=== PATIENT | male | born 1965 | race African-American/Black ===

== ENCOUNTER 2020-10-01 11:00 | Outpatient (RCR) | payer MEDICAID, SELFPAY | END 2021-07-06 13:17 | disposition home or self-care (01) | LOC: HO.PT 11:00 | PROVIDERS: PCP Family Medicine; Visit Provider Family Medicine | DX: M54.9 Dorsalgia, unspecified (principal); M25.512 Pain in left shoulder; M54.2 Cervicalgia | CPT/HCPCS: 97110; 97140; 97161; 97530 ==

== ENCOUNTER → 2020-12-21 08:32 | Outpatient (BNVA) | payer MEDICAID, SELFPAY | PROVIDERS: PCP Family Medicine; Visit Provider Orthopaedic Surgery | DX: M67.912 Unspecified disorder of synovium and tendon, left shoulder (principal); M54.16 Radiculopathy, lumbar region | CPT/HCPCS: 20610; 99212; J1100 ==

== ENCOUNTER 2021-01-04 07:29 | Outpatient (REF) | payer MEDICAID, SELFPAY | END 2021-01-04 07:30 | disposition home or self-care (01) | LOC: HO.CT 07:29 | PROVIDERS: PCP Family Medicine; Visit Provider Orthopaedic Surgery | DX: Z13.89 Encounter for screening for other disorder (principal) ==

== ENCOUNTER 2021-01-11 13:01 | Outpatient (REF) | payer MEDICAID, SELFPAY ==
--- NOTE | ~2021-01-11 | XR_ITS ---
EXAMINATION: XR SHOULDER, LEFT CLINICAL INFORMATION: Left shoulder pain COMPARISON: None TECHNIQUE: After obtaining a single image on supine AP view and opening on fluoroscopy table patient's family had claustrophobia and refused imaging. Will reschedule fluoroscopy arthrogram following medications as per the patient. XR/XR shoulder LT 1V FINDINGS/IMPRESSION: Left shoulder arthrogram was canceled as patient had sudden claustrophobia.. Fluoroscopy 0.4 minutes. Dose area product: 1.849
== END 2021-01-11 13:02 | disposition home or self-care (01) ==
LOC: HO.XRAY 13:01
PROVIDERS: PCP Family Medicine; Visit Provider Orthopaedic Surgery
DX: M67.912 Unspecified disorder of synovium and tendon, left shoulder (principal)
CPT/HCPCS: 73020

== ENCOUNTER 2021-02-22 13:10 | Outpatient (REF) | payer MEDICAID, SELFPAY | END 2021-02-22 13:11 | disposition home or self-care (01) | LOC: HO.XRAY 13:10 | PROVIDERS: Visit Provider Orthopaedic Surgery | DX: Z13.89 Encounter for screening for other disorder (principal) ==

== ENCOUNTER → 2021-02-25 08:36 | Outpatient (BNVA) | payer MEDICAID, SELFPAY | PROVIDERS: PCP Family Medicine; Visit Provider Orthopaedic Surgery | DX: M67.912 Unspecified disorder of synovium and tendon, left shoulder (principal) | CPT/HCPCS: 99212 ==

== ENCOUNTER → 2021-03-05 13:34 | Outpatient (BNVA) | payer MEDICAID, SELFPAY | PROVIDERS: PCP Family Medicine; Visit Provider Nurse Practitioner Family | DX: M54.16 Radiculopathy, lumbar region (principal); M53.3 Sacrococcygeal disorders, not elsewhere classified | CPT/HCPCS: 99202 ==

== ENCOUNTER → 2021-04-06 14:21 | Outpatient (BNVA) | payer MEDICAID, SELFPAY | PROVIDERS: PCP Family Medicine; Visit Provider Nurse Practitioner Family | DX: M54.16 Radiculopathy, lumbar region (principal); M53.3 Sacrococcygeal disorders, not elsewhere classified | CPT/HCPCS: 99212 ==

== ENCOUNTER → 2021-06-09 10:46 | Outpatient (BNVA) | payer MEDICAID, SELFPAY | PROVIDERS: PCP Family Medicine; Visit Provider Urology | DX: N52.9 Male erectile dysfunction, unspecified (principal); N50.3 Cyst of epididymis | CPT/HCPCS: 99212 ==

== ENCOUNTER 2021-07-02 12:42 | Emergency (ER) | payer MEDICAID, SELFPAY ==
[2021-07-02 12:46] VITALS: BP 158/108; PULSE 64; RESP 16; TEMP 36.3; O2SAT 98; BMI 33.8
--- NOTE | 2021-07-02 13:08 | ED.BACK ---
HPI - Back Pain/Injury General Chief Complaint: Back Pain/Injury Stated Complaint: fall- back & hip pain Time Seen by Provider: 07/02/21 13:08 Source: patient Mode of arrival: ambulatory Limitations: no limitations History of Present Illness HPI Narrative: Patient is a 55-year-old male with a past medical history of HTN, ED, chronic back pain and lumbar radiculopathy complaining of low back pain after mechanical fall 3 days ago. Patient states he slipped while was fishing, he states he is having low back left hip and left groin pain which has gotten progressively worse since the incident. He denies any urinary or bowel incontinence. He states he did try to take some ibuprofen with no relief, last dose was yesterday. Related Data Home Medications Medication Instructions Recorded Confirmed atorvastatin 20 mg tablet 20 mg PO DAILY 12/21/20 06/09/21 hydrochlorothiazide 25 mg tablet 25 mg PO DAILY 12/21/20 06/09/21 carvedilol 6.25 mg tablet 6.25 mg PO BID 03/05/21 06/09/21 Previous Rx's Medication Instructions Recorded tizanidine 2 mg tablet 2 mg PO BEDTIME PRN #30 tab 04/06/21 sildenafil 100 mg tablet 100 mg PO DAILY PRN #30 tab 04/30/21 sildenafil 100 mg tablet 100 mg PO DAILY PRN 30 Days #30 tab 06/09/21 naproxen 500 mg tablet 500 mg PO BID PRN #20 tab 07/02/21 prednisone 50 mg tablet 50 mg PO DAILY #4 tab 07/02/21 Allergies Allergy/AdvReac Type Severity Reaction Status Date / Time No Known Allergies Allergy Verified 06/09/21 08:12 [No Known Allergies*] Review of Systems Review of Systems: Yes all other systems are reviewed and are negative [facility] Past Medical History Medical History Chronic back pain Dysfunction of left rotator cuff Erectile dysfunction Hypertension Lumbar radiculopathy Surgical History History of surgery Family History Family History Father No problems noted. Mother No problems noted. Social History Social History Alcohol intake: current Advance Directives: No Advance Directives Information Provided: No Current occupational status: unemployed Physical Exam Vital Signs: Vital Signs: Last Vital Signs Temp 98.0 F 07/02/21 14:28 Pulse 54 07/02/21 14:28 Resp 18 07/02/21 14:28 BP 149/99 H 07/02/21 14:28 Pulse Ox 97 07/02/21 14:28 Body Mass Index 33.8 Const: General: cooperative, healthy appearing, comfortable, no acute distress and well developed Orientation/consciousness: patient oriented x3 Limitations: no limitations HENMT: Head: Yes normal to inspection Eyes: General: appearance normal, both eyes and all related structures Neck: Neck: Yes normal visual inspection and Yes full ROM Resp: Effort & Inspection: normal respiratory effort and able to speak in complete sentences Back/Spine/Pelvis: Thoracic/Lumbar Spine: straight leg raise positive (left) Skin: General skin exam: no rashes or lesions noted Neuro: General: patient oriented x3 Extrem: General: Yes normal to inspection Course Course Course Narrative: Patient is a 55-year-old male with a past medical history of HTN, ED, chronic back pain and lumbar radiculopathy complaining of low back pain after mechanical fall 3 days ago. VSS. PE consistent with sciatica. Will give IM Toradol and prednisone p.o.and reassess. Discharge Plan Discharge Clinical Impression: Sciatica of left side Patient Disposition: Home, Self-Care Instructions: Sciatica (ED), Lower Back Exercises (ED) Additional Instructions: I am sending two prescriptions to her pharmacy, the 1st is prednisone, your going to take this once a day in the morning to help with inflammation, you going to take his medication for 4 days only. You could also take naproxen which is the other medication and sent into her pharmacy at every 12 hours and that is for inflammation and pain. Please follow-up with your primary care doctor is you may need physical therapy or further imaging. Prescriptions: New naproxen 500 mg tablet 500 mg PO BID PRN (Reason: pain) Qty: 20 RF: 0 prednisone 50 mg tablet 50 mg PO DAILY Qty: 4 RF: 0 No Action sildenafil 100 mg tablet 100 mg PO DAILY PRN (Reason: sexual activity) Qty: 30 RF: 1 hydrochlorothiazide 25 mg tablet 25 mg PO DAILY RF: 0 atorvastatin 20 mg tablet 20 mg PO DAILY RF: 0 carvedilol 6.25 mg tablet 6.25 mg PO BID RF: 0 sildenafil 100 mg tablet 100 mg PO DAILY PRN (Reason: sexual activity) 30 Days Qty: 30 RF: 1 tizanidine 2 mg tablet 2 mg PO BEDTIME PRN (Reason: muscle spasticity) Qty: 30 RF: 3 Referrals: Ethel Santana MD [Primary Care Provider] - 2 days (sciatica) Interventions: ED Discharge Assessment Last Done: 07/02/21 15:08 Discharge Date/Time: 07/02/21 15:05
[2021-07-02] MEDS: Ketorolac Tromethamine 60 MG/2 ML VIAL IM (13:40)
[2021-07-02] MEDS: predniSONE 10 MG TABLET 50 MG PO (13:41)
[2021-07-02 14:28] VITALS: BP 149/99; PULSE 54; RESP 18; TEMP 36.7; O2SAT 97
== END 2021-07-02 15:05 | disposition home or self-care (01) ==
PROVIDERS: Emergency Provider Emergency Medicine; PCP Family Medicine
DX: M54.42 Lumbago with sciatica, left side (principal); I10 Essential (primary) hypertension; Z79.899 Other long term (current) drug therapy
CPT/HCPCS: 96372; 99284; J1885

== ENCOUNTER → 2021-10-05 13:58 | Outpatient (BNVA) | payer MEDICAID, SELFPAY | PROVIDERS: PCP Family Medicine; Visit Provider Nurse Practitioner Family | DX: M54.16 Radiculopathy, lumbar region (principal); M79.18 Myalgia, other site; F40.240 Claustrophobia; Z87.39 Personal history of other diseases of the musculoskeletal system and connective tissue | CPT/HCPCS: 99212 ==

== ENCOUNTER → 2021-10-06 11:04 | Outpatient (BNVA) | payer MEDICAID, SELFPAY | PROVIDERS: PCP Family Medicine; Referring Provider Family Medicine; Visit Provider Surgery | DX: Z12.11 Encounter for screening for malignant neoplasm of colon (principal) | CPT/HCPCS: 99202 ==

== ENCOUNTER → 2021-12-10 10:42 | Outpatient (BNVA) | payer MEDICAID, SELFPAY | PROVIDERS: PCP Family Medicine; Visit Provider Urology ==

== ENCOUNTER 2022-01-05 12:38 | Outpatient (REF) | payer MEDICAID, SELFPAY ==
--- NOTE | ~2022-01-05 | XR_ITS ---
EXAMINATION: XR SHOULDER, LEFT CLINICAL INFORMATION: Shoulder pain COMPARISON: None TECHNIQUE: Four views of the left shoulder. XR/XR shoulder LT min 2V FINDINGS/IMPRESSION: No acute fracture or dislocation. Moderate degenerative changes of the acromioclavicular joint with loss of joint space. Glenohumeral joint space is maintained. Soft tissues are unremarkable.
== END 2022-01-05 12:39 | disposition home or self-care (01) ==
LOC: HO.XRAY 12:38
PROVIDERS: Absent Provider Family Medicine; PCP Family Medicine; Visit Provider Emergency Medicine
DX: M25.512 Pain in left shoulder (principal)
CPT/HCPCS: 73030

== ENCOUNTER → 2022-01-17 12:30 | Outpatient (BNVA) | payer MEDICAID, SELFPAY | PROVIDERS: PCP Family Medicine; Visit Provider Orthopaedic Surgery | DX: M25.512 Pain in left shoulder (principal); M67.912 Unspecified disorder of synovium and tendon, left shoulder; M19.012 Primary osteoarthritis, left shoulder; M54.16 Radiculopathy, lumbar region; I10 Essential (primary) hypertension; E78.00 Pure hypercholesterolemia, unspecified; F40.240 Claustrophobia; Z87.891 Personal history of nicotine dependence | CPT/HCPCS: 99212 ==

== ENCOUNTER 2022-02-15 | Outpatient (REF) | payer MEDICAID, SELFPAY ==
[2022-02-11 10:40] VITALS: BMI 34.7
--- NOTE | 2022-02-15 | ECG_ITS ---
Test Reason : PREOP Blood Pressure : / mmHG Vent. Rate : 054 BPM Atrial Rate : 054 BPM P-R Int : 238 ms QRS Dur : 092 ms QT Int : 414 ms P-R-T Axes : 010 043 044 degrees QTc Int : 392 ms Sinus bradycardia with 1st degree A-V block Nonspecific T wave abnormality Abnormal ECG When compared with ECG of 01-NOV-2013 07:31, No significant change was found Referred By: Isabell Ovalle Electronically Signed By:NERISSA DUMAS MD
[2022-02-15 12:10] VITALS: BP 132/74; PULSE 63; RESP 16; O2SAT 98; BMI 34.5
--- NOTE | 2022-02-15 12:35 | P.CONAN_ITS ---
HPI - Anesthesia Eval Consult details Narrative: 56yo M for Left Shoulder Repair Distal Excision Clavicle,poss rotator cuff repair, Labs, EKG, Medical Clearance pending (ECHO 2019) - Echo ordered but not booked as of 03/02/22 [facility] Active Problems Active Problems: All Active Problems (Updated 02/11/22 @ 11:00 by Silvana Dasilva RN) Sacroiliac joint pain (Acute) Epididymal cyst (Acute) History of degenerative disc disease (Acute) Myofascial pain (Acute) Claustrophobia (Acute) Acromioclavicular joint arthritis (Acute) Colon cancer screening (Acute) Erectile dysfunction (Acute) Lumbar radiculopathy (Acute) Dysfunction of left rotator cuff (Acute) Past Medical History Medical History (Updated 02/11/22 @ 11:00 by Silvana Dasilva RN) Anxiety Cardiomyopathy Chronic back pain Colon cancer screening COVID-19 vaccine series completed Depression Dysfunction of left rotator cuff Elevated cholesterol Erectile dysfunction GERD (gastroesophageal reflux disease) Hypertension Lumbar radiculopathy Sickle-cell trait Sleep apnea Weakness Family History Family History Father No problems noted. Mother No problems noted. Family history of problems with anesthesia: No Surgical History Surgical History (Updated 02/11/22 @ 10:33 by Silvana Dasilva RN) H/O colonoscopy Hx of appendectomy Hx of arthroscopic knee surgery History of Problems with Anesthesia: No Social History Social History (Updated 02/11/22 @ 10:44 by Silvana Dasilva RN) Household Members Other:: none Are you a primary healthcare administration internship to a significant other at home: No Do you presently have visiting nurse or other home services: No Alcohol intake: current Alcohol intake frequency: former alcohol drinker Patient Tobacco Use Status: Former Tobacco user Quit Date: 2008 Tobacco use type: Cigarette Use of substances other than those prescribed or required for medical reasons: Yes Substance Use Type: Marijuana Substance Use Frequency: Daily Advance Directives Date on File: 01/13/16 Current occupational status: unemployed Narrative Narrative: No recent illness No SOB/CP with activity within limits of pain Hx of Cardiomyopathy. No SOB, peripheral edema or orthopnea. Meds Allergies Allergy/AdvReac Type Severity Reaction Status Date / Time No Known Allergies Allergy Verified 02/11/22 10:36 [No Known Allergies*] Home Medications Medication Instructions Recorded Confirmed Last Taken Type atorvastatin 20 mg tablet 20 mg PO BEDTIME 12/21/20 02/11/22 Unknown History hydrochlorothiazide 25 mg tablet 25 mg PO DAILY 12/21/20 02/11/22 Unknown History carvedilol 6.25 mg tablet 6.25 mg PO BID 03/05/21 02/11/22 Unknown History folic acid 1 mg tablet 1 mg PO DAILY 10/06/21 02/11/22 Unknown History melatonin 3 mg capsule 3 mg PO BEDTIME PRN 10/06/21 02/11/22 Unknown History thiamine mononitrate (vit B1) 100 100 mg PO DAILY 10/06/21 02/11/22 Unknown History mg tablet (Vitamin B-1 (mononitrate)) omeprazole 20 mg capsule,delayed 1 cap PO DAILY PRN 02/11/22 02/11/22 Unknown History release Exam Exam Date and Time: February 15, 2022 1235 Height,Weight and Vital Signs: Height 5 ft 10 in Weight 109.2 kg Last Vital Signs Pulse 63 02/15/22 12:10 Resp 16 02/15/22 12:10 BP 132/74 02/15/22 12:10 Pulse Ox 98 02/15/22 12:10 Airway TM Dist: >3cm Neck ROM: Full Loose/Missing/Broken Teeth: Yes (#29 loose, #30 broken, #21 broken, mult molars pulled) Assessment and Plan Final Anesthetic Review Family History of Problems with Anesthesia: No History of Problems with Anesthesia: No
[2022-02-15 13:23] LABS: Hematocrit 42.3 % (42.0-52.0); Hemoglobin 14.3 g/dl (14.0-18.0); Mean Corpuscular HGB Conc 33.8 g/dl (31.0-36.0); Mean Corpuscular Volume 76.8 fL (80.0-98.0); Mean Platelet Volume 9.6 fL (9.4-12.4); Platelet Count 217 X10*3/uL (160-400); Red Blood Count 5.51 X10*6/uL (4.60-5.80); Red Cell Distribution Width 14.8 % (11.0-16.0); White Blood Count 6.2 X10*3/uL (4.8-10.8)
[2022-02-15 13:52] LABS: Anion Gap 12 (12-20); Blood Urea Nitrogen 16 mg/dL (9-16); Calcium 9.9 mg/dL (8.4-10.2); Carbon Dioxide 25 mmol/L (22-29); Chloride 105 mmol/L (96-108); Creatinine Clr Calc Pharmacy 104.1; Estimated Glomerular Filt Rate > 60; Glucose Random 92 mg/dL (60-115); Potassium 3.9 mmol/L (3.3-5.1); Sodium 138 mmol/L (135-145)
--- NOTE | 2022-03-08 08:21 | P.CONAN_ITS ---
HPI - Anesthesia Eval Consult details Narrative: Cx d/t cellulitis of foot with abx treatment 56yo M for Left Shoulder Repair Distal Excision Clavicle,poss rotator cuff repair, Medically optimized per PCP [facility] Active Problems Active Problems: All Active Problems (Updated 02/11/22 @ 11:00 by Silvana Dasilva RN) Sacroiliac joint pain (Acute) Epididymal cyst (Acute) History of degenerative disc disease (Acute) Myofascial pain (Acute) Claustrophobia (Acute) Acromioclavicular joint arthritis (Acute) Colon cancer screening (Acute) Erectile dysfunction (Acute) Lumbar radiculopathy (Acute) Dysfunction of left rotator cuff (Acute) Past Medical History Medical History (Updated 02/11/22 @ 11:00 by Silvana Dasilva RN) Anxiety Cardiomyopathy Chronic back pain Colon cancer screening COVID-19 vaccine series completed Depression Dysfunction of left rotator cuff Elevated cholesterol Erectile dysfunction GERD (gastroesophageal reflux disease) Hypertension Lumbar radiculopathy Sickle-cell trait Sleep apnea Weakness Family History Family History Father No problems noted. Mother No problems noted. Family history of problems with anesthesia: No Surgical History Surgical History (Updated 02/11/22 @ 10:33 by Silvana Dasilva RN) H/O colonoscopy Hx of appendectomy Hx of arthroscopic knee surgery History of Problems with Anesthesia: No Social History Social History (Updated 02/11/22 @ 10:44 by Silvana Dasilva RN) Household Members Other:: none Are you a primary critical care nurse specialist to a significant other at home: No Do you presently have visiting nurse or other home services: No Alcohol intake: current Alcohol intake frequency: former alcohol drinker Patient Tobacco Use Status: Former Tobacco user Quit Date: 2008 Tobacco use type: Cigarette Substance Use Type: Marijuana Advance Directives Date on File: 01/13/16 Current occupational status: unemployed Meds Allergies Allergy/AdvReac Type Severity Reaction Status Date / Time No Known Allergies Allergy Verified 03/07/22 12:41 [No Known Allergies*] Home Medications Medication Instructions Recorded Confirmed Last Taken Type atorvastatin 20 mg tablet 20 mg PO BEDTIME 12/21/20 03/07/22 Unknown History hydrochlorothiazide 25 mg tablet 25 mg PO DAILY 12/21/20 03/07/22 Unknown History carvedilol 6.25 mg tablet 6.25 mg PO BID 03/05/21 03/07/22 Unknown History folic acid 1 mg tablet 1 mg PO DAILY 10/06/21 03/07/22 Unknown History melatonin 3 mg capsule 3 mg PO BEDTIME PRN 10/06/21 03/07/22 Unknown History thiamine mononitrate (vit B1) 100 100 mg PO DAILY 10/06/21 03/07/22 Unknown History mg tablet (Vitamin B-1 (mononitrate)) omeprazole 20 mg capsule,delayed 1 cap PO DAILY PRN 02/11/22 03/07/22 Unknown History release Exam Exam Date and Time: March 08, 2022820 Height,Weight and Vital Signs: Height 5 ft 10 in Weight 109.2 kg Last Vital Signs Pulse 63 02/15/22 12:10 Resp 16 02/15/22 12:10 BP 132/74 02/15/22 12:10 Pulse Ox 98 02/15/22 12:10 Pertinent Lab Results Pertinent Lab Results: Laboratory Tests 02/15/22 02/15/22 13:08 13:08 WBC 6.2 RBC 5.51 Hgb 14.3 Hct 42.3 MCV 76.8 L MCH 26.0 L MCHC 33.8 RDW 14.8 Plt Count 217 MPV 9.6 Absolute Nucleated RBC 0.000 Nucleated RBC % (auto) 0.0 Sodium 138 Potassium 3.9 Chloride 105 Carbon Dioxide 25 Anion Gap 12 BUN 16 Creatinine 0.98 Estim Creat Clear Calc 104.1 Estimated GFR > 60 Random Glucose 92 Calcium 9.9 Narrative Narrative: EKG 01/2022 Vent. Rate : 054 BPM ? ? Atrial Rate : 054 BPM ?? P-R Int : 238 ms? QRS Dur : 092 ms ? ? QT Int : 414 ms ? ? ? P-R-T Axes : 010 043 044 degrees ?? QTc Int : 392 ms ? Sinus bradycardia with 1st degree A-V block Nonspecific T wave abnormality Abnormal ECG When compared with ECG of 01-NOV-2013 07:31, No significant change was found ECHO 02/2022 Conclusions: - 1.? Normal LV systolic function with mild LVH? 2.? Normal cardiac valvular Doppler? 3.? Normal RV systolic pressure? 4.? No pericardial effusion? ?? Assessment and Plan Assessment Anesthesia Assessment: Chart Reviewed Final Anesthetic Review Family History of Problems with Anesthesia: No History of Problems with Anesthesia: No
== END 2022-02-15 00:01 | disposition home or self-care (01) ==
LOC: HO.PAT
PROVIDERS: Nurse Practitioner; PCP Family Medicine; Visit Provider Orthopaedic Surgery
DX: Z53.09 Procedure and treatment not carried out because of other contraindication (principal); L03.114 Cellulitis of left upper limb; M67.912 Unspecified disorder of synovium and tendon, left shoulder; M19.012 Primary osteoarthritis, left shoulder
CPT/HCPCS: 36415; 80048; 85027; 93005

== ENCOUNTER → 2022-03-03 15:50 | Outpatient (REF) | payer MEDICAID, SELFPAY ==
--- NOTE | 2022-03-03 15:56 | CA_ITS ---
Transthoracic Echocardiogram Patient (Last, First, Middle): Ramsey Ayala L Gender: Male Date of : 1965 Age: 56 Procedure Date: 03/03/2022 Procedure Type: Transthoracic Echocardiogram Location: OP Height: 180.34 cm Weight: 107.05 kg BSA: 2.26 m2 Heart Rate: bpm BP: 127 / 77 mmHg Wet Sander: BERTO Referring MD: Diane Hernandez NP Computer Science Professor: Ochoa Marquez MD Symptoms: I42.2 OTHER HYPERTROPHIC CMP, Z01.810 CV PRE OP EXAM Study Quality: Good ECG Rhythm: Sinus Conclusions: - 1. Normal LV systolic function with mild LVH 2. Normal cardiac valvular Doppler 3. Normal RV systolic pressure 4. No pericardial effusion Findings Left Ventricle Normal left ventricular cavity size. There is mildly increased left ventricular wall thickness. The left ventricular systolic function is normal. The visually estimated ejection fraction is between 60-65%. Spectral Doppler is indicative of a normal filling pattern. Right Ventricle Normal right ventricular cavity size and systolic function. Atria The left atrium is normal in size. There is no evidence of interatrial shunt. The right atrium is normal in size. Aortic Valve Normal aortic valve structure and function. There is no aortic valve stenosis. There is no aortic valve regurgitation. Mitral Valve Normal mitral valve structure and function. There is trace mitral valve regurgitation. There is no mitral valve stenosis. Pulmonic Valve The pulmonic valve was not well visualized. Tricuspid Valve Likely normal tricuspid valve structure and function. There is trace tricuspid valve regurgitation. The right ventricular systolic pressure is normal. The right ventricular systolic pressure is 11 mmHg. Normal right atrial pressure. There is no evidence of pulmonary hypertension. Great Vessels All visible segments of the aorta are normal in size. The pulmonary artery was not well visualized. Venous The inferior vena cava is normal in size and collapses greater than 50% with inspiration. Pericardium/Pleural There is no evidence of pericardial effusion. Prior Study Comparison No prior study available for comparison. Measurements 2D Linear Measurements IVSd: 1.27 0.6-0.9/0.6-1.0 cm LVIDd: 4.47 3.9-5.3/4.2-5.9 cm LVIDd Index: 1.98 2.4-3.2/2.2-3.1 cm/m2 LVIDs: 3.02 2.0-3.6 cm LVPWd: 1.36 0.7-1.1 cm LA Diam: 4.20 2.7-3.8/3.0-4.0 cm LAIDs Index: 1.86 1.5-2.3 cm/m2 LV Mass: 321.75 67-162/88-224 g LV Mass Index: 142.37 43-95/49-115 g/m2 LVOT Diam: 2.20 3.0+(-)1.3 cm 2D Systolic Function EF 4C: 63.10 >55% EF 2C: 60.90 >55% EF BiP: 61.40 >55% Mitral Valve MV Pk E: 0.75 MV PK A: 0.61 MV Decel Time: 372.00 E/A: 1.20 E'Lateral: 8.38 E'Medial: 8.81 E/E' Med: 8.50 E/E' Lat: 9.00 PHT: 109.00 MVA PHT: 2.02 Decel [place]: 2.02 Aortic Valve AoV Pk Ritesh: 1.36 AoV Mn Ritesh: 0.95 AoV VTI: 0.28 AoV Pk Grad: 7.00 Aov Mn Grad: 4.00 SCOTT Cont.VTI: 3.51 LVOT LVOT Pk Ritesh: 1.15 LVOT Mn Ritesh: 0.85 LVOT VTI: 0.25 LVOT Pk Grad: 5.00 LVOT Mn Grad: 3.00 LVOT Diam: 2.20 LVOT Area: 3.80 Diastolic Function MV Pk E: 0.75 MV Pk A: 0.61 E/A: 1.20 E'Medial: 8.81 E/E' Med: 8.50 E' Laterial: 8.38 E/E' Lat: 9.00 Right Ventricle TAPSE (mm): 24.00 TVS' Ritesh: 15.40 Tricuspid Valve TR Pk Ritesh: 1.45 TR Pk Grad: 8.00 RA Press: 3.00 RVSP: 11.00 Great Vessels Aorta Sinus of Valsalva: 3.73 2.0-3.[address] [place]: 2.75 1.7-3.4 cm Ao Asc: 3.60 2.1-3.4 cm Ao Arch: 2.60 Updated in Other Vendor System with Status of Final Ochoa Marquez MD electronically signed on 03/04/2022 1:55:55 PM with status of Final
== END ==
LOC: HO.CARD 15:50
PROVIDERS: PCP Family Medicine; Visit Provider Nurse Practitioner Primary Care
DX: Z01.810 Encounter for preprocedural cardiovascular examination (principal); I42.2 Other hypertrophic cardiomyopathy
CPT/HCPCS: 93306

== ENCOUNTER → 2022-03-07 12:36 | Outpatient (BNVA) | payer MEDICAID, SELFPAY | PROVIDERS: PCP Family Medicine; Visit Provider Physician Assistant | DX: Z01.818 Encounter for other preprocedural examination (principal); M67.912 Unspecified disorder of synovium and tendon, left shoulder; M19.019 Primary osteoarthritis, unspecified shoulder | CPT/HCPCS: 99212 ==

== ENCOUNTER 2022-04-05 12:11 | Outpatient (REF) | payer MEDICAID, SELFPAY ==
--- NOTE | ~2022-04-05 | XR_ITS ---
EXAMINATION: XR FOOT, RIGHT CLINICAL INFORMATION: Cellulitis. Evaluate for osteomyelitis right fourth and fifth toes COMPARISON: None TECHNIQUE: AP, lateral, and oblique views of the right foot. FINDINGS: The bones and soft tissues are normal. No fracture. Alignment is anatomic. Joint spaces are maintained. XR/XR foot RT min 3V IMPRESSION: Normal right foot.
--- NOTE | ~2022-04-05 | XR_ITS ---
EXAMINATION: XR FEMUR, RIGHT CLINICAL INFORMATION: Cellulitis of the left limp. COMPARISON: None TECHNIQUE: AP and lateral views of the right femur were obtained. FINDINGS: No acute fracture or malalignment. No cortical disruption to suspect osteomyelitis. Nonspecific soft tissue swelling. Indeterminate subcutaneous soft tissue calcifications along the posterior surface of the knee. XR/XR femur RT 2V IMPRESSION: No discrete area of cortical disruption or erosions to suspect osteomyelitis by radiographic examination. Nonspecific diffuse soft tissue swelling. Indeterminate superficial calcifications in the posterior compartment of the knee.
== END 2022-04-05 12:12 | disposition home or self-care (01) ==
LOC: HO.XRAY 12:11
PROVIDERS: PCP Family Medicine; Visit Provider Family Medicine
DX: M79.671 Pain in right foot (principal); L03.115 Cellulitis of right lower limb
CPT/HCPCS: 73552; 73630

== ENCOUNTER 2022-05-04 07:35 | Day surgery (SDC) | payer MEDICAID, SELFPAY ==
[2022-05-04] VITALS (18 sets, daily range): BP systolic 130–171; BP diastolic 74–100; PULSE 51–84; RESP 16–22; TEMP 36.1–36.8; O2SAT 93–99; BMI 32.6
[2022-05-04] MEDS: Lactated Ringers 1,000 ML 100 ML IVCONT (08:46)
--- NOTE | 2022-05-04 12:52 | PM.OP ---
Brief Operative Note Date of Service: 05/04/22 Pre-op diagnosis: Left shoulder rtc tear Post-op diagnosis: other (tear supraspinatus infraspiantus and subscapularis; SLAP tear; ACJ OA; LUIS ENRIQUE) Procedure: RTC repair Subscapularis repair BIceps tenodesis SAD DCE Implants: Zen[employer] and [employer] helacoil x 6 Surgeon: Lawrence Javier MD Anesthesia: GETA and regional Was an Machinist Outside used for this Procedure?: Yes Machinist Outside: Kim Alejandre Estimated blood loss (mL): 10 IV fluids (mL): 1,200 Pathology: none sent Condition: stable Disposition: PACU
--- NOTE | 2022-05-04 15:21 | ECG_ITS ---
Test Reason : CHEST PAIN Blood Pressure : / mmHG Vent. Rate : 055 BPM Atrial Rate : 055 BPM P-R Int : 252 ms QRS Dur : 092 ms QT Int : 440 ms P-R-T Axes : 052 -17 055 degrees QTc Int : 420 ms Sinus bradycardia with 1st degree A-V block Otherwise normal ECG When compared with ECG of 15-FEB-2022 12:55, No significant change was found Referred By: Latanya Michael Electronically Signed By:Gil Mccall
[2022-05-04] MEDS: Nitroglycerin 0.4 MG TAB.SUBL SUBLINGUAL ×2 (15:49→15:59)
--- NOTE | 2022-05-04 16:06 | PC.NURSE ---
ADDENDUM: PATIENT HAD COME OVER TO THE DISCHARGE AREA AND ORIGINALLY COMPLAINED OF NAUSEA AFTER DRINKING HIS CRANBERRY JUICE FAIRLY FAST. NAUSEA WENT AWAY QUICKLY. PATIENT THEN STARTED TO COMPLAIN OF LEFT SIDED CHEST DISCOMFORT 7 TO 06/08. DR. ZULUAGA (ANESTHESIOLOGIST) CAME TO ASSESS PATIENT AND IT WAS DECIDED TO BRING PATIENT BACK TO THE PACU AREA FOR AN EKG.
--- NOTE | 2022-05-04 16:09 | PC.NURSE ---
VITAL SIGNS: 160/74, 98% RA, SB 59.
--- NOTE | 2022-05-04 16:21 | HO.POSTANES ---
Post Anesthesia Evaluation Post Anesthesia Evaluation Vital Signs: Vital Signs Temp Pulse Resp BP Pulse Ox O2 Del Method O2 Flow Rate 05/04/22 15:59 62 150/80 H 05/04/22 15:49 64 144/85 H 05/04/22 14:15 97.3 F 55 20 137/95 H 95 Room Air 05/04/22 13:55 57 20 134/84 93 Room Air 05/04/22 13:40 52 19 136/89 93 Room Air 05/04/22 13:25 51 19 145/86 H 97 Nasal Cannula with ETCO2 2 05/04/22 13:10 69 17 142/79 H 97 Nasal Cannula with ETCO2 2 05/04/22 12:55 69 22 H 154/97 H 96 Nasal Cannula with ETCO2 2 05/04/22 12:50 66 20 146/90 H 98 Nasal Cannula with ETCO2 3 05/04/22 12:45 64 20 140/81 H 98 Nasal Cannula with ETCO2 3 05/04/22 12:40 97.0 F 84 18 141/100 H 99 Simple Mask 8 05/04/22 08:43 98.2 F 55 18 144/77 H 96 Room Air Anesthesia: Nerve Block and General Endotracheal-GETA Mental Status: Awake Pain Control: Satisfactory Nausea/Vomiting: None Hydration: Adequate Comments: pt was c/o dull CP, left, 6/10 just before DC. All VSS were nl x BP160/90s, but he had higher BP preop too. No sweating, no SOB, did not feel sick. EKG 12 leads was nl, sl Ntg eliminated the squeezing pressure. He also has GERD, preop ECHO showed mild LVH. Troponin was drawn and nl. Most likely pt's symtoms had esophageal origin. Instructed to call amb. if CP re-developed, otherwise needs w/u through his PCP.
[2022-05-04 16:38] LABS: Troponin-I High Sensitivity < 3.5 ng/L (<3.5-35.0)
--- NOTE | 2022-05-04 16:47 | PC.NURSE ---
[id number] Dr. Michael at bedside reviewing Troponin negative. per anesthesia cleared to go home. Patient OOB to bathroom to voidx1. able to take a few steps to void. Patient reports pain more to left axilla versus chest pain.
--- NOTE | 2022-05-05 17:37 | W.PM.OPN ---
Operative Note Operative Note Date of Service: 05/05/22 Narrative: Date of Service: 05/04/22 Pre-op diagnosis: Left shoulder rtc tear Post-op diagnosis: other (tear supraspinatus infraspiantus and subscapularis; SLAP tear; ACJ OA; LUIS ENRIQUE) Procedure: ?RTC repair Subscapularis repair BIceps tenodesis SAD DCE Implants: Hernandez and Nephew helacoil x 6 Surgeon: Lawrence Javier MD Anesthesia: GETA and regional Was an Fashion Adviser used for this Procedure?: Yes Fashion Adviser: Kim Alejandre Estimated blood loss (mL): 10 IV fluids (mL): 1,200 Pathology: none sent Condition: stable Disposition: PACU Procedure in detail: Patient was brought to the operating room and placed the the beach chair position. All bony prominences were well padded and the limb was prepped and draped in standard sterile fashion. A time out was called to identify proper site, proper procedure and proper surgeon. IV antibiotics per weight were administered. I began by making a posterolateral stab incision with a 15 blade. A blunt trochar was placed into the glenohumeral joint and I insufflated the joint with saline and a 30 degree arthroscope was placed. I established an outside- in anterior portal just distal to the biceps tendon. I then began my inspection of the glenohumeral joint. The articular surfaces were normal. There was a SLAP tear with extension into the biceps distally and a high grade partial subscapularis tear as well as a full thickness rtc tear. I tagged and cut the biceps and debrided the superior labrum. I then release the subscapularis. It was mobile and so 2 looped sutures and one suture tape were used to repair it to its humeral insertion. A 5.0 helacoil ( Hernandez and NephProtalex) was used for the repair. The bed was debrided to bleeding bone befroe insertion. The biceps was then tenodesed in the bicipital groove lateral to the subscapularis. Once satisfied with the repair I then removed the trochar and entered the subacromial space. A direct lateral portal was then established and I performed a bursectomy. The cuff was then examined. There was a complete tear of the supraspinatus and the infraspinatus. I used two double loaded Helacoil anchors medially and brought the suture tape through the cuff and secured these to two lateral row anchors. An additional 2 looped sututre were used to optimize my repair. Again the bone bed was debrided down to bleeding bone. A 5 mm distal clavicle excision and a 5 mm subacromial decompression was performed in standard fashion. Once I was satisfied with the repair final images were captured and I removed all instrumentation. Portals were closed with nylon. Patient was placed in an abduction sling, extubated and brought to the recovery room in stable condition. There were no known complications.
== END 2022-05-04 16:55 | disposition home or self-care (01) ==
PROVIDERS: Anesthesiology; PCP Family Medicine; Visit Provider Orthopaedic Surgery
PROC: (CPT 29827; principal; 2022-05-04 09:40)
DX: M67.912 Unspecified disorder of synovium and tendon, left shoulder (principal); M19.012 Primary osteoarthritis, left shoulder; G89.29 Other chronic pain; M54.16 Radiculopathy, lumbar region; I10 Essential (primary) hypertension; E78.00 Pure hypercholesterolemia, unspecified; K21.9 Gastro-esophageal reflux disease without esophagitis; G47.33 Obstructive sleep apnea (adult) (pediatric); F40.240 Claustrophobia; Z87.891 Personal history of nicotine dependence; F12.90 Cannabis use, unspecified, uncomplicated
CPT/HCPCS: 29827; 29826; 29824; 36415; 84484; 93005; C1713; J0131; J0171; J0690; J1100; J1885; J2250; J2405; J2550; J2795; J3010

== ENCOUNTER → 2022-05-09 10:31 | Outpatient (BNVA) | payer MEDICAID, SELFPAY | PROVIDERS: PCP Family Medicine; Visit Provider Physician Assistant | DX: Z47.89 Encounter for other orthopedic aftercare (principal) | CPT/HCPCS: 99212 ==

== ENCOUNTER 2022-06-03 13:15 | Emergency (ER) | payer MEDICAID, SELFPAY ==
--- NOTE | ~2022-06-03 | XR_ITS ---
EXAMINATION: XR CHEST CLINICAL INFORMATION: Chest pain. COMPARISON: 10/31/2013 chest radiograph. TECHNIQUE: Frontal view of the chest was obtained. FINDINGS: The lungs are clear. The heart and mediastinal structures are unremarkable XR/XR chest 1V IMPRESSION: No acute cardiopulmonary process.
--- NOTE | ~2022-06-03 | NM_ITS ---
EXAMINATION: NM LUNG IMAGE PERFUSION CLINICAL INFORMATION: Elevated d-dimer. Dyspnea. COMPARISON: Chest x-ray 06/03/2022 TECHNIQUE: 3 mCi of technetium 99m MAA was injected. Multiple images obtained of lungs. FINDINGS: There is homogeneous perfusion of the right and left lung. No perfusion defect. Normal perfusion scan. No evidence of pulmonary medicine. NM/NM pul perfusion IMPRESSION: Normal perfusion scan. No evidence of pulmonary embolism.
--- NOTE | 2022-06-03 13:26 | ECG_ITS ---
Test Reason : sob Blood Pressure : / mmHG Vent. Rate : 079 BPM Atrial Rate : 079 BPM P-R Int : 202 ms QRS Dur : 084 ms QT Int : 378 ms P-R-T Axes : 073 022 071 degrees QTc Int : 433 ms Normal sinus rhythm Nonspecific ST and T wave abnormality Abnormal ECG When compared with ECG of 04-MAY-2022 15:28, CO interval has decreased Referred By: Generic ED Physician Electronically Signed By:NERISSA DUMAS MD
[2022-06-03 13:32] VITALS: BP 103/70; PULSE 84; RESP 18; TEMP 36.2; O2SAT 99; BMI 32.6
[2022-06-03 13:41] LABS: MANUAL DIFF FLAG NO
[2022-06-03 13:47] LABS: Basophils Percent Auto 0.3 % (0-2); Eosinophils Absolute Auto 0.1 X10*3/uL (0.0-0.4); Eosinophils Percent Auto 1.3 % (0-4); Hematocrit 41.2 % (42.0-52.0); Imm Gran Abs Auto 0.03 X10*3/uL (0.00-0.03); Imm Gran Pct Auto 0.4 % (0.0-0.4); Lymphocytes Percent Auto 28.9 % (20-40); Mean Corpuscular Hemoglobin 25.9 pg (27.0-33.0); Mean Corpuscular Volume 76.3 fL (80.0-98.0); Mean Platelet Volume 9.2 fL (9.4-12.4); Monocytes Absolute Auto 0.5 X10*3/uL (0.1-1.2); Monocytes Percent Auto 6.7 % (2-11); Neutrophils Absolute Auto 4.3 x10*3/uL (2.0-8.3); Neutrophils Percent Auto 62.4 % (45-73); Platelet Count 271 X10*3/uL (160-400); Red Cell Distribution Width 14.9 % (11.0-16.0); White Blood Count 6.9 X10*3/uL (4.8-10.8)
[2022-06-03 14:01] LABS: Anion Gap 15 (12-20); Blood Urea Nitrogen 17 mg/dL (9-16); Calcium 8.8 mg/dL (8.4-10.2); Carbon Dioxide 21 mmol/L (22-29); Chloride 106 mmol/L (96-108); Creatinine Clr Calc Pharmacy 99.2; Estimated Glomerular Filt Rate > 60; Glucose Random 157 mg/dL (60-115); Potassium 3.7 mmol/L (3.3-5.1); Sodium 138 mmol/L (135-145)
[2022-06-03 14:02] LABS: Troponin-I High Sensitivity < 3.5 ng/L (<3.5-35.0)
[2022-06-03 14:07] LABS: D Dimer High Sensitivity 294 NG/ML
[2022-06-03 14:12] LABS: COVID-19 Test Negative (Negative)
--- NOTE | 2022-06-03 14:18 | ECG_ITS ---
Test Reason : CHEST PAIN Blood Pressure : / mmHG Vent. Rate : 066 BPM Atrial Rate : 066 BPM P-R Int : 212 ms QRS Dur : 086 ms QT Int : 390 ms P-R-T Axes : 010 030 063 degrees QTc Int : 408 ms Sinus rhythm with 1st degree A-V block Septal infarct , age undetermined Abnormal ECG When compared with ECG of 03-JUN-2022 13:24, No significant change was found Referred By: Leta Viveros Electronically Signed By:NERISSA DUMAS MD
--- NOTE | 2022-06-03 14:25 | ED.CHESTPAIN ---
HPI - Chest Pain General Chief Complaint: Chest Pain Stated Complaint: High heart rate Time Seen by Provider: 06/03/22 13:33 Source: patient Mode of arrival: ambulatory Limitations: no limitations History of Present Illness HPI narrative: 56 yo male with hx of GERD, HTN, HLD, chronic back pain, s/p L rotator cuff surgery 4 weeks ago states he ate an ICEE then noted palpitations, felt winded and some chest discomfort. Pain is in substernal and left chest hurts to take deep breaths. He notes some cramping in R calf recently. He was walking his dog yesterday and noted increased LEVIN. He denies pain now but just notes something feels off. MD complaint: chest discomfort Onset (ago): day(s) (yesterday ) Timing of current episode: episodic Prior episodes: Yes Onset: during rest Pain location: substernal and left chest Pain radiation: none Severity: mild Quality: tightness Relieving factors: nothing Exacerbating factors: exertion Context: recent surgery Associated symptoms: dyspnea and palpitations Treatment prior to arrival: none Related Data Home Medications Medication Instructions Recorded Confirmed atorvastatin 20 mg tablet 20 mg PO BEDTIME 12/21/20 03/07/22 hydrochlorothiazide 25 mg tablet 25 mg PO DAILY 12/21/20 03/07/22 carvedilol 6.25 mg tablet 6.25 mg PO BID 03/05/21 03/07/22 folic acid 1 mg tablet 1 mg PO DAILY 10/06/21 03/07/22 melatonin 3 mg capsule 3 mg PO BEDTIME PRN Insomnia 10/06/21 03/07/22 thiamine mononitrate (vit B1) 100 100 mg PO DAILY 10/06/21 03/07/22 mg tablet (Vitamin B-1 (mononitrate)) omeprazole 20 mg capsule,delayed 1 cap PO DAILY PRN Gastric Reflux 02/11/22 03/07/22 release multivitamin 1 tab PO DAILY 04/25/22 Previous Rx's Medication Instructions Recorded sildenafil 100 mg tablet 100 mg PO DAILY PRN sexual 04/30/21 activity #30 tabs tizanidine 2 mg tablet 2 mg PO BEDTIME PRN muscle 10/05/21 spasticity #30 tabs morphine 15 mg tablet,extended 15 mg PO Q12H 3 days #6 tabs 05/04/22 release (MS Contin) oxycodone-acetaminophen 5 mg-325 1 tab PO Q8H PRN pain (scale score 07/29/22 mg tablet (Percocet) 4-6) 7 days #21 tabs Allergies Allergy/AdvReac Type Severity Reaction Status Date / Time No Known Allergies Allergy Verified 06/03/22 13:32 [No Known Allergies*] Review of Systems Review of Systems: Constitutional : No Weight loss, No Fever, No Chills ENT/Mouth : No sore throat, No Rhinorrhea Eyes: No Eye Pain, No Swelling Cardiovascular : pos Chest Pain, pos SOB, pos Dyspnea on Exertion, No Orthopnea, No Edema, pos Palpitations Respiratory : No Cough, No Sputum Gastrointestinal : pos Nausea, No Vomiting, No Diarrhea, No abdominal Pain, No Hematochezia, No Melena Genitourinary : No Dysuria, No Urinary Frequency Musculoskeletal : No joint pain, No Myalgias, No Joint Swelling, pos R leg cramp Skin : No Skin Lesions, No rash Neuro : No Weakness, No Numbness, No Dizziness, No Headache Psych : No Anxiety/Panic, No Depression Heme/Lymph: No Bruising, No Lymphadenopathy Endocrine : No Polyuria, No Polydipsia All other systems reviewed and are negative [facility] Past Medical History Attestation statement: The following information was validated with the patient. Medical History Anxiety Cardiomyopathy Chronic back pain Colon cancer screening COVID-19 vaccine series completed Depression Dysfunction of left rotator cuff Elevated cholesterol Erectile dysfunction GERD (gastroesophageal reflux disease) Hypertension Lumbar radiculopathy Sickle-cell trait Sleep apnea Weakness Surgical History H/O colonoscopy Hx of appendectomy Hx of arthroscopic knee surgery Family History Family History Father No problems noted. Mother No problems noted. Social History Social History Household Members Other:: none Are you a primary medicare sales representative to a significant other at home: No Do you presently have visiting nurse or other home services: No Alcohol intake: current Alcohol intake frequency: does not drink Patient Tobacco Use Status: Former Tobacco user Quit Date: 2008 Tobacco use type: Cigarette Use of substances other than those prescribed or required for medical reasons: Yes Substance Use Type: Marijuana Substance Use Frequency: Daily Advance Directives: Yes Advance Directives Information Provided: No Advance Directives on File: No Advance Directives Date on File: 01/13/16 Current occupational status: unemployed Physical Exam Vital Signs: Vital Signs: Last Vital Signs Temp 97.2 F 06/03/22 13:32 Pulse 64 06/03/22 15:41 Resp 18 06/03/22 15:41 BP 130/81 06/03/22 15:41 Pulse Ox 98 06/03/22 15:41 O2 Del Method 06/03/22 15:41 BMI result Body Mass Index 32.6 Appearance: Alert. Oriented X3. No acute distress. Eyes: Pupils equal, round and reactive to light. ENT: Pharynx normal. Neck: Normal inspection. Neck supple. CVS: Normal heart rate and rhythm. Pulses normal. Respiratory: No respiratory distress. Breath sounds normal. Abdomen: Soft and non-tender. Skin: Skin warm and dry. Normal skin color. Normal skin turgor. Extremities: No lower extremity edema. No calf ttp Neuro: Oriented X 3. No motor deficit. No sensory deficit. Course Course Course Narrative: refuses CT scan and then refuses anxiolytic for claustrophobia due to medications causing depression will try VQ scan signed out to Dr. Donnelly pending VQ scan repeat trop flat MDM - Chest Pain MDM Narrative Medical decision making narrative: 56 yo male with hx of GERD, HTN, HLD, chronic back pain, s/p L rotator cuff surgery 4 weeks here with chest pain, palpitations, LEVIN, R calf cramps - at this time ddimer from triage mildly elevated - will obtain repeat EKG he has some nonspecific changes, will also need CTA to r/o PE, delta trop ordered. He has no pain at rest. Oral aspirin ordered at this time pending further workup. Could be ACS vs PE given recent surgery. Lab Data Result diagrams: 06/03/22 13:35 06/03/22 13:35 Labs: Lab Results 06/03/22 06/03/22 06/03/22 Range/Units 13:35 13:35 13:35 WBC 6.9 (4.8-10.8) X10*3/uL RBC 5.40 (4.60-5.80) X10*6/uL Hgb 14.0 (14.0-18.0) g/dl Hct 41.2 L (42.0-52.0) % MCV 76.3 L (80.0-98.0) fL MCH 25.9 L (27.0-33.0) pg MCHC 34.0 (31.0-36.0) g/dl RDW 14.9 (11.0-16.0) % Plt Count 271 (160-400) X10*3/uL MPV 9.2 L (9.4-12.4) fL Immature Gran % (Auto) 0.4 (0.0-0.4) % Neut % (Auto) 62.4 (45-73) % Lymph % (Auto) 28.9 (20-40) % Placer % (Auto) 6.7 (2-11) % Eos % (Auto) 1.3 (0-4) % Baso % (Auto) 0.3 (0-2) % Lymph # (Auto) 2.0 (1.2-4.9) X10*3/uL Placer # (Auto) 0.5 (0.1-1.2) X10*3/uL Eos # (Auto) 0.1 (0.0-0.4) X10*3/uL Baso # (Auto) 0.0 (0.0-0.2) X10*3/uL Abs Immat Gran (auto) 0.03 (0.00-0.03) X10*3/uL Absolute Neuts (auto) 4.3 (2.0-8.3) x10*3/uL Absolute Nucleated RBC 0.000 (0.0-0.012) X10*3/uL Nucleated RBC % (auto) 0.0 (0.0-0.2) /100WBC D-Dimer High Sensitivty NG/ML Sodium 138 (135-145) mmol/L Potassium 3.7 (3.3-5.1) mmol/L Chloride 106 (96-108) mmol/L Carbon Dioxide 21 L (22-29) mmol/L Anion Gap 15 (12-20) BUN 17 H (9-16) mg/dL Creatinine 1.03 (0.5-1.4) mg/dL Estim Creat Clear Calc 99.2 Estimated GFR > 60 Random Glucose 157 H D (60-115) mg/dL Calcium 8.8 D (8.4-10.2) mg/dL Troponin I High Sens < 3.5 (<3.5-35.0) ng/L B-Natriuretic Peptide (<100) pg/mL COVID-19 ([facility]) (Negative) COVID-19 Clin Com 06/03/22 06/03/22 06/03/22 Range/Units 13:35 13:47 15:43 WBC (4.8-10.8) X10*3/uL RBC (4.60-5.80) X10*6/uL Hgb (14.0-18.0) g/dl Hct (42.0-52.0) % MCV (80.0-98.0) fL MCH (27.0-33.0) pg MCHC (31.0-36.0) g/dl RDW (11.0-16.0) % Plt Count (160-400) X10*3/uL MPV (9.4-12.4) fL Immature Gran % (Auto) (0.0-0.4) % Neut % (Auto) (45-73) % Lymph % (Auto) (20-40) % Placer % (Auto) (2-11) % Eos % (Auto) (0-4) % Baso % (Auto) (0-2) % Lymph # (Auto) (1.2-4.9) X10*3/uL Placer # (Auto) (0.1-1.2) X10*3/uL Eos # (Auto) (0.0-0.4) X10*3/uL Baso # (Auto) (0.0-0.2) X10*3/uL Abs Immat Gran (auto) (0.00-0.03) X10*3/uL Absolute Neuts (auto) (2.0-8.3) x10*3/uL Absolute Nucleated RBC (0.0-0.012) X10*3/uL Nucleated RBC % (auto) (0.0-0.2) /100WBC D-Dimer High Sensitivty 294 NG/ML Sodium (135-145) mmol/L Potassium (3.3-5.1) mmol/L Chloride (96-108) mmol/L Carbon Dioxide (22-29) mmol/L Anion Gap (12-20) BUN (9-16) mg/dL Creatinine (0.5-1.4) mg/dL Estim Creat Clear Calc Estimated GFR Random Glucose (60-115) mg/dL Calcium (8.4-10.2) mg/dL Troponin I High Sens < 3.5 (<3.5-35.0) ng/L B-Natriuretic Peptide (<100) pg/mL COVID-19 ([facility]WA) Negative (Negative) COVID-19 Clin Com See Note 06/03/22 Range/Units 15:43 WBC (4.8-10.8) X10*3/uL RBC (4.60-5.80) X10*6/uL Hgb (14.0-18.0) g/dl Hct (42.0-52.0) % MCV (80.0-98.0) fL MCH (27.0-33.0) pg MCHC (31.0-36.0) g/dl RDW (11.0-16.0) % Plt Count (160-400) X10*3/uL MPV (9.4-12.4) fL Immature Gran % (Auto) (0.0-0.4) % Neut % (Auto) (45-73) % Lymph % (Auto) (20-40) % Placer % (Auto) (2-11) % Eos % (Auto) (0-4) % Baso % (Auto) (0-2) % Lymph # (Auto) (1.2-4.9) X10*3/uL Placer # (Auto) (0.1-1.2) X10*3/uL Eos # (Auto) (0.0-0.4) X10*3/uL Baso # (Auto) (0.0-0.2) X10*3/uL Abs Immat Gran (auto) (0.00-0.03) X10*3/uL Absolute Neuts (auto) (2.0-8.3) x10*3/uL Absolute Nucleated RBC (0.0-0.012) X10*3/uL Nucleated RBC % (auto) (0.0-0.2) /100WBC D-Dimer High Sensitivty NG/ML Sodium (135-145) mmol/L Potassium (3.3-5.1) mmol/L Chloride (96-108) mmol/L Carbon Dioxide (22-29) mmol/L Anion Gap (12-20) BUN (9-16) mg/dL Creatinine (0.5-1.4) mg/dL Estim Creat Clear Calc Estimated GFR Random Glucose (60-115) mg/dL Calcium (8.4-10.2) mg/dL Troponin I High Sens (<3.5-35.0) ng/L B-Natriuretic Peptide 94 (<100) pg/mL COVID-19 ([facility]WA) (Negative) COVID-19 Clin Com ECG Data ECG #1: Attestation: I personally reviewed and interpreted this ECG as follows: ECG interpretation date: 06/03/22 ECG interpretation time: 13:24 Interpretation: Rate: 79 Rhythm: NSR Haskell: normal Normal P waves. Normal TORY. Normal QRS complex. Poor R wave progression ST T wave : inverted in aVL, no JUAN qTC: normal prior studies: new t wave in aVL The study has been interpreted contemporaneously by me. . ECG #2: Attestation: I personally reviewed and interpreted this ECG as follows: ECG interpretation date: 06/03/22 ECG interpretation time: 14:38 Interpretation: Rate: 66 Rhythm: NSR with 1st degree AVB Haskell: normal Normal P waves. 1st degree AVB Normal QRS complex. poor R wave progression ST T wave : inverted aVL, no JUAN, biphasic t wave V5 qTC: normal prior studies: changed t wave in V5 The study has been interpreted contemporaneously by me. . Discharge Plan Discharge Clinical Impression: Acute dyspnea Patient Disposition: Still a Patient Prescriptions: No Action sildenafil 100 mg tablet 100 mg PO DAILY PRN (Reason: sexual activity) Qty: 30 1RF Rx Instructions: administer 30 minutes to 4 hours before activity oxycodone-acetaminophen [Percocet] 5-325 mg tablet 1 tab PO Q8H PRN (Reason: pain (scale score 4-6)) 7 Days Qty: 21 0RF Rx Instructions: Partial Fill upon patient request. omeprazole 20 mg capsule,delayed release(DR/EC) 1 cap PO DAILY PRN (Reason: Gastric Reflux) morphine [MS Contin] 15 mg tablet extended release 15 mg PO Q12H 3 Days Qty: 6 0RF Rx Instructions: Partial Fill upon patient request. hydrochlorothiazide 25 mg tablet 25 mg PO DAILY atorvastatin 20 mg tablet 20 mg PO BEDTIME carvedilol 6.25 mg tablet 6.25 mg PO BID Rx Instructions: must administer with a meal/food tizanidine 2 mg tablet 2 mg PO BEDTIME PRN (Reason: muscle spasticity) Qty: 30 3RF multivitamin Tablet 1 tab PO DAILY folic acid 1 mg tablet 1 mg PO DAILY thiamine mononitrate (vit B1) [Vitamin B-1 (mononitrate)] 100 mg tablet 100 mg PO DAILY melatonin 3 mg capsule 3 mg PO BEDTIME PRN (Reason: Insomnia)
[2022-06-03 14:46] VITALS: BP 117/69; PULSE 65; RESP 16; O2SAT 98
[2022-06-03] MEDS: Aspirin 81 MG TAB.CHEW PO (15:39)
[2022-06-03 15:41] VITALS: BP 130/81; PULSE 64; RESP 18; O2SAT 98
[2022-06-03 16:11] LABS: B Type Natriuretic Peptide 94 pg/mL (<100); Troponin-I High Sensitivity < 3.5 ng/L (<3.5-35.0)
[2022-06-03 17:18] VITALS: BP 149/93; PULSE 60; RESP 18; O2SAT 97
--- NOTE | 2022-06-03 19:05 | PC.NURSE ---
Assumed care of this pt. at 1900 - report from Cristina Purcell RN
[2022-06-03 19:09] VITALS: BP 141/91; PULSE 69; RESP 16; O2SAT 98
--- NOTE | 2022-06-03 19:10 | PC.NURSE ---
pt denies any sob or chest pain at time of discharge. Reviewed discharge instructions with pt. Pt verbalized understanding.
== END 2022-06-03 19:13 | disposition home or self-care (01) ==
PROVIDERS: Emergency Medicine; Nurse Practitioner Family; Emergency Provider Student in an Organized Health Care Education/Training Program; PCP Family Medicine
DX: R07.89 Other chest pain (principal); R06.02 Shortness of breath; M54.50 Low back pain, unspecified; I10 Essential (primary) hypertension; R00.2 Palpitations; Z20.822 Contact with and (suspected) exposure to COVID-19; Z79.899 Other long term (current) drug therapy; Z87.891 Personal history of nicotine dependence
CPT/HCPCS: 36415; 71045; 78580; 80048; 83880; 84484; 85025; 85379; 87635; 93005; 99285; A9540

== ENCOUNTER → 2022-08-17 09:28 | Outpatient (BNVA) | payer MEDICAID, SELFPAY | PROVIDERS: PCP Family Medicine; Referring Provider Family Medicine; Visit Provider Internal Medicine | DX: R07.2 Precordial pain (principal) | CPT/HCPCS: 99202 ==

== ENCOUNTER → 2022-09-06 11:05 | Outpatient (REF) | payer MEDICAID, SELFPAY ==
--- NOTE | 2022-09-06 11:08 | CA_ITS ---
Acquisition Time: 2022-09-06 11:28:54 Total Exercise Time: 00:07:17 Test Indications: Dyspnea Medications: ATORVASTATIN CARVEDILOL HCTZ MELOXICAM OMEPRAZOLE SELDENAFIL TIZANIDINE Protocol: WILLIAMS Max HR: 157 BPM 96% of Pred: 163 BPM Max BP: 210/088 mmHG Max Work Load: 8.9 METS Exercise stress test with exercise 7 min 17 sec of Williams protocol, acheivng 96% MPHR, with mild to moderate sob, no chest discomfort, with isolated PAC and PVCs, with sinus arrythmia in recovery, with hypertensive response to exercise with max BP 210/88, without EKG changes meeting criteria for ischemia. Echo imagines obtained by tech at rest and immediately post peak exercise. Definity contrast used. BP in recovery returned to 146/88. Test reviewed with Dr Mccall. Referred By: Jonathan Philip Overread By: HARRY IVERSON
== END ==
LOC: HO.CARD 11:05
PROVIDERS: PCP Family Medicine; Visit Provider Internal Medicine
DX: R07.2 Precordial pain (principal)
CPT/HCPCS: 93350; Q9957

== ENCOUNTER 2022-09-08 10:00 | Outpatient (RCR) | payer MEDICAID, SELFPAY ==
--- NOTE | 2022-05-09 11:48 | MHC.PT.EP ---
[facility] [place] [facility] [place] Office [place] Office [address] Nina Boyce [address] [phone] F: [phone] F: [phone] F: [phone] F: [phone] Physical Therapy Plan of Care Date of Evaluation: Date of Surgery: 05/04/22 Diagnosis: LEFT RTC repair SUPRASPINATUS AND INFRASPINATUS, Subscapularis repair; BIceps tenodesis; SAD; DCE Assessment: 56 YO MALE REF TO PT S/P 05/04/22 LEFT RTC repair SUPRASPINATUS AND INFRASPINATUS, Subscapularis repair; BIceps tenodesis; SAD; DCE. 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 FUNCTIONAL LIMITATIONS INCLUDE PERF ADLs PREDOMINANTLY W RIGHT UE, Lt SH IMMOB, DIFFIC SLEEPING, AND UNABLE TO PERFORM WORK DUTIES. Pt IS A GOOD CANDIDATE FOR SKILLED PT TO GUIDE HIM ALONG HIS POST-OP COURSE, ADDRESS PAIN MGMT, AND PER PROTOCOL INCR ROM AND STRENGTH. Frequency and Duration: The patient will be seen 2 x WK x 10 WKS Short Term Goals: *Pt'S LEFT SH PAIN DECR TO 2-3/10 IN 2 WKS * Pt INDEP SELF CORRECT POSTURE, Pt INDEP W PRECAUTIONS/ RESTRICTIONS IN 1 WK * INITIATE HEP/ ROM PROGR PER PROTOCOL IN 1 WK Patient will report a 50% decrease in pain which will allow HIM to sleep throughout the night in 4 weeks. 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 Manual therapy to restore motion and function. Therapeutic exercise to improve strength and flexibility. Neuromuscular re-education for posture and balance. Therapeutic activities to return to functional activities of daily living. Electronically signed by: Rita Ochoa PT Please sign and return to therapist. Thank you for your referral.
--- NOTE | 2022-10-11 10:53 | MHC.PT.DC ---
[facility] [place] [facility] [place] [facility] [place] Office [address] Nina Boyce [address] [phone] F: [phone] F: [phone] F: [phone] F: [phone] Physical Therapy Discharge Report Diagnosis: LEFT RTC repair SUPRASPINATUS AND INFRASPINATUS, Subscapularis repair; BIceps tenodesis; SAD; DCE Date of Surgery: 05/04/22 Date of Evaluation: 07/15/22 Date of Discharge: 10/11/22 Treatments to Date: 20 Cancellations to Date: 1 No Shows to Date: Discharge Status: Achieved Goals Independent with HEP Discharge Summary: Patient last PT appointment was 09/08/22. He had a couple more sessions available before insurance authorization ran out but ceased attending after that visit. (The end date of his authorization was 09/22/22). This was the last assessment on : 09/08 pt is 18 weeks post op. 09/07 * Time was spent discussing phase in protocol and reviewed with patient about expected time for recovery (showing him that it extends 6-9 months that he can still expect to be building strength and endurance). I give him new handout with progressions for strengthening. He is educated to stretch first, he is going to order pulleys for home. He is discharged from PT at this time, has handout for progressions for his shoulder going forward in protocol. Electronically signed by: Ray Britt, PT, DPT Please sign and return to therapist. Thank you for your referral.
== END 2022-10-11 10:54 | disposition home or self-care (01) ==
LOC: HO.PT 10:00
PROVIDERS: PCP Family Medicine; Visit Provider Physician Assistant
DX: M67.912 Unspecified disorder of synovium and tendon, left shoulder (principal); Z98.890 Other specified postprocedural states
CPT/HCPCS: 97110; 97112; 97140; 97162; 97164; 97530

== ENCOUNTER 2023-01-06 07:19 | Outpatient (REF) | payer MEDICAID, SELFPAY ==
[2023-01-06 09:01] LABS: Prostate Specific Antigen 2.15 ng/mL (<0.05-4.0)
== END 2023-01-06 07:20 | disposition home or self-care (01) ==
LOC: HO.LAB 07:19
PROVIDERS: PCP Family Medicine; Visit Provider Urology
DX: N40.1 Benign prostatic hyperplasia with lower urinary tract symptoms (principal); N13.8 Other obstructive and reflux uropathy; N52.9 Male erectile dysfunction, unspecified; Z12.5 Encounter for screening for malignant neoplasm of prostate
CPT/HCPCS: 36415; 84153

== ENCOUNTER → 2023-01-13 14:54 | Outpatient (BNVA) | payer MEDICAID, SELFPAY | PROVIDERS: PCP Family Medicine; Visit Provider Urology ==

== ENCOUNTER → 2023-01-16 09:35 | Outpatient (BNVA) | payer MEDICAID, SELFPAY | PROVIDERS: PCP Family Medicine; Visit Provider Physician Assistant | DX: M67.912 Unspecified disorder of synovium and tendon, left shoulder (principal); M19.019 Primary osteoarthritis, unspecified shoulder | CPT/HCPCS: 99212 ==

== ENCOUNTER 2023-02-02 22:44 | Emergency (ER) | payer MEDICAID, SELFPAY ==
--- NOTE | ~2023-02-02 | XR_ITS ---
EXAMINATION: XR KNEE, RIGHT CLINICAL INFORMATION: Reason for Exam fall COMPARISON: None TECHNIQUE: 4 views of the knee FINDINGS: No acute fracture or dislocation. Well corticated punctate osseous fragment adjacent to the proximal fibula may reflect sequelae of remote avulsion injury. Mild degenerative changes of the knee with small patellofemoral compartment osteophytes.. No joint effusion. Soft tissues are unremarkable. XR/XR knee RT 3V IMPRESSION: * No acute osseous abnormality. Well corticated punctate osseous fragment adjacent to the proximal fibula may reflect sequelae of remote avulsion injury. * Mild degenerative changes of the knee.
[2023-02-02 23:01] VITALS: BP 125/77; PULSE 64; RESP 18; TEMP 36.6; O2SAT 97; BMI 34.4
--- NOTE | 2023-02-03 00:44 | ED.EXTPRO ---
HPI - Extremity Problem General Chief complaint: Back Pain/Injury Stated complaint: 4/5 fell down stairs right knee and back pain Time Seen by Provider: 02/03/23 00:38 Source: patient Mode of arrival: ambulatory Limitations: no limitations History of Present Illness HPI Narrative: Patient comes emergency room complaining of right-sided knee pain. Patient states that approximately 12 hours ago, patient slipped couple of steps down words while he was taking his dog out for a walk. Patient did not sustain any other injuries. Patient only complaining of right-sided knee pain. Patient denies hitting his head, no loss of consciousness, patient is not on blood thinners. Patient has been ambulatory but the patient states that the pain is gradually getting worse. Related Data Home Medications Medication Instructions Recorded Confirmed atorvastatin 20 mg tablet 20 mg PO BEDTIME 12/21/20 01/13/23 hydrochlorothiazide 25 mg tablet 25 mg PO DAILY 12/21/20 01/13/23 carvedilol 6.25 mg tablet 6.25 mg PO BID 03/05/21 01/13/23 folic acid 1 mg tablet 1 mg PO DAILY 10/06/21 01/13/23 melatonin 3 mg capsule 3 mg PO BEDTIME PRN Insomnia 10/06/21 01/13/23 thiamine mononitrate (vit B1) 100 100 mg PO DAILY 10/06/21 01/13/23 mg tablet (Vitamin B-1 (mononitrate)) omeprazole 20 mg capsule,delayed 1 cap PO DAILY PRN Gastric Reflux 02/11/22 01/13/23 release multivitamin 1 tab PO DAILY 04/25/22 01/13/23 ibuprofen 800 mg tablet 800 mg PO TID 08/29/22 01/13/23 Previous Rx's Medication Instructions Recorded tizanidine 2 mg tablet 2 mg PO BEDTIME PRN muscle 10/05/21 spasticity #30 tabs oxycodone-acetaminophen 5 mg-325 1 tab PO .QD PRN pain (scale score 06/27/22 mg tablet (Percocet) 4-6) 7 days #7 tabs meloxicam 15 mg tablet 15 mg PO DAILY 30 days #30 tabs 07/15/22 sildenafil 100 mg tablet 100 mg PO DAILY PRN sexual 01/13/23 activity #30 tabs acetaminophen 500 mg tablet 500 mg PO QID PRN pain #14 tabs 02/03/23 ibuprofen 600 mg tablet 600 mg PO TID PRN pain #14 tabs 02/03/23 Allergies Allergy/AdvReac Type Severity Reaction Status Date / Time No Known Allergies Allergy Verified 02/02/23 23:04 [No Known Allergies*] Review of Systems Review of Systems: Constitutional : No Weight loss, No Fever, No Chills, No Night Sweats, No Fatigue, No Malaise ENT/Mouth : No Hearing loss, No Ear Pain, No Nasal Congestion, No Sinus Pain, No Hoarseness, No sore throat, No Rhinorrhea, No Swallowing Difficulty Eyes: No Eye Pain, No Swelling, No Redness, No Foreign Body, No Discharge, No Vision Changes Cardiovascular : No Chest Pain, No SOB, No Dyspnea on Exertion, No Orthopnea, No Edema, No Palpitations Respiratory : No Cough, No Sputum, No Wheezing, No Smoke Exposure, No Dyspnea Gastrointestinal : No Nausea, No Vomiting, No Diarrhea, No Constipation, No abdominal Pain, No Hematochezia, No Melena Genitourinary : no irregular bleeding, No Dysuria, No Urinary Frequency, No Hematuria, No Urinary Incontinence, No Urgency, No Flank Pain, No Urinary Flow Changes, No Hesitancy Musculoskeletal : Complaining of right-sided knee pain, No Myalgias, No Joint Swelling Skin : No Skin Lesions, No rash Neuro : No Weakness, No Numbness, No Paresthesias, No Loss of Consciousness, No Dizziness, No Headache Psych : No Anxiety/Panic, No Depression, No SI/HI/AH/VH, No Social Issues, Heme/Lymph: No Bruising, No Bleeding,No Lymphadenopathy Endocrine : No Polyuria, No Polydipsia, No Temperature Intolerance PMFSH Past Medical History Medical History Anxiety Cardiomyopathy Chronic back pain Colon cancer screening COVID-19 vaccine series completed Depression Dysfunction of left rotator cuff Elevated cholesterol Erectile dysfunction GERD (gastroesophageal reflux disease) Hypertension Lumbar radiculopathy Sickle-cell trait Sleep apnea Weakness Surgical History H/O colonoscopy Hx of appendectomy Hx of arthroscopic knee surgery Hx of rotator cuff surgery Family History Family History Father No problems noted. Mother Cardiomyopathy Social History Social History (Updated 08/29/22 @ 09:02 by Robby Gomez [facility]) Household Members: None Household Members Other:: none Are you a primary care transition coordinator to a significant other at home: No Do you presently have visiting nurse or other home services: No Alcohol intake: current Alcohol intake frequency: holidays/special occasions only Patient Tobacco Use Status: Former Tobacco user Quit Date: 2008 Tobacco use type: Cigarette Substance Use Type: Marijuana Advance Directives: Yes Advance Directives on File: Yes Advance Directives Date on File: 01/13/16 Current occupational status: unemployed Physical Exam Vital Signs: Vital Signs: Last Vital Signs Temp 98 F 02/02/23 23:01 Pulse 64 02/02/23 23:01 Resp 18 02/02/23 23:01 BP 125/77 02/02/23 23:01 Pulse Ox 97 02/02/23 23:01 O2 Del Method Room Air 02/02/23 23:01 BMI result Body Mass Index 34.4 Const: Other: Appearance: Alert. Oriented X3. No acute distress. Eyes: Pupils equal, round and reactive to light. ENT: Pharynx normal. Neck: Normal inspection. Neck supple. No lymph nodes noted. No crepitus CVS: Normal heart rate and rhythm. Pulses normal. Normal S1 and S2 Respiratory: No respiratory distress. Breath sounds normal. No Wheezing. No rales Abdomen: Soft and nontender. No rigidity. No distention. Skin: Skin warm and dry. Normal skin color. Normal skin turgor. Extremities: No lower extremity edema. No Lacerations. No Rash, patient able to flex and extend the right knee. No effusion, no deformity Neuro: Oriented X 3. No motor deficit. No sensory deficit. Moving all extremities. No slurred speech. CN 2 through 12 grossly intact Psych: calm, cooperative, normal affect Medical Decision Making Medical Decision Making MDM Narrative: -I discussed the x-ray findings with the patient, no fracture. X-ray interpreted by me: No fracture -patient states that it is becoming more painful to ambulate. Patient requesting crutches. Differential Diagnosis Differential Diagnoses: The differential diagnosis associated with the presentation includes (Patellar fracture, dislocation, contusion) Radiology Impression Discussion of test interpretation with radiology: I have reviewed the radiologist's reading. Radiologist Impression: FINDINGS: No acute fracture or dislocation. Well corticated punctate osseous fragment adjacent to the proximal fibula may reflect sequelae of remote avulsion injury. Mild degenerative changes of the knee with small patellofemoral compartment osteophytes..? No joint effusion. Soft tissues are unremarkable. XR/XR knee RT 3V IMPRESSION: ? *? No acute osseous abnormality. Well corticated punctate osseous fragment adjacent to the proximal fibula may reflect sequelae of remote avulsion injury. ? *? Mild degenerative changes of the knee. Discharge Plan Discharge Clinical Impression: Contusion of knee Patient Disposition: Home, Self-Care Instructions: Knee Pain (ED) Additional Instructions: Please follow-up with your primary care physician tomorrow. If you have any worsening or new symptoms, please return to the emergency room or call 911 Prescriptions: New ibuprofen 600 mg tablet 600 mg PO TID PRN (Reason: pain) Qty: 14 0RF acetaminophen 500 mg tablet 500 mg PO QID PRN (Reason: pain) Qty: 14 0RF No Action oxycodone-acetaminophen [Percocet] 5-325 mg tablet 1 tab PO .QD PRN (Reason: pain (scale score 4-6)) 7 Days Qty: 7 0RF Rx Instructions: Partial Fill upon patient request. omeprazole 20 mg capsule,delayed release(DR/EC) 1 cap PO DAILY PRN (Reason: Gastric Reflux) hydrochlorothiazide 25 mg tablet 25 mg PO DAILY atorvastatin 20 mg tablet 20 mg PO BEDTIME carvedilol 6.25 mg tablet 6.25 mg PO BID Rx Instructions: must administer with a meal/food tizanidine 2 mg tablet 2 mg PO BEDTIME PRN (Reason: muscle spasticity) Qty: 30 3RF sildenafil 100 mg tablet 100 mg PO DAILY PRN (Reason: sexual activity) Qty: 30 1RF Rx Instructions: administer 30 minutes to 4 hours before activity multivitamin Tablet 1 tab PO DAILY ibuprofen 800 mg tablet 800 mg PO TID folic acid 1 mg tablet 1 mg PO DAILY thiamine mononitrate (vit B1) [Vitamin B-1 (mononitrate)] 100 mg tablet 100 mg PO DAILY melatonin 3 mg capsule 3 mg PO BEDTIME PRN (Reason: Insomnia) meloxicam 15 mg tablet 15 mg PO DAILY 30 Days Qty: 30 0RF
== END 2023-02-03 01:13 | disposition home or self-care (01) ==
PROVIDERS: Emergency Provider Emergency Medicine; PCP Family Medicine
DX: M25.561 Pain in right knee (principal); M54.50 Low back pain, unspecified; Z79.899 Other long term (current) drug therapy; Z87.891 Personal history of nicotine dependence
CPT/HCPCS: 73562; 99282; 99283

== ENCOUNTER → 2023-03-13 13:00 | Outpatient (BNVA) | payer MEDICAID, SELFPAY | PROVIDERS: PCP Family Medicine; Visit Provider Surgery | DX: Z12.11 Encounter for screening for malignant neoplasm of colon (principal) | CPT/HCPCS: 99212 ==

== ENCOUNTER 2023-04-03 13:24 | Outpatient (REF) | payer MEDICAID, SELFPAY ==
--- NOTE | ~2023-04-03 | XR_ITS ---
EXAMINATION: XR KNEE AP STANDING CLINICAL INFORMATION: Pain COMPARISON: Previous x-ray January 2023 TECHNIQUE: Standing AP view of both knees and sunrise view of the right knee FINDINGS: Right: Bone alignment is normal. No fracture or dislocation. Mild arthritis at the medial femoral tibial and patellofemoral joints. Standing AP view of the left knee demonstrates mild arthritis at the medial femoral tibial joint. XR/XR knee RT 1V IMPRESSION: Mild arthritis.
--- NOTE | ~2023-04-03 | XR_ITS ---
EXAMINATION: XR KNEE AP STANDING CLINICAL INFORMATION: Pain COMPARISON: Previous x-ray January 2023 TECHNIQUE: Standing AP view of both knees and sunrise view of the right knee FINDINGS: Right: Bone alignment is normal. No fracture or dislocation. Mild arthritis at the medial femoral tibial and patellofemoral joints. Standing AP view of the left knee demonstrates mild arthritis at the medial femoral tibial joint. XR/XR knee standing BI IMPRESSION: Mild arthritis.
== END 2023-04-03 13:25 | disposition home or self-care (01) ==
LOC: HO.HOSX 13:24
PROVIDERS: Visit Provider Physician Assistant
DX: M17.11 Unilateral primary osteoarthritis, right knee (principal)
CPT/HCPCS: 20610; 73560; 73565; 99212; J1040

== ENCOUNTER 2023-04-04 07:06 | Day surgery (SDC) | payer MEDICAID, SELFPAY ==
[2023-03-30 10:16] VITALS: BMI 34.0
--- NOTE | 2023-04-03 10:05 | P.CONAN_ITS ---
Documented by User: Isabell Ovalle NP 04/03/23 10:08 HPI - Anesthesia Eval Consult details Narrative: 57yo M for Colonoscopy,possible polypectomy PMFSH Active Problems Active Problems: All Active Problems (Updated 04/03/23 @ 08:51 by Maria Del Carmen Jara) Osteoarthritis of right patellofemoral joint (Acute) Sacroiliac joint pain (Acute) Epididymal cyst (Acute) History of degenerative disc disease (Acute) Myofascial pain (Acute) Claustrophobia (Acute) Acromioclavicular joint arthritis (Acute) Status post right rotator cuff repair (Acute) Precordial chest pain (Acute) Colon cancer screening (Acute) Erectile dysfunction (Acute) Lumbar radiculopathy (Acute) Dysfunction of left rotator cuff (Acute) Past Medical History Medical History Anxiety Cardiomyopathy Cellulitis Chronic back pain Colon cancer screening COVID-19 vaccine series completed Depression Dysfunction of left rotator cuff Elevated cholesterol Erectile dysfunction GERD (gastroesophageal reflux disease) Hypertension Lumbar radiculopathy Sickle-cell trait Sleep apnea Vomiting and diarrhea Weakness Family History Family History Father No problems noted. Mother Cardiomyopathy Family history of problems with anesthesia: No Surgical History Surgical History H/O colonoscopy Hx of appendectomy Hx of arthroscopic knee surgery Hx of rotator cuff surgery History of Problems with Anesthesia: No Social History Social History Household Members: None Household Members Other:: none Are you a primary career services director to a significant other at home: No Do you presently have visiting nurse or other home services: No Alcohol intake: current Alcohol intake frequency: holidays/special occasions only Patient Tobacco Use Status: Former Tobacco user Quit Date: 2008 Tobacco use type: Cigarette Use of substances other than those prescribed or required for medical reasons: Yes Substance Use Type: Marijuana Substance Use Frequency: Daily Have you been hit, kicked, punched, or otherwise hurt by someone within the past year? If so, by whom?: No Are you DNR?: No Advance Directives: Yes Advance Directives Information Provided: No Advance Directives on File: Yes Advance Directives Date on File: 01/13/16 Recently lost weight without trying: No Eating poorly because of decreased appetite: No Nutrition Risks: No Nutritional Risk Poor oral hygiene: Yes (lower loose teeth) Current occupational status: unemployed Past History Surgical History H/O colonoscopy Hx of appendectomy Hx of arthroscopic knee surgery Hx of rotator cuff surgery Meds Allergies Allergy/AdvReac Type Severity Reaction Status Date / Time No Known Allergies Allergy Verified 04/03/23 08:27 [No Known Allergies*] Home Medications Medication Instructions Recorded Confirmed Last Taken Type hydrochlorothiazide 25 mg tablet 25 mg PO DAILY 12/21/20 03/30/23 Unknown History carvedilol 6.25 mg tablet 6.25 mg PO BID 03/05/21 03/30/23 Unknown History folic acid 1 mg tablet 1 mg PO DAILY 10/06/21 03/30/23 Unknown History thiamine mononitrate (vit B1) 100 100 mg PO DAILY 10/06/21 03/30/23 Unknown History mg tablet (Vitamin B-1 (mononitrate)) omeprazole 20 mg capsule,delayed 1 cap PO DAILY PRN Gastric Reflux 02/11/22 03/30/23 Unknown History release multivitamin 1 tab PO DAILY 04/25/22 03/30/23 Unknown History atorvastatin 40 mg tablet 40 mg PO BEDTIME 03/13/23 03/30/23 Unknown History cyclobenzaprine 10 mg tablet 10 mg PO BEDTIME 03/13/23 03/30/23 Unknown History Exam Exam Date and Time: April 03, 2023 1005 Height,Weight and Vital Signs: Height 5 ft 10 in Weight 107.501 kg Narrative Narrative: EKG 05/2022 Vent. Rate : 066 BPM ? ? Atrial Rate : 066 BPM ?? P-R Int : 212 ms? QRS Dur : 086 ms ? ? QT Int : 390 ms ? ? ? P-R-T Axes : 010 030 063 degrees ?? QTc Int : 408 ms ? Sinus rhythm with 1st degree A-V block Septal infarct , age undetermined Abnormal ECG When compared with ECG of 03-JUN-2022 13:24, No significant change was found Stress ECHO 08/2022 Findings : ? At rest images were of adequate quality. There is normal LV systolic function with no regional wall motion abnormalities. Post exercise images were adequate in apical views with some off axis views with off axis parasternal views. There is good? augmentation of overall LV systolic function with no obvious regional wall motion abnormalities. ? Conclusion : ? Stress echo is negative for ischemia ECHO 02/2022 Conclusions: - 1.? Normal LV systolic function with mild LVH? 2.? Normal cardiac valvular Doppler? 3.? Normal RV systolic pressure? 4.? No pericardial effusion? ? Assessment and Plan Assessment Anesthesia Assessment: Chart Reviewed Final Anesthetic Review Family History of Problems with Anesthesia: No History of Problems with Anesthesia: No Documented by User: Kylah Estrada MD 04/04/23 08:42 [facility] Past Medical History Medical History Anxiety Cardiomyopathy Cellulitis Chronic back pain Colon cancer screening COVID-19 vaccine series completed Depression Dysfunction of left rotator cuff Elevated cholesterol Erectile dysfunction GERD (gastroesophageal reflux disease) Hypertension Lumbar radiculopathy Sickle-cell trait Sleep apnea Vomiting and diarrhea Weakness Family History Family History Father No problems noted. Mother Cardiomyopathy Surgical History Surgical History H/O colonoscopy Hx of appendectomy Hx of arthroscopic knee surgery Hx of rotator cuff surgery Social History Social History Household Members: None Household Members Other:: none Are you a primary career services director to a significant other at home: No Do you presently have visiting nurse or other home services: No Alcohol intake: current Alcohol intake frequency: holidays/special occasions only Patient Tobacco Use Status: Former Tobacco user Quit Date: 2008 Tobacco use type: Cigarette Use of substances other than those prescribed or required for medical reasons: Yes Substance Use Type: Marijuana Substance Use Frequency: Daily Have you been hit, kicked, punched, or otherwise hurt by someone within the past year? If so, by whom?: No Are you DNR?: No Advance Directives: Yes Advance Directives Information Provided: No Advance Directives on File: Yes Advance Directives Date on File: 01/13/16 Recently lost weight without trying: No Eating poorly because of decreased appetite: No Nutrition Risks: No Nutritional Risk Poor oral hygiene: Yes (lower loose teeth) Current occupational status: unemployed Past History Surgical History H/O colonoscopy Hx of appendectomy Hx of arthroscopic knee surgery Hx of rotator cuff surgery Meds Allergies Allergy/AdvReac Type Severity Reaction Status Date / Time No Known Allergies Allergy Verified 04/03/23 08:27 [No Known Allergies*] Home Medications Medication Instructions Recorded Confirmed Last Taken Type hydrochlorothiazide 25 mg tablet 25 mg PO DAILY 12/21/20 03/30/23 Unknown History carvedilol 6.25 mg tablet 6.25 mg PO BID 03/05/21 03/30/23 Unknown History folic acid 1 mg tablet 1 mg PO DAILY 10/06/21 03/30/23 Unknown History thiamine mononitrate (vit B1) 100 100 mg PO DAILY 10/06/21 03/30/23 Unknown History mg tablet (Vitamin B-1 (mononitrate)) omeprazole 20 mg capsule,delayed 1 cap PO DAILY PRN Gastric Reflux 02/11/22 03/30/23 Unknown History release multivitamin 1 tab PO DAILY 04/25/22 03/30/23 Unknown History atorvastatin 40 mg tablet 40 mg PO BEDTIME 03/13/23 03/30/23 Unknown History cyclobenzaprine 10 mg tablet 10 mg PO BEDTIME 03/13/23 03/30/23 Unknown History Exam Airway Mallampati Class: III TM Dist: >3cm Neck ROM: Full Loose/Missing/Broken Teeth: Yes (31) Heart: rr Lungs: cta Assessment and Plan Final Anesthetic Review ASA Class: III Final Preanesthetic Review: No Changes in Pt Med Stat, Meds/Allgs Chart Reviewed, Consent Obtained/Reviewed and Anes Risks/Benef Reviewed Patient Risk: Intermediate Procedure Risk: Low Anesthetic Plan Anesthetic Plan: MAC: and Agree w/ Assess. and Plan Disposition: Standard PACU
[2023-04-04 07:30] VITALS: BP 132/73; PULSE 58; RESP 16; TEMP 36.1; O2SAT 99
[2023-04-04] MEDS: Lactated Ringers 1,000 ML 100 ML IVCONT (07:31)
--- NOTE | 2023-04-04 08:08 | MHC.SHP ---
Pre-Procedural Eval Section A Date of Service: 04/04/23 The patient is an INPATIENT: No Changes since office visit: No Cold of Flu in the past 2 weeks, No New Medical Problems, No Changes in Medication and No Patient answered all questions The History & Physical has been completed within 30 days and I have reviewed it.: Yes Section B Chief Complaint: Screening Allergies: Allergies Allergy/AdvReac Type Severity Reaction Status Date / Time No Known Allergies Allergy Verified 04/03/23 08:27 [No Known Allergies*] Plan I have reviewed the history and physical and performed a pertinent physical examination on my patient. No changes have occurred unless specified. Time Spent With Patient Time: Total time managing care of this patient today ____ minutes.
--- NOTE | 2023-04-04 08:57 | W.PM.OPN ---
Operative Note Operative Note Date of Service: 04/04/23 Narrative: Preop diagnosis: Colon cancer screening Postop diagnosis: Small polyp 4 mm, level 55 cm, removed with cold forceps Procedure: Colonoscopy with polypectomy using cold forceps Surgeon: Sergio Avilez MD The patient is a 57-year-old male, here for screening colonoscopy. He did have a history of a polyp in the past. He understood the technique of anoscopy and was aware of the risks, benefits, and alternatives The patient was brought to the operating room and placed in left lateral decubitus position under monitored anesthesia care. A surgical time-out was done. A full digital rectal exam was done and this did not reveal any significant anal lesions. The tip of the Olympus colonoscope was gently introduced through the anal orifice advanced with insufflation all the way to the cecum. The cecum was intubated. The cecum was identified by visualization of the ileocecal valve as well as the appendiceal orifice. The cecal mucosa was unremarkable. The scope was gradually withdrawn with careful examination of the entire colonic mucosa being done with scope withdrawal. The patient had small thin flecks of stool as well of stools of water stools throughout the entire colon. We had to do a lot of irrigation to visualize the colonic mucosa well. It was however unlikely that any lesion may have been missed. Level 55 cm, there was note of a small polyp about 4 mm in size. This was removed using multiple bites of the cold forceps. The rectum was reached and there were no lesions seen. The anal canal was unremarkable. The scope was then withdrawn completely with desufflation The patient tolerated the procedure well. There were no immediate complications. In view of this suboptimal bowel prep, I would recommend another colonoscopy in 5 years depending on the path report for this that was removed.
[2023-04-04 09:07] VITALS: BP 129/78; PULSE 75; RESP 16; TEMP 36.3; O2SAT 98
[2023-04-04 09:22] VITALS: BP 140/78; PULSE 62; RESP 16; TEMP 36.6; O2SAT 99
== END 2023-04-04 09:49 | disposition home or self-care (01) ==
PROVIDERS: PCP Family Medicine; Visit Provider Surgery
PROC: 0DJD8ZZ Inspection of Lower Intestinal Tract, Via Natural or Artificial Opening Endoscopic (ICD-10-PCS; CPT 45378; principal; 2023-04-04 08:30)
DX: Z12.11 Encounter for screening for malignant neoplasm of colon (principal); Z86.010 Personal history of colon polyps; D12.4 Benign neoplasm of descending colon; I10 Essential (primary) hypertension; I42.9 Cardiomyopathy, unspecified; E78.00 Pure hypercholesterolemia, unspecified; D57.3 Sickle-cell trait; K21.9 Gastro-esophageal reflux disease without esophagitis; F41.1 Generalized anxiety disorder; G47.33 Obstructive sleep apnea (adult) (pediatric); Z99.89 Dependence on other enabling machines and devices; Z79.899 Other long term (current) drug therapy; F12.90 Cannabis use, unspecified, uncomplicated; Z87.891 Personal history of nicotine dependence
CPT/HCPCS: 45380; 88305

== ENCOUNTER → 2023-04-17 15:30 | Outpatient (BNVA) | payer MEDICAID, SELFPAY | PROVIDERS: Visit Provider Surgery | DX: D36.9 Benign neoplasm, unspecified site (principal) | CPT/HCPCS: 99212 ==

== ENCOUNTER 2023-08-15 08:39 | Outpatient (REF) | payer MEDICAID, SELFPAY ==
[2023-08-15 11:43] LABS: MANUAL DIFF FLAG NO
[2023-08-15 11:48] LABS: Basophils Percent Auto 0.2 % (0-2); Eosinophils Absolute Auto 0.1 X10*3/uL (0.0-0.4); Eosinophils Percent Auto 2.1 % (0-4); Hematocrit 43.3 % (42.0-52.0); Hemoglobin 14.6 g/dl (14.0-18.0); Imm Gran Abs Auto 0.02 X10*3/uL (0.00-0.03); Imm Gran Pct Auto 0.4 % (0.0-0.4); Lymphocytes Absolute Auto 1.4 X10*3/uL (1.2-4.9); Lymphocytes Percent Auto 25.5 % (20-40); Mean Corpuscular HGB Conc 33.7 g/dl (31.0-36.0); Mean Platelet Volume 10.2 fL (9.4-12.4); Monocytes Absolute Auto 0.5 X10*3/uL (0.1-1.2); Monocytes Percent Auto 9.6 % (2-11); Neutrophils Absolute Auto 3.5 x10*3/uL (2.0-8.3); Neutrophils Percent Auto 62.2 % (45-73); Platelet Count 217 X10*3/uL (160-400); Red Blood Count 5.41 X10*6/uL (4.60-5.80); Red Cell Distribution Width 14.3 % (11.0-16.0); White Blood Count 5.6 X10*3/uL (4.8-10.8)
[2023-08-15 11:55] LABS: Estimated Average Glucose 111 mg/dL; Hemoglobin A1c % 5.5 % (<6.0)
[2023-08-15 12:09] LABS: Alanine Aminotransferase 26 U/L (0-40); Albumin Level 4.1 g/dL (3.5-5.0); Alkaline Phosphatase 79 U/L (39-117); Aspartate Amino Transferase 23 U/L (5-37); Bilirubin Direct 0.2 mg/dL (0.0-0.5); Bilirubin Total 0.4 mg/dL (0.0-1.0); Cholesterol 109 mg/dL (<200); HDL Cholesterol 33 mg/dL (>40); LDL Cholesterol Calculated 60 mg/dL (<100); Total Protein 7.3 g/dL (6.5-8.0); Triglycerides 84 mg/dL (<150)
== END 2023-08-15 08:40 | disposition home or self-care (01) ==
LOC: HO.HHCL 08:39
PROVIDERS: Visit Provider Family Medicine
DX: R53.83 Other fatigue (principal); R73.03 Prediabetes; E78.5 Hyperlipidemia, unspecified
CPT/HCPCS: 36415; 80061; 80076; 83036; 85025

== ENCOUNTER 2023-10-04 12:09 | Outpatient (REF) | payer MEDICAID, SELFPAY ==
[2023-10-04 13:08] LABS: MANUAL DIFF FLAG NO
[2023-10-04 13:38] LABS: Basophils Percent Auto 0.3 % (0-2); Eosinophils Absolute Auto 0.1 X10*3/uL (0.0-0.4); Eosinophils Percent Auto 1.9 % (0-4); Hemoglobin 14.1 g/dl (14.0-18.0); Imm Gran Abs Auto 0.02 X10*3/uL (0.00-0.03); Imm Gran Pct Auto 0.3 % (0.0-0.4); Lymphocytes Absolute Auto 1.9 X10*3/uL (1.2-4.9); Lymphocytes Percent Auto 33.2 % (20-40); Mean Corpuscular HGB Conc 33.6 g/dl (31.0-36.0); Mean Corpuscular Hemoglobin 26.6 pg (27.0-33.0); Mean Corpuscular Volume 79.2 fL (80.0-98.0); Mean Platelet Volume 9.8 fL (9.4-12.4); Monocytes Absolute Auto 0.5 X10*3/uL (0.1-1.2); Neutrophils Absolute Auto 3.3 x10*3/uL (2.0-8.3); Neutrophils Percent Auto 56.3 % (45-73); Platelet Count 220 X10*3/uL (160-400); Red Cell Distribution Width 13.9 % (11.0-16.0); White Blood Count 5.8 X10*3/uL (4.8-10.8)
[2023-10-04 13:56] LABS: HIV AB/AG Nonreactive (Nonreactive); HIV Num 1 0.08 S/CO (0.00-0.99); ~Hepatitis C Antibody Nonreactive (Nonreactive)
[2023-10-04 14:10] LABS: Ferritin 297 ng/mL (20-250); TSH reflex Free T4 0.86 uIU/mL (0.32-4.0)
[2023-10-04 14:15] LABS: Vitamin B12 833 pg/mL (200-900)
[2023-10-05 05:49] LABS: CT PCR NOT DETECTED (Not Detect.); NG PCR NOT DETECTED (Not Detect.)
[2023-10-05 09:33] LABS: RPR Rapid Plasma Reagin NON-REACTIVE (NON-REACTIVE)
== END 2023-10-04 12:10 | disposition home or self-care (01) ==
LOC: HO.HHCL 12:09
PROVIDERS: Visit Provider Family Medicine
DX: R25.1 Tremor, unspecified (principal); R63.4 Abnormal weight loss; R53.83 Other fatigue; E55.9 Vitamin D deficiency, unspecified; Z11.3 Encounter for screening for infections with a predominantly sexual mode of transmission; Z86.2 Personal history of diseases of the blood and blood-forming organs and certain disorders involving the immune mechanism
CPT/HCPCS: 0353U; 36415; 82306; 82607; 82728; 84443; 85025; 86592; 86803; 87389

== ENCOUNTER 2024-01-31 15:18 | Outpatient (AMB) | payer MEDICAID, SELFPAY ==
--- NOTE | 2024-01-31 15:22 | A.OFFVIS_ITS ---
Intake Intake Visit Reasons: 1 yr follow up/ med review Intake Note: Patient presents today for a follow up on: Sildenafil med review Meds- Sildenafil Allergies to Antibiotic- No Known Allergies Blood Thinner- None Hammer Runner Required: No Accompanied by: Self / Same As Patient Allergies No Known Allergies [No Known Allergies*] Allergy (Verified 01/31/24 15:27) Medication List - Last Reconciled 01/31/24 by Bebo Aquino MD acetaminophen 500 mg PO QID PRN atorvastatin 40 mg PO BEDTIME carvedilol 6.25 mg PO BID cyclobenzaprine 10 mg PO BEDTIME folic acid 1 mg PO DAILY hydrochlorothiazide 25 mg PO DAILY ibuprofen 600 mg PO TID PRN multivitamin 1 tab PO DAILY omeprazole 1 cap PO DAILY PRN sildenafil 100 mg PO DAILY PRN sodium,potassium,mag sulfates 17.5-3.13-1.6 gram (Suprep Bowel Prep Kit) DILUTE; drink full amount early evening before AND next morning at least 2 hr before procedure; follow w 960 mL water PO tadalafil 5 mg PO DAILY 90 days thiamine mononitrate (vit B1) (Vitamin B-1 (mononitrate)) 100 mg PO DAILY HPI HPI Comments History of Present Illness Details Ramsey is a pleasant male. He is a patient of Dr. Santana. He is seen for the following urologic conditions. - erectile dysfunction - spermatocele Twelve month follow-up Prior response well to 200 mg sildenafil Does report gradual weakening of stream Nocturia x2 Progressive bladder outlet obstruction symptoms Suggest trial low-dose daily tadalafil which will be effective for both erections and bladder stability Erectile dysfunction Longstanding Good response to Viagra May increase dose to maximum 200 mg as needed Prior weight loss did increase testosterone PSA 01/19 2.2 Epididymal cyst Left scrotum Intermittent pain Discussed use of anti-inflammatories Offered resection [facility] Medical History Tubular adenoma Cellulitis Vomiting and diarrhea Depression Cardiomyopathy GERD (gastroesophageal reflux disease) Sickle-cell trait Weakness Anxiety Sleep apnea COVID-19 vaccine series completed Elevated cholesterol Colon cancer screening Erectile dysfunction Lumbar radiculopathy Dysfunction of left rotator cuff Hypertension Chronic back pain Surgical History History of colonoscopy (~04/04/23) Hx of rotator cuff surgery Hx of arthroscopic knee surgery Hx of appendectomy H/O colonoscopy Family History Father No problems noted. Mother Cardiomyopathy Social History Household Members: None Household Members Other:: none Are you a primary manager home healthcare to a significant other at home: No Do you presently have visiting nurse or other home services: No Alcohol intake: current Alcohol intake frequency: holidays/special occasions only Comment: aware of trip hazard Patient Tobacco Use Status: Former Tobacco user Quit Date: 2008 Tobacco use type: Cigarette Substance Use Type: Marijuana Advance Directives Date on File: 01/13/16 Current occupational status: unemployed Review of Systems Const Denies chills and Denies fever(s) Card Reports no additional complaints and Denies syncope Resp Denies cough GI Denies abdominal pain and Denies heartburn Reports as per HPI and Denies change in libido Neuro Denies syncope Psych Denies change in libido Endo Denies change in libido Physical Exam Const General: cooperative, healthy appearing, comfortable and no acute distress Orientation/consciousness: patient oriented x3 HEENT Face and sinus: Yes normal facial exam Mouth: moist mucous membranes Neck Neck: Yes normal visual inspection, Yes full ROM and Yes trachea midline Chest Chest palpation & inspection: normal inspection of the chest Resp Effort & Inspection: normal respiratory effort, able to speak in complete sentences and no respiratory distress GI Inspection: Yes normal to inspection Back/Spine/Pelvis Cervical Spine: normal cervical lordosis Thoracic/Lumbar Spine: thoracic and lumbar spine normal to inspection Skin General skin exam: no rashes or lesions noted Neuro General: patient oriented x3, gait normal, tone normal and moves all extremities Extrem General: Yes normal to inspection and Yes capillary refill normal Assessment & Plan Assessment & Plan (1) Nocturia associated with benign prostatic hyperplasia: Code(s): N40.1 - Benign prostatic hyperplasia with lower urinary tract symptoms; R35.1 - Nocturia (2) Weak urinary stream: Code(s): R39.12 - Poor urinary stream (3) Erectile dysfunction: Code(s): N52.9 - Male erectile dysfunction, unspecified Plan Three-month follow-up tele Medications: New tadalafil Take daily 5 mg PO DAILY 90 tabs 0RF bladder weakness 90 days N40.1 - Benign prostatic hyperplasia with lower urinary tract symptoms, R35.1 - Nocturia Patient Instructions: Imaging studies, laboratory and physical exam results were discussed and reviewed in detail. No major barriers to patient understanding were identified. An opportunity to ask questions regarding the treatment plan was provided. All questions were answered. The patient expressed understanding and agreement with the above treatment plan. The patient is aware they should contact our office by phone for worsening of their current condition or the appearance of new urologic symptoms. Compliance is encouraged with any medications and followup testing that is ordered. It is a privilege to participate in the urologic care of your patient. If you have any questions or concerns regarding treatment for the above conditions, or other urologic issues, please do not hesitate to contact me. The office telephone contact is [phone]. This note is constructed using voice recognition software. While every effort has been made to ensure accuracy inventory specialist errors may have been included. Yours sincerely, Dr Bebo Aquino MD, [facility] - Urology Providers of Expert, Compassionate Care for the Genitourinary System Coding Level of Care Code Est Pt Level 4 (39207) Diagnoses Nocturia associated with benign prostatic hyperplasia N40.1; R35.1 Weak urinary stream R39.12 Erectile dysfunction N52.9
== END 2024-01-31 15:36 | disposition home or self-care (01) ==
PROVIDERS: PCP Family Medicine; Referring Provider Family Medicine; Visit Provider Urology
DX: N40.1 Benign prostatic hyperplasia with lower urinary tract symptoms (principal); R35.1 Nocturia; R39.12 Poor urinary stream; N52.9 Male erectile dysfunction, unspecified
CPT/HCPCS: 99214

== ENCOUNTER → 2024-01-31 15:18 | Outpatient (BNVA) | payer MEDICAID, SELFPAY | PROVIDERS: PCP Family Medicine; Visit Provider Urology | DX: N40.1 Benign prostatic hyperplasia with lower urinary tract symptoms (principal); R35.1 Nocturia; R39.12 Poor urinary stream; N52.9 Male erectile dysfunction, unspecified | CPT/HCPCS: 99212 ==

== ENCOUNTER 2024-04-09 08:36 | Outpatient (AMB) | payer MEDICAID, SELFPAY ==
--- NOTE | 2024-04-09 08:41 | A.OFFVIS_ITS ---
Vital Signs 04/09/24 08:48 Height 5 ft 11 in Weight 236 lb BMI 32.9 Intake Visit Reasons: OV - Right knee pain, last inj 04/03/23 Intake Note: Ramsey is a 57 year old male who presents today for a repeat injection for his right knee, last injection 04/03/23. Patient reports his last injection gave him about a year of relief. He expresses that he is having a lot of pain in the medial aspect of the knee and he would like to talk with Kim about his pain before repeating. Allergies No Known Allergies [No Known Allergies*] Allergy (Verified 04/09/24 08:47) HPI HPI OV - Right knee pain, last inj 04/03/23: Details: 58-year-old male who presents in the office today for a follow-up of right knee patellofemoral joint osteoarthritis. I last saw the patient in the office on 04/03/2023 when he received a cortisone injection in the right knee. While in the office today the patient reports having ?a lot? of pain along the medial aspect of the right knee. He would like to further discuss this pain prior to repeating the cortisone injection. [facility] Medical History Tubular adenoma Cellulitis Vomiting and diarrhea Depression Cardiomyopathy GERD (gastroesophageal reflux disease) Sickle-cell trait Weakness Anxiety Sleep apnea COVID-19 vaccine series completed Elevated cholesterol Colon cancer screening Erectile dysfunction Lumbar radiculopathy Dysfunction of left rotator cuff Hypertension Chronic back pain Surgical History History of colonoscopy (~04/04/23) Hx of rotator cuff surgery Hx of arthroscopic knee surgery Hx of appendectomy H/O colonoscopy Family History Father No problems noted. Mother Cardiomyopathy Social History Household Members: None Household Members Other:: none Are you a primary career technical education instructor to a significant other at home: No Do you presently have visiting nurse or other home services: No Alcohol intake: current Alcohol intake frequency: holidays/special occasions only Comment: aware of trip hazard Patient Tobacco Use Status: Former Tobacco user Tobacco use type: Cigarette Substance Use Type: Marijuana Advance Directives Date on File: 01/13/16 Current occupational status: unemployed Review of Systems Const All systems reviewed & are unremarkable except as noted in HPI and below Physical Exam Vital Signs: BMI result Body Mass Index 32.9 Const General: cooperative, healthy appearing and no acute distress Resp Effort & Inspection: normal respiratory effort and able to speak in complete sentences Cardio Rate: regular rate Peripheral pulses: Peripheral pulses 2+ throughout GI Palpation (GI): Soft to palpation Skin Lesions: no lesions Rashes: no rashes Extrem Other: Right knee: Normal to inspection. No ecchymosis, erythema, or joint effusion. Slight tenderness to palpation to the medial or lateral joint lines. Full knee extension and flexion. No crepitus felt with ROM. NVI. Office Procedures Joint Injection/Drain Joint Injection/Drain Primary Site: right knee Prep: site was prepped using aseptic technique, ethochloride spray was applied and injection warnings given Injected: 80 mg of, DepoMedrol, with 8 mL of (2% plain lido ) and in the joint Approach Used: anterolateral Procedure: The patient tolerated the procedure well, but had some pain with the injection and there was some relief with the local anesthesia Coding 87674 - Large joint Procedure code (CPT) selection complete Assessment & Plan Assessment & Plan (1) Osteoarthritis of right patellofemoral joint: Code(s): M17.11 - Unilateral primary osteoarthritis, right knee Category: Medical Plan Mr. Ayala is a 58-year-old male who presents in the office today for a follow-up of right knee patellofemoral joint osteoarthritis. I last saw the patient in the office on 04/03/2023 when he received a cortisone injection in the right knee. While in the office today the patient reports having ?a lot? of pain along the medial aspect of the right knee. He would like to further discuss this pain prior to repeating the cortisone injection. The patient was offered a cortisone injection in the right knee with 80 mg of DepoMedrol. The patient was explained the risk, benefits, and alternatives to receiving this injection. After receiving consent for the injection, the patient had the procedure done while in the office today. The patient tolerated the procedure well with no complications. Follow-up will be PRN, or sooner if needed. Patient Instructions: Scribed by Maria Del Carmen Rodeen, director of medical education, for Kim Alejandre PA-C on 04/09/2024 at 8:52 am, EST. Coding Level of Care Code Est Pt Level 3 (52356) Diagnoses Osteoarthritis of right patellofemoral joint M17.11 CPT Codes Coding - 10844 Large joint: 56200 - Large joint ([id number])
[2024-04-09 08:48] VITALS: BMI 32.9
== END 2024-04-09 09:05 | disposition home or self-care (01) ==
PROVIDERS: PCP Family Medicine; Visit Provider Physician Assistant
DX: M17.11 Unilateral primary osteoarthritis, right knee (principal)
CPT/HCPCS: 20610; 99213

== ENCOUNTER → 2024-04-09 08:36 | Outpatient (BNVA) | payer MEDICAID, SELFPAY | PROVIDERS: PCP Family Medicine; Visit Provider Physician Assistant | DX: M17.11 Unilateral primary osteoarthritis, right knee (principal) | CPT/HCPCS: 20610; 99212; J1010 ==

== ENCOUNTER 2024-05-03 14:18 | Outpatient (AMB) | payer MEDICAID, SELFPAY ==
--- NOTE | 2024-05-03 14:14 | MHC.OFFVIS ---
Intake Visit Reasons: 3 month follow up Intake Note: Patient is present for 3m f/u Urology Medication:sildenafil,tadalafil Antibiotic Allergy:none Blood Thinner:none Allergies No Known Allergies [No Known Allergies*] Allergy (Verified 05/03/24 14:15) Medication List - Last Reconciled 05/03/24 by Bebo Aquino MD acetaminophen 500 mg PO QID PRN atorvastatin 40 mg PO BEDTIME carvedilol 6.25 mg PO BID cyclobenzaprine 10 mg PO BEDTIME diclofenac sodium 75 mg PO BID PRN 30 days folic acid 1 mg PO DAILY hydrochlorothiazide 25 mg PO DAILY ibuprofen 600 mg PO TID PRN multivitamin 1 tab PO DAILY omeprazole 1 cap PO DAILY PRN sildenafil 100 mg PO DAILY PRN sodium,potassium,mag sulfates 17.5-3.13-1.6 gram (Suprep Bowel Prep Kit) DILUTE; drink full amount early evening before AND next morning at least 2 hr before procedure; follow w 960 mL water PO tadalafil 5 mg PO DAILY 90 days thiamine mononitrate (vit B1) (Vitamin B-1 (mononitrate)) 100 mg PO DAILY HPI Comments Details: Ramsey is a pleasant male. He is a patient of Dr. Santana. He is seen for the following urologic conditions. - erectile dysfunction - spermatocele - lower urinary tract symptoms Telemedicine Evaluation 15 min Consultation [employer] Three-month follow-up from low-dose daily tadalafil trial Using low-dose daily tadalafil + on demand sildenafil Using any sildenafil 50 mg. Very happy with current response Erectile dysfunction Longstanding Good response to Viagra May increase dose to maximum 200 mg as needed Prior weight loss did increase testosterone PSA 01/19 2.2 Epididymal cyst Left scrotum Intermittent pain Discussed use of anti-inflammatories Offered resection Lower urinary tract symptoms Progressive bladder outlet obstruction Gradual weakening stream Nocturia x2 PFSH Medical History Tubular adenoma Cellulitis Vomiting and diarrhea Depression Cardiomyopathy GERD (gastroesophageal reflux disease) Sickle-cell trait Weakness Anxiety Sleep apnea COVID-19 vaccine series completed Elevated cholesterol Colon cancer screening Erectile dysfunction Lumbar radiculopathy Dysfunction of left rotator cuff Hypertension Chronic back pain Surgical History History of colonoscopy (~04/04/23) Hx of rotator cuff surgery Hx of arthroscopic knee surgery Hx of appendectomy H/O colonoscopy Family History Father No problems noted. Mother Cardiomyopathy Social History Household Members: None Household Members Other:: none Are you a primary health and social care teacher to a significant other at home: No Do you presently have visiting nurse or other home services: No Alcohol intake: current Alcohol intake frequency: holidays/special occasions only Comment: aware of trip hazard Patient Tobacco Use Status: Former Tobacco user Tobacco use type: Cigarette Substance Use Type: Marijuana Advance Directives Date on File: 01/13/16 Current occupational status: unemployed Review of Systems Const All systems reviewed & are unremarkable except as noted in HPI and below Reports no additional complaints Resp Reports no additional complaints GI Reports no additional complaints Reports as per HPI Musc Reports no additional complaints Physical Exam Telemedicine evaluation Appropriate responses Regular breathing rate and rhythm HEENT Head: Yes normal to inspection Ears: hearing grossly normal bilaterally Eyes General: appearance normal, both eyes and all related structures Neck Neck: Yes normal visual inspection Chest Chest palpation & inspection: normal inspection of the chest Resp Effort & Inspection: normal respiratory effort and able to speak in complete sentences Telehealth Telehealth Location of provider rendering services: practice address Location of patient: address on file Patient Identification confirmed using: Name, : Yes Telehealth method: voice only Patient verbally consented to treatment: Yes Patient verbally consented to billing insurance company: Yes Patient informed of any privacy concerns related to visit: Yes Assessment & Plan Assessment & Plan (1) Nocturia associated with benign prostatic hyperplasia: Code(s): N40.1 - Benign prostatic hyperplasia with lower urinary tract symptoms; R35.1 - Nocturia Category: Medical (2) Weak urinary stream: Code(s): R39.12 - Poor urinary stream Category: Medical Plan Six-month follow-up Medications: Refilled tadalafil Take daily 5 mg PO DAILY 90 days 90 tabs 1RF bladder weakness N40.1 - Benign prostatic hyperplasia with lower urinary tract symptoms, R35.1 - Nocturia Patient Instructions: Imaging studies, laboratory and physical exam results were discussed and reviewed in detail. No major barriers to patient understanding were identified. An opportunity to ask questions regarding the treatment plan was provided. All questions were answered. The patient expressed understanding and agreement with the above treatment plan. The patient is aware they should contact our office by phone for worsening of their current condition or the appearance of new urologic symptoms. Compliance is encouraged with any medications and followup testing that is ordered. It is a privilege to participate in the urologic care of your patient. If you have any questions or concerns regarding treatment for the above conditions, or other urologic issues, please do not hesitate to contact me. The office telephone contact is [phone]. This note is constructed using voice recognition software. While every effort has been made to ensure accuracy unionmelt operator errors may have been included. Yours sincerely, Dr Bebo Aquino MD, [facility] - Urology Providers of Expert, Compassionate Care for the Genitourinary System Coding Level of Care Code Tele Est Pt Level 3 (41627) Diagnoses Nocturia associated with benign prostatic hyperplasia N40.1; R35.1 Weak urinary stream R39.12
== END 2024-05-03 14:52 | disposition home or self-care (01) ==
LOC: HO.HUSH 14:18
PROVIDERS: PCP Family Medicine; Visit Provider Urology
DX: N40.1 Benign prostatic hyperplasia with lower urinary tract symptoms (principal); R35.1 Nocturia; R39.12 Poor urinary stream
CPT/HCPCS: 99213

== ENCOUNTER → 2024-05-03 14:18 | Outpatient (BNVA) | payer MEDICAID, SELFPAY | PROVIDERS: PCP Family Medicine; Visit Provider Urology ==

== ENCOUNTER 2024-07-25 08:57 | Outpatient (REF) | payer MEDICAID, SELFPAY ==
[2024-07-25 11:59] LABS: Basophils Percent Auto 0.5 % (0-2); Eosinophils Absolute Auto 0.1 X10*3/uL (0.0-0.4); Eosinophils Percent Auto 1.8 % (0-4); Hemoglobin 14.5 g/dl (14.0-18.0); Imm Gran Abs Auto 0.01 X10*3/uL (0.00-0.03); Imm Gran Pct Auto 0.2 % (0.0-0.4); Lymphocytes Absolute Auto 1.5 X10*3/uL (1.2-4.9); MANUAL DIFF FLAG NO; Mean Corpuscular HGB Conc 34.5 g/dl (31.0-36.0); Mean Corpuscular Hemoglobin 26.7 pg (27.0-33.0); Mean Corpuscular Volume 77.2 fL (80.0-98.0); Mean Platelet Volume 9.6 fL (9.4-12.4); Monocytes Absolute Auto 0.5 X10*3/uL (0.1-1.2); Monocytes Percent Auto 8.5 % (2-11); Neutrophils Absolute Auto 3.8 x10*3/uL (2.0-8.3); Platelet Count 243 X10*3/uL (160-400); Red Blood Count 5.44 X10*6/uL (4.60-5.80); Red Cell Distribution Width 14.3 % (11.0-16.0)
[2024-07-25 12:22] LABS: Alanine Aminotransferase 23 U/L (0-40); Alkaline Phosphatase 84 U/L (39-117); Anion Gap 11 (12-20); Aspartate Amino Transferase 21 U/L (5-37); Bilirubin Direct 0.1 mg/dL (0.0-0.5); Bilirubin Total 0.3 mg/dL (0.0-1.0); Blood Urea Nitrogen 18 mg/dL (9-16); Calcium 9.4 mg/dL (8.4-10.2); Carbon Dioxide 25 mmol/L (22-29); Chloride 107 mmol/L (96-108); Cholesterol 112 mg/dL (<200); Estimated Glomerular Filt Rate > 60; Glucose Random 101 mg/dL (60-115); HDL Cholesterol 32 mg/dL (>40); Iron 49 mcg/dL (45-160); LDL Cholesterol Calculated 49 mg/dL (<100); Percent Iron Saturation 22 % (15-50); Potassium 3.7 mmol/L (3.3-5.1); Sodium 139 mmol/L (135-145); Total Iron Binding Capacity 226 mcg/dL (228-428); Total Protein 7.2 g/dL (6.5-8.0); Triglycerides 159 mg/dL (<150); Unsaturated Iron Binding 177 ug/dL
[2024-07-25 12:39] LABS: Vitamin B12 678 pg/mL (200-900)
[2024-07-25 12:40] LABS: Creatinine Urine 95.75 mg/dL; Microalbumin Urine < 5.0 mg/L
[2024-07-25 12:41] LABS: Ferritin 297 ng/mL (20-250)
== END 2024-07-25 08:58 | disposition home or self-care (01) ==
LOC: HO.HHCL 08:57
PROVIDERS: Visit Provider Family Medicine
DX: I10 Essential (primary) hypertension (principal); D57.3 Sickle-cell trait; D64.9 Anemia, unspecified; I42.2 Other hypertrophic cardiomyopathy
CPT/HCPCS: 36415; 80048; 80061; 80076; 82043; 82570; 82607; 82728; 83540; 85025

== ENCOUNTER 2024-09-23 13:08 | Outpatient (REF) | payer MEDICAID, SELFPAY ==
--- NOTE | ~2024-09-23 | XR_ITS ---
EXAMINATION: XR KNEE, LEFT CLINICAL INFORMATION: M25.569 - Pain in unspecified knee COMPARISON: None available. X-rays of the knees March 2023 TECHNIQUE: Patella and lateral view of the left knee only FINDINGS: Patellofemoral compartment: Minimal marginal osteophytes unchanged without joint space narrowing indicative of minimal arthrosis. No additional abnormalities noted on the lateral view. XR/XR knee LT 2V IMPRESSION: Limited examination of the left knee. Mild arthrosis of the patellofemoral joint unchanged. Electronically signed by: August Hernández MD 09/28/2024 10:22 PM [facility]
== END 2024-09-23 13:09 | disposition home or self-care (01) ==
LOC: HO.HOSX 13:08
PROVIDERS: Visit Provider Physician Assistant
DX: M17.0 Bilateral primary osteoarthritis of knee (principal)
CPT/HCPCS: 20610; 73560; 99212; J1010; J2003

== ENCOUNTER 2024-09-23 13:30 | Outpatient (AMB) | payer MEDICAID, SELFPAY ==
--- NOTE | 2024-09-23 13:39 | A.OFFVIS_ITS ---
Intake Visit Reasons: New Prob - B/L Knee px, last inj rt knee 04/09/24 Intake Note: Ramsey is a 59 year old male who presents today for a evaluation of his bilateral knee pain, last injection was on the right knee on 04/09/24. Patient reports he is having more pain on the right knee than the left, however the left knee is getting close to being worse. He mentions that his last injections gave him about 1 - 2 months of relief and is wondering if there is anything else he can try to help with the pain. Allergies No Known Allergies [No Known Allergies*] Allergy (Verified 09/23/24 13:48) HPI HPI New Prob - B/L Knee px, last inj rt knee 04/09/24: Details: 59-year-old male who presents in the office today for an evaluation of bilateral knee pain. I last saw the patient in the office for right knee pain on 04/09/24 when he received a cortisone injection in the right knee. While in the office today, the patient reports bilateral knee pain, right knee worse than the left knee; however, his left knee pain is also worsening. He reports his last injection provided him about 1-2 relief. He wonders and would like to try other treatment options. [facility] Medical History Tubular adenoma Cellulitis Vomiting and diarrhea Depression Cardiomyopathy GERD (gastroesophageal reflux disease) Sickle-cell trait Weakness Anxiety Sleep apnea COVID-19 vaccine series completed Elevated cholesterol Colon cancer screening Erectile dysfunction Lumbar radiculopathy Dysfunction of left rotator cuff Hypertension Chronic back pain Surgical History History of colonoscopy (~04/04/23) Hx of rotator cuff surgery Hx of arthroscopic knee surgery Hx of appendectomy H/O colonoscopy Family History Father No problems noted. Mother Cardiomyopathy Social History Household Members: None Household Members Other:: none Are you a primary critical care specialist to a significant other at home: No Do you presently have visiting nurse or other home services: No Alcohol intake: current Alcohol intake frequency: holidays/special occasions only Comment: aware of trip hazard Patient Tobacco Use Status: Former Tobacco user Tobacco use type: Cigarette Substance Use Type: Marijuana Advance Directives Date on File: 01/13/16 Current occupational status: unemployed Review of Systems Const All systems reviewed & are unremarkable except as noted in HPI and below Physical Exam Const General: cooperative, healthy appearing and no acute distress Resp Effort & Inspection: normal respiratory effort and able to speak in complete sentences Cardio Rate: regular rate Peripheral pulses: Peripheral pulses 2+ throughout GI Palpation (GI): Soft to palpation Skin Lesions: no lesions Rashes: no rashes Extrem Other: Bilateral knees: Normal to inspection. No ecchymosis, erythema, or joint effusion. Tenderness to palpation in the medial joint lines. No tenderness to palpation in the lateral joint lines. Crepitus on the right knee with range of motion. Office Procedures AMB Joint Injection/Aspiration Joint Injection/Aspiration Primary Site: right knee Secondary Site: left knee Prep: site was prepped using aseptic technique, ethochloride spray was applied and injection warnings given Injected: 80 mg of, DepoMedrol, with 8 mL of (2% plain lido ) and in the joint Approach Used: anterolateral Procedure: The patient tolerated the procedure well, but had some pain with the injection and there was some relief with the local anesthesia Coding 17419 - Large joint Procedure code (CPT) selection complete Assessment & Plan Assessment & Plan (1) Osteoarthritis of right patellofemoral joint: Code(s): M17.11 - Unilateral primary osteoarthritis, right knee Category: Medical (2) Osteoarthritis of knees, bilateral: Code(s): M17.0 - Bilateral primary osteoarthritis of knee Category: Medical Plan Mr. Ayala is a 59-year-old male who presents in the office today for an evaluation of bilateral knee pain. I last saw the patient in the office for right knee pain on 04/09/24 when he received a cortisone injection in the right knee. While in the office today, the patient reports bilateral knee pain, right knee worse than the left knee; however, his left knee pain is also worsening. He reports his last injection provided him about 1-2 relief. He wonders and would like to try other treatment options. The patient was offered a cortisone injection in the bilateral knees with 80 mg of Depo-Medrol. The patient was explained the risks, benefits, and alternatives to receiving this injection. After receiving consent for the injection, the patient had the procedure done while in the office today. The patient tolerated the procedure well with no complications. We discussed the role of gel injection today and the patient is agreeable. The office will petition the insurance company for approval of gel injection. Follow-up will be pending insurance approval for gel injection, or sooner if needed. Follow-up will be PRN, or sooner if needed. X-rays of the left knee, which were obtained while in the office today and were reviewed by me, Kim Alejandre PA-C, revealed: Osteoarthritis. Orders: Orders XR knee LT 2V Today M25.569 - Pain in unspecified knee Patient Instructions: Scribed by Michelle Fierro, medical instrument cable fabricator, for Kim Alejandre PA-C on 09/23/24 at 2:05 pm EST. Coding Level of Care Code Est Pt Level 3 (62146) Diagnoses Osteoarthritis of right patellofemoral joint M17.11 Osteoarthritis of knees, bilateral M17.0 CPT Codes Coding - 59362 Large joint: 99667 - Large joint ([id number])
== END 2024-09-23 14:14 | disposition home or self-care (01) ==
PROVIDERS: PCP Family Medicine; Visit Provider Physician Assistant
DX: M17.11 Unilateral primary osteoarthritis, right knee (principal); M17.0 Bilateral primary osteoarthritis of knee
CPT/HCPCS: 20610; 99213

== ENCOUNTER 2024-10-11 10:45 | Outpatient (AMB) | payer MEDICAID, SELFPAY ==
--- NOTE | 2024-10-11 10:51 | A.OFFVIS_ITS ---
Intake Visit Reasons: B/L Euflexxa Gel Injections #1 Intake Note: Ramsey is a 59 year old male who presents today for his B/L Euflexxa Gel Injections #1. Allergies No Known Allergies [No Known Allergies*] Allergy (Verified 10/11/24 10:51) HPI HPI B/L Euflexxa Gel Injections #1: Details: 59-year-old male who presents in the office today for a follow-up of bilateral knee pain and to obtain his first Euflexxa injection in a series of 3. I last saw the patient in the office on 09/23/24 when the patient reported bilateral knee pain, right knee worse than the left knee. He was given a cortisone injection in the bilateral knees and discussed the role of gel injection. While in the office today, the patient is interested in receiving Euflexxa injection in the bilateral knees today. [facility] Medical History Tubular adenoma Cellulitis Vomiting and diarrhea Depression Cardiomyopathy GERD (gastroesophageal reflux disease) Sickle-cell trait Weakness Anxiety Sleep apnea COVID-19 vaccine series completed Elevated cholesterol Colon cancer screening Erectile dysfunction Lumbar radiculopathy Dysfunction of left rotator cuff Hypertension Chronic back pain Surgical History History of colonoscopy (~04/04/23) Hx of rotator cuff surgery Hx of arthroscopic knee surgery Hx of appendectomy H/O colonoscopy Family History Father No problems noted. Mother Cardiomyopathy Social History Household Members: None Household Members Other:: none Are you a primary care specialist to a significant other at home: No Do you presently have visiting nurse or other home services: No Alcohol intake: current Alcohol intake frequency: holidays/special occasions only Comment: aware of trip hazard Patient Tobacco Use Status: Former Tobacco user Tobacco use type: Cigarette Substance Use Type: Marijuana Advance Directives Date on File: 01/13/16 Current occupational status: unemployed Review of Systems Const All systems reviewed & are unremarkable except as noted in HPI and below Physical Exam Const General: cooperative, healthy appearing and no acute distress Resp Effort & Inspection: normal respiratory effort and able to speak in complete sentences Cardio Rate: regular rate Peripheral pulses: Peripheral pulses 2+ throughout GI Palpation (GI): Soft to palpation Skin Lesions: no lesions Rashes: no rashes Extrem Other: Bilateral knees: Normal to inspection. No ecchymosis, erythema, or joint effusion. Tenderness to palpation in the medial joint lines. No tenderness to palpation in the lateral joint lines. Crepitus on the right knee with range of motion. Office Procedures AMB Joint Injection/Aspiration Joint Injection/Aspiration Primary Site: right knee Secondary Site: left knee Prep: site was prepped using aseptic technique, ethochloride spray was applied and injection warnings given Injected: in the joint (Euflexxa #1) Approach Used: anterolateral Procedure: The patient tolerated the procedure well, but had some pain with the injection and there was some relief with the local anesthesia Coding 17635 - Large joint Procedure code (CPT) selection complete Assessment & Plan Assessment & Plan (1) Osteoarthritis of right patellofemoral joint: Code(s): M17.11 - Unilateral primary osteoarthritis, right knee Category: Medical (2) Osteoarthritis of knees, bilateral: Code(s): M17.0 - Bilateral primary osteoarthritis of knee Category: Medical Plan Mr. Ayala is a 59-year-old male who presents in the office today for a follow-up of bilateral knee pain and to obtain his first Euflexxa injection in a series of 3. I last saw the patient in the office on 09/23/24 when the patient reported bilateral knee pain, right knee worse than the left knee. He was given a cortisone injection in the bilateral knees and discussed the role of gel injection. While in the office today, the patient is interested in receiving Euflexxa injection in the bilateral knees today. The patient was injected with his first Euflexxa injection in the bilateral knees. The patient was explained the risks, benefits, and alternatives to receiving this injection. After receiving consent for the injection, the patient had the procedure done while in the office today. The patient tolerated the p rocedure well with no complications. Follow up will be in one week for a second Euflexxa injection, or sooner if needed. Patient Instructions: Scribed by Michelle Fierro medical assistant internal medicine, for Kim Alejandre PA-C on 10/11/24 at 11:12 am EST. Coding Level of Care Code Procedure Only Diagnoses Osteoarthritis of right patellofemoral joint M17.11 Osteoarthritis of knees, bilateral M17.0 CPT Codes Coding - 58145 Large joint: 79806 - Large joint ([id number])
== END 2024-10-11 11:09 | disposition home or self-care (01) ==
PROVIDERS: PCP Family Medicine; Visit Provider Physician Assistant
DX: M17.0 Bilateral primary osteoarthritis of knee (principal)
CPT/HCPCS: 20610

== ENCOUNTER → 2024-10-11 10:45 | Outpatient (BNVA) | payer MEDICAID, SELFPAY | PROVIDERS: PCP Family Medicine; Visit Provider Physician Assistant | DX: M17.0 Bilateral primary osteoarthritis of knee (principal) | CPT/HCPCS: 20610; J7323 ==

== ENCOUNTER 2024-10-18 10:57 | Outpatient (AMB) | payer MEDICAID, SELFPAY ==
--- NOTE | 2024-10-18 10:59 | MHC.OFFVIS ---
Intake Visit Reasons: B/L Euflexxa Gel Injections #2 Intake Note: Ramsey is a 59 year old male who presents today for his B/L Euflexxa Gel Injections #2. Patient reports he is feels improvements in his knees after his first shot. He mentions that he does had off and on pain. Allergies No Known Allergies [No Known Allergies*] Allergy (Verified 10/18/24 11:07) HPI HPI B/L Euflexxa Gel Injections #2: Details: 59-year-old male who presents in the office today for a follow-up of bilateral knee pain and to obtain his second Euflexxa injection in a series of 3. I last saw the patient in the office on 10/11/24, when he was given a cortisone injection in the bilateral knees. While in the office today, the patient reports improvement in his bilateral knee after receiving his first Euflexxa injection. He mentions experiencing intermittent pain in both knees. [facility] Medical History Tubular adenoma Cellulitis Vomiting and diarrhea Depression Cardiomyopathy GERD (gastroesophageal reflux disease) Sickle-cell trait Weakness Anxiety Sleep apnea COVID-19 vaccine series completed Elevated cholesterol Colon cancer screening Erectile dysfunction Lumbar radiculopathy Dysfunction of left rotator cuff Hypertension Chronic back pain Surgical History History of colonoscopy (~04/04/23) Hx of rotator cuff surgery Hx of arthroscopic knee surgery Hx of appendectomy H/O colonoscopy Family History Father No problems noted. Mother Cardiomyopathy Social History Household Members: None Household Members Other:: none Are you a primary medicare interviewer to a significant other at home: No Do you presently have visiting nurse or other home services: No Alcohol intake: current Alcohol intake frequency: holidays/special occasions only Comment: aware of trip hazard Patient Tobacco Use Status: Former Tobacco user Tobacco use type: Cigarette Substance Use Type: Marijuana Advance Directives Date on File: 01/13/16 Current occupational status: unemployed Review of Systems Const All systems reviewed & are unremarkable except as noted in HPI and below Physical Exam Const General: cooperative, healthy appearing and no acute distress Resp Effort & Inspection: normal respiratory effort and able to speak in complete sentences Cardio Rate: regular rate Peripheral pulses: Peripheral pulses 2+ throughout GI Palpation (GI): Soft to palpation Skin Lesions: no lesions Rashes: no rashes Extrem Other: Bilateral knees: Normal to inspection. No ecchymosis, erythema, or joint effusion. Tenderness to palpation in the medial joint lines. No tenderness to palpation in the lateral joint lines. Crepitus on the right knee with range of motion. Office Procedures AMB Joint Injection/Aspiration Joint Injection/Aspiration Primary Site: right knee Secondary Site: left knee Prep: site was prepped using aseptic technique, ethochloride spray was applied and injection warnings given Injected: in the joint (Euflexxa #2) Approach Used: anterolateral Procedure: The patient tolerated the procedure well, but had some pain with the injection and there was some relief with the local anesthesia Coding 58954 - Large joint Procedure code (CPT) selection complete Assessment & Plan Assessment & Plan (1) Osteoarthritis of right patellofemoral joint: Code(s): M17.11 - Unilateral primary osteoarthritis, right knee Category: Medical (2) Osteoarthritis of knees, bilateral: Code(s): M17.0 - Bilateral primary osteoarthritis of knee Category: Medical Plan Mr. Ayala is a 59-year-old male who presents in the office today for a follow-up of bilateral knee pain and to obtain his second Euflexxa injection in a series of 3. I last saw the patient in the office on 10/11/24, when he was given a cortisone injection in the bilateral knees. While in the office today, the patient reports improvement in his bilateral knee after receiving his first Euflexxa injection. He mentions experiencing intermittent pain in both knees. The patient was injected with his second Euflexxa injection in the bilateral knees. The patient was explained the risks, benefits, and alternatives to receiving this injection. After receiving consent for the injection, the patient had the procedure done while in the office today. The patient tolerated the procedure well with no complications. Follow up will be in one week for a third Euflexxa injection, or sooner if needed. Patient Instructions: Scribed by Michelle Fierro biomedical analytical scientist, lamar Alejandre PA-C on 10/18/24 at 11:20 am EST. Coding Level of Care Code Procedure Only Diagnoses Osteoarthritis of right patellofemoral joint M17.11 Osteoarthritis of knees, bilateral M17.0 CPT Codes Coding - 20957 Large joint: 12095 - Large joint ([id number])
== END 2024-10-18 11:24 | disposition home or self-care (01) ==
PROVIDERS: PCP Family Medicine; Visit Provider Physician Assistant
DX: M17.11 Unilateral primary osteoarthritis, right knee (principal); M17.0 Bilateral primary osteoarthritis of knee
CPT/HCPCS: 20610

== ENCOUNTER → 2024-10-18 10:57 | Outpatient (BNVA) | payer MEDICAID, SELFPAY | PROVIDERS: PCP Family Medicine; Visit Provider Physician Assistant | DX: M17.0 Bilateral primary osteoarthritis of knee (principal) | CPT/HCPCS: 20610; J7323 ==

== ENCOUNTER 2024-10-25 10:46 | Outpatient (AMB) | payer MEDICAID, SELFPAY ==
--- NOTE | 2024-10-25 10:50 | A.OFFVIS_ITS ---
Intake Visit Reasons: B/L Euflexxa Gel Injections #3 Intake Note: Ramsey is a 59 year old male who presents today for his B/L Euflexxa Gel Injections #3. Patient reports he is feeling relief with the last injection. Allergies No Known Allergies [No Known Allergies*] Allergy (Verified 10/18/24 11:07) HPI HPI B/L Euflexxa Gel Injections #3: Details: 59-year-old male who presents in the office today for a follow-up of bilateral knee pain and to obtain his second Euflexxa injection in a series of 3. I last saw the patient in the office on 10/18/24, when he was given his second Euflexxa injection in the bilateral knees. The patient reported improved pain in his bilateral knee after receiving his first Euflexxa injection. While in the office today, the patient reports that he has noticed pain relief with his last Euflexxa injection in the bilateral knees. [facility] Medical History Tubular adenoma Cellulitis Vomiting and diarrhea Depression Cardiomyopathy GERD (gastroesophageal reflux disease) Sickle-cell trait Weakness Anxiety Sleep apnea COVID-19 vaccine series completed Elevated cholesterol Colon cancer screening Erectile dysfunction Lumbar radiculopathy Dysfunction of left rotator cuff Hypertension Chronic back pain Surgical History History of colonoscopy (~04/04/23) Hx of rotator cuff surgery Hx of arthroscopic knee surgery Hx of appendectomy H/O colonoscopy Family History Father No problems noted. Mother Cardiomyopathy Social History Household Members: None Household Members Other:: none Are you a primary field care advocate to a significant other at home: No Do you presently have visiting nurse or other home services: No Alcohol intake: current Alcohol intake frequency: holidays/special occasions only Comment: aware of trip hazard Patient Tobacco Use Status: Former Tobacco user Tobacco use type: Cigarette Substance Use Type: Marijuana Advance Directives Date on File: 01/13/16 Current occupational status: unemployed Review of Systems Const All systems reviewed & are unremarkable except as noted in HPI and below Physical Exam Const General: cooperative, healthy appearing and no acute distress Resp Effort & Inspection: normal respiratory effort and able to speak in complete sentences Cardio Rate: regular rate Peripheral pulses: Peripheral pulses 2+ throughout GI Palpation (GI): Soft to palpation Skin Lesions: no lesions Rashes: no rashes Extrem Other: Bilateral knees: Normal to inspection. No ecchymosis, erythema, or joint effusion. Tenderness to palpation in the medial joint lines. No tenderness to palpation in the lateral joint lines. Crepitus on the right knee with range of motion. Office Procedures AMB Joint Injection/Aspiration Joint Injection/Aspiration Primary Site: right knee Secondary Site: left knee Prep: site was prepped using aseptic technique, ethochloride spray was applied and injection warnings given Injected: in the joint (Euflexxa #3) Approach Used: anterolateral Procedure: The patient tolerated the procedure well, but had some pain with the injection and there was some relief with the local anesthesia Coding 73248 - Large joint Procedure code (CPT) selection complete Assessment & Plan Assessment & Plan (1) Osteoarthritis of right patellofemoral joint: Code(s): M17.11 - Unilateral primary osteoarthritis, right knee Category: Medical (2) Osteoarthritis of knees, bilateral: Code(s): M17.0 - Bilateral primary osteoarthritis of knee Category: Medical Plan Mr. Ayaal is a 59-year-old male who presents in the office today for a follow-up of bilateral knee pain and to obtain his second Euflexxa injection in a series of 3. I last saw the patient in the office on 10/18/24, when he was given his second Euflexxa injection in the bilateral knees. The patient reported improved pain in his bilateral knee after receiving his first Euflexxa injection. While in the office today, the patient reports that he has noticed pain relief with his last Euflexxa injection in the bilateral knees. The patient was injected with his third Euflexxa injection in the bilateral knees. The patient was explained the risks, benefits, and alternatives to receiving this injection. After receiving consent for the injection, the patient had the procedure done while in the office today. The patient tolerated the procedure well with no complications. Follow-up will be PRN, or sooner if needed. Patient Instructions: Scribed by Michelle Fierro registered medical transcriptionist, for Kim Alejandre PA-C on 10/25/24 at 11:16 am EST. Coding Level of Care Code Procedure Only Diagnoses Osteoarthritis of right patellofemoral joint M17.11 Osteoarthritis of knees, bilateral M17.0 CPT Codes Coding - 34831 Large joint: 56149 - Large joint ([id number])
== END 2024-10-25 11:20 | disposition home or self-care (01) ==
PROVIDERS: PCP Family Medicine; Visit Provider Physician Assistant
DX: M17.0 Bilateral primary osteoarthritis of knee (principal)
CPT/HCPCS: 20610

== ENCOUNTER → 2024-10-25 10:46 | Outpatient (BNVA) | payer MEDICAID, SELFPAY | PROVIDERS: PCP Family Medicine; Visit Provider Physician Assistant | DX: M17.0 Bilateral primary osteoarthritis of knee (principal) | CPT/HCPCS: 20610; J7323 ==

== ENCOUNTER 2024-11-06 13:02 | Outpatient (AMB) | payer MEDICAID, SELFPAY ==
--- NOTE | 2024-11-06 13:07 | MHC.OFFVIS ---
Intake Visit Reasons: 6M Med Review/PVR Intake Note: Patient is present for 6m med review/PVR Urology Medication:SILDENAFIL,TADALAFIL Antibiotic Allergy:NONE Blood Thinner:NONE Todays PVR:0ML'S Traditional [employer] Herbalist Required: No Allergies No Known Allergies [No Known Allergies*] Allergy (Verified 11/06/24 13:10) Medication List - Last Reconciled 11/06/24 by Bebo Aquino MD acetaminophen 500 mg PO QID PRN atorvastatin 40 mg PO BEDTIME carvedilol 6.25 mg PO BID cyclobenzaprine 10 mg PO BEDTIME diclofenac sodium 75 mg PO BID PRN 30 days folic acid 1 mg PO DAILY hydrochlorothiazide 25 mg PO DAILY ibuprofen 600 mg PO TID PRN multivitamin 1 tab PO DAILY omeprazole 1 cap PO DAILY PRN sildenafil 100 mg PO DAILY PRN sodium,potassium,mag sulfates 17.5-3.13-1.6 gram (Suprep Bowel Prep Kit) DILUTE; drink full amount early evening before AND next morning at least 2 hr before procedure; follow w 960 mL water PO tadalafil 5 mg PO DAILY 90 days HPI Comments Details: Ramsey is a pleasant male. He is a patient of Dr. Santana. He is seen for the following urologic conditions. - erectile dysfunction - spermatocele - lower urinary tract symptoms Six-month follow-up Worried has had blurry vision on combination tadalafil and sildenafil No blue-green change Will retry tadalafil Otherwise will need separate medication for bladder He will call Using low-dose daily tadalafil + on demand sildenafil Using any sildenafil 50 mg. Very happy with current response Erectile dysfunction Longstanding Good response to Viagra May increase dose to maximum 200 mg as needed Prior weight loss did increase testosterone PSA 01/19 2.2 Epididymal cyst Left scrotum Intermittent pain Discussed use of anti-inflammatories Offered resection Lower urinary tract symptoms Progressive bladder outlet obstruction Gradual weakening stream Nocturia x2 PFSH Medical History Tubular adenoma Cellulitis Vomiting and diarrhea Depression Cardiomyopathy GERD (gastroesophageal reflux disease) Sickle-cell trait Weakness Anxiety Sleep apnea COVID-19 vaccine series completed Elevated cholesterol Colon cancer screening Erectile dysfunction Lumbar radiculopathy Dysfunction of left rotator cuff Hypertension Chronic back pain Surgical History History of colonoscopy (~04/04/23) Hx of rotator cuff surgery Hx of arthroscopic knee surgery Hx of appendectomy H/O colonoscopy Family History Father No problems noted. Mother Cardiomyopathy Social History Household Members: None Household Members Other:: none Are you a primary child care group leader to a significant other at home: No Do you presently have visiting nurse or other home services: No Alcohol intake: current Alcohol intake frequency: holidays/special occasions only Comment: aware of trip hazard Patient Tobacco Use Status: Former Tobacco user Tobacco use type: Cigarette Substance Use Type: Marijuana Advance Directives Date on File: 01/13/16 Current occupational status: unemployed Review of Systems Const Denies chills and Denies fever(s) Card Reports no additional complaints and Denies syncope Resp Denies cough GI Denies abdominal pain and Denies heartburn Reports as per HPI and Denies change in libido Neuro Denies syncope Psych Denies change in libido Endo Denies change in libido Physical Exam Const General: cooperative, healthy appearing, comfortable and no acute distress Orientation/consciousness: patient oriented x3 HEENT Face and sinus: Yes normal facial exam Mouth: moist mucous membranes Neck Neck: Yes normal visual inspection, Yes full ROM and Yes trachea midline Chest Chest palpation & inspection: normal inspection of the chest Resp Effort & Inspection: normal respiratory effort, able to speak in complete sentences and no respiratory distress GI Inspection: Yes normal to inspection Back/Spine/Pelvis Cervical Spine: normal cervical lordosis Thoracic/Lumbar Spine: thoracic and lumbar spine normal to inspection Skin General skin exam: no rashes or lesions noted Neuro General: patient oriented x3, gait normal, tone normal and moves all extremities Extrem General: Yes normal to inspection and Yes capillary refill normal Office Procedures Post Void Residual Post Residual Void Post Void Residual (PVR): 0 [id number] Void Residual by ultrasound Results AMB Urinalysis, Automated UA Leukoctes 0 Cameron/uL Last Edit by ANIKA Mckeon on 11/06/24 13:21 UA Nitrite Negative Last Edit by ANIKA Mckeon on 11/06/24 13:21 UA Urobilinogen 0.2 mg/dL Last Edit by ANIKA Mckeon on 11/06/24 13:21 UA Protein 0 mg/dL Last Edit by ANIKA Mckeon on 11/06/24 13:21 UA pH 6.0 Last Edit by ANIKA Mckeon on 11/06/24 13:21 UA Blood 25 Tae/uL Last Edit by ANIKA Mckeon on 11/06/24 13:21 UA Specific [place] 1.010 Last Edit by ANIKA Mckeon on 11/06/24 13:21 UA Ketone Negative Last Edit by ANIKA Mckeon on 11/06/24 13:21 UA Bilirubin 0 mg/dL Last Edit by ANIKA Mckeon on 11/06/24 13:21 UA Glucose 0 mg/dL Last Edit by ANIKA Mckeon on 11/06/24 13:21 Results Reviewed Results Reviewed: Laboratory Last Values Urine pH (Auto) 6.0 11/06/24 13:21 Specific [place] (Auto) 1.010 11/06/24 13:21 Urine Protein (Auto) 0 mg/dL 11/06/24 13:21 Glucose (UA)(Auto) 0 mg/dL 11/06/24 13:21 Urine Ketones (Auto) Negative 11/06/24 13:21 Urine Blood (Auto) 25 Tae/uL 11/06/24 13:21 Urine Nitrite (Auto) Negative 11/06/24 13:21 Urine Bilirubin (Auto) 0 mg/dL 11/06/24 13:21 Urine Urobilinogen (Auto) 0.2 mg/dL 11/06/24 13:21 Leukocyte Esterase (Auto) 0 Cameron/uL 11/06/24 13:21 Assessment & Plan Assessment & Plan (1) Erectile dysfunction: Code(s): N52.9 - Male erectile dysfunction, unspecified Category: Medical (2) Weak urinary stream: Code(s): R39.12 - Poor urinary stream Category: Medical (3) Nocturia associated with benign prostatic hyperplasia: Code(s): N40.1 - Benign prostatic hyperplasia with lower urinary tract symptoms; R35.1 - Nocturia Category: Medical Plan Six-month follow-up PSA office Orders: Orders AMB Urinalysis Automated Today Z13.9 - Encounter for screening, unspecified Prostate Specific Antigen 6 Months N40.1 - Benign prostatic hyperplasia with lower urinary tract symptoms, R35.1 - Nocturia Patient Instructions: Imaging studies, laboratory and physical exam results were discussed and reviewed in detail. No major barriers to patient understanding were identified. An opportunity to ask questions regarding the treatment plan was provided. All questions were answered. The patient expressed understanding and agreement with the above treatment plan. The patient is aware they should contact our office by phone for worsening of their current condition or the appearance of new urologic symptoms. Compliance is encouraged with any medications and followup testing that is ordered. It is a privilege to participate in the urologic care of your patient. If you have any questions or concerns regarding treatment for the above conditions, or other urologic issues, please do not hesitate to contact me. The office telephone contact is [phone]. This note is constructed using voice recognition software. While every effort has been made to ensure accuracy base loader errors may have been included. Yours sincerely, Dr Bebo Aquino MD, [facility] - Urology Providers of Expert, Compassionate Care for the Genitourinary System Coding Level of Care Code Est Pt Level 3 (04750) Diagnoses Erectile dysfunction N52.9 Weak urinary stream R39.12 Nocturia associated with benign prostatic hyperplasia N40.1; R35.1 CPT Codes Post Residual Void - PVR CPT Code: 81486-[id number] Void Residual by ultrasound ([id number])
== END 2024-11-06 13:43 | disposition home or self-care (01) ==
PROVIDERS: PCP Family Medicine; Visit Provider Urology
DX: N40.1 Benign prostatic hyperplasia with lower urinary tract symptoms (principal); N52.9 Male erectile dysfunction, unspecified; R39.12 Poor urinary stream; R35.1 Nocturia; Z13.9 Encounter for screening, unspecified
CPT/HCPCS: 99213

== ENCOUNTER → 2024-11-06 13:02 | Outpatient (BNVA) | payer MEDICAID, SELFPAY | PROVIDERS: PCP Family Medicine; Visit Provider Urology | DX: N52.9 Male erectile dysfunction, unspecified (principal); N40.1 Benign prostatic hyperplasia with lower urinary tract symptoms; R35.1 Nocturia; R39.12 Poor urinary stream | CPT/HCPCS: 51798; 81003; 99212 ==

== ENCOUNTER → 2024-11-26 08:50 | Outpatient (RCR) | payer MEDICAID, SELFPAY | END | disposition home or self-care (01) | LOC: HO.PT 08-30 10:03 | PROVIDERS: PCP Family Medicine; Visit Provider Family Medicine | DX: M54.2 Cervicalgia (principal); M54.9 Dorsalgia, unspecified | CPT/HCPCS: 97110; 97140; 97161 ==

== ENCOUNTER 2025-03-06 13:32 | Outpatient (AMB) | payer MEDICAID, SELFPAY ==
--- NOTE | 2025-03-06 13:45 | MHC.OFFVIS ---
Vital Signs 03/06/25 13:47 Height 5 ft 11 in Weight 236 lb BMI 32.9 Intake Visit Reasons: B/L knee Cortisone injections Intake Note: Ramsey is a 59 year old male who presents today for repeat cortisone injections, last euflexxa gel injections 10/25/24. Allergies No Known Allergies [No Known Allergies*] Allergy (Verified 03/06/25 13:46) HPI HPI B/L knee Cortisone injections: Details: Mr. Ayala is a 59-year-old male who presents to the office today for bilateral knee pain. His last Euflexxa injections were on 10/25/24. He is looking to repeat cortisone injections while in the office today. FORMERLY [facility], [facility] Medical History Tubular adenoma Cellulitis Vomiting and diarrhea Depression Cardiomyopathy GERD (gastroesophageal reflux disease) Sickle-cell trait Weakness Anxiety Sleep apnea COVID-19 vaccine series completed Elevated cholesterol Colon cancer screening Erectile dysfunction Lumbar radiculopathy Dysfunction of left rotator cuff Hypertension Chronic back pain Surgical History History of colonoscopy (~04/04/23) Hx of rotator cuff surgery Hx of arthroscopic knee surgery Hx of appendectomy H/O colonoscopy Family History Father No problems noted. Mother Cardiomyopathy Social History Household Members: None Household Members Other:: none Are you a primary hospice care sales consultant to a significant other at home: No Do you presently have visiting nurse or other home services: No Alcohol intake: current Alcohol intake frequency: holidays/special occasions only Comment: aware of trip hazard Patient Tobacco Use Status: Former Tobacco user Tobacco use type: Cigarette Substance Use Type: Marijuana Advance Directives Date on File: 01/13/16 Current occupational status: unemployed Review of Systems Const All systems reviewed & are unremarkable except as noted in HPI and below Physical Exam Vital Signs: BMI result Body Mass Index 32.9 Const General: cooperative, healthy appearing and no acute distress Resp Effort & Inspection: normal respiratory effort and able to speak in complete sentences Extrem Other: Bilateral knees: Normal to inspection. No ecchymosis, erythema, or joint effusion. Tenderness to palpation in the medial joint lines. No tenderness to palpation in the lateral joint lines. Crepitus on the right knee with range of motion. Office Procedures AMB Joint Injection/Aspiration Joint Injection/Aspiration Primary Site: right knee Secondary Site: left knee Prep: site was prepped using aseptic technique, ethochloride spray was applied and injection warnings given Injected: 80 mg of, DepoMedrol, with 8 mL of (2% plain lido) and in the joint Approach Used: anterolateral Procedure: The patient tolerated the procedure well, but had some pain with the injection and there was some relief with the local anesthesia Coding 47511 - Bilateral Large Joint Procedure code (CPT) selection complete Assessment & Plan Assessment & Plan (1) Osteoarthritis of knees, bilateral: Code(s): M17.0 - Bilateral primary osteoarthritis of knee Category: Medical Plan The patient was offered a cortisone injection in the bilateral knees with 80 mg of DepoMedrol. The patient was explained the risks, benefits, and alternatives to receiving this injection. After receiving consent for the injection, the patient had the procedure done while in the office today. The patient tolerated the procedure well with no complications. Patient will contact our office in March start the process for gel injection re approval. Follow-up will be p.r.n., or sooner if needed Coding Level of Care Code Procedure Only Diagnoses Osteoarthritis of knees, bilateral M17.0 CPT Codes Coding - 15423 - Bilateral Large Joint: 85071 - Bilateral Large Joint ([id number])
[2025-03-06 13:47] VITALS: BMI 32.9
--- OUTSIDE RECORDS SUMMARY | 2025-03-06 14:35 | XMS_ITS | Encounter Summary ---
Author Organization [employer] Address [address] [place] [address] 7 [place] [address] Care Team Providers Care Fish Grader Name Role Phone Ethel Santana MD Primary Care Provider + [phone] Gabrielle Peterson PharmD Unavailable Kim Alejandre Unavailable Bebo Aquino MD Unavailable [phone] Piyush Acosta MD Unavailable [phone] Encounter Details Date Type Department Care Team (Late st Contact Info) Description 11/15/2022 Orders Only [facility] MEDICINE [address] [place] [address] Lexi Wakefield LPN Social History Tobacco Use Types Packs/Day Years Used Date Smoking Tobacco: Never Assessed Sex and Gender Information Value Date Recorded Sex Assigned at Male 08/29/2022 10:14 AM EDT Legal Sex Male 10:14 AM EDT Gender Identity Male 08/29/2022 10:14 AM EDT Sexual Orientation Straight 08/29/2022 10 :14 AM EDT documented as of this encounter Plan of Treatment Upcoming Encounters Date Type Department Care Team (Late st Contact Info) Description 03/21/2025 10:30 AM EDT Office Visit [facility] OPTOMETRY [address] [place], [place] [id number] Daniel, Brielle, OD [address] [place] [address] documented as of this encounter Visit Diagnoses Not on filedocumented in this encounter Care Teams Fish Grader Relationship Specialty Start Date End Date Ethel Santana MD [address] [place] [address] PCP - General Family Medicine 10/30/18 Gabrielle Peterson, HaoD [address] [place] [address] Pharmacist Internal Medicine 02/16/23 Kim Alejandre [address] [place] [address] [address] [place] [address] Orthopaedic Surgery 09/23/24 Bebo Aquino MD [address] [place] [address] Drive [address] [place] [address] Urology 11/07/24 Piyush Acosta MD [address] [place] [address] Cardiology 12/31/24 documented as of this encounter
--- OUTSIDE RECORDS SUMMARY | 2025-03-06 14:35 | XMS_ITS | Clinical Summary ---
Author Organization [facility] Address [address] [place] [address] Care Team Providers Care In Store Marketer Name Role Phone Unavailable Primary Care Provider Unavailabl e Social History Tobacco Use Types Packs/Day Years Used Date Smoking Tobacco: Never Assessed Sex and Gender Information Value Date Recorded Sex Assigned at Not on file Legal Sex Male 2:07 PM PDT Gender Identity Not on file Sexual Orientation Not on file Plan of Treatment Health Maintenance Due Date Last Done Comments Dental Oral Exam 1965 Dental Prophylaxis 1965 Dental X-Ray: Bitewings 1965 Dental X-Ray: Full Mouth 08/15/2027 08/14/2024 Dental X-Ray: Panoramic 08/15/2027 08/14/2024 Meningococcal B Vaccine Aged Out No l onger eligible based on patient's age to complete this topic Procedures Procedure Name Priority Date/Time Associated Diagnosis Comments PANORAMIC RADIOGRAPHIC IMAGE Routine 08/14/2024 11:00 AM EDT from Last 3 Months or Most Recently Relevant to Health Maintenance
--- OUTSIDE RECORDS SUMMARY | 2025-03-06 14:35 | XMS_ITS | Encounter Summary ---
Author Organization [facility] Address [address] [place] [address] Care Team Providers Care Pianos And Organs Salesperson Name Role Phone Unavailable Primary Care Provider Unavailabl e Prior Encounters Date Type Department Care Team Description 08/14/2024 11:00 AM EDT Office Visit [address], [facility] [address] [place] [address] Guille Davison III, MELISSA Plan of Treatment Not on file Procedures Procedure Name Priority Date/Time Associated Diagnosis Comments PANORAMIC RADIOGRAPHIC IMAGE Routine 08/14/2024 11:00 AM EDT LIMITED ORAL EVALUATION - PROBLEM FOCUSED Routine 08/14/2024 11:00 AM EDT ADDITIONAL X-RAY Routine 08/14/2024 11:0 0 AM EDT BITEWING - SINGLE RADIOGRAPHIC IMAGE Routine 08/14/2024 11:00 AM EDT SINGLE X-RAY Routine 08/14/2024 11:00 AM EDT Visit Diagnoses Not on file
--- OUTSIDE RECORDS SUMMARY | 2025-03-06 14:35 | XMS_ITS | Encounter Summary ---
Author Organization [employer] Address [address] [place] [address] 7t [place] [address] Care Team Providers Care Fishing Boat Captain Name Role Phone Ethel Santana MD Primary Care Provider + [phone] Gabrielle Peterson PharmD Unavailable [phone] Kim Alejandre Unavailable Bebo Aquino MD Unavailable [phone] Piyush Acosta MD Unavailable [phone] Encounter Details Date Type Department Care Team (Late st Contact Info) Description 11/20/[address] [facility] MEDICINE [address] [place], [place] [phone] Ethel Santana MD [address] [place], [place] [phone] Social History Tobacco Use Types Packs/Day Years Used Date Smoking Tobacco: Former Cigarettes 0.3 0.5 Passive Smoke Exposure: Never Smokeless Tobacco: Former Alcohol Use Standard Drinks/Week Comments Defer 0 (1 standard drink = 0.6 oz pur e alcohol) occasionally Depression Answer Date Recorded Patient Health Questionnaire-9 Score 12 07/03/2024 Patient Health Questionnaire-9 Score 12 07/03/2024 Last PHQ-9: Questionnaire Data Not on file 0 07/03/2024 Housing Stability Answer Date Recorded What is your housing situation today? I have housing today, but I am worried about losing housing in the future 07/03/[address] you li ve. Do you have problems with any of the following? Pests such as bugs, ants, or mice;Inadequate heat 07/03/2024 Food Insecurity Answer Date Recorded Within the past 12 months, y ou worried that your food would run out before you got money to buy more: Often true 07/03/2024 Within the past 12 months,th e food you bought just didn't last and you didn't have enough money to get more: Often true 01/2024 Transportation Answer Date Recorded In the past 12 months, has l ack of transportation kept you from medical appts, meetings, work or from getting things needed for daily living? No 07/03/2024 Utilities Answer Date Recorded In the past 12 months, has t he electric, gas, oil or water company threatened to shut off services in your home? Yes 07/03/2024 Depression Answer Date Recorded Patient Health Questionnaire-2 Score 2 07/03/2024 Internet Access Answer Date Recorded Internet Access Q1 Yes 07/03/2024 Internet Access Q2 Not on file 07/03/2024 Sex and Gender Information Value Date Recorded Sex Assigned at Male 08/29/2022 10:14 AM EDT Legal Sex Male 10:14 AM EDT Gender Identity Male 08/29/2022 10:14 AM EDT Sexual Orientation Straight 08/29/2022 10 :14 AM EDT documented as of this encounter Plan of Treatment Upcoming Encounters Date Type Department Care Team (Late st Contact Info) Description 03/21/2025 10:30 AM EDT Office Visit [facility] OPTOMETRY [address] [place] [address] Daniel, Brielle, OD [address] [place] [address] documented as of this encounter Goals Goal Patient Goal Type Associated Problems Recent Progress Patient-Stated? Author Blood Pressure < 140/90 Blood Pressure 138/82( 025 2:04 PM EDT) No Gabrielle Sanz, PharmD documented as of this encounter Visit Diagnoses Not on filedocumented in this encounter Additional Health Concerns Assessment Noted Time PHQ-9 Depression Total Score: 12 024 11:36 AM EDT documented as of this encounter Care Teams Fishing Boat Captain Relationship Specialty Start Date End Date Ethel Santana MD [address] [place] [address] PCP - General Family Medicine 10/30/18 Gabrielle Peterson, HaoD [address] [place] [address] Pharmacist Internal Medicine 02/16/23 Kim Alejandre [address] [place] [address] [address] [place] [address] Orthopaedic Surgery 09/23/24 Bebo Aquino MD [address] [place] [address] Drive [address] [place] [address] Urology 11/07/24 Piyush Acosta MD [address] [place] [address] Cardiology 12/31/24 documented as of this encounter
--- OUTSIDE RECORDS SUMMARY | 2025-03-06 14:35 | XMS_ITS | Encounter Summary ---
Author Organization [employer] Address [address] [place] [address] 7t [place] [address] Care Team Providers Care National Expansion Recruiter Name Role Phone Ethel Santana MD Primary Care Provider + [phone] Gabrielle Peterson PharmD Unavailable [phone] Kim Alejandre Unavailable Bebo Aquino MD Unavailable [phone] Piyush Acosta MD Unavailable [phone] Encounter Details Date Type Department Care Team (Late st Contact Info) Description 11/07/2022 Orders Only [facility] [address] [place] [address] Irish Cannon LPN Social History Tobacco Use Types Packs/Day [...] Description 03/21/2025 10:30 AM EDT Office Visit [facility] OPTOMETRY [address] [place] [address] Daniel, Brielle, OD [address] [place] [address] documented as of this encounter Visit Diagnoses Not on filedocumented in this encounter Care Teams National Expansion Recruiter Relationship Specialty Start Date End Date Ethel Santana MD [address] [place] [address] PCP - General Family Medicine 10/30/18 Gabrielle Peterson, Geno [address] [place] [address] Pharmacist Internal Medicine 02/16/23 Kim Alejandre [address] [place] [address] [address] [place] [address] Orthopaedic Surgery 09/23/24 Bebo Aquino MD [address] [place] [address] Urology 11/07/24 Piyush Acosta MD [address] [place] [address] Cardiology 12/31/24 documented as of this encounter
--- OUTSIDE RECORDS SUMMARY | 2025-03-06 14:35 | XMS_ITS | Encounter Summary ---
Author Organization [employer] Address [address] [place] [address] [address] [place] [address] Care Team Providers Care Batch Still Operator Name Role Phone Ethel Santana MD Primary Care Provider + [phone] Gabrielle Peterson PharmD Unavailable [phone] Kim Alejandre Unavailable Bebo Aquino MD Unavailable [phone] Piyush Acosta MD Unavailable [phone] Encounter Details Date Type Department Care Team (Late st Contact Info) Description 07/22/2024 Telephone [facility] MEDICINE [address] [place], [place] [phone] Gabrielle Peterson, PharmD [address] [place], [place] [phone] Social History Tobacco Use Types Packs/Day Years [...] AM EDT documented as of this encounter Miscellaneous Notes * Telephone Encounter - Gabrielle Peterson PharmD - 07/22/2024 8:27 AM EDT Please consider providing a new CDTM referral for HTN which has been pended to this TC note. Thank you! documented in this encounter Plan of Treatment Upcoming Encounters Date Type Department Care Team (Late st Contact Info) Description 03/21/2025 10:30 AM EDT Office Visit [facility] OPTOMETRY [address] [place], [place] [phone] Brielle Sanchez, OD [address] [place] [address] documented as of this encounter Goals Goal [...] documented as of this encounter Care Teams Batch Still Operator Relationship Specialty Start Date End Date Ethel Santana MD [address] [place] [address] PCP - General Family Medicine 10/30/18 Gabrielle Peterson, PharmD [address] [place] [address] Pharmacist Internal Medicine 02/16/23 Kim Alejandre [address] [place] [address] [address] [place] [address] Orthopaedic Surgery 09/23/24 Bebo Aquino MD [address] [place] [address] Drive [address] [place] [address] Urology 11/07/24 Piyush Acosta MD [address] [place] [address] Cardiology 12/31/24 documented as of this encounter
--- OUTSIDE RECORDS SUMMARY | 2025-03-06 14:35 | XMS_ITS | Encounter Summary ---
Author Organization [employer] Address [address] [place] [address] [address] [place] [address] Care Team Providers Care Currency Counter Name Role Phone Ethel Santana MD Primary Care Provider + [phone] Gabrielle Peterson PharmD Unavailable [phone] Kim Alejandre Unavailable Bebo Aquino MD Unavailable [phone] Piyush Acosta MD Unavailable [phone] Reason for Visit * Reason Onset Date Comments Med Refill 01/20/2025 Medication Question 01/20/2025 Encounter Details Date Type Department Care Team (Late st Contact Info) Description 01/20/2025 Telephone [facility] MEDICINE [address] [place], [place] [phone] Ethel Santana MD [address] [place], [place] [phone] Med Refill; Medication Question Social History Tobacco Use Types Packs/Day Years Used Date Smoking Tobacco: Former Cigarettes 0.3 0.5 Passive Smoke Exposure: Never Smokeless Tobacco: Former Alcohol Use Standard Drinks/Week Comments Defer 0 (1 standard drink = 0.6 oz pur e alcohol) occasionally Depression Answer Date Recorded Patient Health Questionnaire-9 Score 0 01/08/2025 Patient Health Questionnaire-9 Score 0 01/08/2025 Last PHQ-9: Questionnaire Data Not on file 0 01/08/2025 Housing Stability Answer Date Recorded What is [...] Answer Date Recorded Patient Health Questionnaire-2 Score 0 01/08/2025 Internet Access Answer Date Recorded Internet Access [...] encounter Miscellaneous Notes * Telephone Encounter - Daniel Pereira - 01/20/2025 11:01 AM EDT Tc from pt requesting to get med ibuprofen 600 MG tablet. Pt states hasn't had that medication in awhile but would like it it due to the Back pain that he is in. Pt states that he al;ready spoke about it with PCP. Contact pt at [phone] documented in this encounter Plan of Treatment Upcoming Encounters Date Type Department Care Team (Late st Contact Info) Description 03/21/2025 10:30 AM EDT Office Visit [facility] OPTOMETRY [address] [place] [address] Brielle Sanchez, OD [address] [place] [address] documented as of this encounter Goals Goal Patient Goal Type Associated Problems Recent Progress Patient-Stated? Author Blood Pressure < 140/90 Blood Pressure 138/82( 025 2:04 PM EDT) No Gabrielle Sanz, PharmD documented as of this encounter Visit Diagnoses Not on filedocumented in this encounter Additional Health Concerns Assessment Noted Time PHQ-9 Depression Total Score: 0 01/09/20 25 2:24 PM EDT documented as of this encounter Care Teams Currency Counter Relationship Specialty Start Date End Date Ethel Santana MD [address] [place] [address] PCP - General Family Medicine 10/30/18 Gabrielle Peterson, PharmD [address] [place] [address] Pharmacist Internal Medicine 02/16/23 Kim Alejandre [address] [place] [address] [address] [place] [address] Orthopaedic Surgery 09/23/24 Bebo Aquino MD [address] [place] [address] Drive [address] [place] [address] Urology 11/07/24 Piyush Acosta MD [address] [place] [address] Cardiology 12/31/24 documented as of this encounter
--- OUTSIDE RECORDS SUMMARY | 2025-03-06 14:35 | XMS_ITS | Clinical Summary ---
Author Organization [employer] Address [address] [place] [address] [address] [place] [address] Care Team Providers Care Aluminum Pool Installer Name Role Phone Ethel Santana MD Primary Care Provider + [phone] Gabrielle Peterson PharmD Unavailable [phone] Kim Alejandre Unavailable Bebo Aquino MD Unavailable [phone] Piyush Acosta MD Unavailable [phone] Allergies No known active allergies Medications cyclobenzaprine (Flexeril) 10 MG tabletIndication s:Low back pain without sciatica, unspecified back pain laterality, unspecified chronicity One tab po at bedtime prn pain of muscles, do not drive with medicaion 30 tablet 02/28/20 23 Active hydroCHLOROthiaz luther (HYDRODiuril) 25 MG tabletIndication s:Primary hypertension TAKE 1 TABLET BY MOUTH DAILY FOR HIGH BLOOD PRESSURE 90 tablet 3 02/05/20 24 Active busPIRone (Buspar) 15 MG tabletIndication s:Depressive disorder Take 15 mg by mouth if needed in the morning, at noon, and at bedtime. 03/06/20 24 Active traZODone (Desyrel) 50 MG tabletIndication s:Depressive disorder TAKE 1 TABLET BY MOUTH EVERY NIGHT AT BEDTIME NEEDED TO HELP SLEEP BEFORE 9PM 03/06/20 24 Active Blood Glucose Monitoring Suppl (FreeStyle Norton Lite) w/Device kitIndications:P rediabetes Use to test blood sugar bid dx dm 1 kit 07/03/20 24 Active FreeStyle lancetsIndicatio ns:Prediabetes 1 each by Other route 2 times daily. Use bid, dx type 2 diabetes 60 each 11 07/03/20 24 Active glucose blood (FreeStyle Precision Alejandro Test) test stripIndications :Prediabetes Test blood sugar q 8 hours 100 each 12 07/03/20 24 Active glucose blood (FREESTYLE LITE) test stripIndications :Prediabetes 1 each by Other route 2 times daily. Use bid. Dx diabetes 60 each 11 07/19/20 24 Active amLODIPine (Norvasc) 5 MG tabletIndication s:Primary hypertension Take 1 tablet by mouth once daily 90 tablet 3 10/16/20 24 Active omeprazole (PriLOSEC) [address] capsuleIndicatio ns:Gastroesophag eal reflux disease, unspecified whether esophagitis present TAKE 1 CAPSULE BY MOUTH EVERY DAY 90 capsule 11/20/19 25 Active carvedilol (Coreg) 6.25 MG tabletIndication s:Primary hypertension TAKE 1 TABLET BY MOUTH TWICE DAILY IN THE MORNING AND IN THE EVENING 180 tablet 1 01/03/20 25 Active sildenafil (Viagra) 100 MG tabletIndication s:Erectile dysfunction, unspecified erectile dysfunction type Take 100 mg by mouth if needed each day for erectile dysfunction. Active tadalafil (Cialis) 5 MG tabletIndication s:Erectile dysfunction, unspecified erectile dysfunction type TAKE ONE TABLET BY MOUTH DAILY FOR BLADDER WEAKNESS , TAKE IT DAILY. 11/15/19 25 Active fluvoxaMINE (Luvox) 25 MG tabletIndication s:Depressive disorder Take 25 mg by mouth at bedtime. Active Magnesium 250 MG capsuleIndicatio ns:Leg cramps Take 250 mg by mouth if needed at bedtime (cramps). 30 capsule 3 01/09/20 25 Active ibuprofen 800 MG tabletIndication s:Acute midline low back pain without sciatica 1 tab every 8 hours as needed for pain, take with food 90 tablet 01/21/20 25 Active atorvastatin (Lipitor) 40 MG tabletIndication s:Dyslipidemia TAKE 1 TABLET BY MOUTH EVERY MORNING 90 tablet 1 02/12/20 25 Active atorvastatin (Lipitor) 40 MG tabletIndication s:Dyslipidemia TAKE 1 TABLET BY MOUTH EVERY DAY AT BEDTIME 90 tablet 3 12/28/19 24 04/15/2 025 Discontinued ibuprofen 600 MG tabletIndication s:Pain Take 1 tablet (600 mg) by mouth every 8 (eight) hours if needed for moderate pain or fever. 30 tablet 01/22/20 25 025 Active Problems Patient Care Coordination No te Formatting of this note migh t be different from the original. Enrolled in [facility] HTN clinic with Gabrielle Peterson PharmD Problem Noted Date Diagnosed Date Overweight 01/08/2025 Overview (01/08/2025): Discussed weight, diet, exercise with patient in relation to health conditions. Used motivational interviewing to illicit change talk and established initial goals with patient. Assessment & Plan (01/08/2025 2:47 PM EDT): Discussed weight, diet, exercise with patient in relation to health conditions. Used motivational interviewing to illicit change talk and established initial goals with patient. Dietary counseling 01/08/2025 Assessment & Plan (01/08/2025 2:37 PM EDT): Dietary Recommendations: Fruits, vegetables, whole grains, protein foods, and fat-free or low-fat dairy products are healthy choices. Eat different types of protein foods in your diet. This can include seafood, lean meats, poultry, beans, peas, lentils, nuts, seeds, soy products, and eggs. Limit foods and beverages higher in added sugars, saturated fat, and sodium. Exercise counseling 01/08/2025 Assessment & Plan (01/08/2025 2:37 PM EDT): Exercise Recommendations: At least 150 minutes of moderate-intensity physical activity per week, or an equivalent combination of moderate- and vigorous-intensity activity Erectile dysfunction 01/08/2025 Overview (01/08/2025): Follows with specialist. -refilled sildenafil (Viagra) 100 MG 01/08/25 -refilled tadalafil (Cialis) 5 MG 01/08/25 Assessment & Plan (01/08/2025 2:49 PM EDT): Follows with specialist. -refilled sildenafil (Viagra) 100 MG 01/08/25 -refilled tadalafil (Cialis) 5 MG 01/08/25 Tingling sensation in face 01/08/2025 Overview (01/08/2025): Likely due to strain in neck muscle. No neurological deficits, neurologically intact. -encouraged stretching to relax neck muscles. Assessment & Plan (01/08/2025 2:59 PM EDT): Likely due to strain in neck muscle. No neurological deficits, neurologically intact. -encouraged stretching to relax neck muscles. Leg cramps 01/08/2025 Overview (01/08/2025): Occasional leg cramps. Not affecting daily function. -prescribed Magnesium 250 MG 01/08/25 Assessment & Plan (01/08/2025 3:00 PM EDT): Occasional leg cramps. Not affecting daily function. -prescribed Magnesium 250 MG 01/08/25 Right shoulder pain 01/08/2025 Overview (01/08/2025): Reports right shoulder pain, unknown duration, per request referred to Physical Therapy 01/08/25 Assessment & Plan (01/08/2025 3:03 PM EDT): Reports right shoulder pain, unknown duration, per request referred to Physical Therapy 01/08/25 Cardiac risk counseling 09/19/2024 Overview (09/19/2024): Calculated 09/19/24 The ASCVD Risk score (Baldemar JOHNSON, et al., 2019) failed to calculate for the following reasons: The valid total cholesterol range is 130 to 320 mg/dL Lab Results Component Value Date LDLCHOLCAL 49 07/25/2024 LDLCHOLCAL 60 08/15/2023 -Atherosclerotic Cardiovascular Disease (ASCVD) Risk Calculator is intended for a person age 40-79 without ASCVD and with LDL-cholesterol < 190/mg/dl to assesses the chances of developing heart disease over the next 10 years. -Tobacco cessation: not applicable -Statin therapy:atorvastatin 40mg -Importance of moderate physical activity and nutrition interventions discussed. Prediabetes 07/03/2024 Overview (01/08/2025): Lab Results Component Value Date HGBA1C 5.9 07/03/2024 HGBA1C 5.5 08/15/2023 HGBA1C 5.7 (H) 03/02/2023 HGBA1C 5.7 (H) 03/01/2022 HGBA1C 5.8 (H) 09/03/2021 GLUCOSE 101 07/25/2024 -continue lifestyle modifications -given BGM to continue monitoring especially if he feels jittery again. Assessment & Plan (01/08/2025 3:04 PM EDT): Lab Results Component Value Date HGBA1C 5.9 07/03/2024 HGBA1C 5.5 08/15/2023 HGBA1C 5.7 (H) 03/02/2023 HGBA1C 5.7 (H) 03/01/2022 HGBA1C 5.8 (H) 09/03/2021 GLUCOSE 101 07/25/2024 -continue lifestyle modifications -given BGM to continue monitoring especially if he feels jittery again. Assessment & Plan (07/03/2024 11:57 AM EDT): Lab Results Component Value Date HGBA1C 5.9 07/03/2024 HGBA1C 5.5 08/15/2023 HGBA1C 5.7 (H) 03/02/2023 HGBA1C 5.7 (H) 03/01/2022 HGBA1C 5.8 (H) 09/03/2021 GLUCOSE 98 03/02/2023 -continue lifestyle modifications -given BGM to continue monitoring especially if he feels jittery again. Alcohol dependence in remission 07/03/2024 Overview (01/08/2025): -cutting down, reports only drinking occasionally not routinely anymore 01/08/25 Assessment & Plan (01/08/2025 2:57 PM EDT): -cutting down, reports only drinking occasionally not routinely anymore 01/08/25 Assessment & Plan (07/03/2024 11:53 AM EDT): -Denies alcohol use. Anemia 07/03/2024 Overview (01/08/2025): Lab Results Component Value Date FERRITIN 297 (H) 07/25/2024 FERRITIN 297 (H) 10/04/2023 FERRITIN 156 02/21/2023 HGB 14.5 07/25/2024 HGB 14.1 10/04/2023 HGB 14.0 02/21/2023 HGB 14.5 03/01/2022 HEMATOCRIT 41.1 02/21/2023 HEMATOCRIT 43.9 03/01/2022 IRONTOTAL 65 02/21/2023 Assessment & Plan (01/08/2025 2:47 PM EDT): Lab Results Component Value Date FERRITIN 297 (H) 07/25/2024 FERRITIN 297 (H) 10/04/2023 FERRITIN 156 02/21/2023 HGB 14.5 07/25/2024 HGB 14.1 10/04/2023 HGB 14.0 02/21/2023 HGB 14.5 03/01/2022 HEMATOCRIT 41.1 02/21/2023 HEMATOCRIT 43.9 03/01/2022 IRONTOTAL 65 02/21/2023 Assessment & Plan (07/03/2024 11:58 AM EDT): Ordered labs 07/03/24 Sickle cell trait 07/03/2024 Gastroesophageal reflux disease 07/03/2024 Generalized aggressive severe periodontitis 05/30 Localized gingival recession 06/13/2024 Chronic periodontitis 02/28/2024 Other specified health status 10/03/2023 Overview (01/08/2025): -next comprehensive annual evaluation due after 01/08/26 -referred to [facility] 01/08/25 -dental home is [facility] will make appt -Health care proxy 07/03/24 Assessment & Plan (01/08/2025 3:02 PM EDT): -next comprehensive annual evaluation due after 01/08/26 -referred to [facility] 01/08/25 -dental home is [facility] will make appt -Health care proxy 07/03/24 Assessment & Plan (07/03/2024 11:49 AM EDT): -next physical exam due after 10/04/2024 -eye care facilitated by [facility] -dental home is [facility] will make appt -Health care proxy 07/03/24 Assessment & Plan (10/04/2023 11:50 AM EST): -next physical exam due after 10/04/2024 -eye care facilitated by [facility] -dental home is [facility] will make appt Tooth fracture with loss of restorative material 07/24/2023 Periodontal disease 07/24/2023 Neck pain 07/17/2023 Overview (07/03/2024): Referral done to PT 07/17/2023. -Tylenol PRN. -prescribed Voltaren Assessment & Plan (07/03/2024 11:56 AM EDT): Referral done to PT 07/17/2023. -Tylenol PRN. -prescribed Voltaren Assessment & Plan (10/04/2023 11:16 AM EST): Referral done to PT 07/17/2023. -Tylenol PRN. Assessment & Plan (07/17/2023 11:50 AM EDT): Referral done to PT 07/17/2023. -Tylenol PRN. Upper back pain 07/17/2023 Overview (07/17/2023): Referral done to PT 07/17/2023. -Tylenol PRN. Assessment & Plan (10/04/2023 11:16 AM EST): Referral done to PT 07/17/2023. -Tylenol PRN. Assessment & Plan (07/17/2023 11:50 AM EDT): Referral done to PT 07/17/2023. -Tylenol PRN. Right knee pain 02/23/2023 Overview (10/31/2024): Referral to orthopedics done 02/23/2023. PT referral placed -steroid injection with [facility] done 04/12/24 -seen by Kim Alejandre PA-C 10/25/24 gel for second of three Euflexxa injection in the bilateral knees. Follow up will be in one week for a third Euflexxa injection, or sooner if needed. Assessment & Plan (10/02/2023 9:27 AM EST): Referral to orthopedics done 02/23/2023. Pt referral done. Assessment & Plan (02/23/2023 11:53 AM EDT): Referral to orthopedics done 02/23/2023. Pt referral done. Low back pain without sciatica 02/23/2023 Overview (01/08/2025): -Recommend ibuprofen and muscle relaxer prn. 10/02/23 -Physical therapy referral done. 10/02/23 -Lifting precaution sand stretching reviewed. 10/02/23 -recommended acupuncture therapy 01/08/25 Assessment & Plan (01/08/2025 3:01 PM EDT): -Recommend ibuprofen and muscle relaxer prn. 10/02/23 -Physical therapy referral done. 10/02/23 -Lifting precaution sand stretching reviewed. 10/02/23 -recommended acupuncture therapy 01/08/25 Assessment & Plan (10/02/2023 9:27 AM EST): -Recommend ibuprofen and muscle relaxer prn. -Physical therapy referral done. -Lifting precaution sand stretching reviewed. -ER precaution discussed. Assessment & Plan (07/17/2023 11:41 AM EDT): -Recommend ibuprofen and muscle relaxer prn. -Physical therapy referral done. -Lifting precaution sand stretching reviewed. -ER precaution discussed. Assessment & Plan (02/23/2023 11:54 AM EDT): -Recommend ibuprofen and muscle relaxer prn. -Physical therapy referral done. -Lifting precaution sand stretching reviewed. -ER precaution discussed. Foot pain 01/04/2023 Hypertrophic cardiomyopathy 01/04/2023 Overview (12/08/2023): Follows w/ Dr. Acosta regularly seen 12/08/2023 Last echo 2020 Update ordered today Cleared pending echo w/o significant abnormalities Assessment & Plan (01/08/2025 2:59 PM EDT): Follows w/ Dr. Acosta regularly seen 12/08/2023 Last echo 2020 Update ordered today Cleared pending echo w/o significant abnormalities Assessment & Plan (07/03/2024 11:51 AM EDT): Follows w/ Dr. Acosta regularly seen 12/08/2023 Last echo 2020 Update ordered today Cleared pending echo w/o significant abnormalities Assessment & Plan (10/02/2023 9:26 AM EST): Follows w/ Dr. Acosta regularly Last echo 2020 Update ordered today Cleared pending echo w/o significant abnormalities Onychomycosis 01/04/2023 Overview (10/02/2023): Referral to Podiatry 07/21/2022 Assessment & Plan (10/02/2023 9:26 AM EST): Referral to Podiatry 07/21/2022. Tubular adenoma 01/04/2023 Overview (10/05/2023): -Tubular adenoma 2016 -Repeat with Dr. Avilez was 04/04/2023, tubular adenoma Assessment & Plan (10/04/2023 11:53 AM EST): -Tubular adenoma 2016 -Repeat with Dr. Avilez was 04/04/2023, due to prep he recommends another colonoscopy in 5 years Assessment & Plan (02/23/2023 12:57 PM EDT): -Tubular adenoma 2016 -He was unable to go last year due to shoulder surgery, referral placed for Dr. Avilez 02/23/[address] air [address] pressure (CPAP) ventilation at home 04/26/2022 Dyslipidemia 02/27/2019 Overview (01/08/2025): Lab Results Component Value Date CHOL 112 07/25/2024 CHOL 109 08/15/2023 TRIG 159 (H) 07/25/2024 TRIG 84 08/15/2023 TRIG 204 (H) 03/02/2023 HDL 32 (L) 07/25/2024 HDL 33 (L) 08/15/2023 LDLCHOLCAL 49 07/25/2024 LDLCHOLCAL 60 08/15/2023 -continue lifestyle modification Assessment & Plan (01/08/2025 3:04 PM EDT): Lab Results Component Value Date CHOL 112 07/25/2024 CHOL 109 08/15/2023 TRIG 159 (H) 07/25/2024 TRIG 84 08/15/2023 TRIG 204 (H) 03/02/2023 HDL 32 (L) 07/25/2024 HDL 33 (L) 08/15/2023 LDLCHOLCAL 49 07/25/2024 LDLCHOLCAL 60 08/15/2023 -continue lifestyle modification Obstructive sleep apnea of adult 05/05/2017 Overview (01/08/2025): Tolerating CPAP well. Assessment & Plan (01/08/2025 2:45 PM EDT): Tolerating CPAP well. Assessment & Plan (10/02/2023 9:26 AM EST): Tolerating CPAP well. Depressive disorder 04/01/2013 Overview (01/05/2023): Per Marvin Waldrop NP note: Likely bipolar 2, with periods of depression, sadness, low energy; and other periods of excess energy, irritability, starting many projects. -Depakote 250 mg once daily started 05/16/2022. Assessment & Plan (01/08/2025 3:02 PM EDT): Per Marvin Waldrop NP note: Likely bipolar 2, with periods of depression, sadness, low energy; and other periods of excess energy, irritability, starting many projects. -Depakote 250 mg once daily started 05/16/2022. Assessment & Plan (07/03/2024 11:50 AM EDT): Per Marvin Waldrop NP note: Likely bipolar 2, with periods of depression, sadness, low energy; and other periods of excess energy, irritability, starting many projects. -Depakote 250 mg once daily started 05/16/2022. Assessment & Plan (10/02/2023 9:26 AM EST): Per Marvin Waldrop NP note: Likely bipolar 2, with periods of depression, sadness, low energy; and other periods of excess energy, irritability, starting many projects. -Depakote 250 mg once daily started 05/16/2022. Hypertension 04/01/2013 Overview (01/08/2025): -Blood pressure is at goal. -Continue lifestyle modifications -Continue current medications -f/u in 6 months Assessment & Plan (01/08/2025 2:45 PM EDT): -Blood pressure is at goal. -Continue lifestyle modifications -Continue current medications -f/u in 6 months Assessment & Plan (07/03/2024 11:51 AM EDT): -Blood pressure is not at goal. Pt reports not taking medications x2 days. 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 -Anticipatory guidance discussed. -Preventative care / harm reduction discussed. Assessment & Plan (10/04/2023 11:16 AM EST): -Normal growth and development. -Anticipatory guidance discussed. -Preventative care / harm reduction discussed. Other fatigue 07/17/2023 09/23/2024 Assessment & Plan (10/02/2023 9:27 AM EST): Check labs. Assessment & Plan (07/17/2023 11:51 AM EDT): Check labs. Shortness of breath 01/04/2023 01/01/20 Encounters Date Type Department Care Team Description 02/10/2025 Refill [facility] [address] [place] [address] [id number] Ethel Santana MD Dyslipidemia 01/21/2025 Orders Only [facility] [address] [place] [address] [id number] Ethel Santana MD Pain (Primary Dx) 01/20/2025 1:40 PM EDT Office Visit [facility] [address] [place] [address] [id number] Diane Hernandez ANP Acute midline low back pain without sciatica (Primary Dx); Primary hypertension 01/20/2025 Telephone [facility] [address] [place] [phone] Ethel Santana MD Med Refill; Medication Question 01/10/2025 Population Health Risk Score [facility] [address] [phone] Provider, Population Health Generic 01/08/2025 2:15 PM EDT Office Visit [facility] [address] [place] [address] [phone] Ethel Santana MD Tingling sensation in face (Primary Dx); Leg cramps; Low back pain without sciatica, unspecified back pain laterality, unspecified chronicity; Right shoulder pain, unspecified chronicity; Primary hypertension; Prediabetes; Dyslipidemia; Obstructive sleep apnea of adult; Anemia, unspecified type; Depressive disorder; Alcohol dependence in remission ([facility]); Erectile dysfunction, unspecified erectile dysfunction type; Overweight; Dietary counseling; Exercise counseling; Hypertrophic cardiomyopathy ([facility]); Encounter for immunization; Other specified health status 01/08/2025 Travel 01/07/2025 Telephone [facility] [address] [place] [phone] Ethel Santana MD chartprep 01/02/2025 Refill [facility] [address] [place] [address] [phone] Ethel Santana MD Primary hypertension 12/31/2024 Orders Only [facility] [address] [phone] Ethel Santana MD 12/27/2024 Patient Outreach [facility] [address] [place] [address] [phone] Ethel Santana MD Pre-visit Planning (Pre-visit planning - LVM ) from Last 3 Months Immunizations Name Administration Dates Next Due Hep A, Adult 06/24/2024,10/04/2023 Hep B, adult 08/24/2023,03/28/2023,02/23/2023 Influenza, IIV3, injectable 07/25/2013 Moderna Covid-19 Vaccine 12+ 03/24/2021,02/25/20 21 Moderna Covid-19 Vaccine 6+ Bivalent 02/23/2023 Pneumococcal Conjugate PCV 20 10/04/2023 Tdap 01/08/2025,11/13/2014 Zoster, Recombinant 12/13/2023,10/04/2023 Family History Medical History Relation Name Comments defibulator Mother heart problem Mother Cancer Neg Hx Diabetes Neg Hx Relation Name Status Comments Mother Social History Tobacco Use Types Packs/Day Years Used Date Smoking Tobacco: Former Cigarettes 0.3 0.5 Passive Smoke Exposure: Never Smokeless Tobacco: Former Tobacco Cessation:Counseling Given: Not Answered Alcohol Use Standard Drinks/Week Comments Defer 0 [...] Orientation Straight 08/29/2022 10 :14 AM EDT Last Filed Vital Signs Vital Sign Reading Time Taken Comments Blood Pressure 138/82 01/20/2025 2:04 PM EDT Pulse 62 01/20/2025 1:40 PM EDT Temperature 36.7 ??C (98.1 ??F) 01/20/2025 1:40 PM ED T Respiratory Rate 18 01/20/2025 1:40 PM EDT Oxygen Saturation 98% 01/20/2025 1:40 PM EDT Inhaled Oxygen Concentration - - Weight 109 kg (240 lb 9.6 oz) 01/20/2025 1:40 PM EDT Height 179.1 cm (5' 10.5 ) 01/08/2025 2:22 PM ED T Body Mass Index 34.03 01/08/2025 2:22 PM EDT Plan of Treatment Upcoming Encounters Date Type Department Care Team (Late st Contact Info) Description 03/21/2025 10:30 AM EDT Office Visit [facility] [address] [place] [address] Brielle Sanchez, OD [address] [place] [address] Health Maintenance Due Date Last Done Comments CT Colonography 1965 Dental Prophylaxis 1965 FIT DNA/Cologuard 1965 FIT 1965 FOBT 1965 Sigmoidoscopy 1965 Dental Oral Exam 12/15/2024 06/13/2024, 01/18/2022 Influenza Vaccine (#1) 2025 07/25/2013 Postp oned from 06/30/2024 (Patient Refused) Dental X-Ray: Bitewings 06/14/2025 06/13/20 24, 01/18/2022, 01/07/2022 SDOH Screening 07/03/2025 07/03/2024 Alcohol/Substance Use Screening 01/08/2026 01/08/2025 COVID-19 Vaccine ( season) 2026 02/23/2023, 03/24/2021, 02/24/2021 Postponed from 06/30/2024 (Patient Refused) Depression Screening 01/08/2026 01/08/2025, 01/09/20 25 Diabetes: Hemoglobin A1C 01/08/2026 025, 07/03/2024, 08/15/2023, Additional history exists Tobacco Screening 01/20/2026 01/20/2025 Dental X-Ray: Full Mouth 07/25/2026 07/24/2023, 12/29 Colonoscopy 04/04/2028 04/04/2023, 12/02/2015 Colorectal Cancer Screening 04/04/2028 Lipid Panel 07/25/2029 07/25/2024, 07/30, 03/02/2023, Additional history exists DTaP/Tdap/Td Vaccines (3 - Td or Tdap) 01/08/2035 01/08/2025, 11/13/2014 RSV Patients and Patients Aged 60 years or older (1 - 1-dose 75+ series) 2040 Hepatitis B Vaccines Completed 08/24/2023, 03/28/2023, 02/23/2023 HIV Screening Completed 10/04/2023, 01/2023, 03/01/2022, Additional history exists Hepatitis C Screening Completed 10/04/2023 , 03/02/2023, 03/01/2022, Additional history exists Pneumococcal Vaccine: 50+ Years Completed 10/04/2023 Zoster Vaccines Completed 12/13/2023, 10/04/2023 Hepatitis A Vaccines Completed 06/24/2024, 10/04/20 23 Anal Pap Discontinued HIB Vaccines Aged Out No longer eligi ble based on patient's age to complete this topic HPV Vaccines Aged Out No longer eligi ble based on patient's age to complete this topic IPV Vaccines Aged Out No longer eligi ble based on patient's age to complete this topic Meningococcal Vaccine Aged Out No omar john eligible based on patient's age to complete this topic RSV under 20 months Aged Out No longe r eligible based on patient's age to complete this topic Rotavirus Vaccines Aged Out No longer eligible based on patient's age to complete this topic Goals Goal Patient Goal Type Associated Problems Recent Progress Patient-Stated? Author Blood Pressure < 140/90 Blood Pressure 138/82( 025 2:04 PM EDT) No Gabrielle Sanz PharmD Procedures Procedure Name Priority Date/Time Associated Diagnosis Comments POCT GLYCOSYLATED HEMOGLOBIN (HGB A1C) Routine 01/08/2025 3:23 PM EDT Prediabetes POCT GLUCOSE Routine 01/08/2025 3:22 PM EDT Prediabetes LIPID PANEL, STANDARD Routine 07/25/2024 9:03 AM EDT Hypertrophic cardiomyopathy (CMS/HCC) BITEWINGS - 4 RADIOGRAPHIC IMAGES Routine 06/13/2024 11:00 AM EDT PERIODIC ORAL EVALUATION - ESTABLISHED PATIENT Routine 06/13/2024 11:00 AM EDT HEPATITIS C AB W/REFL TO HCV RNA, QN, PCR Routine 10/04/2023 12:12 PM EST Routine screening for STI (sexually transmitted infection) HIV 1/2 ANTIGEN/ANTIBODY, FOURTH GENERATION W/RFL Routine 10/04/2023 12:12 PM EST Routine screening for STI (sexually transmitted infection) PANORAMIC RADIOGRAPHIC IMAGE Routine 07/24/2023 11:30 AM EDT HM COLONOSCOPY Routine 04/04/2023 10:29 AM EDT from Last 3 Months or Most Recently Relevant to Health Maintenance Results * POCT glycosylated hemoglobin (Hgb A1c) (01/08/2025 3:23 PM EDT) Hemoglobin A1C 6.0 4.0 - 6.0 % QC Media Lot # [id number] Lot# Expiration Date [id number] Blood Capillary blood specimen / Unknown 01/08/2025 3:23 PM EDT Ethel Santana MD POINT OF CARE TEST ENTER/E DIT ORDERABLES Final Result * POCT glucose manually resulted (01/08/2025 3:22 PM EDT) Glucose Blood, POC 121 60 - 200 mg/dL QC Media Lot # [id number] Lot# Expiration Date [id number] Blood Capillary blood specimen / Unknown 01/08/2025 3:22 PM EDT Ethel Santana MD POINT OF CARE TEST ENTER/E DIT ORDERABLES Final Result * (ABNORMAL) Lipid Panel, Standard (07/25/2024 9:03 AM EDT) Triglycerides 159(H) <150 mg/dL [facility] Comment:Desirable Triglyceri de: less than 150 mg/dLBorderline High Triglyceride 150-199 mg/dLHigh Triglyceride: 200-499 mg/dLVery High Triglyceride: greater than or equal to 5OO mg/dL Cholesterol 112 <200 mg/dL [facility] Comment:Desirable Cholestero l: less than 200 mg/dLBorderline High Cholesterol: 200-239 mg/dLHigh Cholesterol: greater than 239 mg/dL LDL Cholesterol Calculated 49 <100 mg/dL [facility] Comment:Desirable LDL: less than 100 mg/dLNear Optimal/Above Optimal LDL: 110- 129 mg/dLBorderline High LDL: 130-159 mg/dLHigh LDL: 160-189 mg/dLVery High LDL: greater than or equal to 190 mg/dL HDL Cholesterol 32(L) >40 mg/dL [facility] Comment:Desirable HDL: great er than 40 mg/dL Note: This HDL assay may give artificially low results in patients with liver disease. Blood Venous blood specimen / Unknown 07/25/2024 9:03 AM EDT 07/25/2024 11:51 AM EDT Ethel Santana MD LAB BLOOD ORDERABLES Final Result Performing Organization Address City/[facility]/ZIP Co de Phone Number [facility] [address] [place] [phone] * Hepatitis C Antibody with Reflex to HCV, RNA, Quantitative, Real-Time PCR (10/04/2023 12:12 PM EST) Pathologist [facility] [place] Hepatitis C Antibody Nonreactive Nonreactive [facility] Comment:Antibodies to HCV no t detected; does not exclude early acuteHCV infection. Blood Venous blood specimen / Unknown 10/04/2023 12:12 PM EST 10/04/2023 1:02 PM EST Ethel Santana MD LAB BLOOD ORDERABLES Final Result Performing Organization Address [facility]/ZIP Co de Phone Number [facility] [address] [place] [phone] * HIV-1/2 Antigen and Antibodies, Fourth Generation, with Reflexes (10/04/2023 12:12 PM EST) Pathologist [facility] [place] HIV AB/AG Nonreactive Nonreactive [facility] Comment:HIV-1 p24 Ag and/or HIV-1/HIV-2 Ab not detected.A test result that is nonreactive does not exclude thepossibility of exposure to or infection with HIV-1 and/orHIV-2. Nonreactive results in this assay for individualswith prior exposure to HIV-1 and/or HIV-2 may be due toantigen and antibody levels that are below the limit ofdetection of this assay.The [employer] HIV Ag/Ab Combo assay result andsupplemental assay results should be interpreted inconjunction with the patient's clinical presentation,history and other laboratory results. If the results areinconsistent with clinical evidence, additional testing issuggested to confirm the result. Blood Venous blood specimen / Unknown 10/04/2023 12:12 PM EST 10/04/2023 1:02 PM EST Ethel Santana MD LAB BLOOD ORDERABLES Final Result [facility] [address] [place] [phone] [phone] * (ABNORMAL) Colonoscopy (04/04/2023 10:29 AM EDT) Colonoscopy Abnormal( A) Normal Comment:tubular adenoma, nex t due 5 years Sergio Avilez MD HEALTH MAINTENANCE Final Res ult from Last 3 Months or Most Recently Relevant to Health Maintenance Insurance [address] [place] [address] [facility] C[facility] ST[facility] ADULT 1 [place], [place] Advance Directives Documents on File Type Date Recorded Patient Spin Instructor Expl anation Advance Directives and Living Will 07/04/2024 1:03 PM Health Care Proxy Care Teams Aluminum Pool Installer Relationship Specialty Start Date End Date Bollinger, MD Ethel [address] [place] [phone] PCP - General Family Medicine 10/30/18 Gabrielle Peterson, HaoD [address] [place] [address] Pharmacist Internal Medicine 02/16/23 Kim Alejandre [address] [place] [address] Dr Jose J Fitzpatrick [place], [place] Orthopaedic Surgery 09/23/24 Bebo Aquino MD [address] [place] [address] Urology 11/07/24 Piyush Acosta MD [address] [place] [address] Cardiology 12/31/24
--- OUTSIDE RECORDS SUMMARY | 2025-03-06 14:35 | XMS_ITS | Encounter Summary ---
Author Organization [employer] Address [address] [place] [address] 7t [place] [address] Care Team Providers Care Web Design Intern Name Role Phone Ethel Santana MD Primary Care Provider + [phone] Gabrielle Peterson PharmD Unavailable Kim Alejandre Unavailable Bebo Aquino MD Unavailable [phone] Piyush Acosta MD Unavailable [phone] Encounter Details Date Type Department Care Team (Late st Contact Info) Description 02/21/2023 Orders Only [facility] MEDICINE [address] [place], [place] [phone] Ethel Santana MD [address] [place], [place] [phone] Low iron (Primary Dx) Social History Tobacco Use Types Packs/Day Years Used Date Smoking Tobacco: Never Assessed Depression Answer Date Recorded Patient Health Questionnaire-9 Score 0 02/23/2023 Depression Answer Date Recorded Patient Health Questionnaire-2 Score 0 02/23/2023 Sex and Gender Information Value Date Recorded Sex Assigned at Male 08/29/2022 10:14 AM EDT Legal Sex Male 10:14 AM EDT Gender Identity Male 08/29/2022 10:14 AM EDT Sexual Orientation Straight 08/29/2022 10 :14 AM EDT COVID-19 Exposure Response Date Recorded In the last 10 days, have yo u been in contact with someone who was confirmed or suspected to have Coronavirus/COVID-19? No / Unsure 02/23/2023 11:09 AM EDT documented as of this encounter Plan of Treatment Upcoming Encounters Date Type Department Care Team (Late st Contact Info) Description 03/21/2025 10:30 AM EDT Office Visit [facility] [address] [place] [address] Brielle Sanchez, OD [address] [place] [address] documented as of this encounter Goals Goal Patient Goal Type Associated Problems Recent Progress Patient-Stated? Author Blood Pressure < 140/90 Blood Pressure 138/82( 025 2:04 PM EDT) No Gabrielle Sanz, HaoD documented as of this encounter Procedures Procedure Name Priority Date/Time Associated Diagnosis Comments IRON, TIBC AND FERRITIN PANEL Routine 02/21/2023 2:34 PM EDT Low iron CBC WITH AUTO DIFFERENTIAL Routine 02/21/2023 2:34 PM EDT Low iron VITAMIN B12 Routine 02/21/2023 2:34 PM EDT Low iron documented in this encounter Results * Vitamin B12 (02/21/2023 2:34 PM EDT) Vitamin B12 517 200 - 1,100 pg/mL [facility] Blood Venous blood specimen / Unknown 02/21/2023 2:34 PM EDT 02/21/2023 2:35 PM EDT us Ethel Santana MD LAB BLOOD ORDERABLES Final Result [facility] [address], [place] [address] [facility] [address] [place] [address] * Iron, TIBC And Ferritin Panel (02/21/2023 2:34 PM EDT) Pathologist [facility] Iron, Total 65 50 - 180 mcg/dL [facility] Iron Binding Capacity 259 250 - 425 mcg/dL (calc) [facility] % Saturation 25 20 - 48 % (calc) [facility] Ferritin 156 38 - 380 ng/mL [facility] Blood 02/21/2023 2:34 PM EDT 02/21/2023 2:35 PM EDT Ethel Santana MD LAB BLOOD ORDERABLES Final Result [facility] [address], [place] [address] [facility] [employer] [address] [place] [address] * (ABNORMAL) CBC auto differential (02/21/2023 2:34 PM EDT) White Blood Cell Count 5.7 3.8 - 10.8 Thousand/ uL [facility] Red Blood Cell Count 5.31 4.20 - 5.80 Million/u L [facility] Hemoglobin 14.0 13.2 - 17.1 g/dL [facility] Hematocrit 41.1 38.5 - 50.0 % [facility] MCV 77.4(L) 80.0 - 100.0 fL [facility] MCH 26.4(L) 27.0 - 33.0 pg [facility] MCHC 34.1 32.0 - 36.0 g/dL [facility] RDW 15.1(H) 11.0 - 15.0 % [facility] Platelet Count 234 140 - 400 Thousand/ uL [facility] MPV 10.0 7.5 - 12.5 fL [facility] Absolute Neutrophils 2,987 1,500 - 7,800 cells/uL [facility] Absolute Lymphocytes 2,075 850 - 3,900 cells/uL [facility] Absolute Monocytes 496 200 - 950 cells/uL [facility] Absolute Eosinophils 120 15 - 500 cells/uL [facility] Absolute Basophils 23 0 - 200 cells/uL [facility] Neutrophils 52.4 % [facility] Lymphocytes 36.4 % [facility] Monocytes 8.7 % [facility] Eosinophils 2.1 % [facility] Basophils 0.4 % [facility] Blood Venous blood specimen / Unknown 02/21/2023 2:34 PM EDT 02/21/2023 2:35 PM EDT Ethel Santana MD LAB BLOOD ORDERABLES Final Result [facility] [address], [place] [address] [facility] [address] [place] [address] documented in this encounter Visit Diagnoses Diagnosis Low iron- Primary Unspecified iron deficiency anemia documented in this encounter Care Teams Web Design Intern Relationship Specialty Start Date End Date Ethel Santana MD [address] [place] [address] PCP - General Family Medicine 10/30/18 Gabrielle Peterson, HaoD [address] [place] [address] Pharmacist Internal Medicine 02/16/23 Kim Alejandre [address] [place] [address] Dr [facility] [address] [place] [address] Orthopaedic Surgery 09/23/24 Bebo Aquino MD [address] [place] [address] [address] [place] [address] Urology 11/07/24 Piyush Acosta MD [address] [place] [address] Cardiology 12/31/24 documented as of this encounter
--- OUTSIDE RECORDS SUMMARY | 2025-03-06 14:35 | XMS_ITS | Encounter Summary ---
Author Organization [employer] Address [address] [place] [address] 7 [place] [address] Care Team Providers Care Customer Resolution Specialist Name Role Phone Ethel Santana MD Primary Care Provider Gabrielle Peterson PharmD Unavailable Kim Alejandre Unavailable Bebo Aquino MD Unavailable Piyush Acosta MD Unavailable [phone] Encounter Details Date Type Department Care Team (Late st Contact Info) Description 11/15/2022 Abstract [facility] MEDICINE [address] [place] [address] Ethel Santana MD [address] [place] [address] Social History Tobacco Use Types Packs/Day Years [...] Description 03/21/2025 10:30 AM EDT Office Visit [facility] OPTOMETRY [address] [place], [place] [phone] Brielle Sanchez OD [address] [place] [address] documented as of this encounter Procedures Procedure Name Priority Date/Time Associated Diagnosis Comments COLONOSCOPY Routine 12/02/2015 documented in this encounter Results * Colonoscopy (12/02/2015) Colonoscopy Tubular Adenoma with Dr. Avilez us Historical Provider HEALTH MAINTENANCE Final Result documented in this encounter Visit Diagnoses Not on filedocumented in this encounter Care Teams Customer Resolution Specialist Relationship Specialty Start Date End Date Ethel Santana MD [address] [place] [address] PCP - General Family Medicine 10/30/18 Gabrielle Peterson, HaoD [address] [place] [address] Pharmacist Internal Medicine 02/16/23 Kim Alejandre [address] [place] [address] [address] [place] [address] Orthopaedic Surgery 09/23/24 Bebo Aquino MD [address] [place] [address] Drive [address] [place] [address] Urology 11/07/24 Piyush Acosta MD [address] [place] [address] Cardiology 12/31/24 documented as of this encounter
--- OUTSIDE RECORDS SUMMARY | 2025-03-06 14:35 | XMS_ITS | Encounter Summary ---
Author Organization [employer] Address [address] [place] [address] 7 [place] [address] Care Team Providers Care Straddle Bug Operator Name Role Phone Ethel Santana MD Primary Care Provider + [phone] Gabrielle Peterson PharmD Unavailable [phone] Kim Alejandre Unavailable Bebo Aquino MD Unavailable [phone] Piyush Acosta MD Unavailable [phone] Encounter Details Date Type Department Care Team (Latest Contact Info) Description 01/18/2022 Abstract [facility] CONVERSIONS Dental, Provider, DDS Social History Tobacco Use Types Packs/Day Years [...] 03/21/2025 10:30 AM EDT Office Visit [facility] OPTOMETRY [address] [place], [place] [phone] Brielle Sanchez, OD [address] [place], [place] [phone] documented as of this encounter Visit Diagnoses Not on filedocumented in this encounter Care Teams Straddle Bug Operator Relationship Specialty Start Date End Date Ethel Santana MD [address] [place] [address] PCP - General Family Medicine 10/30/18 Gabrielle Peterson, HaoD [address] [place] [address] Pharmacist Internal Medicine 02/16/23 Kim Alejandre [address] [place] [address] [address] [place] [address] Orthopaedic Surgery 09/23/24 Bebo Aquino MD [address] [place] [address] Drive [address] [place] [address] Urology 11/07/24 Piyush Acosta MD [address] [place] [address] Cardiology 12/31/24 documented as of this encounter
--- OUTSIDE RECORDS SUMMARY | 2025-03-06 14:35 | XMS_ITS | Encounter Summary ---
Author Organization [employer] Address [address] [place] [address] 7t [place] [address] Care Team Providers Care Soils Analyst Name Role Phone Ethel Santana MD Primary Care Provider + [phone] Gabrielle Peterson PharmD Unavailable [phone] Kim Alejandre Unavailable Bebo Aquino MD Unavailable [phone] Piyush Acosta MD Unavailable [phone] Encounter Details Date Type Department Care Team (Late st Contact Info) Description 02/20/2024 Telephone [facility] [address] [place], [place] [phone] Charles Read DDS [address] [place], [place] [phone] Social History Tobacco Use Types Packs/Day Years Used Date Smoking Tobacco: Former Cigarettes 0.3 0.5 Passive Smoke Exposure: Never Smokeless Tobacco: Former Alcohol Use Standard Drinks/Week Comments Defer 0 (1 standard drink = 0.6 oz pur e alcohol) occasionally Depression Answer Date Recorded Patient Health Questionnaire-9 Score 0 02/23/2023 Housing Stability Answer Date Recorded What is your housing situation today? I have jocelynn martinez 08/15/[address] you li ve. Do you have problems with any of the following? None of the above 08/15/2023 Food Insecurity Answer Date Recorded Within the past 12 months, y ou worried that your food would run out before you got money to buy more: Never True 08/15/2023 Within the past 12 months,th e food you bought just didn't last and you didn't have enough money to get more: Never True Transportation Answer Date Recorded In the past 12 months, has l ack of transportation kept you from medical appts, meetings, work or from getting things needed for daily living? No 08/15/2023 Utilities Answer Date Recorded In the past 12 months, has t he electric, gas, oil or water company threatened to shut off services in your home? No 08/15/2023 Depression Answer Date Recorded Patient Health Questionnaire-2 Score 0 02/23/2023 Sex and Gender Information Value Date Recorded Sex Assigned at Male 08/29/2022 10:14 AM EDT Legal Sex Male 10:14 AM EDT Gender Identity Male 08/29/2022 10:14 AM EDT Sexual Orientation Straight 08/29/2022 10 :14 AM EDT documented as of this encounter Miscellaneous Notes * Telephone Encounter - Paris Gomez - 02/20/2024 10:00 AM EDT Patient has an apt february [address]ado for extraction he ask if u can send him something for pain and infection documented in this encounter Plan of Treatment Upcoming Encounters Date Type Department Care Team (Late st Contact Info) Description 03/21/2025 10:30 AM EDT Office Visit [facility] [address] [place] [address] Daniel, Brielle, OD 230 [facility] [place] [address] documented as of this encounter Goals Goal Patient Goal Type Associated Problems Recent Progress Patient-Stated? Author Blood Pressure < 140/90 Blood Pressure 138/82( 025 2:04 PM EDT) No Gabrielle Sanz, PharmD documented as of this encounter Visit Diagnoses Not on filedocumented in this encounter Additional Health Concerns Assessment Noted Time PHQ-9 Depression Total Score: 0 02/24/20 23 11:33 AM EDT documented as of this encounter Care Teams Soils Analyst Relationship Specialty Start Date End Date Mercer, Ethel, MD [address] [place] [address] PCP - General Family Medicine 10/30/18 Gabrielle Peterson, HaoD [address] [place] [address] Pharmacist Internal Medicine 02/16/23 Kim Alejandre [address] [place] [address] [address] [place] [address] Orthopaedic Surgery 09/23/24 Bebo Aquino MD [address] [place] [address] [address] [place] [address] Urology 11/07/24 Piyush Acosta MD [address] [place] [address] Cardiology 12/31/24 documented as of this encounter
--- OUTSIDE RECORDS SUMMARY | 2025-03-06 14:35 | XMS_ITS | Encounter Summary ---
Author Organization [employer] Address [address] [place] [address] 7t [place] [address] Care Team Providers Care Environmental Health Nurse Name Role Phone Ethel Santana MD Primary Care Provider + [phone] Gabrielle Peterson PharmD Unavailable Kim Alejandre Unavailable Bebo Aquino MD Unavailable [phone] Piyush Acosta MD Unavailable [phone] Encounter Details Date Type Department Care Team (Late st Contact Info) Description 04/06/2023 Orders Only [facility] MEDICINE [address] [place], [place] [phone] Ethel Santana MD [address] [place], [place] [phone] Social History Tobacco Use Types Packs/Day Years [...] suspected to have Coronavirus/COVID-19? No / Unsure 03/28/2023 11:47 AM EDT documented as of this encounter Plan of Treatment Upcoming Encounters Date Type Department Care Team (Late st Contact Info) Description 03/21/2025 10:30 AM EDT Office Visit [facility] OPTOMETRY [address] [place] [address] Brielle Sanchez, OD [address] [place] [address] documented as of this encounter Goals Goal Patient Goal Type Associated Problems Recent Progress Patient-Stated? Author Blood Pressure < 140/90 Blood Pressure 138/82( 025 2:04 PM EDT) No Gabrielle Sanz PharmD documented as of this encounter Procedures Procedure Name Priority Date/Time Associated Diagnosis Comments COLONOSCOPY Routine 04/04/2023 10:29 AM EDT documented in this encounter Results * (ABNORMAL) Colonoscopy (04/04/2023 10:29 AM EDT) Colonoscopy Abnormal( A) Normal Comment:tubular adenoma, nex t due 5 years Sergio Avilez MD HEALTH MAINTENANCE Final Res ult documented in this encounter Visit Diagnoses Not on filedocumented in this encounter Additional Health Concerns Assessment Noted Time PHQ-9 Depression Total Score: 0 02/24/20 11:33 AM EDT documented as of this encounter Care Teams Environmental Health Nurse Relationship Specialty Start Date End Date Ethel Santana MD [address] [place] [address] PCP - General Family Medicine 10/30/18 Gabrielle Peterson, PharmD [address] [place] [address] Pharmacist Internal Medicine 02/16/23 Kim Alejandre [address] [place] [address] [address] [place] [address] Orthopaedic Surgery 09/23/24 Bebo Aquino MD [address] [place] [address] Drive [address] [place] [address] Urology 11/07/24 Piyush Acosta MD [address] [place] [address] Cardiology 12/31/24 documented as of this encounter
--- OUTSIDE RECORDS SUMMARY | 2025-03-06 14:35 | XMS_ITS | Encounter Summary ---
Author Organization [employer] Address [address] [place] [address] 7t [place] [address] Care Team Providers Care Data Mining Analyst Name Role Phone Ethel Santana MD Primary Care Provider + [phone] Gabrielle Peterson PharmD Unavailable [phone] Kim Alejandre Unavailable Bebo Aquino MD Unavailable [phone] Piyush Acosta MD Unavailable [phone] Reason for Visit * Reason Onset Date Comments xrays 07/15/2024 Encounter Details Date Type Department Care Team (Late st Contact Info) Description 07/15/2024 Telephone [facility] DENTAL [address] [place] [address] Charles Read DDS [address] [place], [place] [phone] xrays Social History Tobacco Use Types Packs/Day Years [...] encounter Miscellaneous Notes * Telephone Encounter - Samantha Myers - 07/15/2024 8:53 AM EDT Patient was referred to an office for periodontal care from [facility] and they need the patients xrays kandi sent to [email or web address]. documented in this encounter Plan of Treatment Upcoming Encounters Date Type Department Care Team (Late st Contact Info) Description 03/21/2025 10:30 AM EDT Office Visit [facility] OPTOMETRY [address] [place], [place] [phone] Brielle Sanchez, OD [address] [place] [address] documented as of this encounter Goals Goal [...] documented as of this encounter Care Teams Data Mining Analyst Relationship Specialty Start Date End Date Ethel Santana MD [address] [place] [address] PCP - General Family Medicine 10/30/18 Gabrielle Peterson, PharmD [address] [place] [address] Pharmacist Internal Medicine 02/16/23 Kim Alejandre [address] [place] [address] [address] [place] [address] Orthopaedic Surgery 09/23/24 Bebo Aquino MD [address] [place] [address] Drive [address] [place] [address] Urology 11/07/24 Piyush Acosta MD [address] [place] [address] Cardiology 12/31/24 documented as of this encounter
== END 2025-03-06 13:50 | disposition home or self-care (01) ==
LOC: HO.HOS 13:33
PROVIDERS: PCP Family Medicine; Visit Provider Physician Assistant
DX: M17.0 Bilateral primary osteoarthritis of knee (principal)
CPT/HCPCS: 20610

== ENCOUNTER → 2025-03-06 13:32 | Outpatient (BNVA) | payer MEDICAID, SELFPAY | PROVIDERS: PCP Family Medicine; Visit Provider Physician Assistant | DX: M17.0 Bilateral primary osteoarthritis of knee (principal) | CPT/HCPCS: 20610; J1010; J2003 ==

== ENCOUNTER 2025-04-07 13:11 | Outpatient (RCR) | payer MEDICAID, SELFPAY | END 2025-04-11 15:43 | disposition home or self-care (01) | LOC: HO.PT 13:11 | PROVIDERS: PCP Family Medicine; Visit Provider Family Medicine | DX: M25.511 Pain in right shoulder (principal) | CPT/HCPCS: 97110; 97161; 97530 ==

== ENCOUNTER 2025-05-01 14:04 | Outpatient (REF) | payer MEDICAID, SELFPAY ==
--- NOTE | ~2025-05-01 | XR_ITS ---
EXAMINATION: XR SHOULDER 2 OR MORE VIEWS LEFT HISTORY: M25.519 - Pain in unspecified shoulder COMPARISON: Comparison is made with the prior examination dated 01/05/2022. FINDINGS: Four views of the left shoulder are submitted. Osseous mineralization is normal. Post surgical changes are noted involving the AC joint. There are suture anchors in the humeral head. There is no fracture or dislocation. The glenohumeral joint is maintained. The soft tissues are unremarkable. XR/XR shoulder LT min 2V IMPRESSION: Postsurgical changes as described. No acute abnormality. Electronically signed by: Guille Frederick MD 05/01/2025 02:44 PM EDT
--- OUTSIDE RECORDS SUMMARY | 2025-05-01 14:09 | XMS_ITS | Clinical Summary ---
Author Organization [facility] Health Address [address] [place] [address] Care Team Providers Care Radial Arm Saw Operator Name Role Phone Unavailable Primary Care Provider [...] 08/15/2027 08/14/2024 Dental X-Ray: Panoramic 08/15/2027 08/14/2024 Procedures Procedure Name Priority Date/Time Associated Diagnosis Comments PANORAMIC RADIOGRAPHIC IMAGE Routine 08/14/2024 11:00 AM EDT from Last 3 Months or Most Recently Relevant to Health Maintenance
--- OUTSIDE RECORDS SUMMARY | 2025-05-01 14:09 | XMS_ITS | Encounter Summary ---
Author Organization [employer] Address [address] [facility] [address] [address] [place] [address] Care Team Providers Care Ward Service Supervisor Name Role Phone Ethel Santana MD Primary Care Provider [phone] Gabrielle Peterson PharmD Unavailable Kim Alejandre Unavailable Bebo Aquino MD Unavailable Piyush Acosta MD Unavailable [phone] Encounter Details Date Type Department Care Team (Late st Contact Info) Description 04/06/2023 Orders Only [facility] MEDICINE [address] [place], [place] [phone] Ethel Santana MD 230 [place], [place] [phone] Social History Tobacco Use Types Packs/Day Years [...] Care Team (Late st Contact Info) Description 07/21/2025 10:45 AM EDT Office Visit [facility] MED[facility]INE [address] [place] [address] Ethel Santana MD 230 [facility] [place], [place] [phone] documented as of this encounter Goals Goal [...] documented as of this encounter Care Teams Ward Service Supervisor Relationship Specialty Start Date End Date Ethel Santana MD Kristina [facility] [place], [place] [phone] PCP - General Family Medicine 10/30/18 Gabrielle Peterson, HaoD Kristina [place], [place] [phone] Pharmacist Internal Medicine 02/16/23 Kim Alejandre [address] [place] [address] [address] [place], [place] [phone] Orthopaedic Surgery 09/23/24 Bebo Aquino MD 10 [facility] [address] [place] [address] Urology 11/07/24 Piyush Acosta MD 5[address] [place] [address] Cardiology 12/31/24 documented as of this encounter
[2025-05-01 17:22] LABS: Prostate Specific Antigen 3.15 ng/mL (<0.05-4.0)
== END 2025-05-01 14:05 | disposition home or self-care (01) ==
LOC: HO.HHCX 14:04
PROVIDERS: PCP Family Medicine; Referring Provider Physician Assistant; Visit Provider Urology
DX: N40.1 Benign prostatic hyperplasia with lower urinary tract symptoms (principal); R35.1 Nocturia; M25.512 Pain in left shoulder
CPT/HCPCS: 36415; 73030; 84153

== ENCOUNTER → 2025-05-01 14:13 | Outpatient (BNV) | payer MEDICAID, SELFPAY | PROVIDERS: PCP Family Medicine; Referring Provider Physician Assistant; Visit Provider Radiology Diagnostic Radiology | DX: M25.519 Pain in unspecified shoulder (principal) | CPT/HCPCS: 73030 ==

== ENCOUNTER 2025-05-06 09:54 | Outpatient (REF) | payer MEDICAID, SELFPAY ==
--- OUTSIDE RECORDS SUMMARY | 2025-05-07 10:29 | XMS_ITS | Clinical Summary ---
Author Organization [facility] Health Address [address] [place] [address] Care Team Providers Care Production Utility Worker Name Role Phone Unavailable Primary Care Provider [...]
--- OUTSIDE RECORDS SUMMARY | 2025-05-07 10:29 | XMS_ITS | Encounter Summary ---
Author Organization [employer] Address [address] [facility] [address] [place] [address] Care Team Providers Care Supervisor Furnace Room Name Role Phone Ethel Santana MD Primary Care Provider [phone] Gabrielle Peterson PharmD Unavailable Kim Alejandre Unavailable Bebo Aquino MD Unavailable [phone] Piyush Acosta MD Unavailable [phone] Encounter Details Date Type Department Care Team (Late st Contact Info) Description 04/06/2023 Orders Only [facility] MEDICINE 230 [place], [place] [phone] Ethel Santana MD 230 [place], [place] [phone] Social History Tobacco Use Types Packs/Day Years [...] Description 07/21/2025 10:45 AM EDT Office Visit [facility] MEDICINE 230 [facility] [place] [address] Ethel Santana MD 230 [facility] [place], [place] [phone] documented as of this encounter Goals Goal [...] documented as of this encounter Care Teams Supervisor Furnace Room Relationship Specialty Start Date End Date Ethel Santana MD Kristina [facility] [place], [place] [phone] PCP - General Family Medicine 10/30/18 Gabrielle Peterson, HaoD Kristina [place], [place] [phone] Pharmacist Internal Medicine 02/16/23 Kim Alejandre [address] [place] [address] [address] [place], [place] [phone] Orthopaedic Surgery 09/23/24 Bebo Aquino MD 10 [facility] [address] [place] [address] Urology 11/07/24 Piyush Acosta MD [address] [place] [address] Cardiology 12/31/24 documented as of this encounter
== END 2025-05-06 09:55 | disposition home or self-care (01) ==
LOC: HO.HOSX 09:54
PROVIDERS: Visit Provider Physician Assistant
DX: Z13.89 Encounter for screening for other disorder (principal)

== ENCOUNTER 2025-05-06 12:36 | Outpatient (AMB) | payer MEDICAID, SELFPAY ==
--- NOTE | 2025-05-06 12:37 | A.OFFVIS_ITS ---
Intake Visit Reasons: 6m/PSA Intake Note: Patient is present for 6mO follow up for ED and retention Urology Medication:SILDENAFIL,TADALAFIL, tamsulosin Antibiotic Allergy:NONE Blood Thinner:NONE Stripper Cutter Machine Required: No Accompanied by: Self / Same As Patient Allergies No Known Allergies (No Known Allergies*) Allergy (Verified 05/06/25 12:38) HPI Comments Details: Ramsey is a pleasant male. He is a patient of Dr. Santana. He is seen for the following urologic conditions. - erectile dysfunction - spermatocele - lower urinary tract symptoms Telemedicine Evaluation 15 min Consultation [employer] Six-month follow-up Good response 100 mg sildenafil on demand Had noticed further weakness of stream on the daily tadalafil Will trial tamsulosin for the next 2 months Obtain bladder ultrasound May benefit from prostate procedure Erectile dysfunction Longstanding Good response to Viagra May increase dose to maximum 200 mg as needed Prior weight loss did increase testosterone PSA 01/19 2.2 Epididymal cyst Left scrotum Intermittent pain Discussed use of anti-inflammatories Offered resection Lower urinary tract symptoms Progressive bladder outlet obstruction Gradual weakening stream Nocturia x2 PFSH Medical History Tubular adenoma Cellulitis Vomiting and diarrhea Depression Cardiomyopathy GERD (gastroesophageal reflux disease) Sickle-cell trait Weakness Anxiety Sleep apnea COVID-19 vaccine series completed Elevated cholesterol Colon cancer screening Erectile dysfunction Lumbar radiculopathy Dysfunction of left rotator cuff Hypertension Chronic back pain Surgical History History of colonoscopy (~04/04/23) Hx of rotator cuff surgery Hx of arthroscopic knee surgery Hx of appendectomy H/O colonoscopy Family History Father No problems noted. Mother Cardiomyopathy Social History Household Members: None Household Members Other:: none Are you a primary account executive healthcare to a significant other at home: No Do you presently have visiting nurse or other home services: No Alcohol intake: current Alcohol intake frequency: holidays/special occasions only Comment: aware of trip hazard Patient Tobacco Use Status: Former Tobacco user Tobacco use type: Cigarette Substance Use Type: Marijuana Advance Directives Date on File: 01/13/16 Current occupational status: unemployed Review of Systems Const All systems reviewed & are unremarkable except as noted in HPI and below Reports no additional complaints Resp Reports no additional complaints GI Reports no additional complaints Reports as per HPI Musc Reports no additional complaints Physical Exam Telemedicine evaluation Appropriate responses Regular breathing rate and rhythm HEENT Head: Yes normal to inspection Ears: hearing grossly normal bilaterally Eyes General: appearance normal, both eyes and all related structures Neck Neck: Yes normal visual inspection Chest Chest palpation & inspection: normal inspection of the chest Resp Effort & Inspection: normal respiratory effort and able to speak in complete sentences Telehealth Telehealth Telehealth Platform: [employer] Location of provider rendering services: practice address Location of patient: address on file Patient Identification confirmed using: Name, : Yes Telehealth method: voice only Patient verbally consented to treatment: Yes Patient verbally consented to billing insurance company: Yes Patient informed of any privacy concerns related to visit: Yes Minutes spent on Phone/Video with Pt.: 15 Assessment & Plan Assessment & Plan (1) Erectile dysfunction: Code(s): N52.9 - Male erectile dysfunction, unspecified Category: Medical (2) Nocturia associated with benign prostatic hyperplasia: Code(s): N40.1 - Benign prostatic hyperplasia with lower urinary tract symptoms; R35.1 - Nocturia Category: Medical Plan Trial tamsulosin Obtain bladder US Orders: Orders US bladder Today R39.12 - Poor urinary stream Medications: New tamsulosin (Flomax) 0.4 mg PO BEDTIME 30 tabs 1RF 30 days R39.12 - Poor urinary stream Refilled sildenafil administer 30 minutes to 4 hours before activity 100 mg PO DAILY PRN 30 tabs 1RF sexual activity N40.1 - Benign prostatic hyperplasia with lower urinary tract symptoms, R35.1 - Nocturia Patient Instructions: This note is constructed using voice recognition software. While every effort has been made to ensure accuracy general office dispatcher errors may have been included. Imaging studies, laboratory and physical exam results were discussed and reviewed in detail. No major barriers to patient understanding were identified. An opportunity to ask questions regarding the treatment plan was provided. All questions were answered. The patient expressed understanding and agreement with the above treatment plan. The patient is aware they should contact our office by phone for worsening of their current condition or the appearance of new urologic symptoms. Compliance is encouraged with any medications and followup testing that is ordered. It is a privilege to participate in the urologic care of your patient. If you have any questions or concerns regarding treatment for the above conditions, or other urologic issues, please do not hesitate to contact me. The office telephone contact is [phone]. Sincerely, Dr Bebo Aquino MD, CHAO [facility] - Urology Compassionate Specialist Care for the Genitourinary System Coding Level of Care Code Tele Est Pt Level 4 (93977) Diagnoses Erectile dysfunction N52.9 Nocturia associated with benign prostatic hyperplasia N40.1; R35.1
--- OUTSIDE RECORDS SUMMARY | 2025-05-06 13:19 | XMS_ITS | Clinical Summary ---
Author Organization [facility] Address [address] [place] [address] Care Team Providers Care Consultant Education Name Role Phone Unavailable Primary Care Provider [...]
--- OUTSIDE RECORDS SUMMARY | 2025-05-06 13:19 | XMS_ITS | Encounter Summary ---
Author Organization [employer] Address [address] [facility] [address] [place] [address] Care Team Providers Care Residential Insurance Inspector Name Role Phone Ethel Santana MD Primary Care Provider [phone] Gabrielle Peterson PharmD Unavailable Kim Alejandre Unavailable Bebo Aquino MD Unavailable [phone] Piyush Acosta MD Unavailable [phone] Encounter Details Date Type Department Care Team (Late st Contact Info) Description 04/06/2023 Orders Only [facility] MEDICINE 230 [place], [place] [phone] Ethel Santana MD 230 [place], [place] [phone] Social History Tobacco Use Types Packs/Day Years [...] Description 07/21/2025 10:45 AM EDT Office Visit [facility] MEDICINE [address] [facility] [place] [address] Ethel Santana MD 230 [facility] [place], [place] [phone] documented as of this encounter Goals Goal [...] documented as of this encounter Care Teams Residential Insurance Inspector Relationship Specialty Start Date End Date Ethel Santana MD [facility] [place], [place] [phone] PCP - General Family Medicine 10/30/18 Gabrielle Peterson, HaoD Kristina [place], [place] [phone] Pharmacist Internal Medicine 02/16/23 Kim Alejandre [address] [place] [address] Dr [address] [place], [place] [phone] Orthopaedic Surgery 09/23/24 Bebo Aquino MD 10 [facility] [address] [place] [address] Urology 11/07/24 Piyush Acosta MD [address] [place] [address] Cardiology 12/31/24 documented as of this encounter
== END 2025-05-06 13:31 | disposition home or self-care (01) ==
LOC: HO.HUSH 12:36
PROVIDERS: PCP Family Medicine; Visit Provider Urology
DX: N52.9 Male erectile dysfunction, unspecified (principal); N40.1 Benign prostatic hyperplasia with lower urinary tract symptoms; R35.1 Nocturia
CPT/HCPCS: 99214

== ENCOUNTER 2025-05-22 10:14 | Outpatient (AMB) | payer MEDICAID, SELFPAY ==
--- NOTE | 2025-05-22 10:23 | MHC.OFFVIS ---
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 Patient was referred by and was seen by pain management. Dysfunction of left rotator cuff, 05/04/22 NE. Patient has a history of Neck and left shoulder pain, he has tried Physical therapy, injections and pain medications/NSAIDs. Patient had a x ray of the left shoulder on 05/01/[address]: Bebo Aquino MD. At today's visit the patient states that the pain is located in the left shoulder blade that radiates into the armpit, constant dullache. No numbness or tingling to report at this time. Allergies No Known Allergies (No Known Allergies*) Allergy (Verified 05/22/25 10:27) Medication List - Last Reconciled 05/22/25 by Gala Triplett MD acetaminophen 500 mg PO QID PRN atorvastatin 40 mg PO BEDTIME carvedilol 6.25 mg PO BID cyclobenzaprine 10 mg PO BEDTIME folic acid 1 mg PO DAILY hydrochlorothiazide 25 mg PO DAILY ibuprofen 600 mg PO TID PRN multivitamin 1 tab PO DAILY omeprazole 1 cap PO DAILY PRN sildenafil 100 mg PO DAILY PRN sodium,potassium,mag sulfates 17.5-3.13-1.6 gram (Suprep Bowel Prep Kit) DILUTE; drink full amount early evening before AND next morning at least 2 hr before procedure; follow w 960 mL water PO tadalafil 5 mg PO DAILY 90 days tamsulosin (Flomax) 0.4 mg PO BEDTIME 30 days trazodone 75 mg PO BEDTIME HPI Comments Details: S/P left shoulder DCE/RTC repair, 05/04/22, Dr. Javier. He says this probably was an overuse injury. Recovered well but continued with dull pain. Worse since 6 months ago. Still full ROM without pain. Though feels like popping with forward flexion. Denies numbness/tingling. Says dull pain is around the shoulder, armpit and deltoids. 01/06. Also follows ortho for knee euflexxa injections. No recent PT for shoulder. PT for lower back pain, referred by PCP. [facility] Medical History (Updated 05/22/25 @ 11:41 by Gala Triplett MD) Tubular adenoma Cellulitis Vomiting and diarrhea Depression Cardiomyopathy GERD (gastroesophageal reflux disease) Sickle-cell trait Weakness Anxiety Sleep apnea COVID-19 vaccine series completed Elevated cholesterol Colon cancer screening Erectile dysfunction Lumbar radiculopathy Dysfunction of left rotator cuff Hypertension Chronic back pain Surgical History (Updated 05/22/25 @ 11:41 by Gala Triplett MD) History of colonoscopy (~04/04/23) Hx of rotator cuff surgery Hx of arthroscopic knee surgery Hx of appendectomy H/O colonoscopy Family History Father No problems noted. 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 MSK: Inspection reveals appropriate head and neck positioning. No pain with palpation over the neck musculature. Cervical ROM was full. Spurling's sign negative. No scapular winging. Tender on left subacromial area. Point tenderness on area of left teres minor muscle. Nontender trapezius. Nontender rhomboids. Empty can test is negative. Drop arm test is negative. Speed's test is negative. Neer's test is negative. Hawkin's test is positive dull ache and crepitus left side. Strength is 5/5 in all muscle groups tested. No increased tone noted. Neurological: Neurologic examination of the upper and lower extremities was nonfocal with intact sensation, muscle stretch reflexes and without focal motor deficits . Doe?s negative bilaterally. Gait is non-antalgic without loss of balance. Vital Signs: BMI result Body Mass Index 31.7 Results Reviewed Results Reviewed: I independently reviewed the results of the following: Surgical clips on Humeral head seen, images reviewed with patient. Ordering Physician: Kim Alejandre PA-C Date of Service: 05/01/25 Procedure(s): XR shoulder LT min 2V Accession Number(s): [id number] cc: Ethel Santana MD; Kim Alejandre PA-C~ EXAMINATION: XR SHOULDER 2 OR MORE VIEWS LEFT HISTORY: M25.519 - Pain in unspecified shoulder COMPARISON: Comparison is made with the prior examination dated 01/05/2022. FINDINGS: Four views of the left shoulder are submitted. Osseous mineralization is normal. Post surgical changes are noted involving the AC joint. There are suture anchors in the humeral head. There is no fracture or dislocation. The glenohumeral joint is maintained. The soft tissues are unremarkable. XR/XR shoulder LT min 2V IMPRESSION: Postsurgical changes as described. No acute abnormality. Electronically signed by: Guille Frederick MD 05/01/2025 02:44 PM EDT RP I reviewed records from the following: Ortho PT for shoulders, 03/2025 Assessment & Plan Assessment & Plan (1) Left shoulder pain: Code(s): M25.512 - Pain in left shoulder Category: Medical Qualifiers: Chronicity: chronic Qualified Code(s): M25.512 - Pain in left shoulder; G89.29 - Other chronic pain (2) Myofascial pain: Code(s): M79.18 - Myalgia, other site Category: Medical Plan Dull chronic ache since surgery in 2021 for left rotator cuff. Crepitus and sensation of popping with abduction and internal rotation. Lower differential of myofascial pain particularly in teres minor. No signs of cervical radiculopathy or myelopathy. Would request Orthopedics to evaluate patient. If they clear the patient for any shoulder issue and safety for trigger point injections near the shoulder joint, then patient can see me again for such. Discussed with Kim GUY Assessment and plan discussed with patient, and patient was agreeable. All questions were answered thoroughly. Gala Triplett MD, CHAO Board Certified, [place] Board of Physical Medicine and Rehabilitation (ABPMR) Board Certified, [place] Board of Electrodiagnostic Medicine (ABEM) Coding Level of Care Code New Pt Level 3 (15641) Diagnoses Chronic left shoulder pain M25.512; G89.29 Chronicity: chronic Myofascial pain M79.18
[2025-05-22 10:28] VITALS: BMI 31.7
--- OUTSIDE RECORDS SUMMARY | 2025-05-22 11:00 | XMS_ITS | Clinical Summary ---
Author Organization [facility] Health Address [address] [place] [address] Care Team Providers Care Self Defense Instructor Name Role Phone Unavailable Primary Care Provider [...]
--- OUTSIDE RECORDS SUMMARY | 2025-05-22 11:00 | XMS_ITS | Encounter Summary ---
Author Organization [employer] Address [address] [facility] [address] [place] [address] Care Team Providers Care Community Worker Name Role Phone Ethel Santana MD Primary Care Provider [phone] Gabrielle Peterson PharmD Unavailable Kim Alejandre Unavailable Bebo Aquino MD Unavailable [phone] Piyush Acosta MD Unavailable [phone] Encounter Details Date Type Department Care Team (Late st Contact Info) Description 04/06/2023 Orders Only [facility] MEDICINE [address] [place], [place] [phone] Ethel Santana MD 230 [place], [place] [phone] Social History Tobacco Use Types Packs/Day Years [...] Description 07/21/2025 10:45 AM EDT Office Visit [facility] MED[facility]INE 230 [facility] [place] [address] Ethel Santana MD 230 [facility] [place], [place] [phone] documented as of this encounter Goals Goal [...] documented as of this encounter Care Teams Community Worker Relationship Specialty Start Date End Date Ethel Santana MD Kristina [facility] [place], [place] [phone] PCP - General Family Medicine 10/30/18 Gabrielle Peterson, HaoD Kristina [place], [place] [phone] Pharmacist Internal Medicine 02/16/23 Kim Alejandre [address] [place] [address] [address] [place], [place] [phone] Orthopaedic Surgery 09/23/24 Bebo Aquino MD 10 [facility] [address] [place] [address] Urology 11/07/24 Piyush Acosta MD [address] [place] [address] Cardiology 12/31/24 documented as of this encounter
== END 2025-05-22 11:44 | disposition home or self-care (01) ==
LOC: HO.HOS 10:15
PROVIDERS: PCP Family Medicine; Visit Provider Physical Medicine & Rehabilitation
DX: M25.512 Pain in left shoulder (principal); G89.29 Other chronic pain; M79.18 Myalgia, other site
CPT/HCPCS: 99203

== ENCOUNTER → 2025-05-22 10:14 | Outpatient (BNVA) | payer MEDICAID, SELFPAY | PROVIDERS: PCP Family Medicine; Visit Provider Physical Medicine & Rehabilitation | DX: M79.18 Myalgia, other site (principal); M25.512 Pain in left shoulder; G89.29 Other chronic pain | CPT/HCPCS: 99202 ==

== ENCOUNTER 2025-06-05 11:26 | Outpatient (AMB) | payer MEDICAID, SELFPAY ==
[2025-06-05 11:43] VITALS: BMI 31.7
--- NOTE | 2025-06-05 11:43 | MHC.OFFVIS ---
Vital Signs 06/05/25 11:43 Height 5 ft 11 in Weight 227 lb BMI 31.7 Intake Visit Reasons: B/L Euflexxa Gel Injections #1 Intake Note: Ramsey is a 59 year old male who presents today for his bilateral knee Euflexxa gel injections #1. Allergies No Known Allergies (No Known Allergies*) Allergy (Verified 06/05/25 11:43) HPI HPI B/L Euflexxa Gel Injections #1: Details: Mr. Jamie monteiro is a 59-year-old male who presents to the office today for bilateral knee Euflexxa # 1 injections. He reports that his right knee is slightly worse than his left. [facility] Medical History (Updated 05/22/25 @ 11:41 by Gala Triplett MD) Tubular adenoma Cellulitis Vomiting and diarrhea Depression Cardiomyopathy GERD (gastroesophageal reflux disease) Sickle-cell trait Weakness Anxiety Sleep apnea COVID-19 vaccine series completed Elevated cholesterol Colon cancer screening Erectile dysfunction Lumbar radiculopathy Dysfunction of left rotator cuff Hypertension Chronic back pain Surgical History (Updated 05/22/25 @ 11:41 by Gala Triplett MD) History of colonoscopy (~04/04/23) Hx of rotator cuff surgery Hx of arthroscopic knee surgery Hx of appendectomy H/O colonoscopy Family History Father No problems noted. 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 No ecchymosis, erythema, or joint effusion. Tenderness to palpation in the medial joint lines. No tenderness to palpation in the lateral joint lines. Crepitus on the right knee with range of motion. Office Procedures AMB Joint Injection/Aspiration Joint Injection/Aspiration Primary Site: right knee Secondary Site: left knee Prep: site was prepped using aseptic technique, ethochloride spray was applied and injection warnings given Injected: in the joint (Euflexxa #1) Approach Used: anterolateral Procedure: The patient tolerated the procedure well, but had some pain with the injection and there was some relief with the local anesthesia Coding - Bilateral Large Joint Procedure code (CPT) selection complete Assessment & Plan Assessment & Plan (1) Osteoarthritis of knees, bilateral: Code(s): M17.0 - Bilateral primary osteoarthritis of knee Category: Medical Plan The patient was offered a Euflexxa #1 injection in bilateral knees. The patient was explained the risks, benefits, and alternatives to receiving this injection. After receiving consent for the injection, the patient had the procedure done while in the office today. The patient tolerated the procedure well with no complications. Due to the patient?s history of diabetes, they were instructed to monitor their blood glucose level. The patient was informed that they could see a rise in their numbers and if the numbers became too high, they were instructed to call their PCP. The patient was also informed that they could have facial flushing as a side effect of the injection, but this will pass. Follow-up will be 1 week for Euflexxa #2, or sooner if needed Coding Level of Care Code Procedure Only Diagnoses Osteoarthritis of knees, bilateral M17.0 CPT Codes Coding - 04553 - Bilateral Large Joint: 79517 - Bilateral Large Joint ([id number])
--- OUTSIDE RECORDS SUMMARY | 2025-06-05 12:07 | XMS_ITS | Encounter Summary ---
Author Organization [employer] Address [address] [place] [address] Care Team Providers Care Contact And Service Clerks Supervisor Name Role Phone Ethel Santana MD Primary Care Provider [phone] Gabrielle Peterson PharmD Unavailable [phone] Kim Alejandre Unavailable Bebo Aquino MD Unavailable Piyush Acosta MD Unavailable [phone] Encounter Details Date Type Department Care Team (Late st Contact Info) Description 04/06/2023 Orders Only [facility] MEDICINE [address] [place], [place] [phone] Ethel Santana MD 230 [place], [place] [phone] Social History Tobacco Use Types Packs/Day Years [...] Description 07/21/2025 10:45 AM EDT Office Visit [facility] MEDICINE 230 [facility] [place] [address] Ethel Santana MD 230 [facility] [place], [place] [phone] documented as of this encounter Goals Goal [...] documented as of this encounter Care Teams Contact And Service Clerks Supervisor Relationship Specialty Start Date End Date Ethel Santana MD Kristina [facility] [place], [place] [phone] PCP - General Family Medicine 10/30/18 Gabrielle Peterson, HaoD Kristina [place], [place] [phone] Pharmacist Internal Medicine 02/16/23 Kim Alejandre [address] [place] [address] [address] [place], [place] [phone] Orthopaedic Surgery 09/23/24 Bebo Aquino MD 10 [facility] [address] [place] [address] Urology 11/07/24 Piyush Acosta MD [address] [place] [address] Cardiology 12/31/24 documented as of this encounter
== END 2025-06-05 11:44 | disposition home or self-care (01) ==
LOC: HO.HOS 11:27
PROVIDERS: PCP Family Medicine; Visit Provider Physician Assistant
DX: M17.0 Bilateral primary osteoarthritis of knee (principal)
CPT/HCPCS: 20610

== ENCOUNTER → 2025-06-05 11:26 | Outpatient (BNVA) | payer MEDICAID, SELFPAY | PROVIDERS: PCP Family Medicine; Visit Provider Physician Assistant | DX: M17.0 Bilateral primary osteoarthritis of knee (principal) | CPT/HCPCS: 20610; J7323 ==

== ENCOUNTER 2025-06-12 14:57 | Outpatient (AMB) | payer MEDICAID, SELFPAY ==
--- NOTE | 2025-06-12 14:58 | MHC.OFFVIS ---
Intake Visit Reasons: B/L Euflexxa gel injections #2 Intake Note: Ramsey is a 59 year old male who presents today for his bilateral knee Euflexxa gel injections #2. Patient reports some improvements in his pain. At first he noticed discomfort in his quad muscle and behind his knee. Allergies No Known Allergies (No Known Allergies*) Allergy (Verified 06/12/25 15:15) HPI HPI B/L Euflexxa gel injections #2: Details: Mr. Ayala is a 59-year-old male who presents to the office today for Euflexxa #2 injections for bilateral knees. [facility] Medical History (Updated 05/22/25 @ 11:41 by Gala Triplett MD) Tubular adenoma Cellulitis Vomiting and diarrhea Depression Cardiomyopathy GERD (gastroesophageal reflux disease) Sickle-cell trait Weakness Anxiety Sleep apnea COVID-19 vaccine series completed Elevated cholesterol Colon cancer screening Erectile dysfunction Lumbar radiculopathy Dysfunction of left rotator cuff Hypertension Chronic back pain Surgical History (Updated 05/22/25 @ 11:41 by aGla Triplett MD) History of colonoscopy (~04/04/23) Hx of rotator cuff surgery Hx of arthroscopic knee surgery Hx of appendectomy H/O colonoscopy Family History Father No problems noted. 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 No ecchymosis, erythema, or joint effusion. Tenderness to palpation in the medial joint lines. No tenderness to palpation in the lateral joint lines. Crepitus on the right knee with range of motion. Psych Appearance: grossly normal Mental Status: mental status grossly normal Attitude: cooperative Office Procedures AMB Joint Injection/Aspiration Joint Injection/Aspiration Primary Site: right knee Secondary Site: left knee Prep: site was prepped using aseptic technique, ethochloride spray was applied and injection warnings given Injected: in the joint (Euflexxa #2) Approach Used: anterolateral Procedure: The patient tolerated the procedure well, but had some pain with the injection and there was some relief with the local anesthesia Coding 59709 - Bilateral Large Joint Procedure code (CPT) selection complete Assessment & Plan Assessment & Plan (1) Osteoarthritis of knees, bilateral: Code(s): M17.0 - Bilateral primary osteoarthritis of knee Category: Medical Plan The patient was offered Euflexxa # 2 in bilateral knees. The patient was explained the risks, benefits, and alternatives to receiving this injection. After receiving consent for the injection, the patient had the procedure done while in the office today. The patient tolerated the procedure well with no complications. Follow-up will be in 1 week for Euflexxa #3, or sooner if needed Coding Level of Care Code Procedure Only Diagnoses Osteoarthritis of knees, bilateral M17.0 CPT Codes Coding - 06714 - Bilateral Large Joint: 89908 - Bilateral Large Joint ([id number])
--- OUTSIDE RECORDS SUMMARY | 2025-06-12 15:32 | XMS_ITS | Clinical Summary ---
Author Organization [facility] Address [address] [place] [address] Care Team Providers Care Manager Machine Name Role Phone Unavailable Primary Care Provider [...]
--- OUTSIDE RECORDS SUMMARY | 2025-06-12 15:32 | XMS_ITS | Encounter Summary ---
Author Organization [employer] Address [address] [place] [address] Care Team Providers Care Financial Solutions Advisor Name Role Phone Ethel Santana MD Primary Care Provider [phone] Gabrielle Peterson PharmD Unavailable Kim Alejandre Unavailable Bebo Aquino MD Unavailable [phone] Piyush Acosta MD Unavailable [phone] Encounter Details Date Type Department Care Team (Late st Contact Info) Description 04/06/2023 Orders Only [facility] MEDICINE 230 [place], [place] [phone] Ethel Santana MD 230 [place], [place] [phone] Social History Tobacco Use Types Packs/Day Years [...] Description 07/21/2025 10:45 AM EDT Office Visit [facility] MEDICINE 230 [facility] [place] [address] Ethel Santana MD 230 [facility] [place], [place] [phone] documented as of this encounter Goals Goal [...] documented as of this encounter Care Teams Financial Solutions Advisor Relationship Specialty Start Date End Date Ethel Santana MD Kristina [facility] [place], [place] [phone] PCP - General Family Medicine 10/30/18 Gabrielle Peterson, HaoD Kristina [place], [place] [phone] Pharmacist Internal Medicine 02/16/23 Kim Alejandre [address] [place] [address] [address] [place], [place] [phone] Orthopaedic Surgery 09/23/24 Bebo Aquino MD 10 [facility] [address] [place] [address] Urology 11/07/24 Piyush Acosta MD [address] [place] [address] Cardiology 12/31/24 documented as of this encounter
== END 2025-06-12 15:14 | disposition home or self-care (01) ==
LOC: HO.HOS 14:57
PROVIDERS: PCP Family Medicine; Visit Provider Physician Assistant
DX: M17.0 Bilateral primary osteoarthritis of knee (principal)
CPT/HCPCS: 20610

== ENCOUNTER → 2025-06-12 14:57 | Outpatient (BNVA) | payer MEDICAID, SELFPAY | PROVIDERS: PCP Family Medicine; Visit Provider Physician Assistant | DX: M17.0 Bilateral primary osteoarthritis of knee (principal) | CPT/HCPCS: 20610; J7323 ==

== ENCOUNTER 2025-06-19 11:28 | Outpatient (AMB) | payer MEDICAID, SELFPAY ==
--- NOTE | 2025-06-19 12:09 | MHC.OFFVIS ---
Intake Visit Reasons: B/L Euflexxa gel injections #3 Intake Note: Patient presents to the office. Today for Euflexxa #3 Allergies No Known Allergies (No Known Allergies*) Allergy (Verified 06/12/25 15:15) [facility] Medical History (Updated 05/22/25 @ 11:41 by Gala Triplett MD) Tubular adenoma Cellulitis Vomiting and diarrhea Depression Cardiomyopathy GERD (gastroesophageal reflux disease) Sickle-cell trait Weakness Anxiety Sleep apnea COVID-19 vaccine series completed Elevated cholesterol Colon cancer screening Erectile dysfunction Lumbar radiculopathy Dysfunction of left rotator cuff Hypertension Chronic back pain Surgical History (Updated 05/22/25 @ 11:41 by Gala Triplett MD) History of colonoscopy (~04/04/23) Hx of rotator cuff surgery Hx of arthroscopic knee surgery Hx of appendectomy H/O colonoscopy Family History Father No problems noted. 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 No ecchymosis, erythema, or joint effusion. Tenderness to palpation in the medial joint lines. No tenderness to palpation in the lateral joint lines. Crepitus on the right knee with range of motion. Psych Appearance: grossly normal Mental Status: mental status grossly normal Attitude: cooperative Office Procedures AMB Joint Injection/Aspiration Joint Injection/Aspiration Primary Site: right knee Secondary Site: left knee Prep: site was prepped using aseptic technique, ethochloride spray was applied and injection warnings given Injected: other (It is bilateral knees Euflexxa #3) Approach Used: anterolateral Procedure: The patient tolerated the procedure well, but had some pain with the injection and there was some relief with the local anesthesia Coding 29246 - Bilateral Large Joint Procedure code (CPT) selection complete Assessment & Plan Assessment & Plan (1) Osteoarthritis of knees, bilateral: Code(s): M17.0 - Bilateral primary osteoarthritis of knee Category: Medical Plan The patient was offered Euflexxa #3 injections in bilateral knees. The patient was explained the risks, benefits, and alternatives to receiving this injection. After receiving consent for the injection, the patient had the procedure done while in the office today. The patient tolerated the procedure well with no complications. Follow-up will be PRN, or sooner if needed Coding Level of Care Code Procedure Only Diagnoses Osteoarthritis of knees, bilateral M17.0 CPT Codes Coding - 09460 - Bilateral Large Joint: 70252 - Bilateral Large Joint ([id number])
== END 2025-06-19 12:10 | disposition home or self-care (01) ==
LOC: HO.HOS 11:29
PROVIDERS: PCP Family Medicine; Visit Provider Physician Assistant
DX: M17.0 Bilateral primary osteoarthritis of knee (principal)
CPT/HCPCS: 20610

== ENCOUNTER → 2025-06-19 11:28 | Outpatient (BNVA) | payer MEDICAID, SELFPAY | PROVIDERS: PCP Family Medicine; Visit Provider Physician Assistant | DX: M17.0 Bilateral primary osteoarthritis of knee (principal) | CPT/HCPCS: 20610; J7323 ==

== ENCOUNTER 2025-06-20 09:54 | Outpatient (AMB) | payer MEDICAID, SELFPAY ==
--- NOTE | 2025-06-20 09:55 | MHC.OFFVIS ---
Vital Signs 06/20/25 09:56 Height 5 ft 11 in Weight 227 lb BMI 31.7 Intake Visit Reasons: Tele - left shoulder pain Intake Note: Ramsey is a 59 year old - hand dominant male who presents today for a follow up on his left shoulder with complaints numbness. Patient is status post left shoulder DCE/RTC Repair, 05/04/[address] Javier. He was recently seen by Dr. Zepeda with complaints of dull chronic pain since surgery, he was referred back to see if it is okay to get his trigger point injections. Allergies No Known Allergies (No Known Allergies*) Allergy (Verified 06/20/25 09:56) HPI HPI Tele - left shoulder pain: Details: Mr. Ayala is a 59-year-old male who presents today telehealth appointment for follow up of left shoulder pain. Patient was last seen by Dr. Zepeda on 05/22/2025 in which she had recommended trigger point injections. She wanted the patient to be followed up with Orthopedics for clearance to move forward with trigger point injections as the patient has had a prior rotator cuff repair on 05/04/[address] Javier. [facility] Medical History (Updated 05/22/25 @ 11:41 by Gala Triplett MD) Tubular adenoma Cellulitis Vomiting and diarrhea Depression Cardiomyopathy GERD (gastroesophageal reflux disease) Sickle-cell trait Weakness Anxiety Sleep apnea COVID-19 vaccine series completed Elevated cholesterol Colon cancer screening Erectile dysfunction Lumbar radiculopathy Dysfunction of left rotator cuff Hypertension Chronic back pain Surgical History (Updated 05/22/25 @ 11:41 by Gala Triplett MD) History of colonoscopy (~04/04/23) Hx of rotator cuff surgery Hx of arthroscopic knee surgery Hx of appendectomy H/O colonoscopy Family History Father No problems noted. 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 Review of Systems Const All systems reviewed & are unremarkable except as noted in HPI and below Physical Exam Vital Signs: BMI result Body Mass Index 31.7 Telehealth Telehealth Telehealth Platform: [employer] Location of provider rendering services: practice address Location of patient: address on file Patient Identification confirmed using: Name, : Yes Telehealth method: video Patient verbally consented to treatment: Yes Patient verbally consented to billing insurance company: Yes Patient informed of any privacy concerns related to visit: Yes Minutes spent on Phone/Video with Pt.: 30 Assessment & Plan Assessment & Plan (1) Hx of rotator cuff surgery: Comment: left shoulder May 04, 2022 Code(s): Z98.890 - Other specified postprocedural states Category: Surgical Plan Mr. Ayala is a 59-year-old male who presents today telehealth appointment for follow up of left shoulder pain. Patient was last seen by Dr. Zepeda on 05/22/2025 in which she had recommended trigger point injections. She wanted the patient to be followed up with Orthopedics for clearance to move forward with trigger point injections as the patient has had a prior rotator cuff repair on 05/04/[address] Javier. During our telehealth appointment I have informed the patient that he may proceed with trigger point injections. There are no restrictions in regard to the patient's past surgical history. A workload message has been sent to the front office to contact the patient to make a followup appt with Dr. Zepeda to move forward with these injections as planned. Coding Level of Care Code Tele Est Pt Level 3 (79246) Diagnoses Hx of rotator cuff surgery Z98.890
[2025-06-20 09:56] VITALS: BMI 31.7
--- OUTSIDE RECORDS SUMMARY | 2025-06-20 09:57 | XMS_ITS | Encounter Summary ---
Author Organization [employer] Address [address] [place] [address] Care Team Providers Care Mechanism Assembler Name Role Phone Ethel Santana MD Primary Care Provider [phone] Gabrielle Peterson PharmD Unavailable Kim Alejandre Unavailable eBbo Aquino MD Unavailable Piyush Acosta MD Unavailable [phone] Encounter Details Date Type Department Care Team (Late st Contact Info) Description 04/06/2023 Orders Only [facility] MEDICINE 230 [place], [place] [phone] Ethel Santana MD 230 [place], [place] [phone] Social History Tobacco Use Types Packs/Day Years [...] Description 07/21/2025 10:45 AM EDT Office Visit [facility] MEDICINE [address] [place] [address] Ethel Santana MD 230 [facility] [place], [place] [phone] documented as of this encounter Goals Goal [...] documented as of this encounter Care Teams Mechanism Assembler Relationship Specialty Start Date End Date Ethel Santana MD Kristina [facility] [place], [place] [phone] PCP - General Family Medicine 10/30/18 Gabrielle Peterson, HaoD Kristina [facility] [place], [place] [phone] Pharmacist Internal Medicine 02/16/23 Kim Alejandre [address] [place] [address] [address] [place], [place] [phone] Orthopaedic Surgery 09/23/24 Bebo Aquino MD 10 [facility] [address] [place] [address] Urology 11/07/24 Piyush Acosta MD [address] [place] [address] Cardiology 12/31/24 documented as of this encounter
== END 2025-06-20 10:09 | disposition home or self-care (01) ==
LOC: HO.HOS 09:54
PROVIDERS: PCP Family Medicine; Visit Provider Physician Assistant
DX: Z47.89 Encounter for other orthopedic aftercare (principal); M25.512 Pain in left shoulder
CPT/HCPCS: 99213

== ENCOUNTER 2025-07-01 12:28 | Outpatient (REF) | payer MEDICAID, SELFPAY ==
--- NOTE | ~2025-07-01 | US_ITS ---
CLINICAL HISTORY: R39.12 - Poor urinary stream US Urinary Bladder Comparison: None Findings: Well-distended urinary bladder, no calculus, mass or wall thickening. Prevoid volume: 520 mL Postvoid volume: 51 mL Ureteral jets are visualized bilaterally. Prostate is partially seen, inferior portion is obscured by rectal gas shadowing, prostate measures 4.6 cm in transverse dimension, 4.4 cm in AP dimension, CC dimension can not be reliably measured. IMPRESSION: Prominent postvoid bladder residual volume 51 mL. This document has been electronically signed by: Nury Hollingsworth MD on 07/02/2025 09:48:59
--- OUTSIDE RECORDS SUMMARY | 2025-07-01 13:39 | XMS_ITS | Encounter Summary ---
Author Organization [employer] Address [address] [facility] 7t [place] [address] Care Team Providers Care Superior Court Judge Name Role Phone Ethel Santana MD Primary Care Provider + [phone] Gabrielle Peterson PharmD Unavailable Kim Alejandre Unavailable Bebo Aquino MD Unavailable [phone] Piyush Acosta MD Unavailable [phone] Encounter Details Date Type Department Care Team (Latest Contact Info) Description 01/18/2022 Abstract [facility] CONVERSIONS Dental, Provider, DDS Social History Tobacco [...] Description 07/21/2025 10:45 AM EDT Office Visit [facility] MEDICINE 230 [place], [place] [phone] Ethel Santana MD 230 [place], [place] [phone] documented as of this encounter Visit Diagnoses Not on filedocumented in this encounter Care Teams Superior Court Judge Relationship Specialty Start Date End Date Ethel Santana MD 230 [place] [address] PCP - General Family Medicine 10/30/18 Gabrielle Peterson, HaoD 230 [place] [address] Pharmacist Internal Medicine 02/16/23 Kim Alejandre [address] [place] [address] Dr [address] [place] [address] Orthopaedic Surgery 09/23/24 Bebo Aquino MD [address] [place] [address] Drive [address] [place] [address] Urology 11/07/24 Piyush Acosta MD [address] [place] [address] Cardiology 12/31/24 documented as of this encounter
--- OUTSIDE RECORDS SUMMARY | 2025-07-01 13:39 | XMS_ITS | Clinical Summary ---
Author Organization [facility] Address [address] [place] [address] Care Team Providers Care Commercial Floor Covering Installer Name Role Phone Unavailable Primary Care Provider [...]
--- OUTSIDE RECORDS SUMMARY | 2025-07-01 13:39 | XMS_ITS | Encounter Summary ---
Author Organization [employer] Address [address] [place] [address] Care Team Providers Care Manager Business Management Name Role Phone Ethel Santana MD Primary Care Provider + [phone] Gabrielle Peterson PharmD Unavailable Kim Alejandre Unavailable Bebo Aquino MD Unavailable [phone] Piyush Acosta MD Unavailable [phone] Encounter Details Date Type Department Care Team (Late st Contact Info) Description 02/20/2024 Telephone [facility] ADULT DENTAL [address] [place], [place] [phone] Charles Read DDS [address] [place], [place] [phone] Social History Tobacco Use Types Packs/Day Years [...] 10:00 AM EDT Patient has an apt may w dr coronado for extraction he ask if u can send him something for pain and infection documented in this encounter Plan of Treatment Upcoming Encounters Date Type Department Care Team (Late st Contact Info) Description 07/21/2025 10:45 AM EDT Office Visit [facility] MEDICINE [address] [place] [address] tEhel Santana MD 230 [place] [address] documented as of this encounter Goals Goal [...] documented as of this encounter Care Teams Manager Business Management Relationship Specialty Start Date End Date Ethel Santana MD 230 [place] [address] PCP - General Family Medicine 10/30/18 Gabrielle Peterson PharmD 230 [place] [address] Pharmacist Internal Medicine 02/16/23 Kim Alejandre [address] [place] [address] [address] [place] [address] Orthopaedic Surgery 09/23/24 Bebo Aquino MD [address] [place] [address] Drive [address] [place] [address] Urology 11/07/24 Piyush Acosta MD [address] [place] [address] Cardiology 12/31/24 documented as of this encounter
--- OUTSIDE RECORDS SUMMARY | 2025-07-01 13:39 | XMS_ITS | Encounter Summary ---
Author Organization [employer] Address 75 [facility] 7t [place] [address] Care Team Providers Care Programming Coordinator Name Role Phone Ethel Santana MD Primary Care Provider + [phone] Gabrielle Peterson PharmD Unavailable Kim Alejandre Unavailable Bebo Aquino MD Unavailable [phone] Piyush Acosta MD Unavailable [phone] Reason for Visit * Reason Onset Date Comments Med Refill 01/20/2025 Medication Question 01/20/2025 Encounter Details Date Type Department Care Team (Late st Contact Info) Description 01/20/2025 Telephone [facility] [address] [place] [address] Ethel Santana MD [address] [place], [place] [phone] Med Refill; Medication Question Social History Tobacco [...] about it with PCP. Contact pt at [phone] documented in this encounter Plan of Treatment Upcoming Encounters Date Type Department Care Team (Late st Contact Info) Description 07/21/2025 10:45 AM EDT Office Visit [facility] [address] [place] [address] Ethel Santana MD [address] [place] [address] documented as of this encounter Goals Goal [...] documented as of this encounter Care Teams Programming Coordinator Relationship Specialty Start Date End Date Ethel Santana MD [address] [place] [address] PCP - General Family Medicine 10/30/18 Gabrielle Peterson, PharmD [address] [place] [address] Pharmacist Internal Medicine 02/16/23 Kim Alejandre [address] [place] [address] [address] [place] [address] Orthopaedic Surgery 09/23/24 Bebo Aquino MD [address] [place] [address] Drive [address] [place] [address] Urology 11/07/24 Piyush Acosta MD [address] [place] [address] Cardiology 12/31/24 documented as of this encounter
--- OUTSIDE RECORDS SUMMARY | 2025-07-01 13:39 | XMS_ITS | Encounter Summary ---
Author Organization [facility] Health Address [address] [place] [address] Care Team Providers Care Turret Lathe Machinist Name Role Phone Unavailable Primary Care Provider Unavailabl e Prior Encounters Date Type Department Care Team Description 08/14/2024 11:00 AM EDT Office Visit [address], [facility] [address] [place] [address] Guille Davison III, MELISSA Plan of Treatment [...]
--- OUTSIDE RECORDS SUMMARY | 2025-07-01 13:39 | XMS_ITS | Encounter Summary ---
Author Organization [employer] Address [address] [facility] [address] 7t [place] [address] Care Team Providers Care Forklift Operator Name Role Phone Ethel Santana MD Primary Care Provider Gabrielle Peterson PharmD Unavailable [phone] Kim Alejandre Unavailable Bebo Aquino MD Unavailable [phone] Piyush Acosta MD Unavailable [phone] Encounter Details Date Type Department Care Team (Late st Contact Info) Description 11/20/2024 Orders Only [facility] [address] [place], [place] [phone] Ethel Santana MD 230 [place], [place] [phone] Social History Tobacco Use Types Packs/Day Years [...] Description 07/21/2025 10:45 AM EDT Office Visit [facility] [address] [place] [address] Ethel Santana MD [address] [place] [address] documented as of this encounter Goals Goal [...] documented as of this encounter Care Teams Forklift Operator Relationship Specialty Start Date End Date Hale, Ethel, MD [address] [place] [address] PCP - General Family Medicine 10/30/18 Gabrielle Peterson, PharmD [address] [place] [address] Pharmacist Internal Medicine 02/16/23 Kim Alejandre [address] [place] [address] Dr [address] [place] [address] Orthopaedic Surgery 09/23/24 Bebo Aquino MD [address] [place] [address] Drive [address] [place] [address] Urology 11/07/24 Piyush Acosta MD [address] [place] [address] Cardiology 12/31/24 documented as of this encounter
--- OUTSIDE RECORDS SUMMARY | 2025-07-01 13:39 | XMS_ITS | Encounter Summary ---
Author Organization [employer] Address [address] [facility] [address] 7t [place] [address] Care Team Providers Care Freight Breaker Name Role Phone Ethel Santana MD Primary Care Provider [phone] Gabrielle Peterson PharmD Unavailable Kim Alejandre Unavailable Bebo Aquino MD Unavailable [phone] Piyush Acosta MD Unavailable [phone] Encounter Details Date Type Department Care Team (Late st Contact Info) Description 07/22/[address] [facility] [address] [place], [place] [phone] Gabrielle Peterson, PharmD [address] [place], [place] [phone] Social History Tobacco Use Types Packs/Day Years [...] Description 07/21/2025 10:45 AM EDT Office [address] [facility] [address] [place] [address] Ethel Santana MD [address] [place], [place] [phone] documented as of this encounter Goals Goal [...] documented as of this encounter Care Teams Freight Breaker Relationship Specialty Start Date End Date Ethel Santana MD [address] [place] [address] PCP - General Family Medicine 10/30/18 Gabrielle Peterson, PharmD [address] [place] [address] Pharmacist Internal Medicine 02/16/23 Kim Alejandre [address] [place] [address] [address] [place] [address] Orthopaedic Surgery 09/23/24 Bebo Aquino MD [address] [place] [address] Drive [address] [place] [address] Urology 11/07/24 Piyush Acosta MD [address] [place] [address] Cardiology 12/31/24 documented as of this encounter
--- OUTSIDE RECORDS SUMMARY | 2025-07-01 13:39 | XMS_ITS | Encounter Summary ---
Author Organization [employer] Address 75 [facility] 7t [place] [address] Care Team Providers Care Toggle Press Folder And Feeder Name Role Phone Ethel Santana MD Primary Care Provider [phone] Gabrielle Peterson PharmD Unavailable Kim Alejandre Unavailable Bebo Aquino MD Unavailable [phone] Piyush Acosta MD Unavailable Encounter Details Date Type Department Care Team (Late st Contact Info) Description 11/15/2022 Abstract [facility] [address] [place] [address] Ethel Santana MD [address] [place] [address] [phone] Social History Tobacco Use Types Packs/Day Years [...] Description 07/21/2025 10:45 AM EDT Office Visit [facility] [address] [place] [address] [phone] Ethel Santana MD [address] [place] [address] documented as of this encounter Procedures Procedure Name Priority Date/Time Associated Diagnosis Comments COLONOSCOPY Routine 12/02/2015 documented in this encounter Results * Colonoscopy (12/02/2015) Colonoscopy Tubular Adenoma with Dr. Avilez us Historical Provider HEALTH MAINTENANCE Final Result documented in this encounter Visit Diagnoses Not on filedocumented in this encounter Care Teams Toggle Press Folder And Feeder Relationship Specialty Start Date End Date Ethel Santana MD [address] [place] [address] PCP - General Family Medicine 10/30/18 Gabrielle Peterson, HaoD [address] [place] [address] Pharmacist Internal Medicine 02/16/23 Kim Alejandre [address] [place] [address] [address] [place] [address] Orthopaedic Surgery 09/23/24 Bebo Aquino MD [address] [place] [address] Drive [address] [place] [address] Urology 11/07/24 Piyush Acosta MD [address] [place] [address] Cardiology 12/31/24 documented as of this encounter
--- OUTSIDE RECORDS SUMMARY | 2025-07-01 13:39 | XMS_ITS | Encounter Summary ---
Author Organization [employer] Address [address] [facility] [address] 7t [place] [address] Care Team Providers Care Android Ios Developer Name Role Phone Ethel Santana MD Primary Care Provider [phone] Gabrielle Peterson PharmD Unavailable Kim Alejandre Unavailable Bebo Aquino MD Unavailable [phone] Piyush Acosta MD Unavailable [phone] Encounter Details Date Type Department Care Team (Late st Contact Info) Description 04/06/2023 Orders Only [facility] [address] [place], [place] [phone] Ethel Santana MD 230 [place], [place] [phone] Social History Tobacco Use Types Packs/Day Years [...] Description 07/21/2025 10:45 AM EDT Office Visit [facility] 230 [facility] [place] [address] Ethel Santana MD 230 [facility] [place], [place] [phone] documented as of this encounter Goals Goal [...] documented as of this encounter Care Teams Android Ios Developer Relationship Specialty Start Date End Date Ethel Santana MD [facility] [place], [place] [phone] PCP - General Family Medicine 10/30/18 Gabrielle Peterson, HaoD [address] [place], [place] [phone] Pharmacist Internal Medicine 02/16/23 Kim Alejandre [address] [place] [address] [address] [place], [place] [phone] Orthopaedic Surgery 09/23/24 Bebo Aquino MD 10 [facility] [address] [place] [address] Urology 11/07/24 Piyush Acosta MD [address] [place] [address] Cardiology 12/31/24 documented as of this encounter
--- OUTSIDE RECORDS SUMMARY | 2025-07-01 13:39 | XMS_ITS | Encounter Summary ---
Author Organization [employer] Address 75 [facility] 7t [place] [address] Care Team Providers Care Cane Weigher Helper Name Role Phone Ethel Santana MD Primary Care Provider + [phone] Gabrielle Peterson PharmD Unavailable Kim Alejandre Unavailable Bebo Aquino MD Unavailable [phone] Piyush Acosta MD Unavailable [phone] Encounter Details Date Type Department Care Team (Late st Contact Info) Description 11/15/2022 Orders Only [facility] [address] [place] [phone] Lexi Wakefield LPN Social History Tobacco Use [...] Description 07/21/2025 10:45 AM EDT Office Visit [facility] [address] [place] [address] [phone] Ethel Santana MD 230 [place] [address] documented as of this encounter Visit Diagnoses Not on filedocumented in this encounter Care Teams Cane Weigher Helper Relationship Specialty Start Date End Date Ethel Santana MD 230 [place] [address] PCP - General Family Medicine 10/30/18 Gabrielle Peterson, HaoD [address] [place] [address] Pharmacist Internal Medicine 02/16/23 Kim Alejandre [address] [place] [address] [address] [place] [address] Orthopaedic Surgery 09/23/24 Bebo Aquino MD [address] [place] [address] [address] [place] [address] Urology 11/07/24 Piyush Acosta MD [address] [place] [address] Cardiology 12/31/24 documented as of this encounter
--- OUTSIDE RECORDS SUMMARY | 2025-07-01 13:39 | XMS_ITS | Encounter Summary ---
Author Organization [employer] Address [address] [facility] [address] 7t [place] [address] Care Team Providers Care Specimen Collector Name Role Phone Ethel Santana MD Primary Care Provider [phone] Gabrielle Peterson PharmD Unavailable Kim Alejandre Unavailable Bebo Aquino MD Unavailable [phone] Piyush Acosta MD Unavailable [phone] Reason for Visit * Reason Onset Date Comments xrays 07/15/2024 Encounter Details Date Type Department Care Team (Late st Contact Info) Description 07/15/2024 Telephone [facility] 230 [place], [place] [phone] Charles Read DDS [address] [place], [place] [phone] xrays Social History Tobacco Use Types Packs/Day [...] to an office for periodontal care from [facility] and they need the patients xrays kandi sent to . documented in this encounter Plan of Treatment Upcoming Encounters Date Type Department Care Team (Late st Contact Info) Description 07/21/2025 10:45 AM EDT Office Visit [facility] [address] [place] [address] Ethel Santana MD 230 [place] [address] documented as of this encounter Goals Goal [...] documented as of this encounter Care Teams Specimen Collector Relationship Specialty Start Date End Date Ethel Santana MD [address] [place] [address] PCP - General Family Medicine 10/30/18 Gabrielle Peterson, PharmD [address] [place] [address] Pharmacist Internal Medicine 02/16/23 Kim Alejandre [address] [place] [address] [address] [place] [address] Orthopaedic Surgery 09/23/24 Bebo Aquino MD [address] [place] [address] Drive [address] [place] [address] Urology 11/07/24 Piyush Acosta MD [address] [place] [address] Cardiology 12/31/24 documented as of this encounter
--- OUTSIDE RECORDS SUMMARY | 2025-07-01 13:39 | XMS_ITS | Clinical Summary ---
Author Organization [employer] Address [address] [facility] [address] [place] [address] Care Team Providers Care Blocker And Sewer Name Role Phone Ethel Santana MD Primary Care Provider + [phone] Gabrielle Peterson PharmD Unavailable Kim Alejandre Unavailable Bebo Aquino MD Unavailable [phone] Piyush Acosta MD Unavailable [phone] Allergies No known active allergies Medications cyclobenzaprine (Flexeril) 10 MG tabletIndications :Low back pain without sciatica, unspecified back pain laterality, unspecified chronicity One tab po at bedtime prn pain of muscles, do not drive with medicaion 30 tablet 3 Active busPIRone (Buspar) 15 MG tabletIndications :Depressive disorder Take 15 mg by mouth if needed in the morning, at noon, and at bedtime. 4 Active traZODone (Desyrel) 50 MG tabletIndications :Depressive disorder TAKE 1 TABLET BY MOUTH EVERY NIGHT AT BEDTIME NEEDED TO HELP SLEEP BEFORE 9PM 4 Active Blood Glucose Monitoring Suppl (FreeStyle [place] Lite) w/Device kitIndications:Pr ediabetes Use to test blood sugar bid dx dm 1 kit 4 Active FreeStyle lancetsIndication s:Prediabetes 1 each by Other route 2 times daily. Use bid, dx type 2 diabetes 60 each 11 4 Active glucose blood (FreeStyle Precision Alejandro Test) test stripIndications: Prediabetes Test blood sugar q 8 hours 100 each 4 Active glucose blood (FREESTYLE LITE) test stripIndications: Prediabetes 1 each by Other route 2 times daily. Use bid. Dx diabetes 60 each 4 Active amLODIPine (Norvasc) 5 MG tabletIndications :Primary hypertension Take 1 tablet by mouth once daily 90 tablet 3 4 Active carvedilol (Coreg) 6.25 MG tabletIndications :Primary hypertension TAKE 1 TABLET BY MOUTH TWICE DAILY IN THE MORNING AND IN THE EVENING 180 tablet 1 5 Active sildenafil (Viagra) 100 MG tabletIndications :Erectile dysfunction, unspecified erectile dysfunction type Take 100 mg by mouth if needed each day for erectile dysfunction. Active tadalafil (Cialis) 5 MG tabletIndications :Erectile dysfunction, unspecified erectile dysfunction type TAKE ONE TABLET BY MOUTH DAILY FOR BLADDER WEAKNESS , TAKE IT DAILY. 5 Active fluvoxaMINE (Luvox) 25 MG tabletIndications :Depressive disorder Take 25 mg by mouth at bedtime. Active ibuprofen 800 MG tabletIndications :Acute midline low back pain without sciatica 1 tab every 8 hours as needed for pain, take with food 90 tablet 5 Active atorvastatin (Lipitor) 40 MG tabletIndications :Dyslipidemia TAKE 1 TABLET BY MOUTH EVERY MORNING 90 tablet 1 5 Active hydroCHLOROthiazi de (HYDRODiuril) 25 MG tabletIndications :Primary hypertension Take 1 tablet (25 mg) by mouth Once per day. for high blood pressure 90 tablet 3 5 Active Magnesium 250 MG capsuleIndication s:Leg cramps Take 250 mg by mouth if needed at bedtime (cramps). 90 capsule 5 Active magnesium oxide 250 MG tablet TAKE 1 TABLET BY MOUTH EVERY DAY AT BEDTIME NEEDED FOR CRAMPS 5 Active omeprazole (PriLOSEC) [address] capsuleIndication s:Gastroesophagea l reflux disease, unspecified whether esophagitis present TAKE 1 CAPSULE BY MOUTH EVERY DAY 90 capsule 5 Active Active Problems Patient Care Coordination No te Formatting of this note migh t be different from the original. Enrolled in [facility] HTN clinic with Gabrielle Peterson PharmD Problem Noted Date Diagnosed Date Benign prostatic hyperplasia without lower urinary tract symptoms 05/07/2025 Overview (05/07/2025): -[facility], note form 05/06/25 reviewed, tamsulosin 0.4 started Chronic left shoulder pain 05/01/2025 Overview (05/24/2025): XR 05/01/25 FINDINGS: Four views of the left shoulder are submitted. Osseous mineralization is normal. Post surgical changes are noted involving the AC joint. There are suture anchors in the humeral head. There is no fracture or dislocation. The glenohumeral joint is maintained. The soft tissues are unremarkable. -seen by [facility] With dawn Zepeda 05/22/25, note reveiwed Overweight 01/08/2025 Overview (01/08/2025): Discussed weight, diet, exercise with patient in relation to health conditions. Used motivational interviewing to illicit change talk and established initial goals with patient. Assessment & Plan (01/08/2025 2:47 PM EDT): Discussed weight, diet, exercise with patient in relation to health conditions. Used motivational interviewing to illicit change talk and established initial goals with patient. Erectile dysfunction 01/08/2025 Overview (01/08/2025): Follows with [...] cell trait 07/03/2024 Gastroesophageal reflux disease 07/03/2024 Other specified health status 10/03/2023 Overview (01/08/2025): -next comprehensive annual evaluation due after 01/08/26 -referred to [facility] 01/08/25 -dental home is [facility] will make appt -Health care proxy 07/03/24 Assessment & Plan (01/08/2025 3:02 PM EDT): -next comprehensive annual evaluation due after 01/08/26 -referred to [facility] 01/08/25 -dental home is [facility] will make appt -Health care proxy 07/03/24 Assessment & Plan (07/03/2024 11:49 AM EDT): -next physical exam due after 10/04/2024 -eye care facilitated by [facility] -dental home is [facility] will make appt -Health care proxy 07/03/24 Assessment & Plan (10/04/2023 11:50 AM EST): -next physical exam due after 10/04/2024 -eye care facilitated by [facility] -dental home is [facility] will make appt Tooth fracture with loss [...] -Tylenol PRN. Right knee pain 02/23/2023 Overview (06/19/2025): Referral to orthopedics done 02/23/2023. PT referral placed -steroid injection with [facility] done 04/12/24 -seen by Kim Alejandre PA-C 10/25/24 gel for second of three Euflexxa injection in the bilateral knees. Follow up will be in one week for a third Euflexxa injection, or sooner if needed. -seen by Kim Brush PA-C 03/06/25 given cortisone injection -seen by Kim Brush PA-C 06/05/25 given bilateral knee Euflexxa gel injections #1 -seen by Kim Brush PA-C 06/19/25 given B/L Euflexxa gel injections #3 Assessment & Plan (10/02/2023 9:27 AM EST): [...] Plan (02/23/2023 12:57 PM EDT): -Tubular adenoma 2015 -He was unable to go last year [...] Problem Noted Date Diagnosed Date Resolved Date Dietary counseling 01/08/2025 Assessment & Plan (01/08/2025 [...] saturated fat, and sodium. Exercise counseling 01/08/2025 05/01/20 Assessment & Plan (01/08/2025 2:37 PM EDT): Exercise Recommendations: At least 150 minutes of moderate-intensity physical activity per week, or an equivalent combination of moderate- and vigorous-intensity activity Generalized aggressive severe periodontitis 06/13/2024 03/06/2025 Localized gingival recession 06/13/2024 03/06/2025 Chronic periodontitis 02/28/20242024 Physical exam 10/04/2023 09/23/2024 Overview (10/04/2023): -Normal [...] Encounters Date Type Department Care Team Description 05/12/2025 Outside Procedure [facility] [address] [place] [address] Brielle Sanchez, OD Presbyopia (Primary Dx) 05/07/2025 10:30 AM EDT Office Visit [facility] [address] [place] [address] Daniel, Brielle, OD Regular astigmatism of both eyes (Primary Dx) 05/01/2025 Orders Only [facility] External Provider, [facility] Chronic left shoulder pain (Primary Dx) 04/29/2025 Telephone [facility] [address] [place] [address] Ethel Santana MD june Recalls 04/29/2025 Travel 04/22/2025 Refill [facility] [address] [place] [address] Ethel Santana MD Gastroesophageal reflux disease, unspecified whether esophagitis present 04/01/2025 Refill [facility] [address] [place] [address] Ethel Santana MD Leg cramps from Last 3 Months Immunizations Immunization Administration Dates Next Due Hep A, Adult [...] 62 01/20/2025 1:40 PM EDT Temperature 36.7 C (98.1 F) 01/20/2025 1:40 PM EDT Respiratory Rate 18 01/20/2025 1:40 PM EDT [...] Description 07/21/2025 10:45 AM EDT Office Visit [facility] [address] [place] [address] Ethel Santana MD [address] [facility] [place] [address] Health Maintenance Due Date Last Done Comments CT Colonography 1965 Dental Prophylaxis 1965 FIT DNA/Cologuard 1965 FIT 1965 FOBT 1965 Sigmoidoscopy 1965 Disability Screening 1965 Dental Oral Exam 12/15/2024 06/13/2024, 01/18/2022 Dental X-Ray: Bitewings 06/14/2025 06/13/20 24, 01/18/2022, 01/07/2022 Influenza Vaccine (#1) 2025 07/25/2013 SDOH Screening 07/03/2025 07/03/2024 Alcohol/Substance Use Screening 01/08/2026 01/08/2025 COVID-19 Vaccine ( season) 2026 02/23/2023, 03/24/2021, 02/24/2021 Postponed from 06/30/2024 (Patient Refused) Depression Screening 01/08/2026 01/08/2025, 01/09/20 25 Diabetes: Hemoglobin A1C 01/08/2026 025, 07/03/2024, 08/15/2023, Additional history exists Tobacco Screening 04/04/2026 04/04/2025 Dental X-Ray: Full Mouth 07/25/2026 07/24/2023, 12/29 Colonoscopy 04/04/2028 04/04/2023, 12/02/2015 Colorectal Cancer Screening 04/04/2028 Lipid Panel 07/25/2029 07/25/2024, 07/30, 03/02/2023, Additional history exists DTaP/Tdap/Td Vaccines (3 - Td or Tdap) 01/08/2035 01/08/2025, 11/13/2014 RSV Patients and Patients Aged 60 years or older (1 - 1-dose 75+ series) 2040 Hepatitis B Vaccines Completed 08/24/2023, 03/28/2023, 02/23/2023 HIV Screening Completed 10/04/2023, 050 01/2023, 03/01/2022, Additional history exists Hepatitis C [...] patient's age to complete this topic Meningococcal B Vaccine Aged Out No l [...] Procedure Name Priority Date/Time Associated Diagnosis Comments PSA, TOTAL Routine 05/01/2025 2:02 PM EDT Chronic left shoulder pain XR SHOULDER 2+ VIEWS LEFT Routine 05/01/2025 1:33 PM EDT POCT GLYCOSYLATED HEMOGLOBIN (HGB A1C) Routine 01/08/2025 3:23 PM EDT Prediabetes LIPID PANEL, STANDARD Routine [...] Recently Relevant to Health Maintenance Results * PSA,Total (05/01/2025 2:02 PM EDT) Prostate Specific Antigen 3.15 <0.05 - 4.0 ng/mL [facility] Comment:PSA methodology: Quinton Puga i ChemiluminescentMicroparticle Immunoassay (CMIA) 05/01/2025 2:02 PM EDT 05/01/2025 4:15 PM EDT us Generic External Data Provider LAB BLOOD ORDERAB LES Final Result [facility] [address] [place] [phone] * XR Shoulder 2+ Views Left (05/01/2025 1:33 PM EDT) Anatomical Region Laterality Modality Upper Extremities, Shoulder Left Radi ographic Imaging 05/01/2025 1:33 PM EDT Narrative 05/01/2025 2:46 PM EDT [facility] [address] [place] [address] XRay Report Signed Patient: Ramsey Ayala MR#: [id number] : 1965 Acct:[id number] Age/Sex: 59 / M ADM Date: 05/01/25 Loc: HO.HHCX Attending Dr: Bebo Aquino MD Ordering Physician: Kim Alejandre PA-C Date of Service: 05/01/25 Procedure(s): XR shoulder LT min 2V Accession Number(s): [id number] cc: Ethel Santana MD; Kim Alejandre PA-C EXAMINATION: XR SHOULDER 2 OR MORE VIEWS LEFT HISTORY: M25.519 - Pain in unspecified shoulder COMPARISON: Comparison is made with the prior examination dated 01/05/2022. FINDINGS: Four views of the left shoulder are submitted. Osseous mineralization is normal. Post surgical changes are noted involving the AC joint. There are suture anchors in the humeral head. There is no fracture or dislocation. The glenohumeral joint is maintained. The soft tissues are unremarkable. XR/XR shoulder LT min 2V IMPRESSION: Postsurgical changes as described. No acute abnormality. Electronically signed by: Guille Frederick MD 05/01/2025 02:44 PM EDT Dictated By: Guille Frederick MD Signed By: <Electronically signed by Guille Frederick MD in OV> 05/01/25 1444 DD/ 1333 TD/TT: 05/01/25 1400 Clinical Business Analyst: Procedure Note Donotuseinterpreter, Image - 05/01/[address] [address] XRay Report Signed Patient: Ramsey Ayala LMR#: [id number] : 1965Acct:[id number] Age/Sex: 59 / MADM Date: 05/01/25 Loc: HO.HHCX Attending Dr: Bebo Aquino MD Ordering Physician: Kim Alejandre PA-C Date of Service: 05/01/25 Procedure(s): XR shoulder LT min 2V Accession Number(s): [id number] cc: Ethel Santana MD; Kim Alejandre PA-C EXAMINATION: XR SHOULDER 2 OR MORE VIEWS LEFT HISTORY: M25.519 - Pain in unspecified shoulder COMPARISON: Comparison is made with the prior examination dated 01/05/2022. FINDINGS: Four views of the left shoulder are submitted. Osseous mineralization is normal. Post surgical changes are noted involving the AC joint. There are suture anchors in the humeral head. There is no fracture or dislocation. The glenohumeral joint is maintained. The soft tissues are unremarkable. XR/XR shoulder LT min 2V IMPRESSION: Postsurgical changes as described. No acute abnormality. Electronically signed by: Guille Frederick MD 05/01/2025 02:44 PM EDT RP Dictated By: Guille Frederick MD Signed By: <Electronically signed by Guille Frederick MD in OV> 05/01/25 1444 DD/ 1333 TD/TT: 05/01/25 1400 Clinical Business Analyst: [facility] External Provider IMG XR PROCEDURES Edited Result - Final * POCT glycosylated hemoglobin (Hgb A1c) (01/08/2025 3:23 PM EDT) Hemoglobin A1C 6.0 4.0 - 6.0 % QC Media Lot # [id number] Lot# Expiration Date 6 Blood Capillary blood specimen / Unknown 01/08/2025 3:23 PM EDT Ethel Santana MD POINT OF CARE TEST ENTER/E DIT ORDERABLES Final Result * (ABNORMAL) Lipid Panel, Standard (07/25/2024 9:03 AM EDT) Triglycerides 159(H) <150 mg/dL [facility] Comment:Desirable Triglyceri de: less than 150 mg/dLBorderline High Triglyceride 150-199 mg/dLHigh Triglyceride: 200-499 mg/dLVery High Triglyceride: greater than or equal to 5OO mg/dL Cholesterol 112 <200 mg/dL [facility] Comment:Desirable Cholestero l: less than 200 mg/dLBorderline High Cholesterol: 200-239 mg/dLHigh Cholesterol: greater than 239 mg/dL LDL Cholesterol Calculated 49 <100 mg/dL [facility] Comment:Desirable LDL: less than 100 mg/dLNear Optimal/Above Optimal LDL: 110- 129 mg/dLBorderline High LDL: 130-159 mg/dLHigh LDL: 160-189 mg/dLVery High LDL: greater than or equal to 190 mg/dL HDL Cholesterol 32(L) >40 mg/dL [facility] Comment:Desirable HDL: great er than 40 mg/dL Note: This HDL assay may give artificially low results in patients with liver disease. Blood Venous blood specimen / Unknown 07/25/2024 9:03 AM EDT 07/25/2024 11:51 AM EDT Ethel Santana MD LAB BLOOD ORDERABLES Final Result Performing Organization Address [facility]/ZIP Co de Phone Number [facility] [address] [place] [phone] [phone] * Hepatitis C Antibody with Reflex to HCV, RNA, Quantitative, Real-Time PCR (10/04/2023 12:12 PM EST) Hepatitis C Antibody Nonreactive Nonreactive [facility] Comment:Antibodies to HCV no t detected; does not exclude early acuteHCV infection. Blood Venous blood specimen / Unknown 10/04/2023 12:12 PM EST 10/04/2023 1:02 PM EST Ethel Santana MD LAB BLOOD ORDERABLES Final Result Performing Organization Address [facility] Co de Phone Number [facility] [address] [place] [phone] * HIV-1/2 Antigen and Antibodies, Fourth Generation, with Reflexes (10/04/2023 12:12 PM EST) HIV AB/AG Nonreactive Nonreactive [facility] Comment:HIV-1 p24 Ag and/or HIV-1/HIV-2 Ab not detected.A test result that is nonreactive does not exclude thepossibility of exposure to or infection with HIV-1 and/orHIV-2. Nonreactive results in this assay for individualswith prior exposure to HIV-1 and/or HIV-2 may be due toantigen and antibody levels that are below the limit ofdetection of this assay.The CADsurf HIV Ag/Ab Combo assay result andsupplemental assay results should be interpreted inconjunction with the patient's clinical presentation,history and other laboratory results. If the results areinconsistent with clinical evidence, additional testing issuggested to confirm the result. 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 Advance Directives and Living Will 07/04/2024 1:03 PM Health Care Proxy Care Teams Blocker And Sewer Relationship Specialty Start Date End Date Cook, MD Ethel [address] [place] [address] PCP - General Family Medicine 10/30/18 Gabrielle Peterson PharmD [address] [place] [phone] Pharmacist Internal Medicine 02/16/23 Kim Alejandre [address] [place] [address] [address] [place] [address] Orthopaedic Surgery 09/23/24 Bebo Aquino MD [address] [place] [address] Drive [address] [place] [address] Urology 11/07/24 Piyush Acosta MD [address] [place] [address] Cardiology 12/31/24
--- OUTSIDE RECORDS SUMMARY | 2025-07-01 13:39 | XMS_ITS | Encounter Summary ---
Author Organization [employer] Address [address] [facility] [address]t [place] [address] Care Team Providers Care Police Superintendent Name Role Phone Ethel Santana MD Primary Care Provider [phone] Gabrielle Peterson PharmD Unavailable Kim Alejandre Unavailable Bebo Aquino MD Unavailable [phone] Piyush Acosta MD Unavailable [phone] Encounter Details Date Type Department Care Team (Late st Contact Info) Description 02/21/2023 Orders Only [facility] [address] [place], [place] [phone] Ethel Santana MD [address] [place], [place] [phone] Low iron (Primary Dx) Social History Tobacco [...] AM EDT documented as of this encounter Functional Status * Over the past 2 weeks, how often have you been bothered by any of the following problems? Question Answer Date of Assessment Author Patient Health Questionnaire-2 Score 0 01/29 11:33 AM Starr Felipe [place] * Over the past 2 weeks, how often have you been bothered by any of the following problems? Question Answer Date of Assessment Author Little interest or pleasure in doing things Not at all 02/23/2023 11:33 AM Starr Felipe M A Feeling down, depressed, or hopeless Not at all 02/23/2023 11:33 AM Starr Felipe M A Trouble falling or staying asleep, or sleeping too much Not at all 02/23/2023 11:33 AM Starr Felipe [place] Feeling tired or having fabio le energy Not at all 02/23/2023 11:33 AM Starr Felipe M A Poor appetite or overeating Not at all 02/23/2023 11 :33 AM Starr Felipe [place] Feeling bad about yourself - or that you are a failure or have let yourself or your family down Not at all 02/23/2023 11:33 AM Starr Blum [place] Trouble concentrating on thi ngs, such as reading the newspaper or watching television Not at all 02/23/2023 11:33 AM Starr Felipe M A Moving or speaking so slowly that other people could have noticed? Or the opposite - being so fidgety or restless that you have been moving around a lot more than usual. Not at all 02/23/2023 11:33 AM Starr Felipe M A Thoughts that you would be better off or hurting yourself in some way Not at all 02/23/2023 11:33 AM Starr Felipe MA Patient Health Questionnaire -9 Score 0 02/23/2023 11:33 AM Starr Felipe M A documented as of this encounter Plan of Treatment Upcoming Encounters Date Type Department Care Team (Late st Contact Info) Description 07/21/2025 10:45 AM EDT Office Visit [facility] [address] [place] [address] Ethel Santana MD [address] [place] [address] documented as of this encounter Goals Goal Patient Goal Type Associated Problems Recent Progress Patient-Stated? Author Blood Pressure < 140/90 Blood Pressure 138/82( 025 2:04 PM EDT) No Gabrielle Sanz, PharmD documented as of this encounter Procedures [...] Vitamin B12 517 200 - 1,100 pg/mL [facility] [employer] Blood Venous blood specimen / Unknown 02/21/2023 2:34 PM EDT 02/21/2023 2:35 PM EDT Ethel Santana MD LAB BLOOD ORDERABLES Final Result [facility] [address], [place] [address] [facility] [place] [employer]t [address] [place] [address] * Iron, TIBC And Ferritin Panel (02/21/2023 2:34 PM EDT) Pathologist [facility] Iron, Total 65 50 - 180 mcg/dL [facility] [place] [employer] Iron Binding Capacity 259 250 - 425 mcg/dL (calc) [facility] [place] [employer] % Saturation 25 20 - 48 % (calc) [facility] Ferritin 156 38 - 380 ng/mL [facility] Blood 02/21/2023 2:34 PM EDT 02/21/2023 2:35 PM EDT Ethel Santana MD LAB BLOOD ORDERABLES Final Result [facility] [address], [place] [address] [facility] [address] [place] [address] * (ABNORMAL) CBC auto differential (02/21/2023 2:34 PM EDT) White Blood Cell Count 5.7 3.8 - 10.8 Thousand/ uL [facility] Red Blood Cell Count 5.31 4.20 - 5.80 Million/u L [facility] Hemoglobin 14.0 13.2 - 17.1 g/dL [facility] Hematocrit 41.1 38.5 - 50.0 % [facility] MCV 77.4(L) 80.0 - 100.0 fL [facility] MCH 26.4(L) 27.0 - 33.0 pg [facility] MCHC 34.1 32.0 - 36.0 g/dL [facility] RDW 15.1(H) 11.0 - 15.0 % [facility] Platelet Count 234 140 - 400 Thousand/ uL [facility] MPV 10.0 7.5 - 12.5 fL [facility] Absolute Neutrophils 2,987 1,500 - 7,800 cells/uL [facility] Absolute Lymphocytes 2,075 850 - 3,900 cells/uL [facility] Absolute Monocytes 496 200 - 950 cells/uL [facility] Absolute Eosinophils 120 15 - 500 cells/uL [facility] Absolute Basophils 23 0 - 200 cells/uL [facility] Neutrophils 52.4 % [facility] [place] [facility] Lymphocytes 36.4 % [facility] Monocytes 8.7 % [facility] [place] [facility] Eosinophils 2.1 % [facility] Basophils 0.4 % [facility] Blood Venous blood specimen / Unknown 02/21/2023 2:34 PM EDT 02/21/2023 2:35 PM EDT us Ethel Santana MD LAB BLOOD ORDERABLES Final Result [facility] [address], [place] [address] [facility] [address] [place] [address] documented in this encounter Visit Diagnoses Diagnosis Low iron- Primary Unspecified iron deficiency anemia documented in this encounter Care Teams Police Superintendent Relationship Specialty Start Date End Date Ethel Santana MD [address] [place] [address] PCP - General Family Medicine 10/30/18 Gabrielle Peterson, HaoD [address] [place] [phone] Pharmacist Internal Medicine 02/16/23 Kim Alejandre [address] [place] [address] Dr [facility] [address] [place] [address] Orthopaedic Surgery 09/23/24 Bebo Aquino MD [address] [place] [address] [address] [place] [address] Urology 11/07/24 Piyush Acosta MD [address] [place] [address] Cardiology 12/31/24 documented as of this encounter
--- OUTSIDE RECORDS SUMMARY | 2025-07-01 13:39 | XMS_ITS | Encounter Summary ---
Author Organization [employer] Address [address] [facility] 7t [place] [address] Care Team Providers Care Core Drier Name Role Phone Ethel Santana MD Primary Care Provider + [phone] Gabrielle Peterson PharmD Unavailable Kim Alejandre Unavailable Bebo Aquino MD Unavailable Piyush Acosta MD Unavailable [phone] Encounter Details Date Type Department Care Team (Late st Contact Info) Description 11/07/2022 Orders Only [facility] CH[facility] MED & PEDS [address] [place], [place] [phone] Irish Cannon LPN Social History Tobacco Use [...] Description 07/21/2025 10:45 AM EDT Office Visit [facility] MEDICINE [address] [place], [place] [phone] Ethel Santana MD [address] [place], [place] [phone] documented as of this encounter Visit Diagnoses Not on filedocumented in this encounter Care Teams Core Drier Relationship Specialty Start Date End Date Ethel Santana MD [address] [place] [address] PCP - General Family Medicine 10/30/18 Gabrielle Peterson, PharmD [address] [place] [address] Pharmacist Internal Medicine 02/16/23 Kim Alejandre [address] [place] [address] Dr [address] [place] [address] Orthopaedic Surgery 09/23/24 Bebo Aquino MD [address] [place] [address] Drive [address] [place] [address] Urology 11/07/24 Piyush Acosta MD [address] [place] [address] Cardiology 12/31/24 documented as of this encounter
== END 2025-07-01 12:29 | disposition home or self-care (01) ==
LOC: HO.US 12:28
PROVIDERS: PCP Family Medicine; Visit Provider Urology
DX: R39.12 Poor urinary stream (principal)
CPT/HCPCS: 76857

== ENCOUNTER → 2025-07-01 12:31 | Outpatient (BNV) | payer MEDICAID, SELFPAY | PROVIDERS: PCP Family Medicine; Visit Provider Radiology Diagnostic Radiology | DX: R39.12 Poor urinary stream (principal) | CPT/HCPCS: 76857 ==

== ENCOUNTER 2025-07-09 11:12 | Outpatient (AMB) | payer MEDICAID, SELFPAY ==
--- NOTE | 2025-07-09 11:13 | MHC.OFFVIS ---
Intake Visit Reasons: 2m/US Intake Note: patient presents today for: telehealth 2mo/US urology medications: sildenafil, tadalafil, tamsulosin blood thinners: none US done: 07/01/25 Resource Management Specialist Required: No Accompanied by: Self / Same As Patient Allergies No Known Allergies (No Known Allergies*) Allergy (Verified 07/09/25 11:13) HPI Comments Details: Ramsey is a pleasant male. He is a patient of Dr. Santana. He is seen for the following urologic conditions. - erectile dysfunction - spermatocele - lower urinary tract symptoms Telemedicine Evaluation 15 min Consultation [employer] Video Six-month follow-up Good response 100 mg sildenafil on demand Prostate ultrasound 40 g - on daily tadalafil with Flomax Erectile dysfunction Longstanding Good response to Viagra May increase dose to maximum 200 mg as needed Prior weight loss did increase testosterone PSA 01/19 2.2 Epididymal cyst Left scrotum Intermittent pain Discussed use of anti-inflammatories Offered resection Lower urinary tract symptoms Progressive bladder outlet obstruction Gradual weakening stream Nocturia x2 PFSH Medical History (Updated 05/22/25 @ 11:41 by Gala Triplett MD) Tubular adenoma Cellulitis Vomiting and diarrhea Depression Cardiomyopathy GERD (gastroesophageal reflux disease) Sickle-cell trait Weakness Anxiety Sleep apnea COVID-19 vaccine series completed Elevated cholesterol Colon cancer screening Erectile dysfunction Lumbar radiculopathy Dysfunction of left rotator cuff Hypertension Chronic back pain Surgical History (Updated 05/22/25 @ 11:41 by Gala Triplett MD) History of colonoscopy (~04/04/23) Hx of rotator cuff surgery Hx of arthroscopic knee surgery Hx of appendectomy H/O colonoscopy Family History Father No problems noted. 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 Review of Systems Const All systems reviewed & are unremarkable except as noted in HPI and below Reports no additional complaints Resp Reports no additional complaints GI Reports no additional complaints Reports as per HPI Musc Reports no additional complaints Physical Exam Telemedicine evaluation Appropriate responses Regular breathing rate and rhythm HEENT Head: Yes normal to inspection Ears: hearing grossly normal bilaterally Eyes General: appearance normal, both eyes and all related structures Neck Neck: Yes normal visual inspection Chest Chest palpation & inspection: normal inspection of the chest Resp Effort & Inspection: normal respiratory effort and able to speak in complete sentences Telehealth Telehealth Telehealth Platform: [employer] Location of provider rendering services: practice address Location of patient: address on file Patient Identification confirmed using: Name, : Yes Telehealth method: video Patient verbally consented to treatment: Yes Patient verbally consented to billing insurance company: Yes Patient informed of any privacy concerns related to visit: Yes Assessment & Plan Assessment & Plan (1) Erectile dysfunction: Code(s): N52.9 - Male erectile dysfunction, unspecified Category: Medical (2) Nocturia associated with benign prostatic hyperplasia: Code(s): N40.1 - Benign prostatic hyperplasia with lower urinary tract symptoms; R35.1 - Nocturia Category: Medical Plan Continue current medications Medications: Changed From tamsulosin (Flomax) 0.4 mg PO BEDTIME 30 days 30 tabs 1RF R39.12 - Poor urinary stream To tamsulosin (Flomax) 0.4 mg PO BEDTIME 90 tabs 1RF 90 days R39.12 - Poor urinary stream Refilled sildenafil administer 30 minutes to 4 hours before activity 100 mg PO DAILY PRN 30 tabs 1RF sexual activity N40.1 - Benign prostatic hyperplasia with lower urinary tract symptoms, R35.1 - Nocturia Patient Instructions: This note is constructed using voice recognition software. While every effort has been made to ensure accuracy head boys golf coach errors may have been included. Imaging studies, laboratory and physical exam results were discussed and reviewed in detail. No major barriers to patient understanding were identified. An opportunity to ask questions regarding the treatment plan was provided. All questions were answered. The patient expressed understanding and agreement with the above treatment plan. The patient is aware they should contact our office by phone for worsening of their current condition or the appearance of new urologic symptoms. Compliance is encouraged with any medications and followup testing that is ordered. It is a privilege to participate in the urologic care of your patient. If you have any questions or concerns regarding treatment for the above conditions, or other urologic issues, please do not hesitate to contact me. The office telephone contact is [phone]. Sincerely, Dr Bebo Aquino MD, [facility] - Urology Compassionate Specialist Care for the Genitourinary System Coding Level of Care Code Tele Est Pt Level 3 (98515) Complex EM visit Add On G2211 Diagnoses Erectile dysfunction N52.9 Nocturia associated with benign prostatic hyperplasia N40.1; R35.1
--- OUTSIDE RECORDS SUMMARY | 2025-07-09 14:22 | XMS_ITS | Encounter Summary ---
Author Organization [employer] Address [address] [facility] 7t [place] [address] Care Team Providers Care Clinical Safety Specialist Name Role Phone Ethel Sanatna MD Primary Care Provider + [phone] Gabrielle Peterson PharmD Unavailable [phone] Kim Alejandre Unavailable Bebo Aquino MD Unavailable [phone] Piyush Acosta MD Unavailable [phone] Encounter Details Date Type Department Care Team (Latest Contact Info) Description 01/18/2022 Abstract [facility] CONVERSIONS Dental, Provider, DDS Social History Tobacco [...] Description 07/21/2025 10:45 AM EDT Office Visit [facility] MEDICINE [address] [place], [place] [phone] Ethel Santana MD [address] [place], [place] [phone] documented as of this encounter Visit Diagnoses Not on filedocumented in this encounter Care Teams Clinical Safety Specialist Relationship Specialty Start Date End Date Ethel Santana MD [address] [place] [address] PCP - General Family Medicine 10/30/18 Gabrielle Peterson, HaoD [address] [place] [address] Pharmacist Internal Medicine 02/16/23 Kim Alejandre [address] [place] [address] [address] [place] [address] Orthopaedic Surgery 09/23/24 Bebo Aquino MD [address] [place] [address] Drive [address] [place] [address] Urology 11/07/24 Piyush Acosta MD [address] [place] [address] Cardiology 12/31/24 documented as of this encounter
--- OUTSIDE RECORDS SUMMARY | 2025-07-09 14:22 | XMS_ITS | Encounter Summary ---
Author Organization [employer] Address [address] [facility] [address] 7t [place] [address] Care Team Providers Care Proof Machine Operator Name Role Phone Ethel Santana MD Primary Care Provider Gabrielle Peterson PharmD Unavailable Kim Alejandre Unavailable Bebo Aquino MD Unavailable [phone] Piyush Acosta MD Unavailable [phone] Encounter Details Date Type Department Care Team (Late st Contact Info) Description 11/20/2024 Orders Only [facility] MEDICINE [address] [place], [place] [phone] Ethel Santana MD [address] [place], [place] [phone] Social History Tobacco Use Types Packs/Day Years [...] Description 07/21/2025 10:45 AM EDT Office Visit [facility] MEDICINE [address] [place] [address] Ethel Santana MD [address] [place] [address] documented as of this encounter Goals Goal [...] documented as of this encounter Care Teams Proof Machine Operator Relationship Specialty Start Date End Date Hampshire, Ethel, MD [address] [place] [address] PCP - General Family Medicine 10/30/18 Gabrielle Peterson, PharmD [address] [place] [address] Pharmacist Internal Medicine 02/16/23 Kim Alejandre [address] [place] [address] Dr [address] [place] [address] Orthopaedic Surgery 09/23/24 Bebo Aquino MD [address] [place] [address] Drive [address] [place] [address] Urology 11/07/24 Piyush Acosta MD [address] [place] [address] Cardiology 12/31/24 documented as of this encounter
--- OUTSIDE RECORDS SUMMARY | 2025-07-09 14:22 | XMS_ITS | Encounter Summary ---
Author Organization [facility] Health Address [address] [place] [address] Care Team Providers Care Infectious Diseases Physician Name Role Phone Unavailable Primary Care Provider Unavailabl e Prior Encounters Date Type Department Care Team Description 08/14/2024 11:00 AM EDT Office Visit [address], [facility] [address] [place] [address] Guille Davison III, MELISSA Plan [...]
--- OUTSIDE RECORDS SUMMARY | 2025-07-09 14:22 | XMS_ITS | Encounter Summary ---
Author Organization [employer] Address [address] [facility] 7t [place] [address] Care Team Providers Care Field Kiln Burner Name Role Phone Ethel Santana MD Primary Care Provider [phone] Gabrielle Peterson PharmD Unavailable Kim Alejandre Unavailable Bebo Aquino MD Unavailable Piyush Acosta MD Unavailable [phone] Encounter Details Date Type Department Care Team (Late st Contact Info) Description 11/15/2022 Abstract [facility] MEDICINE [address] [place] [address] Ethel Santana MD [address] [place] [address] [phone] Social History Tobacco Use Types Packs/Day Years [...] 07/21/2025 10:45 AM EDT Office Visit [facility] MEDICINE [address] [place] [phone] Ethel Santana MD [address] [place] [address] documented as of this encounter Procedures Procedure Name Priority Date/Time Associated Diagnosis Comments COLONOSCOPY Routine 12/02/2015 documented in this encounter Results * Colonoscopy (12/02/2015) Colonoscopy Tubular Adenoma with Dr. Avilez us Historical Provider HEALTH MAINTENANCE Final Result documented in this encounter Visit Diagnoses Not on filedocumented in this encounter Care Teams Field Kiln Burner Relationship Specialty Start Date End Date Ethel Santana MD [address] [place] [address] PCP - General Family Medicine 10/30/18 Gabrielle Peterson, HaoD [address] [place] [address] Pharmacist Internal Medicine 02/16/23 Kim Alejandre [address] [place] [address] Dr [address] [place] [address] Orthopaedic Surgery 09/23/24 Bebo Aquino MD [address] [place] [address] Drive [address] [place] [address] Urology 11/07/24 Piyush Acosta MD [address] [place] [address] Cardiology 12/31/24 documented as of this encounter
--- OUTSIDE RECORDS SUMMARY | 2025-07-09 14:22 | XMS_ITS | Encounter Summary ---
Author Organization [employer] Address [address] [facility] 7t [place] [address] Care Team Providers Care Wafer Line Worker Name Role Phone Ethel Santana MD Primary Care Provider [phone] Gabrielle Peterson PharmD Unavailable Kim Alejandre Unavailable Bebo Aquino MD Unavailable Piyush Acosta MD Unavailable [phone] Encounter Details Date Type Department Care Team (Late st Contact Info) Description 02/21/2023 Orders Only [facility] MEDICINE 230 [place], [place] [phone] Ethel Santana MD [address] [place], [place] [phone] Low iron (Primary Dx) Social History Tobacco [...] Description 07/21/2025 10:45 AM EDT Office Visit [facility] MEDICINE [address] [place] [address] Ethel Santana MD [address] [place] [address] documented as of this encounter Goals Goal [...] Vitamin B12 517 200 - 1,100 pg/mL [facility] Blood Venous blood specimen / Unknown 02/21/2023 2:34 PM EDT 02/21/2023 2:35 PM EDT Ethel Santana MD LAB BLOOD ORDERABLES Final Result [facility] [address], [place] [address] [facility] [employer] [address] [place] [address] * Iron, TIBC And Ferritin Panel (02/21/2023 2:34 PM EDT) Pathologist [facility] Iron, Total 65 50 - 180 mcg/dL [facility] [employer] Iron Binding Capacity 259 250 - 425 mcg/dL (calc) [facility] [employer] % Saturation 25 20 - 48 % (calc) [facility] Ferritin 156 38 - 380 ng/mL [facility] Blood 02/21/2023 2:34 PM EDT 02/21/2023 2:35 PM EDT Ethel Santana MD LAB BLOOD ORDERABLES Final Result [facility] [address], [place] [address] [facility] [address] [place] [address] * (ABNORMAL) CBC auto differential (02/21/2023 2:34 PM EDT) White Blood Cell Count 5.7 3.8 - 10.8 Thousand/ uL [facility] Red Blood Cell Count 5.31 4.20 - 5.80 Million/u L [facility] Hemoglobin 14.0 13.2 - 17.1 g/dL [facility] Hematocrit 41.1 38.5 - 50.0 % [facility] MCV 77.4(L) 80.0 - 100.0 fL [facility] MCH 26.4(L) 27.0 - 33.0 pg [facility] MCHC 34.1 32.0 - 36.0 g/dL [facility] RDW 15.1(H) 11.0 - 15.0 % [facility] Platelet Count 234 140 - 400 Thousand/ uL [facility] MPV 10.0 7.5 - 12.5 fL [facility] Absolute Neutrophils 2,987 1,500 - 7,800 cells/uL [facility] Absolute Lymphocytes 2,075 850 - 3,900 cells/uL [facility] Absolute Monocytes 496 200 - 950 cells/uL [facility] Absolute Eosinophils 120 15 - 500 cells/uL [facility] Absolute Basophils 23 0 - 200 cells/uL [facility] Neutrophils 52.4 % [facility] [place] [facility] Lymphocytes 36.4 % [facility] Monocytes 8.7 % [facility] Eosinophils 2.1 % [facility] Basophils 0.4 % [facility] Blood Venous blood specimen / Unknown 02/21/2023 2:34 PM EDT 02/21/2023 2:35 PM EDT us Ethel Santana MD LAB BLOOD ORDERABLES Final Result [facility] [address], [place] [address] [facility] [address] [place] [address] documented in this encounter Visit Diagnoses Diagnosis Low iron- Primary Unspecified iron deficiency anemia documented in this encounter Care Teams Wafer Line Worker Relationship Specialty Start Date End Date Ethel Santana MD [address] [place] [address] PCP - General Family Medicine 10/30/18 Gabrielle Peterson, HaoD [address] [place] [address] Pharmacist Internal Medicine 02/16/23 Kim Alejandre [address] [place] [address] Dr [facility] [address] [place] [address] Orthopaedic Surgery 09/23/24 Bebo Aquino MD [address] [place] [address] 204 [place] [address] Urology 11/07/24 Piyush Acosta MD [address] [place] [address] Cardiology 12/31/24 documented as of this encounter
--- OUTSIDE RECORDS SUMMARY | 2025-07-09 14:22 | XMS_ITS | Encounter Summary ---
Author Organization [email or web address] Address [address] [facility] [address] 7t [place] [address] Care Team Providers Care Mobile Service Rv Technician Name Role Phone Ethel Santana MD Primary Care Provider [phone]- [phone] Gabrielle Peterson PharmD Unavailable [phone] Kim Alejandre Unavailable Bebo Aquino MD Unavailable Piyush Acosta MD Unavailable [phone] Encounter Details Date Type Department Care Team (Late st Contact Info) Description 04/06/2023 Orders Only [facility] MEDICINE 230 [place], [place] [phone] Ethel Santana MD 230 [place], [place] [phone] Social History Tobacco Use Types Packs/Day Years [...] Description 07/21/2025 10:45 AM EDT Office Visit [facility] MEDICINE [address] [facility] [place] [address] Ethel Santana MD 230 [facility] [place], [place] [phone] documented as of this encounter Goals Goal [...] documented as of this encounter Care Teams Mobile Service Rv Technician Relationship Specialty Start Date End Date Ethel Santana MD [facility] [place], [place] [phone] PCP - General Family Medicine 10/30/18 Gabrielle Peterson, HaoD [address] [place], [place] [phone] Pharmacist Internal Medicine 02/16/23 Kim Alejandre [address] [place] [address] [address] [place], [place] [phone] Orthopaedic Surgery 09/23/24 Bebo Aquino MD 10 [facility] [address] [place] [address] Urology 11/07/24 Piyush Acosta MD [address] [place] [address] Cardiology 12/31/24 documented as of this encounter
--- OUTSIDE RECORDS SUMMARY | 2025-07-09 14:22 | XMS_ITS | Encounter Summary ---
Author Organization [employer] Address [address] [facility] [address] [place] [address] Care Team Providers Care Distillation Operator Helper Name Role Phone Ethel Santana MD Primary Care Provider [phone] Gabrielle Peterson PharmD Unavailable Kim Alejandre Unavailable Bebo Aquino MD Unavailable Piyush Acosta MD Unavailable [phone] Encounter Details Date Type Department Care Team (Late st Contact Info) Description 07/22/2024 Telephone [facility] MEDICINE 230 [place], [place] [phone] Gabrielle Peterson, PharmD 230 [place], [place] [phone] Social History Tobacco Use Types Packs/Day Years [...] Description 07/21/2025 10:45 AM EDT Office Visit [facility] MEDICINE [address] [place] [address] Ethel Santana MD [address] [place], [place] [phone] documented as of this encounter Goals Goal [...] documented as of this encounter Care Teams Distillation Operator Helper Relationship Specialty Start Date End Date Ethel Santana MD [address] [place] [address] PCP - General Family Medicine 10/30/18 Gabrielle Peterson, PharmD [address] [place] [address] Pharmacist Internal Medicine 02/16/23 Kim Alejandre [address] [place] [address] [address] [place] [address] Orthopaedic Surgery 09/23/24 Bebo Aquino MD [address] [place] [address] [address] [place] [address] Urology 11/07/24 Piyush Acosta MD [address] [place] [address] Cardiology 12/31/24 documented as of this encounter
--- OUTSIDE RECORDS SUMMARY | 2025-07-09 14:22 | XMS_ITS | Clinical Summary ---
Author Organization [facility] Health Address [address] [place] [address] Care Team Providers Care Extrusion Bender Name Role Phone Unavailable Primary Care Provider [...]
--- OUTSIDE RECORDS SUMMARY | 2025-07-09 14:22 | XMS_ITS | Encounter Summary ---
Author Organization [employer] Address 75 [facility] 7t [place] [address] Care Team Providers Care Supervisor Sewer Maintenance Name Role Phone Ethel Santana MD Primary Care Provider + [phone] Gabrielle Peterson PharmD Unavailable Kim Alejandre Unavailable Bebo Aquino MD Unavailable Piyush Acosta MD Unavailable [phone] Encounter Details Date Type Department Care Team (Late st Contact Info) Description 11/07/2022 Orders Only [facility] CHC MED & PEDS [address] [place], [place] [phone] Irish Cannon LPN Social History Tobacco Use [...] Description 07/21/2025 10:45 AM EDT Office Visit [facility] MEDICINE 230 [place], [place] [phone] Ethel Santana MD 230 [place], [place] [phone] documented as of this encounter Visit Diagnoses Not on filedocumented in this encounter Care Teams Supervisor Sewer Maintenance Relationship Specialty Start Date End Date Ethel Santana MD 230 [place] [address] PCP - General Family Medicine 10/30/18 Gabrielle Peterson, PharmD 230 [place] [address] Pharmacist Internal Medicine 02/16/23 Kim Alejandre [address] [place] [address] [address] [place] [address] Orthopaedic Surgery 09/23/24 Bebo Aquino MD [address] [place] [address] Drive [address] [place] [address] Urology 11/07/24 Piyush Acosta MD [address] [place] [address] Cardiology 12/31/24 documented as of this encounter
--- OUTSIDE RECORDS SUMMARY | 2025-07-09 14:22 | XMS_ITS | Encounter Summary ---
Author Organization [employer] Address [address] [facility] 7t [place] [address] Care Team Providers Care Digital Content Specialist Name Role Phone Ethel Santana MD Primary Care Provider + [phone] Gabrielle Peterson PharmD Unavailable Kim Alejandre Unavailable Bebo Aquino MD Unavailable [phone] Piyush Acosta MD Unavailable [phone] Encounter Details Date Type Department Care Team (Late st Contact Info) Description 11/15/2022 Orders Only [facility] MED[facility]INE [address] [place] [address] [phone] Lexi Wakefield LPN Social History Tobacco Use [...] 10:45 AM EDT Office Visit [facility] [address] [place] [address] [phone] Ethel Santana MD [address] [place] [address] documented as of this encounter Visit Diagnoses Not on filedocumented in this encounter Care Teams Digital Content Specialist Relationship Specialty Start Date End Date Ethel Santana MD [address] [place] [address] PCP - General Family Medicine 10/30/18 Gabrielle Peterson, HaoD [address] [place] [address] Pharmacist Internal Medicine 02/16/23 Kim Alejandre [address] [place] [address] [address] [place] [address] Orthopaedic Surgery 09/23/24 Bebo Aquino MD [address] [place] [address] Drive [address] [place] [address] Urology 11/07/24 Piyush Acosta MD [address] [place] [address] Cardiology 12/31/24 documented as of this encounter
--- OUTSIDE RECORDS SUMMARY | 2025-07-09 14:22 | XMS_ITS | Encounter Summary ---
Author Organization [employer] Address [address] [facility] 7t [place] [address] Care Team Providers Care Senior Industrial Engineer Name Role Phone Ethel Santana MD Primary Care Provider + [phone] Gabrielle Peterson PharmD Unavailable [phone] Kim Alejandre Unavailable Bebo Aquino MD Unavailable [phone] Piyush Acosta MD Unavailable [phone] Reason for Visit * Reason Onset Date Comments Med Refill 01/20/2025 Medication Question 01/20/2025 Encounter Details Date Type Department Care Team (Late st Contact Info) Description 01/20/2025 Telephone [facility] MED[facility]INE [address] [place] [address] Ethel Santana MD [address] [place], [place] [phone] Med Refill; Medication Question Social History Tobacco [...] about it with PCP. Contact pt at [phone] documented in this encounter Plan of Treatment Upcoming Encounters Date Type Department Care Team (Late st Contact Info) Description 07/21/2025 10:45 AM EDT Office Visit [facility] MEDICINE [address] [place] [address] Ethel Santana MD [address] [place] [address] documented as of this encounter Goals Goal [...] documented as of this encounter Care Teams Senior Industrial Engineer Relationship Specialty Start Date End Date Ethel Santana MD [address] [place] [address] PCP - General Family Medicine 10/30/18 Gabrielle Peterson, PharmD [address] [place] [address] Pharmacist Internal Medicine 02/16/23 Kim Alejandre [address] [place] [address] Dr [address] [place] [address] Orthopaedic Surgery 09/23/24 Bebo Aquino MD [address] [place] [address] Drive [address] [place] [address] Urology 11/07/24 Piyush Acosta MD [address] [place] [address] Cardiology 12/31/24 documented as of this encounter
--- OUTSIDE RECORDS SUMMARY | 2025-07-09 14:23 | XMS_ITS | Encounter Summary ---
Author Organization [employer] Address [address] [facility] [address] 7t [place] [address] Care Team Providers Care Traffic Survey Technician Name Role Phone Ethel Santana MD Primary Care Provider + [phone] Gabrielle Peterson PharmD Unavailable Kim Alejandre Unavailable Bebo Aquino MD Unavailable [phone] Piyush Acosta MD Unavailable [phone] Encounter Details Date Type Department Care Team (Late st Contact Info) Description 02/20/2024 Telephone [facility] ADULT DENTAL [address] [place], [place] [phone] Charles Read DDS [address] [place], [place] [phone] Social History Tobacco Use Types Packs/Day Years [...] Description 07/21/2025 10:45 AM EDT Office Visit [facility] MEDICINE [address] [place] [address] Ethel Santana MD [address] [place] [address] documented as of this encounter Goals Goal [...] documented as of this encounter Care Teams Traffic Survey Technician Relationship Specialty Start Date End Date Ethel Santana MD [address] [place] [address] PCP - General Family Medicine 10/30/18 Gabrielle Peterson PharmD [address] [place] [address] Pharmacist Internal Medicine 02/16/23 Kim Alejandre [address] [place] [address] Dr [address] [place] [address] Orthopaedic Surgery 09/23/24 Bebo Aquino MD [address] [place] [address] Drive [address] [place] [address] Urology 11/07/24 Piyush Acosta MD [address] [place] [address] Cardiology 12/31/24 documented as of this encounter
--- OUTSIDE RECORDS SUMMARY | 2025-07-09 14:23 | XMS_ITS | Clinical Summary ---
Author Organization [employer] Address [address] [facility] 7t [place] [address] Care Team Providers Care Carroting Machine Offbearer Name Role Phone Ehtel Santana MD Primary Care Provider + [phone] Gabrielle Peterson PharmD Unavailable Kim Alejandre Unavailable Bebo Aquino MD Unavailable [phone] Piyush Acosta MD Unavailable [phone] Allergies No known active allergies Medications [...] 4 Active Blood Glucose Monitoring Suppl (FreeStyle [place] Lite) w/Device kitIndications:Pr ediabetes Use to test [...] be different from the original. Enrolled in [facility] HTN clinic with Gabrielle Peterson PharmD Problem Noted Date Diagnosed Date Benign prostatic hyperplasia without lower urinary tract symptoms 05/07/2025 Overview (07/02/2025): [facility] form 05/06/25 reviewed, tamsulosin 0.4 started -bladder US 07/02/25 Well-distended urinary bladder, no calculus, mass or wall thickening. Prevoid volume: 520 mL Postvoid volume: 51 mL Prostate is partially seen, inferior portion is obscured by rectal gas shadowing, prostate measures 4.6 cm in transverse dimension, 4.4 cm in AP dimension, CC dimension can not be reliably measured. IMPRESSION: Prominent postvoid bladder residual volume 51 mL. Chronic left shoulder pain 05/01/2025 Overview (05/24/2025): XR 05/01/25 FINDINGS: Four views of the left shoulder are submitted. Osseous mineralization is normal. Post surgical changes are noted involving the AC joint. There are suture anchors in the humeral head. There is no fracture or dislocation. The glenohumeral joint is maintained. The soft tissues are unremarkable. -seen by [facility] dawn Zepeda 05/22/25, note reveiwed [...] annual evaluation due after 01/08/26 -referred to [facility] 01/08/25 -dental home is [facility] will make appt -Health care proxy 07/03/24 Assessment & Plan (01/08/2025 3:02 PM EDT): -next comprehensive annual evaluation due after 01/08/26 -referred to [facility] 01/08/25 -dental home is [facility] will make appt -Health care proxy 07/03/24 Assessment & Plan (07/03/2024 11:49 AM EDT): -next physical exam due after 10/04/2024 -eye care facilitated by [facility] -dental home is [facility] will make appt -Health care proxy 07/03/24 Assessment & Plan (10/04/2023 11:50 AM EST): -next physical exam due after 10/04/2024 -eye care facilitated by [facility] -dental home is [facility] will make appt Tooth fracture with [...] 02/23/2023. PT referral placed -steroid injection with [facility] Orth[facility]ics done 04/12/24 -seen by Kim Alejandre [...] EDT): Check labs. Shortness of breath 01/04/2023 03/04/20 25 Encounters Date Type Department Care Team Description 07/01/2025 Orders Only [facility] External Provider, [facility] Benign prostatic hyperplasia without lower urinary tract symptoms (Primary Dx) 05/12/2025 Outside Procedure [facility] [address] [place] [address] Shan Sanchezn, OD Presbyopia (Primary Dx) 05/07/2025 10:30 AM EDT Office Visit [facility] OPTOM[facility] [address] [place] [address] Daniel Brielle, OD Regular astigmatism of both eyes (Primary Dx) 05/01/2025 Orders Only [facility] External Provider, [facility] Chronic left shoulder pain (Primary Dx) 04/29/2025 Telephone [facility] MEDICINE [address] [place], [place] [phone] Ethel Santana MD june Recalls 04/29/2025 Travel 04/22/2025 Refill [facility] MED[facility]INE [address] [place], [place] [phone] Ethel Santana MD Gastroesophageal reflux disease, unspecified whether esophagitis present from Last 3 Months Immunizations Immunization Administration [...] Description 07/21/2025 10:45 AM EDT Office Visit [facility] MEDICINE [address] [place] [address] Ethel Santana MD [address] [place], [place] [phone] Health Maintenance Due Date Last Done Comments CT Colonography 1965 Dental Prophylaxis 1965 FIT DNA/Cologuard 1965 FIT 1965 FOBT 1965 Sigmoidoscopy 1965 Disability Screening 1965 Dental Oral Exam 12/15/2024 06/13/2024, 01/18/2022 Dental X-Ray: Bitewings 06/14/2025 06/13/20 24, 01/18/2022, 01/07/2022 COVID-19 Vaccine ( season) 2025 02/23/2023, 03/24/2021, 02/24/2021 Influenza Vaccine (#1) 2025 07/25/2013 SDOH Screening 07/03/2025 07/03/2024 Alcohol/Substance Use Screening 01/08/2026 01/08/2025 Depression Screening 01/08/2026 01/08/2025, 01/09/20 25 Diabetes: [...] 10/04/2023 Hepatitis A Vaccines Completed 06/24/2024, 10/04/20 Anal Pap Discontinued HIB Vaccines Aged Out [...] Procedure Name Priority Date/Time Associated Diagnosis Comments US BLADDER Routine 07/02/2025 9:48 AM EDT PSA, TOTAL Routine 05/01/2025 2:02 PM EDT [...] Recently Relevant to Health Maintenance Results * US BLADDER (07/02/2025 9:48 AM EDT) Anatomical Region Laterality Modality Abdomen Ultrasound 07/02/2025 9:48 AM EDT Narrative 07/02/2025 9:50 AM EDT [place] [address] Ultrasound Report Signed Patient: Ramsey Ayala MR#: [id number] 233 : 1965 Acct:[id number] Age/Sex: 59 / M ADM Date: 07/01/25 Loc: HO.US Attending Dr: Bebo Aquino MD Ordering Physician: Bebo Aquino MD Date of Service: 07/01/25 Procedure(s): US bladder Accession Number(s): [id number] cc: Bebo Aquino MD; Ethel Santana MD Reason for Exam: R39.12 - Poor urinary stream CLINICAL HISTORY: R39.12 - Poor urinary stream US Urinary Bladder Comparison: None Findings: Well-distended urinary bladder, no calculus, mass or wall thickening. Prevoid volume: 520 mL Postvoid volume: 51 mL Ureteral jets are visualized bilaterally. Prostate is partially seen, inferior portion is obscured by rectal gas shadowing, prostate measures 4.6 cm in transverse dimension, 4.4 cm in AP dimension, CC dimension can not be reliably measured. IMPRESSION: Prominent postvoid bladder residual volume 51 mL. This document has been electronically signed by: Nury Hollingsworth MD on 07/02/2025 09:48:59 Dictated By: Nury Hollingsworth MD Signed By: <Electronically signed by Nury Hollingsworth MD in OV> 07/02/25948 DD/ 7 TD/TT: 07/02/25947 Engineering Administrator: Procedure Note Donotuseinterpreter, Image - 07/02/2025 [place] [address] Ultrasound Report Signed Patient: Ramsey Ayala LMR#: [id number] 233 : 1965Acct:[id number] Age/Sex: 59 / MADM Date: 07/01/25 Loc: .US Attending Dr: Bebo Aquino MD Ordering Physician: Bebo Aquino MD Date of Service: 07/01/25 Procedure(s): US bladder Accession Number(s): [id number] cc: Bebo Aquino MD; Ethel Santana MD Reason for Exam: R39.12 - Poor urinary stream CLINICAL HISTORY: R39.12 - Poor urinary stream US Urinary Bladder Comparison: None Findings: Well-distended urinary bladder, no calculus, mass or wall thickening. Prevoid volume: 520 mL Postvoid volume: 51 mL Ureteral jets are visualized bilaterally. Prostate is partially seen, inferior portion is obscured by rectal gas shadowing, prostate measures 4.6 cm in transverse dimension, 4.4 cm in AP dimension, CC dimension can not be reliably measured. IMPRESSION: Prominent postvoid bladder residual volume 51 mL. This document has been electronically signed by: Nury Hollingsworth MD on 07/02/2025 09:48:59 Dictated By: Nury Hollingsworth MD Signed By: <Electronically signed by Nury Hollingsworth MD in OV> 07/02/25948 DD/ 7 TD/TT: 07/02/25947 Engineering Administrator: [facility] External Provider IMG US PROCEDURES Final Result * PSA,Total (05/01/2025 2:02 PM EDT) Prostate Specific Antigen 3.15 <0.05 - 4.0 ng/mL [facility] Comment:PSA methodology: Quinton Puga i ChemiluminescentMicroparticle Immunoassay (CMIA) 05/01/2025 2:0 2 PM EDT 05/01/2025 4:15 PM EDT Generic External Data Provider LAB BLOOD ORDERAB LES Final Result Performing Organization Address City/State/[facility] Co de Phone Number [facility] [address] [place] [phone] * XR Shoulder 2+ Views Left (05/01/2025 1:33 PM EDT) Anatomical Region Laterality Modality Upper Extremities, Shoulder Left Radi ographic Imaging 05/01/2025 1:33 PM EDT Narrative 05/01/2025 2:46 PM EDT [address] [address] XRay Report Signed Patient: Ramsey Ayala MR#: [id number] 233 : 1965 Acct:[id number] Age/Sex: 59 / M ADM Date: 05/01/25 Loc: HO.HHCX Attending Dr: Bebo Aquino MD Ordering Physician: Kim Alejandre PA-C Date of Service: 05/01/25 Procedure(s): XR shoulder LT min 2V Accession Number(s): [id number] cc: Ethel Santana MD; Kim Alejandre PA-C [...] 05/01/25 1444 DD/ 1333 TD/TT: 05/01/25 1400 Engineering Administrator: Procedure Note Donotuseinterpreter, Image - 05/01/[address] [address] XRay Report Signed Patient: Ramsey Ayala LMR#: [id number] 233 : 1965Acct:[id number] Age/Sex: 59 / MADM Date: 05/01/25 Loc: .HHCX Attending Dr: Bebo Aquino MD Ordering Physician: Kim Alejandre PA-C Date of Service: 05/01/25 Procedure(s): XR shoulder LT min 2V Accession Number(s): [id number] cc: Ethel Santana MD; Kim Alejandre PA-C [...] 05/01/25 1444 DD/ 1333 TD/TT: 05/01/25 1400 Engineering Administrator: [facility] External Provider IMG XR PROCEDURES Edited Result - Final * POCT glycosylated hemoglobin (Hgb A1c) (01/08/2025 3:23 PM EDT) Hemoglobin A1C 6.0 4.0 - 6.0 % QC Media Lot # [id number] Lot# Expiration Date Blood Capillary blood specimen / Unknown 01/08/2025 3:23 PM EDT Ethel Santana MD POINT OF CARE TEST ENTER/E DIT ORDERABLES Final Result * (ABNORMAL) Lipid Panel, Standard (07/25/2024 9:03 AM EDT) Triglycerides 159(H) <150 mg/dL [facility] Comment:Desirable Triglyceri de: less than 150 mg/dLBorderline High Triglyceride 150-199 mg/dLHigh Triglyceride: 200-499 mg/dLVery High Triglyceride: greater than or equal to 5OO mg/dL Cholesterol 112 <200 mg/dL [facility] Comment:Desirable Cholestero l: less than 200 mg/dLBorderline High Cholesterol: 200-239 mg/dLHigh Cholesterol: greater than 239 mg/dL LDL Cholesterol Calculated 49 <100 mg/dL [facility] Comment:Desirable LDL: less than 100 mg/dLNear Optimal/Above Optimal LDL: 110- 129 mg/dLBorderline High LDL: 130-159 mg/dLHigh LDL: 160-189 mg/dLVery High LDL: greater than or equal to 190 mg/dL HDL Cholesterol 32(L) >40 mg/dL [facility] Comment:Desirable HDL: great er than 40 mg/dL Note: This HDL assay may give artificially low results in patients with liver disease. Blood Venous blood specimen / Unknown 07/25/2024 9:03 AM EDT 07/25/2024 11:51 AM EDT Ethel Santana MD LAB BLOOD ORDERABLES Final Result Performing Organization Address [facility] Co de Phone Number [facility] [address] [place] [phone] * Hepatitis C Antibody with Reflex to HCV, RNA, Quantitative, Real-Time PCR (10/04/2023 12:12 PM EST) Hepatitis C Antibody Nonreactive Nonreactive [facility] Comment:Antibodies to HCV no t detected; does not exclude early acuteHCV infection. Blood Venous blood specimen / Unknown 10/04/2023 12:12 PM EST 10/04/2023 1:02 PM EST Ethel Santana MD LAB BLOOD ORDERABLES Final Result Performing Organization Address [facility] de Phone Number [facility] [address] [place] [phone] * HIV-1/2 Antigen and Antibodies, Fourth [...] below the limit ofdetection of this assay.The KanganiQuincus HIV Ag/Ab Combo assay result andsupplemental assay results should be interpreted inconjunction with the patient's clinical presentation,history and other laboratory results. If the results areinconsistent with clinical evidence, additional testing issuggested to confirm the result. Blood Venous blood specimen / Unknown 10/04/2023 12:12 PM EST 10/04/2023 1:02 PM EST Ethel Santana MD LAB BLOOD ORDERABLES Final Result Performing Organization Address [facility] de Phone Number [facility] [address] [place], [place] [phone] * (ABNORMAL) Colonoscopy (04/04/2023 10:29 AM EDT) Colonoscopy Abnormal( A) Normal Comment:tubular adenoma, nex t due 5 years Sergio Avilez MD HEALTH MAINTENANCE Final Res ult from Last 3 Months or Most Recently Relevant to Health Maintenance [facility] STAND ADULT Advance Directives Documents on File Type Date Recorded Patient Electrical Continuity Tester Expl anation Advance Directives and Living Will 07/04/2024 1:03 PM Health Care Proxy Care Teams Carroting Machine Offbearer Relationship Specialty Start Date End Date [place], MD Ethel [address] [place] [address] PCP - General Family Medicine 10/30/18 Gabrielle Peterson, HaoD [address] [place] [address] Pharmacist Internal Medicine 02/16/23 Kim Alejandre [address] [place] [address] Dr [address] [place] [address] Orthopaedic Surgery 09/23/24 Bebo Aquino MD [address] [place] [address] Drive [address] [place] [address] Urology 11/07/24 Piyush Acosta MD [address] [place] [address] Cardiology 12/31/24
--- OUTSIDE RECORDS SUMMARY | 2025-07-09 14:23 | XMS_ITS | Encounter Summary ---
Author Organization [employer] Address [address] [facility] [address] 7[address] [place] [address] Care Team Providers Care Cook Chili Name Role Phone Ethel Santana MD Primary Care Provider [phone] Gabrielle Peterson PharmD Unavailable Kim Alejandre Unavailable Bebo Aquino MD Unavailable [phone] Piyush Acosta MD Unavailable +[phone] Reason for Visit * Reason Onset Date Comments xrays 07/15/2024 Encounter Details Date Type Department Care Team (Late st Contact Info) Description 07/15/2024 Telephone [facility] ADULT DENTAL [address] [place], [place] [phone] Charles Read DDS [address] [place], [place] [phone] xrays Social History Tobacco Use Types Packs/Day [...] to an office for periodontal care from [facility] and they need the patients xrays kandi sent to . documented in this encounter Plan of Treatment Upcoming Encounters Date Type Department Care Team (Late st Contact Info) Description 07/21/2025 10:45 AM EDT Office Visit [facility] MEDICINE [address] [place] [address] Ethel Santana MD [address] [place] [address] documented as of this encounter [...] documented as of this encounter Care Teams Cook Chili Relationship Specialty Start Date End Date Ethel Santana MD [address] [place] [address] PCP - General Family Medicine 10/30/18 Gabrielle Peterson, PharmD [address] [place] [address] Pharmacist Internal Medicine 02/16/23 Kim Alejandre [address] [place] [address] [address] [place] [address] Orthopaedic Surgery 09/23/24 Bebo Aquino MD [address] [place] [address] Drive [address] [place] [address] Urology 11/07/24 Piyush Acosta MD [address] [place] [address] Cardiology 12/31/24 documented as of this encounter
== END 2025-07-09 12:34 | disposition home or self-care (01) ==
LOC: HO.HUSH 11:12
PROVIDERS: PCP Family Medicine; Visit Provider Urology
DX: N52.9 Male erectile dysfunction, unspecified (principal); N40.1 Benign prostatic hyperplasia with lower urinary tract symptoms; R35.1 Nocturia
CPT/HCPCS: 99213

== ENCOUNTER 2025-07-24 08:00 | Outpatient (RCR) | payer MEDICAID, SELFPAY | END 2025-09-19 08:52 | disposition home or self-care (01) | LOC: HO.PT 08:00 | PROVIDERS: PCP Family Medicine; Visit Provider Nurse Practitioner Primary Care | DX: M54.50 Low back pain, unspecified (principal) | CPT/HCPCS: 97110; 97140; 97162 ==

== ENCOUNTER 2025-08-01 08:34 | Outpatient (AMB) | payer MEDICAID, SELFPAY ==
--- NOTE | 2025-08-01 08:39 | MHC.OFFVIS ---
Intake Visit Reasons: INJ- Trigger point injection Intake Note: Ramsey is a 60 year old male who presents today for a Trigger point injection in his left shoulder. At last visit on 05/22/25 we discussed with and he was cleared to get the injection. At today's visit he states that the pain is manageable. Allergies No Known Allergies (No Known Allergies*) Allergy (Verified 08/01/25 08:42) [facility] Medical History (Updated 05/22/25 @ 11:41 by Gala Triplett MD) Tubular adenoma Cellulitis Vomiting and diarrhea Depression Cardiomyopathy GERD (gastroesophageal reflux disease) Sickle-cell trait Weakness Anxiety Sleep apnea COVID-19 vaccine series completed Elevated cholesterol Colon cancer screening Erectile dysfunction Lumbar radiculopathy Dysfunction of left rotator cuff Hypertension Chronic back pain Surgical History (Updated 05/22/25 @ 11:41 by Gala Triplett MD) History of colonoscopy (~04/04/23) Hx of rotator cuff surgery Hx of arthroscopic knee surgery Hx of appendectomy H/O colonoscopy Family History Father No problems noted. 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 Consent obtained. Three trigger points palpated on left upper trapezius, 1 on infraspinatus, 1 on latissimus dorsi. Area cleansed with Betadine. Needling performed with gauge 27 needle, subsequently injecting 1 ml of 2% Lidocaine on each site, total of 5 mL. Patient tolerated procedure well. Post-injection instructions given. [id number]-[id number] Point Injection 3 or more All charges added?: Procedure code (CPT) selection complete Assessment & Plan Assessment & Plan (1) Myofascial pain: Code(s): M79.18 - Myalgia, other site Category: Medical Plan Tolerated procedure well. We will re-evaluate in a month or so to see if it helped. Assessment and plan discussed with patient, and patient was agreeable. All questions were answered thoroughly. Gala Triplett MD, CHAO Board Certified, [place] Board of Physical Medicine and Rehabilitation (ABPMR) Board Certified, [place] Board of Electrodiagnostic Medicine (ABEM) Orders: Orders AMB Trigger Point Injection Today M79.18 - Myalgia, other site Coding Level of Care Code Procedure Only Diagnoses Myofascial pain M79.18 CPT Codes Therapeutic Injection - Ther Injection 2: 11485-[id number] Point Injection 3 or more ([id number])
--- OUTSIDE RECORDS SUMMARY | 2025-08-01 08:55 | XMS_ITS | Clinical Summary ---
Author Organization [facility] Health Address [address] [place] [address] Care Team Providers Care Marketing Project Specialist Name Role Phone Unavailable Primary Care Provider [...]
--- OUTSIDE RECORDS SUMMARY | 2025-08-01 08:55 | XMS_ITS | Encounter Summary ---
Author Organization [facility] Health Address [address] [place] [address] Care Team Providers Care Tourist Information Assistant Name Role Phone Unavailable Primary Care Provider Unavailabl e Prior Encounters Date Type Department Care Team Description 08/14/2024 11:00 AM EDT Office Visit [address], [facility] [address] [place] [address] Guille Davison III, MELISSA Plan [...]
--- OUTSIDE RECORDS SUMMARY | 2025-08-01 08:55 | XMS_ITS | Clinical Summary ---
Author Organization 175 [facility] Address 175 [place] [address] Phone Care Team Providers Care Scuba Diver Name Role Phone Ethel Santana MD Primary Care Provider [phone] Allergies No known active allergies Medications amLODIPine (NORVASC) 5 mg tablet Take 1 tablet (5 mg total) by mouth 1 (one) time each day. 3 Active acetaminophen (TYLENOL) 500 mg tablet Take 1 tablet (500 mg total) by mouth 4 (four) times a day if needed. 3 Active cyanocobalamin (VITAMIN B-12) 1,000 mcg tablet Take 1 tablet (1,000 mcg total) by mouth 1 (one) time each day in the morning. 3 Active cyclobenzaprine (FLEXERIL) 10 mg tablet 3 Active folic acid (FOLVITE) 1 mg tablet 3 Active ibuprofen (ADVIL,MOTRIN) 600 mg tablet Take 1 tablet (600 mg total) by mouth 3 (three) times a day if needed. 3 Active multivitamin (MULTIPLE VITAMINS ORAL) Take 1 tablet by mouth 1 (one) time each day in the morning. 3 Active magnesium oxide (MAG-OX) 400 mg magnesium tablet Take 1 tablet (400 mg total) by mouth 1 (one) time each day. 3 Active hydroCHLOROthia zide (HYDRODIURIL) 25 mg tablet Take 1 tablet (25 mg total) by mouth. Active omeprazole (PriLOSEC) [address] capsule 3 Active melatonin 3 mg tablet Take 1 tablet (3 mg total) by mouth. 1 Active tiZANidine (ZANAFLEX) 2 mg tablet TAKE 1 TABLET BY MOUTH AT BEDTIME NEEDED FOR MUSCLE SPASTICITY 1 Active atorvastatin (LIPITOR) 40 mg tablet Take 1 tablet (40 mg total) by mouth. 0 Active carvediloL (COREG) 6.25 mg tablet Take 1 tablet (6.25 mg total) by mouth 2 (two) times a day. 0 Active sildenafiL (VIAGRA) 100 mg tablet TAKE 1 TABLET 1 HOUR BEFORE SEXUAL RELATIONS ONCE DAILY NEEDED. 0 Active Active Problems Problem Noted Date Diagnosed Date Chronic lower back pain 11/10/2020 Overview (12/29/2023): Since 2005 Obese 04/29/2019 Mixed sleep apnea 01/08/2018 Overview (12/29/2023): [facility] [place] study. Date 01/06/2018 . SE 66 % SM 67 %; spent 20 % of the study in REM. At the optimal pressure of CPAP @ 11; RDI 0.6 (AHI 0.6), Central apneas 1; Obstructive apneas 0; Mixed apneas 0; hypopneas 0; RERAs 0; and, average oxygen saturation was 96%. For the entire study, PLMs ~9. [facility] Polysomnogram: Date 08/06/2017; Wt 248 #; BMI 34.6 ; SE 63%; SM 63%; REM 15%; RDI 57 (AHI 50), REM (RDI 54 - AHI 59), Central apneas 28 ; Obstructive apneas1 ; Mixed apneas 83; hypopneas 76; RERAs 29; average oxygen saturation 96% (lowest 83% - without saturations <88% for 5% or more of study); PLMs 53. - Obstructive Sleep Apnea - severe overall and severe in REM; mostly mixed apnea and hypoapneas; without sleep related hypoventilation by 2017 polysomnogram. Chest pain, unspecified 11/01/2012 Overview (12/29/2023): 10/09 stress test was negative for ischemia 10/09 echo revealed mild LVH, normal LVSF with EF 60-65%, diastolic dysfunction Esophageal reflux 11/01/2012 Essential hypertension, benign 11/01/2012 Medical History Medical History Date Comments Essential hypertension, benign 11/01/2012 D X:Essential hypertension, benign Esophageal reflux 11/01/2012 DX:Esophageal reflux Chest pain, unspecified 11/01/2012 DX:Chest pain, unspecified Mixed sleep apnea 01/08/2018 DX:Mixed sleep apnea; COMMENT: [facility] [place]ysomnogram treatment study. Date 01/06/2018 . SE 66 % SM 67 %; spent 20 % of the study in REM. At the optimal pressure of CPAP @ 11; RDI 0.6 (AHI 0.6), Central apneas 1; Obstructive apneas 0; Mixed apneas 0; hypopneas 0; RERAs 0; and, average oxygen saturation was 96%. For the entire study, PLMs -9. Chronic lower back pain 11/10/2020 DX:Chron ic lower back pain Social History Tobacco Use Types Packs/Day Years Used Date Smoking Tobacco: Former Cigarettes Q uit: 10/30/2007 Smokeless Tobacco: Never Alcohol Use Standard Drinks/Week Comments Yes 0 (1 standard drink = 0.6 oz pur e alcohol) Sex and Gender Information Value Date Recorded Sex Assigned at Not on file Legal Sex Male 7:23 PM EST Gender Identity Not on file Sexual Orientation Not on file Obstetrics History Last Filed Vital Signs Vital Sign Reading Time Taken Comments Blood Pressure 110/70 12/11/2023 9:42 AM EST Pulse 64 12/11/2023 9:42 AM EST Temperature - - Respiratory Rate - - Oxygen Saturation - - Inhaled Oxygen Concentration - - Weight 103 kg (226 lb 6.4 oz) 12/11/2023 9:42 AM EST Height 179.1 cm (5' 10.5 ) 12/11/2023 9:42 AM ES T Body Mass Index 32.03 12/11/2023 9:42 AM EST Plan of Treatment Upcoming Encounters Date Type Department Care Team (Late st Contact Info) Description 08/28/2025 10:00 AM EDT Consult Orthopedic Surgery - [place] [address] [place] [address] [place] [phone] Roldan Bowles, DPRomero 175 [facility] [address] [place] [address] Health Maintenance Due Date Last Done Comments Colorectal Cancer Screening: Colonoscopy 1965 DTaP,Tdap,and Td Vaccines (1 - Tdap) 1984 Pneumococcal Vaccine: 50+ Ye ars (1 of 1 - PCV) 2015 Zoster Vaccines (1 of 2) 2015 Cholesterol Screening (Lipid Panel) 10/01/2022 HIV Screening 10/01/2022 Hepatitis C Screening 10/01/2022 Social Influencers of Health Screening 10/01/2022 Hypertension/CHF/CAD Annual BMP Blood Test 10/15/2022 Depression Screening 10/30/2024 COVID-19 Vaccine (1 - 2023-2 5 season) 2025 Influenza Vaccine (#1) 2025 RSV Immunization Adult Patie nts (1 - 1-dose 75+ series) 2040 HIB Vaccines Aged Out No longer eligi ble based on patient's age to complete this topic HPV Vaccines Aged Out No longer eligi ble based on patient's age to complete this topic Hepatitis A Vaccines Aged Out No long er eligible based on patient's age to complete this topic Hepatitis B Vaccines Aged Out No long er eligible based on patient's age to complete this topic IPV Vaccines Aged Out No longer eligi ble based on patient's age to complete this topic MMR Vaccines Aged Out No longer eligi ble based on patient's age to complete this topic Meningococcal ACWY Vaccine Aged Out N o longer eligible based on patient's age to complete this topic Meningococcal B Vaccine Aged Out No l onger eligible based on patient's age to complete this topic RSV Immunization Patients Un amanda 20 months Aged Out No longer eligible b ased on patient's age to complete this topic Varicella Vaccines Aged Out No longer eligible based on patient's age to complete this topic Insurance [address] Y[place]OTT [id number] MEDICAID - [place] Care Teams Scuba Diver Relationship Specialty Start Date End Date MaxEthel MD [address] [place] [id number] PCP - General Internal Medicine 09/09/11
== END 2025-08-01 09:22 | disposition home or self-care (01) ==
LOC: HO.HOS 08:34
PROVIDERS: PCP Family Medicine; Visit Provider Physical Medicine & Rehabilitation
DX: M79.18 Myalgia, other site (principal)
CPT/HCPCS: 20553

== ENCOUNTER → 2025-08-01 08:34 | Outpatient (BNVA) | payer MEDICAID, SELFPAY | PROVIDERS: PCP Family Medicine; Visit Provider Physical Medicine & Rehabilitation | DX: M79.18 Myalgia, other site (principal) | CPT/HCPCS: 20553; J2003 ==

== ENCOUNTER 2025-08-15 08:49 | Outpatient (AMB) | payer MEDICAID, SELFPAY ==
--- NOTE | 2025-08-15 08:52 | A.OFFVIS_ITS ---
Intake Visit Reasons: OV-Follow up from Trigger point injection Intake Note: Ramsey is a 60 year old male who presents today as a follow up from his trigger point injection. Patient states that the pain is more manageable after the injection and that he feels that he has been sleeping more. Allergies No Known Allergies (No Known Allergies*) Allergy (Verified 08/15/25 08:56) Medication List - Last Reconciled 08/15/25 by Gala Triplett MD acetaminophen 500 mg PO QID PRN atorvastatin 40 mg PO BEDTIME carvedilol 6.25 mg PO BID cyclobenzaprine 10 mg PO BEDTIME folic acid 1 mg PO DAILY hydrochlorothiazide 25 mg PO DAILY ibuprofen 600 mg PO TID PRN multivitamin 1 tab PO DAILY omeprazole 1 cap PO DAILY PRN sildenafil 100 mg PO DAILY PRN sodium,potassium,mag sulfates 17.5-3.13-1.6 gram (Suprep Bowel Prep Kit) DILUTE; drink full amount early evening before AND next morning at least 2 hr before procedure; follow w 960 mL water PO tadalafil 5 mg PO DAILY 90 days tamsulosin (Flomax) 0.4 mg PO BEDTIME 90 days trazodone 75 mg PO BEDTIME HPI Comments Details: S/P left shoulder DCE/RTC repair, 05/04/22, Dr. Javier. He says this probably was an overuse injury. Recovered well but continued with dull pain. Worse since 6 months ago. Still full ROM without pain. Though feels like popping with forward flexion. Denies numbness/tingling. Says dull pain is around the shoulder, armpit and deltoids. 01/06. Also follows ortho for knee euflexxa injections. After clearance from ortho, with tried trigger point injections on left upper trapezius, infraspinatus and latissimus dorsi muscles (1 time). Patient feels 70% better. He is able to sleep better. He is able to lay down on his left side. Denies anymore stiffness. Does have some dullness in the shoulder itself but not painful. [facility] Medical History (Updated 05/22/25 @ 11:41 by Gala Triplett MD) Tubular adenoma Cellulitis Vomiting and diarrhea Depression Cardiomyopathy GERD (gastroesophageal reflux disease) Sickle-cell trait Weakness Anxiety Sleep apnea COVID-19 vaccine series completed Elevated cholesterol Colon cancer screening Erectile dysfunction Lumbar radiculopathy Dysfunction of left rotator cuff Hypertension Chronic back pain Surgical History (Updated 05/22/25 @ 11:41 by Gala Triplett MD) History of colonoscopy (~04/04/23) Hx of rotator cuff surgery Hx of arthroscopic knee surgery Hx of appendectomy H/O colonoscopy Family History Father No problems noted. 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 MSK: Inspection reveals appropriate head and neck positioning. No pain with palpation over the neck musculature. Cervical ROM was full. Spurling's sign negative. No scapular winging. Only mild tenderness on latissimus dorsi muscles. Nontender trapezius. Nontender rhomboids. Empty can test is negative. Drop arm test is negative. Speed's test is negative. Neer's test is negative. Hawkin's test is positive dull ache and crepitus left side. Strength is 5/5 in all muscle groups tested. No increased tone noted. Neurological: Neurologic examination of the upper and lower extremities was nonfocal with intact sensation, muscle stretch reflexes and without focal motor deficits . Doe?s negative bilaterally. Gait is non-antalgic without loss of balance. Results Reviewed Results Reviewed: I independently reviewed the results of the following: Surgical clips on Humeral head seen, images reviewed with patient. Ordering Physician: Kim Alejandre PA-C Date of Service: 05/01/25 Procedure(s): XR shoulder LT min 2V Accession Number(s): [id number] cc: Ethel Santana MD; Kim Alejandre PA-C~ EXAMINATION: XR SHOULDER 2 OR MORE VIEWS LEFT HISTORY: M25.519 - Pain in unspecified shoulder COMPARISON: Comparison is made with the prior examination dated 01/05/2022. FINDINGS: Four views of the left shoulder are submitted. Osseous mineralization is normal. Post surgical changes are noted involving the AC joint. There are suture anchors in the humeral head. There is no fracture or dislocation. The glenohumeral joint is maintained. The soft tissues are unremarkable. XR/XR shoulder LT min 2V IMPRESSION: Postsurgical changes as described. No acute abnormality. Electronically signed by: Guille Frederick MD 05/01/2025 02:44 PM EDT RP I reviewed records from the following: Ortho PT for shoulders, 03/2025 Assessment & Plan Assessment & Plan (1) Left shoulder pain: Code(s): M25.512 - Pain in left shoulder Category: Medical Qualifiers: Chronicity: chronic Qualified Code(s): M25.512 - Pain in left shoulder; G89.29 - Other chronic pain (2) Myofascial pain: Code(s): M79.18 - Myalgia, other site Category: Medical Plan Dull chronic ache since surgery in 2021 for left rotator cuff. But pain and limitation on muscles around the shoulder is much improved after trigger point injection. Patient sleeping better and is satisfied. To see how long this injection with last 4. Assessment and plan discussed with patient, and patient was agreeable. All questions were answered thoroughly. Follow up 3 months. Gala Triplett MD, CHAO Board Certified, [place] Board of Physical Medicine and Rehabilitation (ABPMR) Board Certified, [place] Board of Electrodiagnostic Medicine (ABEM) Coding Level of Care Code Est Pt Level 3 (30374) Diagnoses Chronic left shoulder pain M25.512; G89.29 Chronicity: chronic Myofascial pain M79.18
--- OUTSIDE RECORDS SUMMARY | 2025-08-15 09:19 | XMS_ITS | Encounter Summary ---
Author Organization [employer] Address [address] [place] [address] Care Team Providers Care Street Sweeper Name Role Phone Ethel Santana MD Primary Care Provider + [phone] Gabrielle Peterson PharmD Unavailable Kim Alejandre Unavailable Bebo Aquino MD Unavailable Piyush Acosta MD Unavailable [phone] Gala Triplett Unavailable [phone] Encounter Details Date Type Department Care Team (Late st Contact Info) Description 11/15/2022 Orders Only [facility] [address] [place] [address] Lexi Wakefield LPN Social History Tobacco Use Types Packs/Day Years Used Date Smoking Tobacco: Never Assessed Sex and Gender Information Value Date Recorded Sex Assigned at Male 08/29/2022 10:14 AM EDT Legal Sex Male 10:14 AM EDT Gender Identity Male 08/29/2022 10:14 AM EDT Sexual Orientation Straight 08/29/2022 10 :14 AM EDT documented as of this encounter Plan of Treatment Not on file documented as of this encounter Visit Diagnoses Not on filedocumented in this encounter Care Teams Street Sweeper Relationship Specialty Start Date End Date Ethel Santana MD [address] [place] [address] PCP - General Family Medicine 10/30/18 Gabrielle Peterson, Geno [address] [place] [address] Pharmacist Internal Medicine 02/16/23 Kim Alejandre [address] [place] [address] [address] [place] [address] Orthopaedic Surgery 09/23/24 Bebo Aquino MD [address] [place] [address] Drive [address] [place] [address] Urology 11/07/24 Piyush Acosta MD [address] [place] [address] Cardiology 12/31/24 Gala Triplett [address] [place] [address] Dr [address] [place] [address] Orthopaedic Surgery 08/06/25 documented as of this encounter
--- OUTSIDE RECORDS SUMMARY | 2025-08-15 09:19 | XMS_ITS | Clinical Summary ---
Author Organization 175 [facility] Address 175 [place] [address] Phone Care Team Providers Care Credit Union Examiner Name Role Phone Ethel Santana MD Primary Care Provider [phone]- [phone] Allergies No known active allergies Medications amLODIPine [...] 04/29/2019 Mixed sleep apnea 01/08/2018 Overview (12/29/2023): [facility] [place] Polysomnogram treatment study. Date 01/06/2018 . SE 66 % SM 67 %; spent 20 % of the study in REM. At the optimal pressure of CPAP @ 11; RDI 0.6 (AHI 0.6), Central apneas 1; Obstructive apneas 0; Mixed apneas 0; hypopneas 0; RERAs 0; and, average oxygen saturation was 96%. For the entire study, PLMs ~9. [facility] Polysomnogram: Date 08/06/2017; Wt [...] sleep apnea 01/08/2018 DX:Mixed sleep apnea; COMMENT: [facility] Polysomnogram treatment study. Date 01/06/2018 . SE [...] 10:00 AM EDT Consult Orthopedic Surgery - [place] [address] [place] [address] [place] [phone] Roldan Bowles, DPRomero 175 [facility] [address] [place] [address] Health Maintenance Due Date Last Done Comments [...] topic Insurance [address] [place] [id number] MEDICAID - [place] Care Teams Credit Union Examiner Relationship Specialty Start Date End Date [place] May PointEthel MD [address] [place] [address] PCP - General Internal Medicine 09/09/11
--- OUTSIDE RECORDS SUMMARY | 2025-08-15 09:19 | XMS_ITS | Encounter Summary ---
Author Organization [employer] Address [address] [facility] [address] [place] [address] Care Team Providers Care Assembler Wire Group Name Role Phone CamdenEthel cooley MD Primary Care Provider [phone]- [phone] Gabrielle Peterson PharmD Unavailable Kim Alejandre Unavailable Bebo Aquino MD Unavailable [phone] Piyush Acosta MD Unavailable [phone] Gala Triplett Unavailable [phone] Encounter Details Date Type Department Care Team (Late st Contact Info) Description 02/20/2024 Telephone [facility] DENTAL [address] [place], [place] [phone] Charles Read DDS [address] [place], [place] [phone] Social History Tobacco Use Types Packs/Day Years [...] documented in this encounter Plan of Treatment Not on file documented as of this encounter Goals Goal Patient Goal Type Associated Problems Recent Progress Patient-Stated? Author Blood Pressure < 140/90 Blood Pressure 144/82( 025 11:38 AM EDT) No Piers-Gambl e, Gabrielle, PharmD documented as of this encounter Visit Diagnoses Not on filedocumented in this encounter Additional Health Concerns Assessment Noted Time PHQ-9 Depression Total Score: 0 02/24/20 23 11:33 AM EDT documented as of this encounter Care Teams Assembler Wire Group Relationship Specialty Start Date End Date Ethel Santana MD [address] [place] [address] PCP - General Family Medicine 10/30/18 Gabrielle Peterson PharmD [address] [place] [address] Pharmacist Internal Medicine 02/16/23 Kim Alejandre [address] [place] [address] [address] [place] [phone] Orthopaedic Surgery 09/23/24 Bebo Aquino MD [address] [place] [address] Drive [address] [place] [address] Urology 11/07/24 Piyush Acosta MD [address] [place] [address] Cardiology 12/31/24 Gala Triplett [address] [place] [address] [address] [place] [address] Orthopaedic Surgery 08/06/25 documented as of this encounter
--- OUTSIDE RECORDS SUMMARY | 2025-08-15 09:19 | XMS_ITS | Encounter Summary ---
Author Organization [employer] Address [address] [place] [address] Care Team Providers Care Doll Wig Maker Rooted Hair Name Role Phone Ethel Santana MD Primary Care Provider [phone] Gabrielle Peterson PharmD Unavailable Kim Alejandre Unavailable Bebo Aquino MD Unavailable [phone] Piyush Acosta MD Unavailable Gala Triplett Unavailable Encounter Details Date Type Department Care Team (Late st Contact Info) Description 02/21/2023 Orders Only [facility] [address] [place], [place] [phone] Ethel Santana MD [address] [place], [place] [phone] Low iron (Primary Dx) Social History Tobacco [...] Questionnaire -9 Score 0 02/23/2023 11:33 AM EDT Starr Sr M A documented as of this encounter Plan of Treatment Not on file documented as of this encounter Goals Goal Patient Goal Type Associated Problems Recent Progress Patient-Stated? Author Blood Pressure < 140/90 Blood Pressure 144/82( 025 11:38 AM EDT) No Gabrielle Sanz PharmD documented as [...] Vitamin B12 517 200 - 1,100 pg/mL [facility] Blood Venous blood specimen / Unknown 02/21/2023 2:34 PM EDT 02/21/2023 2:35 PM EDT Ethel Santana MD LAB BLOOD ORDERABLES Final Result [address], [place] [address] [facility] [address] [place] [address] * Iron, TIBC And Ferritin Panel (02/21/2023 2:34 PM EDT) Iron, Total 65 50 - 180 mcg/dL [facility] Iron Binding Capacity 259 250 - 425 mcg/dL (calc) [facility] % Saturation 25 20 - 48 % (calc) [facility] Ferritin 156 38 - 380 ng/mL [facility] Blood 02/21/2023 2:34 PM EDT 02/21/2023 2:35 PM EDT Ethel Santana MD LAB BLOOD ORDERABLES Final Result [facility] [address], [place] [address] [facility] [address] [place] [address] * (ABNORMAL) CBC auto differential (02/21/2023 2:34 PM EDT) White Blood Cell Count 5.7 3.8 - 10.8 Thousand/ uL [facility] Red Blood Cell Count 5.31 4.20 - 5.80 Million/u L [facility] Hemoglobin 14.0 13.2 - 17.1 g/dL [facility] Hematocrit 41.1 38.5 - 50.0 % [facility] MCV 77.4(L) 80.0 - 100.0 fL [facility] MCH 26.4(L) 27.0 - 33.0 pg [facility] MCHC 34.1 32.0 - 36.0 g/dL [facility] RDW 15.1(H) 11.0 - 15.0 % [facility] Platelet Count 234 140 - 400 Thousand/ uL [facility] MPV 10.0 7.5 - 12.5 fL [facility] Absolute Neutrophils 2,987 1,500 - 7,800 cells/uL [facility] Absolute Lymphocytes 2,075 850 - 3,900 cells/uL [facility] Absolute Monocytes 496 200 - 950 cells/uL [facility] Absolute Eosinophils 120 15 - 500 cells/uL [facility] Absolute Basophils 23 0 - 200 cells/uL [facility] Neutrophils 52.4 % [facility] Lymphocytes 36.4 % [facility] Monocytes 8.7 % [facility] Eosinophils 2.1 % [facility] Basophils 0.4 % [facility] Blood Venous blood specimen / Unknown 02/21/2023 2:34 PM EDT 02/21/2023 2:35 PM EDT Ethel Santana MD LAB BLOOD ORDERABLES Final Result [facility] [address], [place] [address] [facility] [address] [place] [address] documented in this encounter Visit Diagnoses Diagnosis Low iron- Primary Unspecified iron deficiency anemia documented in this encounter Care Teams Doll Wig Maker Rooted Hair Relationship Specialty Start Date End Date Ethel Santana MD [address] [place] [address] PCP - General Family Medicine 10/30/18 Gabrielle Peterson, PharmD [address] [place] [address] Pharmacist Internal Medicine 02/16/23 Kim Alejandre [address] [place] [address] Orthopaedic Surgery 09/23/24 Bebo Aquino MD [address] [place] [address] [address] [place] [address] Urology 11/07/24 Piyush Acosta MD [address] [place] [address] Cardiology 12/31/24 Gala Triplett [address] [place] [address] Orthopaedic Surgery 08/06/25 documented as of this encounter
--- OUTSIDE RECORDS SUMMARY | 2025-08-15 09:19 | XMS_ITS | Encounter Summary ---
Author Organization [employer] Address [address] [place] [address] Care Team Providers Care Data Integration Developer Name Role Phone LaneEthel MD Primary Care Provider Gabrielle Peterson PharmD Unavailable Kim Alejandre Unavailable Bbeo Aquino MD Unavailable Piyush Acosta MD Unavailable [phone] Gala Triplett Unavailable [phone] Encounter Details Date Type Department Care Team (Latest Contact Info) Description 01/18/[address] [facility] CONVERSIONS Dental, Provider, DDS Social History [...] on filedocumented in this encounter Care Teams Data Integration Developer Relationship Specialty Start Date End Date LaneEthel cooley MD [address] [place] [address] [phone] PCP - General Family Medicine 10/30/18 Gabrielle Peterson, Geno [address] [place] [phone] Pharmacist Internal Medicine 02/16/23 Kim Alejandre [address] [place] [address] Dr [address] [place] [address] Orthopaedic Surgery 09/23/24 Bebo Aquino MD [address] [place] [address] Drive [address] [place] [address] Urology 11/07/24 Piyush Acosta MD [address] [place] [address] Cardiology 12/31/24 Gala Triplett [address] [place] [address] Dr [address] [place] [address] Orthopaedic Surgery 08/06/25 documented as of this encounter
--- OUTSIDE RECORDS SUMMARY | 2025-08-15 09:19 | XMS_ITS | Encounter Summary ---
Author Organization [employer] Address [address] [facility] 7t [place] [address] Care Team Providers Care Upholsterer Limousine And Hearse Name Role Phone Ethel Santana MD Primary Care Provider [phone] Gabrielle Peterson PharmD Unavailable Kim Alejandre Unavailable Bebo Aquino MD Unavailable Piyush Acosta MD Unavailable Gala Triplett Unavailable Encounter Details Date Type Department Care Team (Late st Contact Info) Description 11/15/2022 Abstract [facility] MEDICINE [address] [place], [place] [phone] Ethel Santana MD [address] [place], [place] [phone] Social History Tobacco Use Types Packs/Day Years [...] on file documented as of this encounter Procedures Procedure Name Priority Date/Time Associated Diagnosis Comments HM COLONOSCOPY Routine 12/02/2015 documented in this encounter Results * Colonoscopy (12/02/2015) Colonoscopy Tubular Adenoma with Dr. Avilez us Historical Provider HEALTH MAINTENANCE Final Result documented in this encounter Visit Diagnoses Not on filedocumented in this encounter Care Teams Upholsterer [employer]ousine [employer] Hearse Relationship Specialty Start Date End Date Ethel Santana MD [address] [place] [address] PCP - General Family Medicine 10/30/18 Gabrielle Peterson, HaoD [address] [place] [address] Pharmacist Internal Medicine 02/16/23 Kim Alejandre [address] [place] [address] [address] [place] [address] Orthopaedic Surgery 09/23/24 Bebo Aquino MD [address] [place] [address] [address] [place] [address] Urology 11/07/24 Piyush Acosta MD [address] [place] [address] Cardiology 12/31/24 Gala Triplett [address] [place] [address] Dr [address] [place] [address] Orthopaedic Surgery 08/06/25 documented as of this encounter
--- OUTSIDE RECORDS SUMMARY | 2025-08-15 09:19 | XMS_ITS | Encounter Summary ---
Author Organization [employer] Address [address] [facility] [address] [place] [address] Care Team Providers Care Gasoline Catalyst Operator Name Role Phone Ethel Santana MD Primary Care Provider [phone] Gabrielle Peterson PharmD Unavailable Kim Alejandre Unavailable Bebo Aquino MD Unavailable [phone] Piyush Acosta MD Unavailable [phone] Gala Triplett Unavailable [phone] Encounter Details Date Type Department Care Team (Late st Contact Info) Description 11/07/2022 Orders Only [facility]S [address] [place], [place] [phone] Irish Cannon LPN Social History Tobacco Use [...] on filedocumented in this encounter Care Teams Gasoline Catalyst Operator Relationship Specialty Start Date End Date Ethel Santana MD [address] [place] [address] PCP - General Family Medicine 10/30/18 Gabrielle Peterson, Geno [address] [place] [address] Pharmacist Internal Medicine 02/16/23 Kim Alejandre [address] [place] [address] [address] [place] [address] Orthopaedic Surgery 09/23/24 Bebo Aquino MD [address] [place] [address] Drive [address] [place] [address] Urology 11/07/24 Piyush Acosta MD [address] [place] [address] Cardiology 12/31/24 Gala Triplett [address] [place] [address] Dr [address] [place] [address] Orthopaedic Surgery 08/06/25 documented as of this encounter
--- OUTSIDE RECORDS SUMMARY | 2025-08-15 09:19 | XMS_ITS | Encounter Summary ---
Author Organization [employer] Address [address] [facility] [address] 7[address] [place] [address] Care Team Providers Care Human Resources Benefits Specialist Name Role Phone Ethel Santana MD Primary Care Provider + [phone] Gabrielle Peterson PharmD Unavailable Kim Alejandre Unavailable Bebo Aquino MD Unavailable [phone] Piyush Acosta MD Unavailable [phone] Gala Triplett Unavailable [phone] Encounter Details Date Type Department Care Team (Late st Contact Info) Description 07/22/2024 Telephone [facility] MEDICINE [address] [place], [place] [phone] Gabrielle Peterson, PharmD [address] [place] [address] Social History Tobacco Use Types Packs/Day Years [...] Sanz PharmD documented as of this encounter Visit Diagnoses Not on filedocumented in this encounter Additional Health Concerns Assessment Noted Time PHQ-9 Depression Total Score: 12 024 11:36 AM EDT documented as of this encounter Care Teams Human Resources Benefits Specialist Relationship Specialty Start Date End Date Ethel Santana MD [address] [place] [address] PCP - General Family Medicine 10/30/18 Gabrielle Peterson, HaoD [address] [place] [address] Pharmacist Internal Medicine 02/16/23 Kim Alejandre [address] [place] [address] [address] [place] [address] Orthopaedic Surgery 09/23/24 Bebo Aquino MD [address] [place] [address] Drive [address] [place] [address] Urology 11/07/24 Piyush Acosta MD [address] [place] [address] Cardiology 12/31/24 Gala Triplett [address] [place] [address] Orthopaedic Surgery 08/06/25 documented as of this encounter
--- OUTSIDE RECORDS SUMMARY | 2025-08-15 09:19 | XMS_ITS | Encounter Summary ---
Author Organization [employer] Address [address] [facility] [address] [place] [address] Care Team Providers Care Whizzer Hand Name Role Phone Ethel Santana MD Primary Care Provider [phone] Gabrielle Peterson PharmD Unavailable Kim Alejandre Unavailable Bebo Aquino MD Unavailable Piyush Acosta MD Unavailable Gala Triplett Unavailable [phone] Encounter Details Date Type Department Care Team (Late st Contact Info) Description 04/06/2023 Orders Only [facility] MEDICINE [address] [place], [place] [phone] Ethel Santana MD [address] [place], [place] [phone] Social History Tobacco Use Types Packs/Day Years [...] documented as of this encounter Care Teams Whizzer Hand Relationship Specialty Start Date End Date Ethel Santana MD [address] [place] [address] PCP - General Family Medicine 10/30/18 Gabrielle Peterson, PharmD [address] [place] [address] Pharmacist Internal Medicine 02/16/23 Kim Alejandre [address] [place] [address] Dr [address] [place] [address] Orthopaedic Surgery 09/23/24 Bebo Aquino MD [address] [place] [address] Drive [address] [place] [address] Urology 11/07/24 Piyush Acosta MD [address] [place] [address] Cardiology 12/31/24 Gala Triplett [address] [place] [address] Orthopaedic Surgery 08/06/25 documented as of this encounter
--- OUTSIDE RECORDS SUMMARY | 2025-08-15 09:19 | XMS_ITS | Clinical Summary ---
Author Organization [employer] Address [address] [place] [address] Care Team Providers Care Test Department Helper Name Role Phone Ethel Santana MD Primary Care Provider [phone] Gabrielle Peterson PharmD Unavailable Kim Alejandre Unavailable Bebo Aquino MD Unavailable [phone] Piyush Acosta MD Unavailable [phone] Gala Triplett Unavailable [phone] Allergies No known active allergies Medications cyclobenzaprine (Flexeril) 10 MG tabletIndication s:Low back pain without sciatica, unspecified back pain laterality, unspecified chronicity One tab po at bedtime prn pain of muscles, do not drive with medicaion 30 tablet 02/28/20 23 Active busPIRone (Buspar) 15 MG tabletIndication s:Depressive disorder Take 15 mg by mouth if needed in the morning, at noon, and at bedtime. 03/06/20 24 Active traZODone (Desyrel) 50 MG tabletIndication s:Depressive disorder TAKE 1 TABLET BY MOUTH EVERY NIGHT AT BEDTIME NEEDED TO HELP SLEEP BEFORE 9PM 03/06/20 24 Active Blood Glucose Monitoring Suppl (SafeNet [place] Lite) w/Device kitIndications:P rediabetes Use to test blood sugar bid dx dm 1 kit 07/03/20 24 Active glucose blood (FreeStyle Precision Alejandro Test) test stripIndications :Prediabetes Test blood sugar q 8 hours 100 each 12 07/03/20 24 Active amLODIPine (Norvasc) 5 MG tabletIndication s:Primary hypertension Take 1 tablet by mouth once daily 90 tablet 3 10/16/20 24 Active sildenafil (Viagra) 100 MG tabletIndication s:Erectile [...] mouth at bedtime. Active ibuprofen 800 MG tabletIndication s:Acute midline low back pain without sciatica 1 tab every 8 hours as needed for pain, take with food 90 tablet 01/21/20 25 Active hydroCHLOROthiaz luther (HYDRODiuril) 25 MG tabletIndication s:Primary hypertension Take 1 tablet (25 mg) by mouth Once per day. for high blood pressure 90 tablet 3 03/18/20 25 Active magnesium oxide 250 MG tablet TAKE 1 TABLET BY MOUTH EVERY DAY AT BEDTIME NEEDED FOR CRAMPS 01/09/20 25 Active carvedilol (Coreg) 6.25 MG tabletIndication s:Primary hypertension TAKE 1 TABLET BY MOUTH TWICE DAILY IN THE MORNING AND IN THE EVENING 180 tablet 3 07/16/20 25 Active magnesium oxide 250 MG tabletIndication s:Leg cramps TAKE 1 TABLET BY MOUTH AT BEDTIME NEEDED FOR CRAMPS 90 tablet 3 07/17/20 25 Active omeprazole (PriLOSEC) [address] capsuleIndicatio ns:Gastroesophag eal reflux disease, unspecified whether esophagitis present TAKE 1 CAPSULE BY MOUTH EVERY DAY 90 capsule 3 07/17/20 25 Active atorvastatin (Lipitor) 40 MG tabletIndication s:Dyslipidemia TAKE 1 TABLET BY MOUTH EVERY MORNING 90 tablet 3 07/17/20 25 Active TRUEplus Lancets 33G miscIndications: Prediabetes TEST BLOOD SUGAR TWICE DAILY 100 each 11 07/17/20 25 Active nystatin (Mycostatin) 668486 UNIT/ML suspensionIndica tions:Tinea pedis of both feet Take 1 mL (100,000 Units) by mouth 4 times daily. 60 mL 3 07/21/20 25 025 Active fluconazole (Diflucan) 150 MG tabletIndication s:Tinea pedis of both feet Take 1 tab po once, repeat in 72 hours. 2 tablet 07/21/20 25 Active sertraline (Zoloft) 25 MG tabletIndication s:Depression, unspecified depression type Take 25 mg by mouth in the morning. 05/23/20 25 Active tamsulosin (Flomax) 0.4 MG 24 hr capsuleIndicatio ns:Benign prostatic hyperplasia without lower urinary tract symptoms Take 0.4 mg by mouth at bedtime. 05/06/20 25 Active FREESTYLE LITE test stripIndications :Prediabetes USE TO TEST BLOOD SUGAR TWICE DAILY 50 strip 08/13/20 25 Active FreeStyle lancetsIndicatio ns:Prediabetes 1 each by Other route 2 times daily. Use bid, dx type 2 diabetes 60 each 11 07/03/20 24 025 Discontinued glucose blood (FREESTYLE LITE) test stripIndications :Prediabetes 1 each by Other route 2 times daily. Use bid. Dx diabetes 60 each 07/19/20 24 025 Discontinued atorvastatin (Lipitor) 40 MG tabletIndication s:Dyslipidemia TAKE 1 TABLET BY MOUTH EVERY MORNING 90 tablet 1 02/12/20 25 025 Discontinued Magnesium 250 MG capsuleIndicatio ns:Leg cramps Take 250 mg by mouth if needed at bedtime (cramps). 90 capsule 04/01/20 25 025 Discontinued omeprazole (PriLOSEC) [address] capsuleIndicatio ns:Gastroesophag eal reflux disease, unspecified whether esophagitis present TAKE 1 CAPSULE BY MOUTH EVERY DAY 90 capsule 04/23/20 25 025 Discontinued Active Problems Patient Care Coordination No te Formatting of this note migh t be different from the original. Enrolled in [facility] HTN clinic with Gabrielle Peterson PharmD Problem Noted Date Diagnosed Date Benign prostatic hyperplasia without lower urinary tract symptoms 05/07/2025 Overview (07/02/2025): -followed by [facility], note form 05/06/25 reviewed, tamsulosin 0.4 started [...] Prominent postvoid bladder residual volume 51 mL. Assessment & Plan (07/21/2025 11:54 AM EDT): -followed by [facility], note form 05/06/25 reviewed, tamsulosin 0.4 started [...] mL. Chronic left shoulder pain 05/01/2025 Overview (08/06/2025): XR 05/01/25 FINDINGS: Four views of the left shoulder are submitted. Osseous mineralization is normal. Post surgical changes are noted involving the AC joint. There are suture anchors in the humeral head. There is no fracture or dislocation. The glenohumeral joint is maintained. The soft tissues are unremarkable. -seen by [facility] With Gala Triplett 08/03/25, note reviewed, s/p trigger point injection Overweight 01/08/2025 Overview (01/08/2025): Discussed weight, diet, exercise with patient in relation to health conditions. Used motivational interviewing to illicit change talk and established initial goals with patient. Assessment & Plan (07/21/2025 11:54 AM EDT): Discussed weight, diet, exercise with patient [...] and nutrition interventions discussed. Prediabetes 07/03/2024 Overview (07/21/2025): Lab Results Component Value Date HGBA1C 6.0 01/08/2025 HGBA1C 5.9 07/03/2024 HGBA1C 5.5 08/15/2023 HGBA1C 5.7 (H) 03/02/2023 GLUCOSE 101 07/25/2024 -continue lifestyle modifications -given BGM to continue monitoring especially if he feels jittery again. Assessment & Plan (07/21/2025 11:54 AM EDT): Lab Results Component Value Date HGBA1C 6.0 01/08/2025 HGBA1C 5.9 07/03/2024 HGBA1C 5.5 08/15/2023 HGBA1C 5.7 (H) 03/02/2023 GLUCOSE 101 07/25/2024 -continue lifestyle modifications -given BGM to continue monitoring especially if he feels jittery again. Orders: POCT glucose manually resulted POCT glycosylated hemoglobin (Hgb A1c) Assessment & Plan (01/08/2025 3:04 PM EDT): [...] feels jittery again. Alcohol dependence in remission (CMS/HCC) 2023 Overview (01/08/2025): -cutting down, reports only drinking occasionally not routinely anymore 01/08/25 Assessment & Plan (01/08/2025 2:57 PM EDT): -cutting down, reports only drinking occasionally not routinely anymore 01/08/25 Assessment & Plan (07/03/2024 11:53 AM EDT): -Denies alcohol use. Anemia 07/03/2024 Overview (07/21/2025): Lab Results Component Value Date FERRITIN 297 (H) 07/25/2024 FERRITIN 297 (H) 10/04/2023 FERRITIN 156 02/21/2023 HGB 14.5 07/25/2024 HGB 14.1 10/04/2023 HGB 14.0 02/21/2023 HGB 14.5 03/01/2022 HEMATOCRIT 41.1 02/21/2023 HEMATOCRIT 43.9 03/01/2022 IRONTOTAL 65 02/21/2023 -will recheck at annual exam 12/2025. Assessment & Plan (07/21/2025 11:54 AM EDT): Lab Results Component Value Date FERRITIN 297 (H) 07/25/2024 FERRITIN 297 (H) 10/04/2023 FERRITIN 156 02/21/2023 HGB 14.5 07/25/2024 HGB 14.1 10/04/2023 HGB 14.0 02/21/2023 HGB 14.5 03/01/2022 HEMATOCRIT 41.1 02/21/2023 HEMATOCRIT 43.9 03/01/2022 IRONTOTAL 65 02/21/2023 -will recheck at annual exam 12/2025. Assessment & Plan (01/08/2025 2:47 PM EDT): [...] annual evaluation due after 01/08/26 -referred to [facility] 01/08/25 -dental home is [facility] will make appt -Health care proxy 07/03/24 Assessment & Plan (01/08/2025 3:02 PM EDT): -next comprehensive annual evaluation due after 01/08/26 -referred to [facility] 01/08/25 -dental home is [facility] will make appt -Health care proxy 07/03/24 Assessment & Plan (07/03/2024 11:49 AM EDT): -next physical exam due after 10/04/2024 -eye care facilitated by [facility] -dental home is [facility] will make appt -Health care proxy 07/03/24 Assessment & Plan (10/04/2023 11:50 AM EST): -next physical exam due after 10/04/2024 -eye care facilitated by [facility] -dental home is [facility] will make appt Tooth fracture with [...] 02/23/2023. PT referral placed -steroid injection with [facility] done 04/12/24 -seen by Kim Alejandre [...] Euflexxa gel injections #3 Assessment & Plan (07/21/2025 11:54 AM EDT): Referral to orthopedics done 02/23/2023. PT referral placed -steroid injection with [facility] done 04/12/24 -seen by Kim Alejandre [...] precaution discussed. Foot pain 01/04/2023 Hypertrophic cardiomyopathy (CMS/HCC) 01/04/2023 Overview (12/08/2023): Follows w/ Dr. Acosta [...] Follows w/ Dr. Acosta regularly Last echo 2019 Update ordered today Cleared pending echo w/o significant abnormalities Onychomycosis 01/04/2023 Overview (10/02/2023): Referral to Podiatry 07/21/2022 Assessment & Plan (07/21/2025 11:54 AM EDT): History of onychomycosis, recurrent episode of tinea pedis. See image in chart. Lats treated with OTC, now request stronger prescription. -prescribed nystatin and fluconazole 07/21/25 -referred to podiatry 07/21/25 Orders: Referral to Podiatry; Future Assessment & Plan (10/02/2023 9:26 AM EST): [...] ventilation at home 04/26/2022 Dyslipidemia 02/27/2019 Overview (07/21/2025): Lab Results Component Value Date CHOL 112 07/25/2024 CHOL 109 08/15/2023 TRIG 159 (H) 07/25/2024 TRIG 84 08/15/2023 TRIG 204 (H) 03/02/2023 HDL 32 (L) 07/25/2024 HDL 33 (L) 08/15/2023 LDLCHOLCAL 49 07/25/2024 LDLCHOLCAL 60 08/15/2023 -continue lifestyle modification Assessment & Plan (07/21/2025 11:54 AM EDT): Lab Results Component Value Date CHOL [...] (01/08/2025): Tolerating CPAP well. Assessment & Plan (07/21/2025 11:54 AM EDT): Tolerating CPAP well. Assessment & Plan (01/08/2025 [...] once daily started 05/16/2022. Hypertension 04/01/2013 Overview (07/21/2025): -Blood pressure is at goal 07/21/25 -Continue lifestyle modifications -Continue current medications -f/u in 6 months Assessment & Plan (07/21/2025 11:54 AM EDT): -Blood pressure is at goal 07/21/25 -Continue lifestyle modifications -Continue current medications -f/u [...] Encounters Date Type Department Care Team Description 08/13/2025 Refill [facility] [address] [place] [id number] Ethel Santana MD Prediabetes 07/21/2025 10:45 AM EDT Office Visit [facility] [address] [place] [address] Ethel Santana MD Tinea pedis of both feet (Primary Dx); Onychomycosis; Maceration of skin; Hypertension, unspecified type; Dyslipidemia; Obstructive sleep apnea of adult; Prediabetes; Anemia, unspecified type; Benign prostatic hyperplasia without lower urinary tract symptoms; Right knee pain, unspecified chronicity; Overweight; Dietary counseling; Exercise counseling; Depression, unspecified depression type; Encounter for immunization 07/21/2025 Travel 07/18/2025 Telephone [facility] [address] [place] [address] Mouna Vasquez [place] 07/16/2025 Refill [facility] [address] [place] [address] Ethel Santana MD Leg cramps; Gastroesophageal reflux disease, unspecified whether esophagitis present; Dyslipidemia; Prediabetes 2025 Refill [facility] [address] [place] [address] Ethel Santana MD Primary hypertension 07/01/2025 Orders Only [facility] External Provider, [facility] Benign prostatic hyperplasia without lower urinary tract symptoms (Primary Dx) from Last 3 Months Immunizations Immunization Administration Dates Next Due Hep A, Adult 06/24/2024,10/04/2023 Hep B, adult 08/24/2023,03/28/2023,02/23/2023 Influenza, IIV3, injectable 07/25/2013 Influenza, seasonal, injecta ble, preservative free 07/21/2025 Moderna Covid-19 Vaccine 12+ 03/24/2021,02/25/20 21 Moderna [...] housing situation today? I have jocelynn martinez 07/21/[address] you li ve. Do you have problems with any of the following? None of the above 07/21/2025 Food Insecurity Answer Date Recorded Within the past 12 months, y ou worried that your food would run out before you got money to buy more: Never True 07/21/2025 Within the past 12 months,th e food you bought just didn't last and you didn't have enough money to get more: Never True Transportation Answer Date Recorded In the past 12 months, has l ack of transportation kept you from medical appts, meetings, work or from getting things needed for daily living? No 07/21/2025 Utilities Answer Date Recorded In the past 12 months, has t he electric, gas, oil or water company threatened to shut off services in your home? No 07/21/2025 Depression Answer Date Recorded Patient Health Questionnaire-2 Score 0 01/08/2025 Internet Access Answer Date Recorded Internet Access Q1 No 07/21/2025 Internet Access Q2 I do not want or need it 07/01 Sex and Gender Information Value Date Recorded Sex Assigned at Male 08/29/2022 10:14 AM EDT Legal Sex Male 10:14 AM EDT Gender Identity Male 08/29/2022 10:14 AM EDT Sexual Orientation Straight 08/29/2022 10 :14 AM EDT Last Filed Vital Signs Vital Sign Reading Time Taken Comments Blood Pressure 144/82 07/21/2025 11:38 AM EDT Pulse 67 07/21/2025 11:38 AM EDT Temperature 37.2 C (98.9 F) 07/21/2025 11:38 AM EDT Respiratory Rate 20 07/21/2025 11:38 AM EDT Oxygen Saturation 98% 07/21/2025 11:38 AM EDT Inhaled Oxygen Concentration - - Weight 105 kg (232 lb 3.2 oz) 07/21/2025 11:38 A M EDT Height 179.1 cm (5' 10.5 ) 01/08/2025 2:22 PM ED T Body Mass Index 32.85 01/08/2025 2:22 PM EDT Plan of Treatment Health Maintenance Due Date Last Done Comments CT Colonography 1965 Dental Prophylaxis 1965 FIT DNA/Cologuard 1965 FIT 1965 FOBT 1965 Sigmoidoscopy 1965 Dental Oral Exam 12/15/2024 06/13/2024, 01/18/2022 Dental X-Ray: Bitewings 06/14/2025 06/13/20 24, 01/18/2022, 01/07/2022 COVID-19 Vaccine ( season) 2025 02/23/2023, 03/24/2021, 02/24/2021 Alcohol/Substance Use Screening 01/08/2026 01/08/2025 Depression Screening 01/08/2026 01/08/2025, 01/09/20 25 Diabetes: Hemoglobin A1C 07/21/2026 025, 01/08/2025, 07/03/2024, Additional history exists Disability Screening 07/21/2026 07/21/2025 SDOH Screening 07/21/2026 07/21/2025 Tobacco Screening 07/21/2026 07/21/2025 Dental X-Ray: Full Mouth 07/25/2026 07/24/2023, 12/29 [...] Hepatitis A Vaccines Completed 06/24/2024, 10/04/20 23 Influenza Vaccine Completed 07/21/2025, 07/25/2013 Anal Pap Discontinued HIB Vaccines Aged Out [...] 11:38 AM EDT) No Gabrielle Sanz PharmD Procedures Procedure Name Priority Date/Time Associated Diagnosis Comments POCT GLUCOSE Routine 07/21/2025 11:26 AM EDT Prediabetes POCT GLYCOSYLATED HEMOGLOBIN (HGB A1C) Routine 07/21/2025 11:25 AM EDT Prediabetes US BLADDER Routine 07/02/2025 9:48 AM EDT LIPID PANEL, STANDARD Routine 07/25/2024 9:03 AM [...] Relevant to Health Maintenance Results * POCT glucose manually resulted (07/21/2025 11:26 AM EDT) Glucose Blood, POC 117 60 - 200 mg/dL QC Media Lot # [id number] Lot# Expiration Date [id number] Blood Capillary blood specimen / Unknown 07/21/2025 11:26 AM EDT Ethel Santana MD POINT OF CARE TEST ENTER/E DIT ORDERABLES Final Result * (ABNORMAL) POCT glycosylated hemoglobin (Hgb A1c) (07/21/2025 11:25 AM EDT) Hemoglobin A1C 5.8(A) 4.0 - 5.7 % QC Media Lot # [id number] Lot# Expiration Date ,[id number] Blood Capillary blood specimen / Unknown 07/21/2025 11:25 AM EDT Ethel Santana MD POINT OF CARE TEST ENTER/E DIT ORDERABLES Final Result * US BLADDER (07/02/2025 9:48 AM EDT) Anatomical Region Laterality Modality Abdomen Ultrasound 07/02/2025 9:48 AM EDT Narrative 07/02/2025 9:50 AM EDT [address] [address] Ultrasound Report Signed Patient: Ramsey Ayala MR#: [id number] : 1965 Acct:[id number] Age/Sex: 59 / M ADM Date: 07/01/25 Loc: HO.US Attending Dr: Bebo Aquino MD Ordering Physician: Bebo Aquino MD Date of Service: 07/01/25 Procedure(s): US bladder Accession Number(s): [id number] cc: Bebo Aquino MD; Ethel Santana MD [...] in OV> 07/02/25948 DD/ 7 TD/TT: 07/02/25947 Administrative Job Titles: Procedure Note Donotuseinterpreter, Image - 07/02/[address] [address] Ultrasound Report Signed Patient: Ramsey Ayala LMR#: [id number] : 1965Acct:[id number] Age/Sex: 59 / MADM Date: 07/01/25 Loc: .US Attending Dr: Bebo Aquino MD Ordering Physician: Bebo Aquino MD Date of Service: 07/01/25 Procedure(s): US bladder Accession Number(s): [id number] cc: Bebo Aquino MD; Ethel Santana MD [...] in OV> 07/02/25948 DD/ 7 TD/TT: 07/02/25947 Administrative Job Titles: us [facility] External Provider IMG US PROCEDURES Final Result * (ABNORMAL) Lipid Panel, Standard (07/25/2024 9:03 AM EDT) Triglycerides 159(H) <150 mg/dL [facility] Comment:Desirable Triglyceri de: less than 150 mg/dLBorderline High Triglyceride 150-199 mg/dLHigh Triglyceride: 200-499 mg/dLVery High Triglyceride: greater than or equal to 5OO mg/dL Cholesterol 112 <200 mg/dL [facility] Comment:Desirable Cholestero l: less than 200 mg/dLBorderline High Cholesterol: 200-239 mg/dLHigh Cholesterol: greater than 239 mg/dL LDL Cholesterol Calculated 49 <100 mg/dL [facility] Comment:Desirable LDL: less than 100 mg/dLNear Optimal/Above Optimal LDL: 110- 129 mg/dLBorderline High LDL: 130-159 mg/dLHigh LDL: 160-189 mg/dLVery High LDL: greater than or equal to 190 mg/dL HDL Cholesterol 32(L) >40 mg/dL [facility] Comment:Desirable HDL: great er than 40 mg/dL Note: This HDL assay may give artificially low results in patients with liver disease. Blood Venous blood specimen / Unknown 07/25/2024 9:03 AM EDT 07/25/2024 11:51 AM EDT Ethel Santana MD LAB BLOOD ORDERABLES Final Result Performing Organization Address [facility]/ZIP Co de Phone Number [facility] [address] [place] [phone] * Hepatitis C Antibody with Reflex to HCV, RNA, Quantitative, Real-Time PCR (10/04/2023 12:12 PM EST) Hepatitis C Antibody Nonreactive Nonreactive [facility] Comment:Antibodies to HCV no t detected; does not exclude early acuteHCV infection. Blood Venous blood specimen / Unknown 10/04/2023 12:12 PM EST 10/04/2023 1:02 PM EST Ethel Santana MD LAB BLOOD ORDERABLES Final Result Performing Organization Address [facility] de Phone Number [facility] [address] [place] [phone] * HIV-1/2 Antigen and Antibodies, Fourth Generation, with Reflexes (10/04/2023 12:12 PM EST) HIV AB/AG Nonreactive Nonreactive [facility] Comment:HIV-1 p24 Ag and/or HIV-1/HIV-2 Ab not detected.A test result that is nonreactive does not exclude thepossibility of exposure to or infection with HIV-1 and/orHIV-2. Nonreactive results in this assay for individualswith prior exposure to HIV-1 and/or HIV-2 may be due toantigen and antibody levels that are below the limit ofdetection of this assay.The AncestryniScribeStorm HIV Ag/Ab Combo assay result andsupplemental assay results should be interpreted inconjunction with the patient's clinical presentation,history and other laboratory results. If the results areinconsistent with clinical evidence, additional testing issuggested to confirm the result. Blood Venous blood specimen / Unknown 10/04/2023 12:12 PM EST 10/04/2023 1:02 PM EST Ethel Santana MD LAB BLOOD ORDERABLES Final Result [facility] [address] [place] [address] [phone] * (ABNORMAL) Colonoscopy (04/04/2023 10:29 AM EDT) Colonoscopy Abnormal( A) Normal Comment:tubular adenoma, nex t due 5 years Sergio Avilez MD HEALTH MAINTENANCE Final Res ult from Last 3 Months or Most Recently Relevant to Health Maintenance Insurance [facility] C3 DENTAL-[facility] MEDICAID STAND ADULT [address] [facility] [address] YEFRI Serrano Advance Directives Documents on File Type Date Recorded 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 Advance Directives and Living Will 07/04/2024 1:03 PM Health Care Proxy Care Teams Test Department Helper Relationship Specialty Start Date End Date Max, MD Ethel [address] [place] [address] PCP - General Family Medicine 10/30/18 Gabrielle Peterson, HaoD [address] [place] [phone] Pharmacist Internal Medicine 02/16/23 Kim Alejandre [address] [place] [address] [address] [place] [phone] Orthopaedic Surgery 09/23/24 Bebo Aquino MD [address] [place] [address] Drive [address] [place] [address] Urology 11/07/24 Piyush Acosta MD [address] [place] [address] Cardiology 12/31/24 Gala Triplett [address] [place] [address] Dr [address] [place] [address] Orthopaedic Surgery 08/06/25
--- OUTSIDE RECORDS SUMMARY | 2025-08-15 09:19 | XMS_ITS | Encounter Summary ---
Author Organization [employer] Address [address] [facility] [address] [place] [address] Care Team Providers Care Sales Service Assistant Name Role Phone Ethel Santana MD Primary Care Provider Gabrielle Peterson PharmD Unavailable [phone] Kim Alejandre Unavailable Bebo Aquino MD Unavailable [phone] Piyush Acosta MD Unavailable [phone] Gala Triplett Unavailable [phone] Encounter Details Date Type Department Care Team (Late st Contact Info) Description 11/20/2024 Orders Only [facility] [address] [place], [place] [phone] Ethel Santana MD [address] [place], [place] [phone] Social History Tobacco Use Types Packs/Day Years [...] documented as of this encounter Care Teams Sales Service Assistant Relationship Specialty Start Date End Date Ethel Santana MD [address] [place] [phone] PCP - General Family Medicine 1/1/19 Gabrielle Peterson, Geno [address] [place] [address] Pharmacist Internal Medicine 02/16/23 Kim Alejandre [address] [place] [address] [address] [place] [phone] Orthopaedic Surgery 09/23/24 Bebo Aquino MD [address] [place] [address] Drive [address] [place] [address] Urology 11/07/24 Piyush Acosta MD [address] [place] [address] Cardiology 12/31/24 Gala Triplett [address] [place] [address] Dr [address] [place] [address] Orthopaedic Surgery 08/06/25 documented as of this encounter
--- OUTSIDE RECORDS SUMMARY | 2025-08-15 09:19 | XMS_ITS | Encounter Summary ---
Author Organization [email or web address] Address [address] [facility] [address] [place] [address] Care Team Providers Care Weaver Needle Loom Name Role Phone Ethel Santana MD Primary Care Provider + [phone] Gabrielle Peterson PharmD Unavailable Kim Alejandre Unavailable Bebo Aquino MD Unavailable Piyush Acosta MD Unavailable [phone] Gala Triplett Unavailable [phone] Reason for Visit * Reason Comments Med Refill Encounter Details Date Type Department Care Team (Late st Contact Info) Description 08/13/2025 Refill [facility] MEDICINE [address] [place], [place] [phone] Ethel Santana MD 230 [place], [place] [phone] Prediabetes Social History Tobacco Use Types Packs/Day Years [...] Pressure 144/82( 025 11:38 AM EDT) No DayronsGabrielle Lyles, PharmD documented as of this encounter Visit Diagnoses Diagnosis Prediabetes Other abnormal glucose documented in this encounter Additional Health Concerns Assessment Noted Time PHQ-9 Depression Total Score: 0 01/09/20 25 2:24 PM EDT documented as of this encounter Care Teams Weaver Needle Loom Relationship Specialty Start Date End Date Ethel Santana MD [address] [place] [address] PCP - General Family Medicine 10/30/18 Gabrielle Peterson, Geno [address] [place] [address] Pharmacist Internal Medicine 02/16/23 Kim Alejandre [address] [place] [address] [address] Orthopaedic Surgery 09/23/24 Bebo Aquino MD [address] [place] [address] Drive [address] [place] [address] Urology 11/07/24 Piyush Acosta MD [address] [place] [address] Cardiology 12/31/24 Gala Triplett [address] [place] [address] Dr [address] [place] [address] Orthopaedic Surgery 08/06/25 documented as of this encounter
--- OUTSIDE RECORDS SUMMARY | 2025-08-15 09:19 | XMS_ITS | Encounter Summary ---
Author Organization [employer] Address [address] [facility] [address] [place] [address] Care Team Providers Care Guard Chief Name Role Phone Ethel Santana MD Primary Care Provider + [phone] Gabrielle Peterson PharmD Unavailable Kim Alejandre Unavailable Bebo Aquino MD Unavailable Piyush Acosta MD Unavailable Gala Triplett Unavailable Reason for Visit * Reason Onset Date Comments Med Refill 01/20/2025 Medication Question 01/20/2025 Encounter Details Date Type Department Care Team (Late st Contact Info) Description 01/20/2025 Telephone [facility] MEDICINE 230 [place], [place] [phone] Ethel Santana MD [address] [place], [place] [phone] Med Refill; Medication Question Social History Tobacco [...] about it with PCP. Contact pt at [phone] documented in this encounter Plan of Treatment Not on file documented as of this encounter Goals Goal Patient Goal Type Associated Problems Recent Progress Patient-Stated? Author Blood Pressure < 140/90 Blood Pressure 144/82( 025 11:38 AM EDT) No Gabrielle Sanz, PharmD documented as of this encounter Visit Diagnoses Not on filedocumented in this encounter Additional Health Concerns Assessment Noted Time PHQ-9 Depression Total Score: 0 01/09/20 25 2:24 PM EDT documented as of this encounter Care Teams Guard Chief Relationship Specialty Start Date End Date Ethel Santana MD [address] [place] [address] PCP - General Family Medicine 10/30/18 Gabrielle Peterson, PharmD [address] [place] [address] Pharmacist Internal Medicine 02/16/23 Kim Alejandre [address] [place] [address] Dr [address] [place] [address] Orthopaedic Surgery 09/23/24 Bebo Aquino MD [address] [place] [address] Drive [address] [place] [address] Urology 11/07/24 Piyush Acosta MD [address] [place] [address] Cardiology 12/31/24 Gala Triplett [address] [place] [address] Dr [address] [place] [address] Orthopaedic Surgery 08/06/25 documented as of this encounter
--- OUTSIDE RECORDS SUMMARY | 2025-08-15 09:19 | XMS_ITS | Encounter Summary ---
Author Organization [employer] Address [address] [facility] [address] 7[address] [place] [address] Care Team Providers Care Ict Sales Assistant Name Role Phone [place]thel cooley MD Primary Care Provider [phone] Gabrielle Peterson PharmD Unavailable [phone] Kim Alejandre Unavailable Bebo Aquino MD Unavailable [phone] Piyush Acosta MD Unavailable Gala Triplett Unavailable Reason for Visit * Reason Onset Date Comments xrays 07/15/2024 Encounter Details Date Type Department Care Team (Late st Contact Info) Description 07/15/2024 Telephone [facility] ADULT DENTAL 230 [place], [place] [phone] Charles Read DDS 230 [place], [place] [phone] xrays Social History Tobacco Use Types Packs/Day [...] to an office for periodontal care from [facility] and they need the patients xrays kandi sent to [email or web address] documented in this encounter Plan of Treatment [...] documented as of this encounter Care Teams Ict Sales Assistant Relationship Specialty Start Date End Date Ethel Santana MD 230 [place] [address] PCP - General Family Medicine 10/30/18 Gabrielle Peterson, PharmD 230 [place] [address] Pharmacist Internal Medicine 02/16/23 Kim Alejandre [address] [place] [address] Dr [address] [place] [address] Orthopaedic Surgery 09/23/24 Bebo Aquino MD [address] [place] [address] Drive [address] [place] [address] Urology 11/07/24 Piyush Acosta MD [address] [place] [address] Cardiology 12/31/24 Gala Triplett [address] [place] [address] Dr [address] [place] [address] Orthopaedic Surgery 08/06/25 documented as of this encounter
== END 2025-08-15 09:08 | disposition home or self-care (01) ==
LOC: HO.HOS 08:49
PROVIDERS: PCP Family Medicine; Visit Provider Physical Medicine & Rehabilitation
DX: M25.512 Pain in left shoulder (principal); G89.29 Other chronic pain; M79.18 Myalgia, other site
CPT/HCPCS: 99213

== ENCOUNTER → 2025-08-15 08:49 | Outpatient (BNVA) | payer MEDICAID, SELFPAY | PROVIDERS: PCP Family Medicine; Visit Provider Physical Medicine & Rehabilitation | DX: M25.512 Pain in left shoulder (principal); G89.29 Other chronic pain; M79.18 Myalgia, other site | CPT/HCPCS: 99212 ==

== ENCOUNTER 2025-10-01 12:57 | Emergency (ER) | payer MEDICAID, SELFPAY ==
--- NOTE | ~2025-10-01 | US_ITS ---
EXAMINATION: US TRIPLEX LOWER EXTREMITY, RIGHT CLINICAL INFORMATION: Right lower extremity edema COMPARISON: None available. TECHNIQUE: Color-flow triplex imaging with spectral analysis and compression Doppler were performed on the right lower extremity. FINDINGS: Respiratory variation, normal compression and augmented flow are noted throughout the right lower extremity. The visualized common femoral vein, superficial femoral vein, profunda femoral vein, popliteal vein and midcalf peroneal and posterior tibial venous segments show no evidence of deep venous thrombosis. US/US venous duplex LE RT IMPRESSION: No evidence of deep venous thrombosis involving the right lower extremity. Electronically signed by: Aldair Briceño MD 10/01/2025 02:07 PM [facility]
--- NOTE | ~2025-10-01 | XR_ITS ---
EXAMINATION: XR CHEST CLINICAL INFORMATION: chest pain COMPARISON: June 03, 2022 TECHNIQUE: 2 views of the chest were obtained. FINDINGS: No significant abnormality is noted involving the heart, lungs, mediastinum, bony thorax or soft tissues. XR/XR chest 2V IMPRESSION: No acute disease Electronically signed by: Aldair Briceño MD 10/01/2025 01:44 PM [facility]
--- NOTE | 2025-10-01 12:58 | ECG_ITS ---
Test Reason : chest pain Blood Pressure : */* mmHG Vent. Rate : 56 BPM Atrial Rate : 56 BPM P-R Int : 248 ms QRS Dur : 96 ms QT Int : 410 ms P-R-T Axes : 72 2 59 degrees QTcB Int : 395 ms Sinus bradycardia with sinus arrhythmia with 1st degree A-V block Otherwise normal ECG When compared with ECG of 03-Jun-2022 14:17, Nonspecific T wave abnormality, improved in Lateral leads Referred By: Farooq Goodwin Electronically Signed By: RAH HOYOS
[2025-10-01 13:08] VITALS: BP 182/97; PULSE 63; RESP 20; TEMP 35.8; O2SAT 98; BMI 34.1
--- NOTE | 2025-10-01 13:12 | ED_ITS ---
HPI - Chest Pain General Chief Complaint: Chest Pain Stated Complaint: chest pain Time Seen by Provider: 10/01/25 19:57 Source: patient, RN notes reviewed and old records reviewed Mode of arrival: ambulatory Limitations: no limitations History of Present Illness ED Provider: Elyssa HPI narrative: 60-year-old male past medical history significant for arthritis, chronic back pain, hypertension, hyperlipidemia presents for evaluation of right-sided chest pain. His pain started about 3 weeks ago. He reports the pain started when he began slipping on the floor as he felt that that may help his back pain He reports that in his back pain has resolved pain The patient denies associated symptoms including shortness of breath, cough pain Though he does report right-sided leg pain and swelling. He feels as though his socks leave indent in the right leg only pain He has noticed increased varicose veins in the right upper leg He has no history of DVT or PE Denies any fevers or chills The patient reports that his pain has improved with ibuprofen Related Data Home Medications ?Medication ?Instructions ?Recorded ?Confirmed hydrochlorothiazide 25 mg tablet 25 mg PO DAILY 08/15/25 carvedilol 6.25 mg tablet 6.25 mg PO BID 03/05/2107/30 folic acid 1 mg tablet 1 mg PO DAILY 10/06/2108/15 omeprazole 20 mg capsule,delayed 1 cap PO DAILY PRN Ga stric Reflux 02/11/22 08/15/25 release multivitamin 1 tab PO DAILY 04/25/2207/30 atorvastatin 40 mg tablet 40 mg PO BEDTIME 03/13/23 cyclobenzaprine 10 mg tablet 10 mg PO BEDTIME 03/13/23 08/15/25 trazodone 50 mg tablet 75 mg PO BEDTIME 05/22/25 Previous Rx's ?Medication ?Instructions ?Recorded acetaminophen 500 mg tablet 500 mg PO QID PRN pain #14 tabs 02/03/23 ibuprofen 600 mg tablet 600 mg PO TID PRN pain #14 t abs 02/03/23 sodium,potassium,mag sulfates 17.5 See Rx Instructions PO .COMPLEX 03/13/23 gram-3.13 gram-1.6 gram oral soln #354 mL (Suprep Bowel Prep Kit) tadalafil 5 mg tablet 5 mg PO DAILY bladder weakne ss 90 05/03/24 days #90 tabs sildenafil 100 mg tablet 100 mg PO DAILY PRN sexual 0 07/09/25 activity #30 tabs tamsulosin 0.4 mg capsule (Flomax) 0.4 mg PO BEDTIME 9 0 days #90 tabs 07/09/25 Allergies Allergy/AdvReac Type Severity Reaction Status Date / Time No Known Allergies (No Known Allergy Verified 10/01/25 13:11 Allergies*) Review of Systems 2 Constitutional: Constitutional: Denies body ache(s), Denies chills, Denies fever(s) and Denies headache(s) Eyes: Eyes: Denies blurry vision ENT: Denies dizziness and Denies headache(s) Cardiovascular: Cardiovascular: Reports chest pain, Reports chest pain at rest, Denies Epigastric Pain, Reports leg edema and Denies dyspnea on exertion Respiratory: Respiratory: Denies chest congestion, Denies cough and Denies dyspnea on exertion Gastrointestinal: Gastrointestinal: Denies abdominal pain, Denies constipation, Denies nausea and Denies vomiting Neurologic: Denies dizziness and Denies headache(s) [facility] Past Medical History Medical History (Updated 10/02/25 @ 00:00 by Hernando Ramos) Tubular adenoma Cellulitis Vomiting and diarrhea Depression Cardiomyopathy GERD (gastroesophageal reflux disease) Sickle-cell trait Weakness Anxiety Sleep apnea COVID-19 vaccine series completed Elevated cholesterol Colon cancer screening Erectile dysfunction Lumbar radiculopathy Dysfunction of left rotator cuff Hypertension Chronic back pain Surgical History (Updated 05/22/25 @ 11:41 by Gala Triplett MD) History of colonoscopy (~04/04/23) Hx of rotator cuff surgery Hx of arthroscopic knee surgery Hx of appendectomy H/O colonoscopy Family History Family History Father No problems noted. Mother Cardiomyopathy Social History Social History Household Members: None Household Members Other:: none Are you a primary child care counselor to a significant other at home: No Do you presently have visiting nurse or other home services: No Alcohol intake: current Alcohol intake frequency: holidays/special occasions only Comment: aware of trip hazard Patient Tobacco Use Status: Former Tobacco user Tobacco use type: Cigarette Smoked in Last 30 Days: No Use of substances other than those prescribed or required for medical reasons: Yes Substance Use Type: Marijuana Advance Directives: Yes Advance Directives on File: Yes Advance Directives Date on File: 01/13/16 Do you have a plan to hurt others: No Plan Current occupational status: employed 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 Physical Exam 2 Vital Signs: Vital Signs: Last Vital Signs Temp 98.4 F 10/01/25 20:31 Pulse 59 10/01/25 20:31 Resp 12 10/01/25 20:31 BP 164/92 H 10/01/25 20:31 Pulse Ox 100 10/01/25 20:31 O2 Del Method Room Air 10/01/25 20:31 BMI result Body Mass Index 34.1 Const: General: healthy appearing, comfortable, no acute distress, alert and awake Nutritional Appearance: well nourished Orientation/consciousness: p atient oriented x3 HEENT: Head: Yes normocephalic and Yes atraumatic Eyes: Eyelids: Yes eyelids normal Conjunctivae: conjunctivae normal S clerae: sclerae normal Corneas: corneas normal Pupils: Equal, round and reactive pupils present EOM: EOMs intact bilaterally Neck: Neck: Yes full ROM Chest: Other: There was a firm, mobile, 1 cm mass in his soft tissues to the right chest wall in the midclavicular line at approximate level of the 8th rib. No surrounding skin changes, erythema, wounds. No fluctuance or induration. Chest palpation & inspection: normal inspection of the chest and abnormal palpation of chest wall Resp: Effort & Inspection: normal respiratory effort, able to speak in complete sentences, no audible wheezes and not labored Auscultation: clear to auscultation bilaterally Cardio: Rate: regular rate Rhythm: regular rhythm GI: Inspection: No distended Palpation (GI): Soft to palpation, not firm, nontender, no guarding and not rigid Skin: General skin exam: elasticity normal Neuro: General: patient oriented x3 Cranial nerves: Yes Equal, round and reactive pupils present and Yes Bilaterally intact EOM present Cognition (Neuro): normal cognition Course Course Course Narrative: RME; 60-year-old male sent from primary care for right-sided chest pain and right leg swelling. Patient denies any nausea or vomiting. Labs EKG x-ray ultrasound ordered Medical Decision Making Medical Decision Making MDM Narrative: [age] old male presents for evaluation of chest pain. His chest pain has been present for about 3 weeks, he is in the right side. He reports he has had similar pain in the past and was told it was ?costochondritis. ? He reports his pain has improved with ibuprofen. He reports that the pain initially started when he was sleeping on the floor and propping himself up to be able to watch TV. His EKG shows sinus bradycardia, no ischemic changes. Infectious EKG has not changed significantly since his last EKG 3 years ago. His right leg did not appear swelling and during my evaluation. He reports it improves with elevation. This may be due to peripheral vascular disease. Ultrasound was negative for DVT. There was no evidence of infectious process. The patient rules out for ACS with a negative troponin despite 3 weeks of chest pain. He has had a negative EKG. Chest x-ray does not show any pleural effusions, pulmonary and edema or infiltrates. The patient's pain is reproducible on exam, he has no abdominal pain or tenderness on exam. No nausea vomiting, I do not see any indication to order a CT scan of the abdomen pelvis at this time. The patient does have a soft tissue mass which may be a a lipoma or fibroma. Does not appear to be an abscess, it is mobile. The patient reports he has a good PCP with close follow up and he may have an outpatient ultrasound to better evaluate this Differential Diagnosis Differential Diagnoses: The differential diagnosis associated with the presentation includes Atypical chest pain ACS Costochondritis Bronchitis Pneumonia ACS less likely Lipoma Four low Constipation Admission/Observation Consideration of admission/observation: Escalation of care including admission/observation considered Lab Data [facility] Lab Attestation statement: I reviewed the patient's lab results. No leukocytosis. The patient has a very mild, microcytic anemia of unclear etiology. No evidence of active bleeding. Platelet count within normal limits. There was no left shift. The patient has no significant electrolyte abnormalities warranting dimension. Troponin is within normal limits. BNP within normal limits 10/01/25 15:15 10/01/25 15:15 Labs: Lab Results 10/01/25 Range/Units 15:15 WBC 5.8 (4.8-10.8) X10*3/uL RBC 5.37 (4.60-5.80) X10*6/uL Hgb 13.8 L (14.0-18.0) g/dl Hct 40.0 L (42.0-52.0) % MCV 74.5 L (80.0-98.0) fL MCH 25.7 L (27.0-33.0) pg MCHC 34.5 (31.0-36.0) g/dl RDW 14.6 (11.0-16.0) % Plt Count 221 (160-400) X10*3/uL MPV 8.9 L (9.4-12.4) fL Immature Gran % (Auto) 0.3 (0.0-0.4) % Neut % (Auto) 54.3 (45-73) % Lymph % (Auto) 33.8 (20-40) % Gentry % (Auto) 8.5 (2-11) % Eos % (Auto) 2.8 (0-4) % Baso % (Auto) 0.3 (0-2) % Lymph # (Auto) 2.0 (1.2-4.9) X10*3/uL Gentry # (Auto) 0.5 (0.1-1.2) X10*3/uL Eos # (Auto) 0.2 (0.0-0.4) X10*3/uL Baso # (Auto) 0.0 (0.0-0.2) X10*3/uL Abs Immat Gran (auto) 0.02 (0.00-0.03) X10*3/uL Absolute Neuts (auto) 3.1 (2.0-8.3) x10*3/uL Absolute Nucleated RBC 0.000 (0.0-0.012) X10*3/uL Nucleated RBC % (auto) 0.0 (0.0-0.2) /100WBC PT 12.8 (11.2-13.5) SEC INR 1.0 (0.9-1.1) APTT 32.0 (26.7-34.1) SEC Sodium 141 (135-145) mmol/L Potassium 3.7 (3.3-5.1) mmol/L Chloride 111 H (96-108) mmol/L Carbon Dioxide 24 (22-29) mmol/L Anion Gap 10 L (12-20) BUN 20 H (9-16) mg/dL Creatinine 0.99 (0.5-1.4) mg/dL Estim Creat Clear Calc 97.5 Estimated GFR > 60 Random Glucose 92 (60-115) mg/dL Calcium 9.3 (8.4-10.2) mg/dL Total Bilirubin 0.3 (0.0-1.0) mg/dL AST 30 (5-37) U/L ALT 33 (0-40) U/L Alkaline Phosphatase 71 (39-117) U/L Troponin I High Sens 3.4 (<3.5-35.0) ng/L NT-Pro-B Natriuret Pep 99.7 (<300) pg/mL Total Protein 7.0 (6.5-8.0) g/dL Albumin 4.2 (3.5-5.0) g/dL Lipase 45 (8-78) U/L Independent Interpretation I performed an independent interpretation of an: EKG Radiology Impression Discussion of test interpretation with radiology: I have reviewed the radiologist's reading. Radiologist Impression: FINDINGS: No significant abnormality is noted involving the heart, lungs, mediastinum, bony thorax or soft tissues. XR/XR chest 2V IMPRESSION: No acute disease Electronically signed by: Aldair Briceño MD 10/01/2025 01:44 PM Envia Lá RP FINDINGS: Respiratory variation, normal compression and augmented flow are noted throughout the right lower extremity. The visualized common femoral vein, superficial femoral vein, profunda femoral vein, popliteal vein and midcalf peroneal and posterior tibial venous segments show no evidence of deep venous thrombosis. US/US venous duplex LE RT IMPRESSION: No evidence of deep venous thrombosis involving the right lower extremity. Electronically signed by: Aldair Briceño MD 10/01/2025 02:07 PM EST RP Discharge Plan Discharge Clinical Impression: Atypical chest pain Patient Disposition: Home, Self-Care Instructions: Chest Wall Pain (ED) Additional Instructions: Your workup in the ER today was reassuring pain You may continue using ibuprofen as needed for pain. Follow up with your primary doctor, return for new or worsening symptoms pain You may benefit from an ultrasound of the right chest wall/upper abdominal soft tissue mass Prescriptions: No Action omeprazole 20 mg capsule,delayed release(DR/EC) 1 cap PO DAILY PRN (Reason: Gastric Reflux) ibuprofen 600 mg tablet 600 mg PO TID PRN (Reason: pain) Qty: 14 0RF acetaminophen 500 mg tablet 500 mg PO QID PRN (Reason: pain) Qty: 14 0RF hydrochlorothiazide 25 mg tablet 25 mg PO DAILY carvedilol 6.25 mg tablet 6.25 mg PO BID Rx Instructions: must administer with a meal/food multivitamin Tablet 1 tab PO DAILY folic acid 1 mg tablet 1 mg PO DAILY trazodone 50 mg tablet 75 mg PO BEDTIME atorvastatin 40 mg tablet 40 mg PO BEDTIME cyclobenzaprine 10 mg tablet 10 mg PO BEDTIME sodium,potassium,mag sulfates [Suprep Bowel Prep Kit] 17.5-3.13-1.6 gram recon soln See Rx Instructions PO .COMPLEX Qty: 354 0RF Rx Instructions: DILUTE; drink full amount early evening before AND next morning at least 2 hr before procedure; follow w 960 mL water PO tadalafil 5 mg tablet 5 mg PO DAILY 90 Days Qty: 90 1RF Rx Instructions: Take daily tamsulosin [Flomax] 0.4 mg capsule 0.4 mg PO BEDTIME 90 Days Qty: 90 1RF sildenafil 100 mg tablet 100 mg PO DAILY PRN (Reason: sexual activity) Qty: 30 1RF Rx Instructions: administer 30 minutes to 4 hours before activity Interventions: ED Discharge Assessment Last Done: 10/01/25 20:31 Discharge Date/Time: 10/01/25 20:36 Print Language: Honduran
[2025-10-01 15:20] LABS: MANUAL DIFF FLAG NO
[2025-10-01 15:23] LABS: Hematocrit 40.0 % (42.0-52.0); Hemoglobin 13.8 g/dl (14.0-18.0); Imm Gran Abs Auto 0.02 X10*3/uL (0.00-0.03); Imm Gran Pct Auto 0.3 % (0.0-0.4); Lymphocytes Absolute Auto 2.0 X10*3/uL (1.2-4.9); Mean Corpuscular HGB Conc 34.5 g/dl (31.0-36.0); Mean Corpuscular Hemoglobin 25.7 pg (27.0-33.0); Mean Corpuscular Volume 74.5 fL (80.0-98.0); NRBC Abs Auto 0.000 X10*3/uL (0.0-0.012); NRBC Pct Auto 0.0 /100WBC (0.0-0.2); Platelet Count 221 X10*3/uL (160-400); Red Blood Count 5.37 X10*6/uL (4.60-5.80); White Blood Count 5.8 X10*3/uL (4.8-10.8)
[2025-10-01 15:32] LABS: INTERNATIONAL NORM RATIO 1.0 (0.9-1.1); Prothrombin Time 12.8 SEC (11.2-13.5)
[2025-10-01 15:35] LABS: Partial Thromboplastin Time 32.0 SEC (26.7-34.1)
[2025-10-01 15:36] LABS: Alanine Aminotransferase 33 U/L (0-40); Albumin Level 4.2 g/dL (3.5-5.0); Alkaline Phosphatase 71 U/L (39-117); Anion Gap 10 (12-20); Aspartate Amino Transferase 30 U/L (5-37); Blood Urea Nitrogen 20 mg/dL (9-16); Calcium 9.3 mg/dL (8.4-10.2); Carbon Dioxide 24 mmol/L (22-29); Chloride 111 mmol/L (96-108); Creatinine Clr Calc Pharmacy 97.5; Estimated Glomerular Filt Rate > 60; Lipase 45 U/L (8-78); Potassium 3.7 mmol/L (3.3-5.1); Sodium 141 mmol/L (135-145); Total Protein 7.0 g/dL (6.5-8.0)
[2025-10-01 15:47] LABS: Troponin-I High Sensitivity 3.4 ng/L (<3.5-35.0)
[2025-10-01 17:00] LABS: NT Pro B Type Natriuretic Pept 99.7 pg/mL (<300)
--- OUTSIDE RECORDS SUMMARY | 2025-10-01 18:57 | XMS_ITS | Encounter Summary ---
Author Organization [facility] Address [address] [place] [address] Care Team Providers Care Garment Worker Name Role Phone Ethel Santana MD Primary Care Provider [phone] Encounter Details Date Type Department Care Team (Late Contact Info) Description 09/26/2025 Telephone Orthopedic Surgery [facility] [address] [phone] Roldan Bowles DPM [address] [phone] Social History Tobacco Use Types Packs/Day Years Used Date Smoking Tobacco: Former Cigarettes 0 Q uit: 10/30/2007 Smokeless Tobacco: Never Alcohol Use Standard Drinks/Week Comments Yes 0 (1 standard drink = 0.6 oz pur e alcohol) Sex and Gender Information Value Date Recorded Sex Assigned at Not on file Legal Sex Male 7:23 PM EST Gender Identity Not on file Sexual Orientation Not on file documented as of this encounter Progress Notes * Danica Reynoso - 09/26/2025 3:27 PM EST Terbinafine is not working Please call to discuss pt is not sure if he should be seeing results by now documented in this encounter Plan of Treatment Upcoming Encounters Date Type Department Care Team (Late Contact Info) Description 11/27/2025 10:00 AM EST Office Visit Orthopedic Surgery [facility] [address] [phone] Roldan Bowles DPM 175 [facility] [address] [place] [address] documented as of this encounter Visit Diagnoses Not on filedocumented in this encounter Care Teams Garment Worker Relationship Specialty Start Date End Date Max, MD Ethel [address] [facility] [address] [place] [phone] PCP - General Internal Medicine 09/09/11 documented as of this encounter
--- OUTSIDE RECORDS SUMMARY | 2025-10-01 18:57 | XMS_ITS | Clinical Summary ---
Author Organization 175 [facility] Address [address] [place] [address] Phone Care Team Providers Care Security Operations Center Operator Name Role Phone Ethel Santana MD Primary Care Provider [phone] Allergies No known active allergies Medications amLODIPine [...] SEXUAL RELATIONS ONCE DAILY NEEDED. 0 Active terbinafine (LamISIL) 250 mg tablet Take 1 tablet (250 mg total) by mouth 1 (one) time each day. 30 tablet 2 5 11/26/19 26 Active Active Problems Problem Noted Date Diagnosed Date Chronic lower back pain 11/10/2020 Overview (12/29/2023): Since 2005 Obese 04/29/2019 Mixed sleep apnea 01/08/2018 Overview (12/29/2023): [facility] Polysomnogram treatment study. Date 01/06/2018 . SE 66 % SM 67 %; spent 20 % of the study in REM. At the optimal pressure of CPAP @ 11; RDI 0.6 (AHI 0.6), Central apneas 1; Obstructive apneas 0; Mixed apneas 0; hypopneas 0; RERAs 0; and, average oxygen saturation was 96%. For the entire study, PLMs ~9. [facility] Polysomnogram: Date 08/06/2017; Wt 248 [...] Esophageal reflux 11/01/2012 Essential hypertension, benign 11/01/2012 Encounters Date Type Department Care Team Description 09/26/2025 Telephone Orthopedic Surgery - [place] [address] [place] [phone] Roldan Bowles DPM 08/28/2025 10:45 AM EDT Lab Draw Station - [address] [facility] [address] [place] [phone] Tinea unguium 08/28/2025 10:00 AM EDT Consult Orthopedic Surgery - [place] [address] [place] [phone] Roldan Bowles DPM Pain in toes of both feet (Primary Dx); Tinea unguium; Dermatophytosis, nail; Midfoot skin ulcer, right, limited to breakdown of skin ([facility] V24, [facility] V28) from Last 3 Months Medical History Medical History Date Comments Essential hypertension, benign 11/01/2012 D X:Essential hypertension, benign Esophageal reflux 11/01/2012 DX:Esophageal reflux Chest pain, unspecified 11/01/2012 DX:Chest pain, unspecified Mixed sleep apnea 01/08/2018 DX:Mixed sleep apnea; COMMENT: [facility] Polysomnogram treatment study. Date 01/06/2018 . SE [...] Care Team (Late st Contact Info) Description 11/27/2025 10:00 AM EST Office Visit Orthopedic Surgery - [place] [id number] [phone] Roldan Bowles, DPM [address] [address] Health Maintenance Due Date Last Done Comments Colorectal Cancer Screening: Colonoscopy 1965 RSV Immunization Adult Patients (1 - Risk 50-74 years 1-dose series) 2015 Social Influencers of Health Screening 10/01/2022 Depression Screening 10/30/2024 COVID-19 Vaccine (4 - 2024-2 6 season) 2025 02/23/2023, 03/24/2021, 02/24/2021 Hypertension/CHF/CAD Annual BMP Blood Test 08/28/2026 08/28/2025 Cholesterol Screening (Lipid Panel) 07/25/2029 07/25/2024 DTaP,Tdap,and Td Vaccines (3 - Td or Tdap) 01/08/2035 01/08/2025, 11/13/2014 Hepatitis B Vaccines Completed 08/24/2023, 03/28/2023, 02/23/2023 HIV Screening Completed 10/04/2023 Hepatitis C Screening Completed 10/04/2023 Pneumococcal Vaccine: 50+ Years Completed 10/04/2023 Zoster Vaccines Completed 12/13/2023, 10/04/2023 Hepatitis A Vaccines Completed 06/24/2024, 10/04/2023 Influenza Vaccine Completed 07/21/2025, 07/25/2013 HIB Vaccines Aged Out No longer eligi [...] to complete this topic RSV Immunization Patients Under 20 months Aged Out No longer eligible b ased on patient's age to complete this topic Varicella Vaccines Aged Out No longer eligible based on patient's age to complete this topic Procedures Procedure Name Priority Date/Time Associated Diagnosis Comments COMPREHENSIVE METABOLIC PANEL Routine 08/28/2025 10:44 AM EDT Tinea unguium from Last 3 Months Results * Comprehensive metabolic panel (08/28/2025 10:44 AM EDT) Sodium 139 133 - 145 mmol/L LAB CHEMISTRY METHOD 08/28/2025 4:02 PM [facility] Potassium 3.7 3.5 - 5.5 mmol/L LAB CHEMISTRY METHOD 08/28/2025 4:02 PM [facility] Chloride 105 96 - 110 mmol/L LAB CHEMISTRY METHOD 08/28/2025 4:02 PM [facility] CO2 28 21 - 32 mmol/L LAB CHEMISTRY METHOD 08/28/2025 4:02 PM [facility] Anion Gap 6 3 - 11 LAB CHEMISTRY METHOD 08/28/2025 4:02 PM [facility] Glucose 100 70 - 100 mg/dL LAB CHEMISTRY METHOD 08/28/2025 4:02 PM [facility] BUN 18 5 - 25 mg/dL LAB CHEMISTRY METHOD 08/28/2025 4:02 PM [facility] Creatinine 1.06 0.70 - 1.30 mg/dL LAB CHEMISTRY METHOD 08/28/2025 4:02 PM [facility] eGFR 80 >=60 mL/min/1. 73m2 LAB CHEMISTRY METHOD 08/28/2025 4:02 PM [facility] Comment:Calculation based on the Chronic Kidney Disease Epidemiology Collaboration (CKD-EPI) equation refit without adjustment for race. BUN/Creatinine Ratio 17.0 LAB CHEMISTRY METHOD 08/28/2025 4:02 PM [facility] Calcium 9.3 8.5 - 10.5 mg/dL LAB CHEMISTRY METHOD 08/28/2025 4:02 PM [facility] AST (SGOT) 16 10 - 42 unit/L LAB CHEMISTRY METHOD 08/28/2025 4:02 PM [facility] ALT (SGPT) 21 10 - 60 unit/L LAB CHEMISTRY METHOD 08/28/2025 4:02 PM [facility] Alkaline Phosphatase 84 42 - 121 unit/L LAB CHEMISTRY METHOD 08/28/2025 4:02 PM [facility] Total Protein 6.9 6.0 - 8.0 g/dL LAB CHEMISTRY METHOD 08/28/2025 4:02 PM [facility] Albumin 3.8 3.2 - 5.0 g/dL LAB CHEMISTRY METHOD 08/28/2025 4:02 PM [facility] Total Bilirubin 0.3 0.0 - 1.4 mg/dL LAB CHEMISTRY METHOD 08/28/2025 4:02 PM [facility] Blood Venous blood specimen / Unknown Venipuncture / Unknown 08/28/2025 10:44 AM EDT 08/28/2025 10:44 AM EDT Roldan Bowles DPM LAB BLOOD ORDERABLES Final Result [facility] [address] [place] [address], [place] [phone] from Last 3 Months Insurance [address] [place] [address] MEDICAID - [place] Care Teams Security Operations Center Operator Relationship Specialty Start Date End Date Max, MD Ethel [address] [place] [phone] PCP - General Internal Medicine 09/09/11
--- OUTSIDE RECORDS SUMMARY | 2025-10-01 18:57 | XMS_ITS | Clinical Summary ---
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
--- OUTSIDE RECORDS SUMMARY | 2025-10-01 18:57 | XMS_ITS | Encounter Summary ---
Author Organization [facility] Health Address [address] [place] [address] Care Team Providers Care Technical Documentation Specialist Name Role Phone Unavailable Primary Care Provider Unavailabl e Prior Encounters Date Type Department Care Team Description 08/14/2024 11:00 AM EDT Office Visit [address], [facility] [address] [place] [address] Guille Davison III, MELISSA Plan [...]
[2025-10-01 19:54] VITALS: BP 164/92; PULSE 59; RESP 12; TEMP 36.9; O2SAT 100
--- NOTE | 2025-10-01 20:16 | PC.NURSE ---
Pt a&ox4, no signs of distress. Pt ambulated to restroom and back to room with a steady gait. Plan of care ongoing.
[2025-10-01 20:31] VITALS: BP 164/92; PULSE 59; RESP 12; TEMP 36.9; O2SAT 100
== END 2025-10-01 20:36 | disposition home or self-care (01) ==
PROVIDERS: Physician Assistant; Emergency Provider Emergency Medicine; PCP Family Medicine
DX: R07.89 Other chest pain (principal); R22.2 Localized swelling, mass and lump, trunk; R00.1 Bradycardia, unspecified; D64.9 Anemia, unspecified; I10 Essential (primary) hypertension; Z87.891 Personal history of nicotine dependence; Z86.79 Personal history of other diseases of the circulatory system; Z79.899 Other long term (current) drug therapy
CPT/HCPCS: 36415; 71046; 80053; 83690; 83880; 84484; 85025; 85610; 85730; 93005; 93971; 99284

== ENCOUNTER → 2025-10-01 12:58 | Outpatient (BNV) | payer MEDICAID, SELFPAY | PROVIDERS: PCP Family Medicine; Visit Provider Internal Medicine | DX: R00.1 Bradycardia, unspecified (principal); I44.0 Atrioventricular block, first degree | CPT/HCPCS: 93010 ==

== ENCOUNTER → 2025-10-01 13:18 | Outpatient (BNV) | payer MEDICAID, SELFPAY | PROVIDERS: PCP Family Medicine; Visit Provider Radiology Diagnostic Radiology | DX: R22.41 Localized swelling, mass and lump, right lower limb (principal); R07.9 Chest pain, unspecified | CPT/HCPCS: 71046; 93971 ==